=== PATIENT | male | born 1965 | race Caucasian/White ===

== ENCOUNTER 2024-08-15 13:55 | Outpatient (OUT) | payer BC, SELFPAY ==
--- NOTE | 2024-08-13 15:28 | VEINCLINIC_ITS ---
Vital Signs 08/15/24 14:12 Height 5 ft 10 in Weight 127.006 kg BMI 40.2 BP 170/78 H BP Location Left Brachial BP Position Sitting BP Cuff Size Adult BP Source Manual Cuff Respiration 20 Pulse 95 H Pulse Source Monitor Pulse Oximetry (%) 99 Oxygen Delivery Method Room Air Comment The patient's blood pressure is elevated. Varicose Veins Patient is a 59 year old male in this day referred by Dr. Spears secondary to slow healing wound to left lateral lower leg greater than 1 month along with cellulitis left leg. Patient also c/o bilateral leg edema and discoloration. Patient has worn bilateral leg knee high compression stockings for approximately 3 months with some notable decrease in edema. Patient has not ever been previosuly diagnosed with varicose vein disease nor has he had any vein procedures in the past. Patient does have significant family history of varicose vein disease in his sister and mother. Patient has no history of DVT of P.E. Rodri Huntley MD personally performed the services described in this documentation, as scribed by Guillermo Foster RN in my presence and it is both accurate and complete. IGuillermo RN, am scribing for, and in the presence of, Dr. Rodri Yadav and in the presence of the patient. . thigh: bilateral (symptoms bilaterally noted), knee: bilateral, calf: bilateral, ankle: bilateral and costello: bilateral aching, burning, cramping and tender 3 1 month Worsened in recent months: Yes standing and sitting analgesics, elevating extremities and compression stockings Reports muscle spasms of leg, heaviness, edema and leg edema History of lower extremity trauma: Yes Superficial thrombophlebitis: No Family history of varicose veins: yes Has patient had previous lower extremity venous surgery: No Patient has previously received the following treatment(s) for lower extremity varicose veins: Reports none Does patient have a history of : not applicable Has patient had lower extremity venous scan with relux testing: No Support hose used: Yes Problems walking or doing physical activity: Yes How does it affect you: intermitten pain affects walking/exercise Do you walk much: Yes Do you stand much: Yes Review of Systems ROS Narrative Rodri Huntley MD personally performed the services described in this documentation, as scribed by Guillermo Foster RN in my presence and it is both accurate and complete. Guillermo Huntley RN, am scribing for, and in the presence of, Dr. Rodri Yadav and in the presence of the patient. Status of ROS 10 or more systems reviewed and unremark able except as noted in history and below Cardiovascular Reports: edema Integumentary/Breast Reports: itching, redness, skin tenderness, skin swelling, non-healing lesion and changes in skin color Neurological Reports: weakness in extremities PFSH PFS Medical History (Updated 08/15/24 @ 14:57 by Guillermo Foster) Cellulitis ?L03.90 - Cellulitis, unspecified (ICD-10) Hypercholesteremia ?E78.00 - Pure hypercholesterolemia, unspecified (ICD-10) Afib ?I48.91 - Unspecified atrial fibrillation (ICD-10) Varicose veins of both lower extremities with complications ?I83.893 - Varicose veins of bilateral lower extremities with other complications (ICD-10) Hypertension ?I10 - Essential (primary) hypertension (ICD-10) Heart disease ?I51.9 - Heart disease, unspecified (ICD-10) Surgical History (Updated 08/15/24 @ 14:26 by Guillermo Foster) H/O heart artery stent ?Z95.5 - Presence of coronary angioplasty implant and graft (ICD-10) Family History (Updated 08/15/24 @ 14:27 by Guillermo Foster) Other Family history of hypertension Family history of myocardial infarction Family history of stroke Varicose veins of bilateral lower extremities with pain Social History (Updated 08/15/24 @ 14:28 by Guillermo Foster) Within the past year, how often did you have a drink containing alcohol: 4 or more times a week Smoking status: Never smoker Non-prescribed substance use: denies use Meds Home Medications and Allergies Home Medications ?Medication ?Instructions ?Recorded ?Confirmed ?Type atorvastatin 40 mg tablet 40 mg PO DAILY 08/15/24 08/15/24 History clopidogrel 75 mg tablet (Plavix) 75 mg PO DAILY 08/15/24 08/15/24 History losartan 100 mg tablet (Cozaar) 100 mg PO DAILY 08/15/24 08/15/24 History metoprolol succinate 50 mg 50 mg PO DAILY 08/15/24 08/15/24 History tablet,extended release 24 hr (Toprol XL) metoprolol tartrate 25 mg tablet 25 mg PO BID 08/15/24 08/15/24 History rivaroxaban 20 mg tablet (Xarelto) 20 mg PO DAILY 08/15/24 08/15/24 History Allergies Allergy/AdvReac Type Severity Reaction Status Date / Time No Known Drug Allergies Allergy Verified 08/15/24 14:28 Exam Narrative Exam Narrative: Left lateral lower leg wound 1pxl9an reddened and not well approximated. Rodri Huntley MD personally performed the services described in this documentation, as scribed by Guillermo Foster RN in my presence and it is both accurate and complete. Guillermo Huntley RN, am scribing for, and in the presence of, Dr. Rodri Yadav and in the presence of the patient. Constitutional Documenting provider has reviewed patient's vital signs: yes Common normals: oriented x3 Nutritional appearance: overweight Cardio Peripheral pulses: posterior tibial pulses present and dorsalis pedis pulses present Extremity Common normals: normal capillary refill General: calf tenderness and edema Right lower extremity: lower leg Right lower leg: inspection and palpation Left lower extremity: lower leg Left lower leg: inspection and palpation Neuro Common normals: oriented x3 Results Additional Findings Additional findings: Bilateral leg reflux u/s reveals severe bilateral leg great saphenous, small saphenous, right anterior accessory saphenous, and bilateral leg perforating vein venous insufficiency with associated dilation along with bilateral leg branch saphenous truncal tributary varicosities. Rodri Huntley MD personally performed the services described in this documentation, as scribed by Guillermo Foster RN in my presence and it is both accurate and complete. Guillermo Huntley RN, am scribing for, and in the presence of, Dr. Rodri Yadav and in the presence of the patient. Assessment and Plan Assessment and Plan (1) Varicose veins of both lower extremities with complications: Plan Patient to continue to use bilateral leg knee high compression stockings, rest and elevation of bilateral legs/feet. Patient to return for EVLT of left SSV followed by left GSV followed by EVLT of perforating veins to left lower leg near wound followed by EVLT of right GSV, right SSV, and right AASV. Once EVLT's complete, move forward with microfoam chemical ablation bilateral leg branch saphenous varicosities. Rodri Huntley MD personally performed the services described in this docume ntation, as scribed by Guillermo Foster RN in my presence and it is both accurate and complete. Guillermo Huntley RN, am scribing for, and in the presence of, Dr. Rodri Yadav and in the presence of the patient.
--- NOTE | 2024-08-13 15:29 | W.VEIN ---
Discharge Plan Discharge Disposition: Home, Self-Care Outpatient Diagnostics: VC Endovenous Ablation 1VeinLT (Routine) Timeframe: 2 Months Facility: [facility] - Location: Vein Center Ordered By: Rodri Yadav Plan of Treatment: EVLT of left SSV Patient Instructions: Endovenous Ablation (DC) Print Language: Swedish Discharge Date/Time: 08/15/24 15:59
--- NOTE | 2024-08-15 14:04 | VEIN_ITS ---
Patient Name: SAVANNAH HOBBS MR#: [id number] : 1965 Exam Date: 08/15/2024 Ordering Doctor: DR RODRI YADAV M.D. RADIOLOGY REPORT PROCEDURE: VC EXT VENOUS REFLUX NEGAR LMTD COMPARISON: None. INDICATIONS: I83.813 Bilateral painful varicose veins TECHNIQUE: Duplex imaging of the lower extremity to assess the deep and superficial venous system for the presence of deep or superficial venous incompetence and to document the location and severity of disease. The study includes evaluation of the great saphenous vein (GSV), anterior accessory saphenous vein (AASV) and small saphenous vein (SSV). Patient scanned in reverse Trendelenburg and standing. FINDINGS: RIGHT LOWER EXTREMITY: Saphenofemoral Junction Reflux: Yes 8.6mm 4.4 sec GSV: Diam (mm) Reflux/ Time (sec) Proximal Thigh 6.4 Yes 1.2 Mid Thigh 4.6 Yes 1.1 Distal Thigh 4.2 Yes 0.4 Prox Calf 3.3 Yes 1.8 Mid Calf 4.9 Yes 4.3 Saphenopopliteal Junction Reflux: 4.4mm No SSV: Proximal Calf 2.9 Yes 0.3 Mid Calf 2.6 Yes 4.4 AASV: Proximal Thigh 5.6 Yes 0.5 Mid Thigh 3.6 Yes 1.5 Distal Thigh Thrombi: No acute or chronic thrombus. Compressibility: Normal. Flow: Severe deep venous reflux. Preforator: Mid medial lower leg 6.7 mm with 4.3s reflux. Proximal medial lower leg 5.0 mm with 2.9s reflux. Mid lateral lower leg 2.7 mm, 3.6s reflux. Tech Note: Incompetent varicose vein distal medial lower leg measures 4.0 mm with 1.0s reflux. Varicose vein mid medial/posterior calf measures 4.0 mm with 1.0s reflux. LEFT LOWER EXTREMITY: Saphenofemoral Junction Reflux: Yes 10.3 mm 2.6 sec GSV: Diam (mm) Reflux/Time (sec) Proximal Thigh 11.1 Yes 4.5 Mid Thigh 6.5 Yes 4.3 Distal Thigh 5.9 Yes 3.7 Prox Calf 5.9 Yes 3.1 Mid Calf 3.9 Yes 1.1 Saphenopopliteal Junction Relux: 6.0 mm Yes 0.6 SSV: Proximal Calf 6.4 Yes 4.1 Mid Calf 4.4 Yes 1.6 AASV: Not present Thrombi: No acute or chronic thrombus. Compressibility: Normal. Flow: Severe deep venous reflux. [employer]: Mid medial lower leg 5.8 mm, 4.7s reflux. Distal/lateral calf near wound 3.6 mm with 2.4s reflux. Prox/medial calf 4.3 mm with 3.4s reflux. Tech Note: Hypoechoic nodule noted proximal/medial/anterior lower leg measures 2.2 x 1.2 x 0.6 cm. Incompetent varicose vein distal medial/anterior lower leg measures 4.6mm with 1.5s reflux. Varicose vein prox medial lower leg measures 6.7 mm with 2.2s reflux. Varicose vein prox medial lower leg measures 5.1 mm with 2.2s reflux. CONCLUSION: 1. Severe bilateral great saphenous vein venous insufficiency with dilatation and saphenofemoral junction reflux 2. Severe left small saphenous vein venous insufficiency with dilatation saphenous popliteal junction reflux 3. Severe right small saphenous vein venous insufficiency without dilatation 4. Moderate right anterior accessory saphenous vein venous insufficiency with borderline dilatation 5. Bilateral incompetent perforating veins 6. Extensive bilateral incompetent varicose veins 7. Severe bilateral deep vein reflux Dictated by: Rodri Yadav MD on 08/15/2024 at 15:17 Approved by: Rodri Yadav MD on 08/15/2024 at 15:22
--- NOTE | 2024-08-15 14:04 | VEIN_ITS ---
Patient Name: SAVANNAH HOBBS MR#: [id number] : 1965 Exam Date: 08/15/2024 Ordering Doctor: DR RODRI YADAV M.D. RADIOLOGY REPORT PROCEDURE: [facility] [place] - OFFICE VISIT INITIAL COMPARISON: None. PROGRESS NOTES: 59-year-old male who is referred by Dr. Nichols from the wound center secondary to slow healing left lateral leg wound present for approximately 2 months. The patient complains of bilateral lower extremity pain swelling skin thickening and discoloration for many years. The patient has never been diagnosed or had any procedures. The patient's symptoms are exacerbated by prolonged sitting and standing and are partially relieved by rest, leg elevation and compression stockings. The patient denies any signs and symptoms to suggest arterial ischemia. The patient describes a family history of hypertension, myocardial infarction, stroke and lower extremity pain. The patient drinks alcohol 4 or more times per week and was counseled on alcohol use. The patient has never smoked. No substance course prescription views. Past medical history significant for hypercholesterolemia, persistent a fibrillation for which he is on Xarelto. Varicose veins, hypertension, heart disease and cardiac catheterization with stent placement. No history of deep venous thrombus or pulmonary embolus. See separate history and physical for medication list. No prior treatment for varicose or spider veins. Nursing notes were reviewed. After history and physical exam I discussed at length the pathophysiology of venous hypertension and possible treatments, therapies and strategies available. We discussed at length the importance of elevating the lower extremities above the level of the heart, increased physical activity and compression stocking use. Conservative treatment with compression stockings. Surgical interventions including ligation stripping and phlebectomy were discussed. Intravenous laser ablation, micro foam convolution and injection sclerotherapy were discussed. Risks benefits and alternatives were discussed with the patient's questions were answered. Ultrasound venous reflux study performed the same day was discussed at length with the patient. The report demonstrates severe bilateral great saphenous, severe left small saphenous, severe right small saphenous, moderate right anterior accessory saphenous vein venous insufficiency. Bilateral incompetent perforating veins. Extensive bilateral incompetent varicose veins. Severe bilateral deep vein reflux. The patient was counseled on deep vein reflux with the only treatment being long-term use of compression stockings. PHYSICAL EXAM: The right leg demonstrates extensive varicose reticular and spider veins. There is moderate to marked subcutaneous edema below the knee. Moderate hemosiderin staining. No active ulceration. The left leg demonstrates extensive varicose, reticular and spider veins. Moderate to marked subcutaneous edema below the knee. Moderate hemosiderin staining. Two focal ulcerations along the left lateral lower leg likely venous stasis ulcerations. Ultrasound demonstrated subjacent incompetent perforating veins. Both thighs, legs and feet were symmetrically warm to the touch. Good posterior tibial and dorsalis pedis pulses were present bilaterally. VEIN/VC Facility NEW Comprehensive IMPRESSION: 1. Severe bilateral great saphenous, small saphenous and moderate right anterior accessory saphenous vein venous insufficiency with varying degrees of dilatation and reflux. Bilateral incompetent perforating veins with associated left leg venous stasis ulcerations 2. Extensive bilateral incompetent lower extremity varicose veins 3. Moderate to severe bilateral lower extremity subcutaneous edema 4. No definite flow significant arterial disease 5. CEAP: C6, Ep, Asp, Pr PLAN: 1. Endovenous laser ablation, left small saphenous vein followed by right great saphenous vein followed by left perforating veins followed by left great saphenous vein 2. Micro foam chemical ablation bilateral incompetent varicose veins 3. Injection sclerotherapy of reticular and spider veins 4. Long-term use of 20-30 mm knee or thigh high compression stockings for severe bilateral deep vein reflux 5. Weight loss, leg elevation and increased physical activity for symptomatic relief Nurse notes, history and physical were reviewed and confirmed, see attached forms. The nurse was present throughout the physical exam and consultation Dictated by: Rodri Yadav MD on 08/16/2024 at 07:59 Approved by: Rodri Yadav MD on 08/16/2024 at 08:06
[2024-08-15 14:12] VITALS: BP 170/78; PULSE 95; O2SAT 99; BMI 40.2
== END 2024-08-15 15:59 | disposition home or self-care (01) ==
PROVIDERS: PCP Podiatrist Foot & Ankle Surgery; Visit Provider Radiology Diagnostic Radiology
DX: I83.813 Varicose veins of bilateral lower extremities with pain (principal)
CPT/HCPCS: 93970; G0463

== ENCOUNTER 2024-09-11 08:52 | Outpatient (OUT) | payer BC, SELFPAY ==
--- NOTE | 2024-09-11 07:20 | V.VEINS.HP ---
Vital Signs 09/11/24 09:01 BP 156/76 H BP Location Left Brachial BP Position Sitting BP Cuff Size Large Adult BP Source Automatic Cuff Respiration 18 Pulse 74 Pulse Source Monitor Pulse Oximetry (%) 96 Oxygen Delivery Method Room Air Comment The patient's blood pressure is elevated. Varicose Veins Patient in this day for EVLT of left SSV Rodri Huntley MD personally performed the services described in this documentation, as scribed by Guillermo Foster RN in my presence and it is both accurate and complete. IGuillermo RN, am scribing for, and in the presence of, Dr. Rodri Yadav and in the presence of the patient. . thigh: bilateral (symptoms bilaterally noted), knee: bilateral, calf: bilateral, ankle: bilateral and costello: bilateral aching, burning, cramping and tender 3 1 month Worsened in recent months: Yes standing and sitting analgesics, elevating extremities and compression stockings Reports muscle spasms of leg, heaviness, edema and leg edema History of lower extremity trauma: Yes Superficial thrombophlebitis: No Family history of varicose veins: yes Has patient had previous lower extremity venous surgery: No Patient has previously received the following treatment(s) for lower extremity varicose veins: Reports none Does patient have a history of : not applicable Has patient had lower extremity venous scan with relux testing: No Support hose used: Yes Problems walking or doing physical activity: Yes How does it affect you: intermitten pain affects walking/exercise Do you walk much: Yes Do you stand much: Yes Review of Systems ROS Narrative Rodri Huntley MD personally performed the services described in this documentation, as scribed by Guillermo Foster RN in my presence and it is both accurate and complete. Guillermo Huntley RN, am scribing for, and in the presence of, Dr. Rodri Yadav and in the presence of the patient. Status of ROS 10 or more systems reviewed and unremarkable except as noted in history and below Cardiovascular Reports: edema Integumentary/Breast Reports: itching, redness, skin tenderness, skin swelling, non-healing lesion and changes in skin color Neurological Reports: weakness in extremities [facility] Medical History (Updated 09/11/24 @ 09:13 by Guillermo Foster) Superficial thrombophlebitis of left leg ?I80.02 - Phlebitis and thrombophlebitis of superficial vessels of left lower extremity (ICD-10) Cellulitis ?L03.90 - Cellulitis, unspecified (ICD-10) Hypercholesteremia ?E78.00 - Pure hypercholesterolemia, unspecified (ICD-10) Afib ?I48.91 - Unspecified atrial fibrillation (ICD-10) Varicose veins of both lower extremities with complications ?I83.893 - Varicose veins of bilateral lower extremities with other complications (ICD-10) Hypertension ?I10 - Essential (primary) hypertension (ICD-10) Heart disease ?I51.9 - Heart disease, unspecified (ICD-10) Surgical History (Updated 09/11/24 @ 09:10 by Guillermo Foster) Status post laser ablation of incompetent vein ?Z98.890 - Other specified postprocedural states (ICD-10) H/O heart artery stent ?Z95.5 - Presence of coronary angioplasty implant and graft (ICD-10) Family History (Updated 08/15/24 @ 14:27 by Guillermo Foster) Other Family history of hypertension Family history of myocardial infarction Family history of stroke Varicose veins of bilateral lower extremities with pain Social History (Updated 08/15/24 @ 14:28 by Guillermo Foster) Within the past year, how often did you have a drink containing alcohol: 4 or more times a week Smoking status: Never smoker Non-prescribed substance use: denies use Meds Home Medications and Allergies Home Medications ?Medication ?Instructions ?Recorded ?Confirmed ?Type atorvastatin 40 mg tablet 40 mg PO DAILY 08/15/24 08/15/24 History clopidogrel 75 mg tablet (Plavix) 75 mg PO DAILY 08/15/24 08/15/24 History losartan 100 mg tablet (Cozaar) 100 mg PO DAILY 08/15/24 08/15/24 History metoprolol succinate 50 mg 50 mg PO DAILY 08/15/24 08/15/24 History tablet,extended release 24 hr (Toprol XL) metoprolol tartrate 25 mg tablet 25 mg PO BID 08/15/24 08/15/24 History rivaroxaban 20 mg tablet (Xarelto) 20 mg PO DAILY 08/15/24 08/15/24 History Allergies Allergy/AdvReac Type Severity Reaction Status Date / Time No Known Drug Allergies Allergy Verified 08/15/24 14:28 Exam Narrative Exam Narrative: Left lateral lower leg wound [id number] reddened and not well approximated. Rodri Huntley MD personally performed the services described in this documentation, as scribed by Guillermo Foster RN in my presence and it is both accurate and complete. IGuillermo RN, am scribing for, and in the presence of, Dr. Rodri Yadav and in the presence of the patient. Constitutional Documenting provider has reviewed patient's vital signs: yes Common normals: oriented x3 Nutritional appearance: overweight Cardio Peripheral pulses: posterior tibial pulses present and dorsalis pedis pulses present Extremity Common normals: normal capillary refill General: calf tenderness and edema Right lower extremity: lower leg Right lower leg: inspection and palpation Left lower extremity: lower leg Left lower leg: inspection and palpation Neuro Common normals: oriented x3 Assessment and Plan Assessment and Plan (1) Varicose veins of both lower extremities with complications: Plan f/u evaluation with physician along with left leg limited u/s Rodri Huntley MD personally performed the services described in this documentation, as scribed by Guillermo Foster RN in my presence and it is both accurate and complete. I, Guillermo Foster RN, am scribing for, and in the presence of, Dr. Rodri Yadav and in the presence of the patient. Procedures Procedure Instructions Procedures Plan of care: Risks and benefits of the procedure were discussed at length and informed written consent was obtained.? Time-out completed for verification of correct patient, procedure and site.? Staff present during time-out: Guillermo Foster RN,? Rodri Yadav MD, [facility],T. Time Out Time___932____ Patient prepped and procedure performed in usual sterile fashion. Risk of injury related to use of Diode laser and/or laser devices__CR___ ? Serial number of laser used :? [id number] Control panel self test performed, electrical cords in good condition, floor is dry, basin of water available, fire extinguisher in close proximity_CR__ Polycarbonate goggles available and Laser warning signs outside of doors___CR__ Eye protection provided to patient and staff in room_CR___ Use of laser retardant drapes and dull blackened instruments as directed__CR___ Use of nonflammable prep solutions and use of saline soaked sponges to protect tissues as indicated _CR___ Length ___14 cm Laser operated by _Dr. Yadav Physician verbal confirmation laser locked in place__CR__ Laser start time (date and time) _09/11/2024@_0942 Laser stop time(date and time) _09/11/2024@__0944 Meyer _8.0___ Average laser use ___1205____Joules Average laser use___151 seconds Pulse continuous ___CR_? Pulse intermittent ___ Amount of Tumescent used __75cc____ Evaluated patient for signs and symptoms of electrical injury __CR___ ? Skin clear at insertion site __CR___ Patient tolerated procedure well.? Left leg Coban dressing applied to access site.? Applied Left thigh high leg compression stocking. Will return on 09/17/2024 for Left leg limited venous ultrasound and exam. IRodri MD personally performed the services described in this documentation, as scribed by Guillermo Foster RN in my presence and it is both accurate and complete. I, Guillermo Foster RN, am scribing for, and in the presence of, Dr. Rodri Yadav and in the presence of the patient.
--- NOTE | 2024-09-11 07:22 | W.VEIN ---
Discharge Plan Discharge Disposition: Home, Self-Care Outpatient Diagnostics: VC Facility EST LMTD (Routine) Timeframe: 2 Weeks Facility: [facility] - Location: Vein Center Ordered By: Rodri Yadav VC EXT Venous LT Limited (Routine) Timeframe: 2 Weeks Facility: [facility] - Location: Vein Center Ordered By: Rodri Yadav Follow Up Appointments: 09/18/2024 Plan of Treatment: f/u evaluation with physician along with left leg limited u/s Patient Instructions: Endovenous Ablation (DC) Print Language: Hebrew Discharge Date/Time: 09/11/24 09:14
[2024-09-11] MEDS: LIDOCAINE HCL 1% 100 MG/10 ML MDV INJ (08:53)
[2024-09-11] MEDS: 0.9 % SODIUM CHLORIDE 500 ML, LIDOCAINE HCL 20 ML, SODIUM BICARBONATE 10 MEQ INJ (08:54)
--- NOTE | 2024-09-11 08:54 | VEIN_ITS ---
[address] [address] Patient Name: SAVANNAH HOBBS MRN: [id number] date: 1965 Sex: M Assigned Patient Location: Current Patient Location: Accession/Order Number: [id number] Exam Date: 09/11/2024 08:58 Report Date: 09/11/2024 10:07 At the request of: JANNETH CRUMP Procedure: VC Endovenous Ablation 1VeinLT EXAMINATION: VC Endovenous Ablation 1VeinLT HISTORY: I83.893 - Varicose veins of bilateral lower extremities w... COMPARISON: No relevant comparison available. TECHNIQUE: The risks and benefits of the procedure had been previously discussed, and were rediscussed at length. Informed written consent was obtained. Svetlana Baxter and Guillermo Foster assisted. Time out procedure was performed. The left lower extremity was prepared and draped in the usual sterile fashion to allow knee flexion in the sterile field. Duplex ultrasound probe was draped in a sterile cover, sterile transmission gel was used. Venous mapping was performed with the areas of dilation and large tributaries marked. The total length was 14 cm from the entry mid calf to 3 cm from the saphenopopliteal junction. The diameter of the wall saphenous vein ranged from 4-6.4 mm. A 30 gauge needle and 1% buffered lidocaine was used to anesthetize the entry site. A 4 mm incision was made with a scalpel and the saphenous vein was entered percutaneously under direct ultrasound guidance with a micropuncture set, a single stick was successful in gaining access. A micro-guide wire was inserted and the needle removed. A micro-set including a dilator was inserted over the microwire and the needle and dilator were removed. A 0.018 guide wire was inserted through the micro-set and threaded through the saphenous vein to the saphenofemoral junction. The dilator was removed and an introducer sheath was inserted over the wire until the end of the sheath entered the saphenofemoral junction. The dilator and wire were removed and the 600 micron fiber was introduced and placed and positioned so that it extended beyond the sheath and was 3 cm peripheral to the saphenofemoral femoral junction. Final position of the fiber was determined by ultrasound guidance and duplex imaging. Tumescent anesthetic was delivered by ultrasound guidance. 75 cc of fluid was delivered along the entire course of the saphenous vein. The solution consisted of 1000 cc of normal saline with 40 mL of 1% lidocaine and 20 mL of sodium bicarbonate. A final positioning check was made. The energy source was turned on by means of the foot pedal and the fiber and sheath were withdrawn. The total number of Joules delivered was 1205. The laser was active for 151seconds under continuous pulse, average laser use of 8 J. Laser start time 942 AM . Laser stop time 944AM . A duplex ultrasound revealed compressibility and flow at the saphenofemoral junction immediately after the procedure. Hemostasis at the access site was achieved. The skin incision of the saphenous vein was closed with a 4 x 4. A compression stocking was applied. Postop instructions were given. A follow up appointment was recommended and scheduled. The patient tolerated the procedure well and was discharged in good condition . VEIN/VC Endovenous Ablation 1VeinLT IMPRESSION: Technically successful endovenous laser ablation of the left small saphenous vein Electronically authenticated by: JANNETH CRUMP Date: 09/11/2024 10:07
[2024-09-11 09:01] VITALS: BP 156/76; PULSE 74; O2SAT 96
--- OUTSIDE RECORDS SUMMARY | 2024-09-11 09:03 | XMS_ITS | CCD ---
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 10:34:18 08/29/2024 11:06:23 08/29/2024 11:14:26 Meds Admin Complete 08/29/2024 10:34:18 08/29/2024 10:38:24 Workers Comp Request 08/29/2024 10:35:22 Dr Exam Complete 08/29/2024 10:36:20 08/29/2024 10:36:20 08/29/2024 10:36:20 Trauma III Request 08/29/2024 10:45:42 Reg Complete Request 08/29/2024 11:00:30 Reg Bed Request Complete 08/29/2024 11:00:31 08/29/2024 11:00:31 08/29/2024 11:00:31 Meds Admin Cancel 08/29/2024 11:34:32 08/29/2024 12:13:48 Discharge Complete 08/29/2024 11:34:53 08/29/2024 12:21:53 08/29/2024 12:21:53 Meds Admin Complete 08/29/2024 12:13:48 08/29/2024 12:15:39 Transfer Complete 08/29/2024 12:21:53 08/29/2024 12:21:53 08/29/2024 12:21:53 ADDRESS: [address] [place] [address] [phone] PHYS DOC NOTES: MEDICAL INFORMATION: Prescriptions Given: Medications to Continue with No Changes Other Medications aspirin (aspirin 81 mg Oral EC Tab) 1 Tablets By Mouth every day. Refills: 4. atorvastatin (atorvastatin 40 mg Tab) 1 Tablets By Mouth every day. Refills: 3. losartan (losartan 50 mg Tab) 1 Tablets By Mouth every day. Refills: 5. metoprolol (metoprolol succinate 50 mg ER Tab) 1 Tablets By Mouth 2 times a day. Refills: 5. multivitamin with minerals (Centrum Silver oral tablet) 1 Tablets By Mouth every day. predniSONE (predniSONE 10 mg Tab) 1 Dose Separtor By Mouth As Directed. Take 3 tabs by mouth daily x5 days, then 2 tabs daily x5 days, then 1 tab daily x5 days.. Refills: 0. rivaroxaban (Xarelto 20 mg oral tablet) 90 EA, 0 Refill(s), TAKE 1 TABLET BY MOUTH EVERY DAY IN THE MORNING ..DO NOT STOP UNLESS CLEARED BY SLAB TRIPPER. rivaroxaban (Xarelto 20 mg oral tablet) 1 Tablets By Mouth once a day (in the evening). 90 EA, 0 Refill(s), TAKE 1 TABLET BY MOUTH EVERY DAY IN THE MORNING ..DO NOT STOP UNLESS CLEARED BY SLAB TRIPPER. Refills: 1. PATIENT EDUCATION INFORMATION: Instructions: Sutures, Brandon, or Adhesive Wound Closure; Laceration Care, Adult Follow up: With: Address: When: Occupational Health: [facility] [phone] In 3 days 09/01/2024 Comments: Call Dr for diagnosis based follow up With: Address: When: Blaise HARDIN [address] [place] [address], [place] [address] [facility] () In 3 days 09/01/2024 Comments: Brandon to removed in 10 days. You may shower with this. Do not submerge your head underwater. DIAGNOSIS: Closed head injury without loss of consciousness; Scalp laceration Normal [facility] ED Note-Physicianon 08-29-20 ED Note-Physician ED Note-Physician Basic Information Time Seen: Hanesl MELVIN, Anders Ohara 08/29/2024 10:29 Chief Complaint pt presents after a work related injury of a flat hammer attempting to drive pole into ground and struck patient in head. bleeding noted and pt on xaretto History of Present Illness 59-year-old male reports emergency department with complaints of a scalp injury. Reports that he was trying to use a flat hammer and trying to drive a pole into the ground, when the pole struck his head. He states that he is on Xarelto. He reports no loss of consciousness. Reports no nausea or vomiting. Really not much pain. He states that he is up-to-date on his tetanus vaccine. Denies any allergies to any medications. Review of Systems No other aggravating or relieving factors no other associated symptoms no other prior treatments or complaints. Family: Reviewed and noncontributory Social: lives at home Review of systems negative unless otherwise specified in the HPI. Physical Exam Vitals & Measurements T: 36.4 ???C(Oral) HR: 87(Monitored) RR: 18 BP: 192/141 SpO2: 95% HT: 178 cm WT: 130 kg BMI: 41.03 General: The patient appears well and in no apparent distress. Patient is resting comfortably on bed. Afebrile Skin: Warm, dry, no pallor noted. There is an approximately 7 cm abrasion located in the midline scalp. Mild bleeding noted. No arterial bleed. Head: Normocephalic, atraumatic Neck: No JVD Eye: PERRLA, EOMI ENT: Moist mucus membranes Cardiovascular: Regular rate. normal peripheral perfusion Respiratory: No respiratory distress. no accessory muscle use. no obvious audible wheezing Chest Wall: no deformity Musculoskeletal: normal ROM, no deformity, no swelling GI: No obvious distention Neurological: A&Ox4. moves all extremities equal strength and symmetry Psychiatric: Cooperative and appropriate Procedure Date/Time: 08/29/24 Correct patient: Confirmed Correct procedure: Confirmed Correct side: Confirmed Correct site: Confirmed Consent by: Patient Consent type: Emergent Pre-op diagnosis: Scalp abrasion Post-op diagnosis: Scalp laceration Description (rpt) Length: 7 cm Location: Scalp Shape: linear Depth: superficial Details: clean NV/tendon exam: intact Anesthesia: 5 ml 1% lido with epi Preparation: sterile field Irrigation: copious Debridement: none FB removal: complete Skin closure: Nylon sutures, # 1 sutures, #5 neli Hemostasis: intact Complexity: single layer Post procedure exam: Circulation, motor, and sensory intact Patient tolerated: well Complications: None Performed by (rpt): Self Total time: 30 min Notes: Sutures to be removed in 10 days. Keep the area dry for 2 days, then may use soap and water to clean around the area. Discussed signs of infection, and when to report to the emergency department. Medical Decision Making MEDICAL DECISION MAKING Number and Complexity of Problems Differential Diagnosis: [] [facility] Data External documents reviewed: [] My EKG interpretation: [] My CT interpretation: reviewed My X-ray interpretation: [] My Ultrasound interpretation: [] Decision rules/scores evaluated: [] Discussed with: [] Treatment and Disposition ED Course: 59-year-old male reports to the emergency department with complaint of a scalp injury. Reports he had a piece of a post Back, abdomen and head. Denies any loss consciousness. He reports that it was more of a blunt object that hit him, but no loss conscious. Reports he is on blood thinners. Due to concerns, we did do a head CT. He had no focal neurological deficits. Head CT was negative. He is up-to-date on tetanus vaccine. I did perform a stable repair on the patient's head, initially did 4 neli. Bleeding was well-controlled. The patient was discharged, but then did have to come back because of bleeding through the wound. We did apply a pressure dressing over this area. But the patient once again did have to come back, where I finally was able to place another stitch, as well as a suture into the suspected area that was actively bleeding. Patient tolerated well. Discussed return precautions. Discussed follow-up with occupational health. Follow-up with your primary care provider in 3 to 5 days. If symptoms worsen, do not improve, or new symptoms arise please report back to emergency department for further evaluation. The patient was understanding and agreeable to plan moving forward. Shared decision making: [] Code status: [] Assessment/Plan Closed head injury without loss of consciousness (S09.90XA: Unspecified injury of head, initial encounter) Scalp laceration (S01.01XA: Laceration without foreign body of scalp, initial encounter) Orders: acetaminophen, 325 mg = 1 tab(s), Tab, Oral, Once, Stop date 08/29/24 12:13:00 EST, STAT, Start date 08/29/24 12:13:00 EST, 08/29/24 12:13:00 EST acetaminophen-oxycodone, 1 tab(s), Tab, Oral, Once, Stop date 08/29/24 10:34:00 EST (more content not included)... Normal [facility] Comment on above: Result Comment: Elec tronically Signed By: Anders Hamm PA-C\.br\Date and Time Signed: 08/29/24 19:11 EST\.br\Electronically Co-Signed By: Carol Love M.D.\.br\Date and Time Co-Signed: 08/29/24 19:45 EST ED Patient Summaryon 024 ED Patient Summary ED Patient Summary [address] [address] Patient Discharge Instructions Person Information Name: SAVANNAH HOBBS Age: 59 Years Arrival Date: 08/29/2024 10:21:33 Discharge Diagnosis: Closed head injury without loss of consciousness; Scalp laceration Primary Care Physician: Blaise HARDIN DO, FAAFP Provider Information Primary Provider: Carol Love M.D. Advanced Clothing Pattern Preparer:None The exam and treatment you received in the Emergency Department were for an urgent problem and are not intended as complete care. It is important that you follow up with a doctor, nurse practitioner, or physician???s gallery assistant for ongoing care. If your symptoms become worse or you do not improve as expected and you are unable to reach your usual health care provider, you should return to the Emergency Department. We are available 24 hours a day. SAVANNAH HOBBS has been given the following list of patient education materials, prescriptions and follow-up instructions: Follow-up Instructions: With: Address: When: Occupational Health: [facility] [phone] In 3 days 09/01/2024 Comments: Call Dr for diagnosis based follow up With: Address: When: Blaise HARDIN [address] [place], [place] [id number] Business (1) In 3 days 09/01/2024 Comments: Neli to removed in 10 days. You may shower with this. Do not submerge your head underwater. In the event that this physician does not participate in your insurance network, please consult with your insurance company to find a nearby participating provider. Patient Education Materials: Sutures, Brandon, or Adhesive Wound Closure; Laceration Care, Adult A MESSAGE TO ALL PATIENTS REGARDING OPIOIDS PRESCRIPTION OPIOIDS: WHAT YOU NEED TO KNOW Prescription opioids can be used to help relieve [id number]-mv-[id number] pain and are often prescribed following a surgery or injury, or for certain health conditions. These medications can be an important part of the treatment but also come with serious risks. It is important to work with your healthcare provider to make sure you are getting the safest, most effective care. WHAT ARE THE RISKS AND SIDE EFFECTS OF OPIOID USE? Prescription opioids carry serious risks of addiction and overdose, especially with prolonged use. An opioid overdose, often marked by slowed breathing, can cause sudden . The use of prescription opioids can have a number of side effects as well, even when taken as directed: ??? Tolerance???meaning you might need to take more of the medication for the same pain relief ??? Physical dependence???meaning you have symptoms of withdrawal when a medication is stopped ??? Increased sensitivity to pain ??? Constipation ??? Nausea, vomiting, and dry mouth ??? Sleepiness and dizziness ??? Confusion ??? Depression ??? Low levels of testosterone that can result in lower sex drive, energy, and strength ??? Itching and sweating RISKS ARE GREATER WITH: ??? History of drug misuse, substance use disorder, or overdose ??? Mental health conditions (such as depression or anxiety) ??? Sleep apnea ??? Older age (65 years and older) ??? Avoid alcohol while taking prescription opioids. Also, unless specifically advised by your health care provider, medications to avoid include: ??? Benzodiazepines (such as Xanax or Valium) ??? Muscle relaxants (such as Soma or Flexeril) ??? Hypnotics (such as Ambien or Lunesta) ??? Other prescription opioids KNOW YOUR OPTIONS Talk to your health care provider about ways to manage your pain that don???t involve prescription opioids. Some of these options may actually work better and have fewer risks and side effects. Options may include: ??? Pain relievers such as acetaminophen, ibuprofen, and naproxen ??? Some medication that are also used for depression or seizures ??? Physical therapy and exercise ??? Cognitive behavioral therapy, a psychological, goal-directed approach, in which patients learn how to modify physical, behavioral, and emotional triggers of pain and stress. IF YOU ARE PRESCRIBED OPIOIDS FOR PAIN: ??? Never take opioids in greater amounts or more often than prescribed. ??? Follow up with your primary health care provider. o Work together to create a plan on how to manage your pain. o Talk about ways to help manage your pain that don???t involve prescription opioids. o Talk about any and all concerns and side effects. ??? Help prevent misuse and abuse o Never sell or share prescription opioids. o Never use another person???s prescription opioids. ??? Store prescription opioids in a secure place and out of reach of others (this may include visitors, children, friends, and family). ??? Safely dispose of unused prescription opioids: Find your community drug take-back program or your pharmacy (more content not included)... Normal [facility] Ambulatory Visit Summaryon 1 10-21-2023 Ambulatory Visit Summary Ambulatory Visit Summary SAVANNAH HOBBS :1965 Visit Date:08/20/2024 Ambulatory Visit Instructions Your Diagnosis Anticoagulated Frequent epistaxis Wrist pain Hx of gout Hypertension Your Care Team Attending Physician - Katalina Fournier Primary Care Physician - Blaise HARDIN DO, FAAFP This Is Your Medications List aspirin (aspirin 81 mg Oral EC Tab) atorvastatin (atorvastatin 40 mg Tab) losartan (losartan 50 mg Tab) metoprolol (metoprolol succinate 50 mg ER Tab) multivitamin with minerals (Centrum Silver oral tablet) predniSONE (predniSONE 10 mg Tab) rivaroxaban (Xarelto 20 mg oral tablet) rivaroxaban (Xarelto 20 mg oral tablet) Procedures Performed PCI - Percutaneous coronary intervention (02/22/2022). Discharge Vitals Temperature (Oral) 36.3 ???C Heart Rate (Peripheral) 73 Blood Pressure 134/86 Height 178 cm Height 70 in Weight 130 kg Weight 286.601 lb BMI 41.03 What to do next Scheduled Follow-Up Appointments 2024 2:30 PM EST With: Farhat MELVIN, Derrick Smart Where: [facility] Medications What How Much When Why Instructions New predniSONE (predniSONE 10 mg Tab) 1 Dose Separtor By Mouth As Directed Wrist pain Hx of gout Take 3 tabs by mouth daily x5 days, then 2 tabs daily x5 days, then 1 tab daily x5 days. Pickup at [facility]/pharmacy #[id number] Unchanged aspirin (aspirin 81 mg Oral EC Tab) 1 Tablets By Mouth Every day Unchanged atorvastatin (atorvastatin 40 mg Tab) 1 Tablets By Mouth Every day Unchanged losartan (losartan 50 mg Tab) 1 Tablets By Mouth Every day Unchanged metoprolol (metoprolol succinate 50 mg ER Tab) 1 Tablets By Mouth 2 times a day Unchanged multivitamin with minerals (Centrum Silver oral tablet) 1 Tablets By Mouth Every day Unchanged rivaroxaban (Xarelto 20 mg oral tablet) 90 EA, 0 Refill(s), TAKE 1 TABLET BY MOUTH EVERY DAY IN THE MORNING ..DO NOT STOP UNLESS CLEARED BY SLAB TRIPPER Unchanged rivaroxaban (Xarelto 20 mg oral tablet) 1 Tablets By Mouth Once a day (in the evening) Atrial fibrillation 90 EA, 0 Refill(s), TAKE 1 TABLET BY MOUTH EVERY DAY IN THE MORNING ..DO NOT STOP UNLESS CLEARED BY SLAB TRIPPER Pharmacy Information [facility]/pharmacy #[id number]: [address] [place], [place] [id number] [phone] Allergies No Known Medication Allergies Problems Ongoing - Any problem that you are currently receiving treatment for. Anticoagulated CAD in pala artery Familial hypercholesterolemia Frequent epistaxis H/O heart artery stent History of obstructive sleep apnea Hx of gout Hypertension Other obesity due to excess calories PAF (paroxysmal atrial fibrillation) Screening PSA (prostate specific antigen) Umbilical hernia Uncontrolled atrial fibrillation Wrist pain Historical - Any problem that you are no longer receiving treatment for. AF (atrial fibrillation) Apnea, sleep BMI 30.0-30.9,adult BMI 32.0-32.9,adult BMI 38.0-38.9,adult BPH with elevated PSA Bursitis of right elbow Edema of both legs Fasting hyperglycemia Morbid obesity New onset type 2 diabetes mellitus Obesity BG (obstructive sleep apnea) Patellar bursitis PSA elevation Right knee pain Type 2 diabetes mellitus with hyperglycemia Venous insufficiency of leg Venous insufficiency, peripheral Venous stasis ulcer of left lower leg with edema of left lower leg Venous ulcer-leg syndrome, left Patient Survey You may receive a survey via text or e-mail asking about your office visit. Please share your experience with us by completing your survey. We appreciate your feedback and thank you for choosing us for your care. Alexandra Miller [facility] Family Medicine Office/Clini c Noteon 08-20-2024 Family Medicine Office/Clinic Note Family Medicine Office/Clinic Note Chief Complaint nose bleeds HPI Staff 59 year old male presents with nose bleeds had one , Tuesday, the most recent one was this morning in the last 2 weeks have had 5-6 has been using a humidifier the past 2 days that has helped a little Tuesday when pt woke up with right wrist pain- pt describes this as gout pain- pain has now traveled into elbow History of Present Illness -I have reviewed and discussed the HPI (staff) with the patient today. -Information was verified and is correct. -Additional information provided if needed. Epistaxis- Blood pressure is well-controlled today 134/86 Patient on 81 mg of aspirin every day, and Xarelto 20 mg daily -losartan 50 and metoprolol 50 - just recently plugged humidifier in a few days ago. patient will stick a cotton ball in for a while and then it stops on its own. no headaches no sinus pressure Wrist pain, history of gout- Tuesday - could not do anything with the right wrist / hand he wrapped it up started in wrist , now moving to the elbow. no injury, no fever no chills, no redness or warmth Review of Systems PHQ Score Initial Depression Screen Score: 0 SCORE Physical Exam Vitals & Measurements T: 36.3 ???C(Oral) HR: 73(Peripheral) BP: 134/86 SpO2: 98% HT: 70 in HT: 178 cm WT: 130 kg WT: 286.601 lb BMI: 41.03 General: alert, no acute distress, well appearing, _pleasant Skin: warm, dry, intact Head: no trauma, normocephalic Neck: Trachea midline, no adenopathy, no tenderness Eye: normal conjunctiva, sclera clear, _PERRLA ENMT: oral mucosa moist, no pharyngeal erythema or exudate, normal dentition. left nare with scabbing and erythema, no active bleeding. no blood vessle identified Cardiovascular: regular rate and rhythm, normal peripheral perfusion, no edema Respiratory: Lungs CTA, respirations non labored Chest wall: no deformity, non tender Extremities: no deformity, no trauma, normal range of motion, no tenderness to palpation, no erythema, no palpable she was right wrist primary no olecranon bursitis present at this time Neurological: oriented x 4, LOC appropriate for age, CN II-XII intact, motor strength equal & normal bilaterally, sensation equal & normal bilaterally, speech normal Psychiatric: cooperative? , affect appropriate for age? , normal? judgement, normal? psychiatric thoughts. Assessment/Plan 1. 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 Patient denies any black or bloody stools Patient with epistaxis that is recurrent but very easily controlled 2. Frequent epistaxis (R04.0: Epistaxis) Deferred use of silver nitrate today Encouraged patient to use Vaseline or Neosporin to the nose for the next 2 weeks twice a day. Encouraged hydration and humidification of the air in his home Identified triggers such as picking and blowing encouraged patient to follow-up with us or ENT if needed. Patient also encouraged to monitor blood pressure closely as this can lead to epistaxis as well 3. Wrist pain (M25.539: Pain in unspecified wrist) Will treat with prednisone today likely exacerbation of arthritis. No recent labs to indicate gout flare Immobilization and splinting techniques discussed with patient. Encouraged follow-up with PCP, no indication for x-ray at this time Ordered: predniSONE, = 1 -, Oral, As Directed, Take 3 tabs by mouth daily x5 days, then 2 tabs daily x5 days, then 1 tab daily x5 days., # 30 tab(s), Refills(s) 0, Pharmacy: [facility]/pharmacy #[id number], 178, cm, 08/20/24 10:23:00 EST, Height/Length Dosing, 130, kg, 08/20/24 10:23:... 4. Hx of gout (Z87.39: Personal history of other diseases of the musculoskeletal system and connective tissue) Detailed above Ordered: predniSONE, = 1 -, Oral, As Directed, Take 3 tabs by mouth daily x5 days, then 2 tabs daily x5 days, then 1 tab daily x5 days., # 30 tab(s), Refills(s) 0, Pharmacy: [facility]/pharmacy #[id number], 178, cm, 08/20/24 10:23:00 EST, Height/Length Dosing, 130, kg, 08/20/24 10:23:... 5. Hypertension (I10: Essential (primary) hypertension) Chronic and stable Well-controlled follow-up with PCP continue home medication regimen of losartan and metoprolol Total time spent preparing the chart, conducting of the encounter with the patient and family and time spent documenting, reviewing, and ordering tests was 20 minutes. Portions of this record may have been created with voice recognition artificial intelligence software, specifically [employer], [employer] and or [employer]. Substitutions may have occurred due to the inherent limitations of voice recognition and artificial intelligence software. Follow-up With When Contact Information DIANE LAWS FAAFP, Blaise Smart, FAM, PED [address] [facility], [facility] [place] [address]- Additional Instructions: Hortencia (more content not included)... Normal [facility] Comment on above: Result Comment: Elec tronically Signed By: Johny CHOW, Katalina Back\.br\Date and Time Signed: 08/20/24 11:31 EST [facility] C WOUNDon 07-02-2024 [facility] WOUND CULTURE Microbiology PROCEDURE: Wound Culture [R1] SOURCE: Cellulitis BODY SITE: Leg COLLECTED DATE/TIME: 06/29/2024 14:30 EDT RECEIVED DATE/TIME: 06/29/2024 16:50 EDT START DATE/TIME: 06/29/2024 16:50 EDT FREE TEXT SOURCE: left lower leg Dolsarah DPM, Chantal R Tory DPM, Chantal R FINAL REPORTS Final Report [] Verified Date/Time: 07/02/2024 12:28 EDT 2+ Enterococcus faecalis isolated. 2+ Staphylococcus species coagulase negative isolated. 1+ Yeast isolated. Contact Microbiology within one week at Ext. [phone] for additional testing if necessary. STAINS Gram Stain Report [] Verified Date/Time: 06/30/2024 12:57 EDT 1+ White Blood Cells 1+ epithelial cells 2+ Gram Positive Cocci SUSCEPTIBILITY RESULTS __ LEGEND: S=Susceptible, N/R=Not Reported, Blank=Data not available, or drug not advisable or tested, I=Intermediate, ESBL=Extended spectrum beta-lactamase, R=Resistant, TFG=Thymidine-dependent strain, KENDY=Beta-lactamase positive, JESSICA=mcg/m;(mg/L), S*=Predicted susceptible interp, R*=Predicted resistant interp Entfaeca Antibiotic JESSICA Dilutn JESSICA Interp Ampicillin <=2 S Daptomycin <=1 S Erythromycin 1 I Linezolid <=2 S Penicillin 2 S Rifampin <=1 S Vancomycin 2 S Performing Locations R1: This test was performed at: [facility], [address] [place] [address], [id number] , , [facility] Original [facility]ing Provider: [facility] FT[facility]23 Patient Letter [facility] Patient Letter [facility] May 29, 2024 SAVANNAH [address]BS [address] [place] [address] : 1965 Dear Savannah, We saw that you were seen by our [facility] and would like to offer you a follow up. Please give us a call at the number below. Thank you, [address], [place] [address] [facility] Patient Letter [facility] Patient Letter [facility] May 29, 2024 SAVANNAH [place] [address] [place] [address] : 1965 Dear Savannah, We saw that ypu were seen by our [facility] and would like to offer you a follow up. Please give us a call at the number below. Thank you, [facility] [address], [place] [address] [facility] Ambulatory Visit Summaryon 0 05-26-2024 Ambulatory Visit Summary Ambulatory Visit Summary SAVANNAH HOBBS :1965 Visit Date:05/26/2024 Ambulatory Visit Instructions Your Diagnosis BMI 40.0-44.9, adult Venous stasis ulcers Cellulitis, leg Encounter for immunization Your Care Team Attending Physician - Nick CHWO, Angela Primary Care Physician - Blaise HARDIN DO, FAAFP This Is Your Medications List aspirin (aspirin 81 mg Oral EC Tab) atorvastatin (atorvastatin 40 mg Tab) cephalexin (cephalexin 500 mg Cap) losartan (losartan 50 mg Tab) metoprolol (metoprolol succinate 50 mg ER Tab) multivitamin with minerals (Centrum Silver oral tablet) rivaroxaban (Xarelto 20 mg oral tablet) rivaroxaban (Xarelto 20 mg oral tablet) Procedures Performed PCI - Percutaneous coronary intervention (02/22/2022). Discharge Vitals Temperature (Tympanic) 37 ?C Heart Rate (Peripheral) 88 Blood Pressure 130/88 Height 178 cm Height 70 in Weight 127 kg Weight 279.4 lb BMI 40.08 What to do next Scheduled Follow-Up Appointments 2024 2:30 PM EST With: Derrick Dougherty PA-C Where: [facility] You Need to Complete the Following Wound Culture, Abscess, Leg L, Routine collect, 05/26/24, Order for future visit, Nurse collect, Cellulitis, leg, Print Label By Order Location Medications What How Much When Why Instructions New cephalexin (cephalexin 500 mg Cap) 1 Capsules By Mouth 4 times a day Cellulitis, leg Duration: 7 Days Pickup at [facility]/pharmacy #[id number] Unchanged aspirin (aspirin 81 mg Oral EC Tab) 1 Tablets By Mouth Every day Unchanged atorvastatin (atorvastatin 40 mg Tab) 1 Tablets By Mouth Every day Unchanged losartan (losartan 50 mg Tab) 1 Tablets By Mouth Every day Unchanged metoprolol (metoprolol succinate 50 mg ER Tab) 1 Tablets By Mouth 2 times a day Unchanged multivitamin with minerals (Centrum Silver oral tablet) 1 Tablets By Mouth Every day Unchanged rivaroxaban (Xarelto 20 mg oral tablet) 90 EA, 0 Refill(s), TAKE 1 TABLET BY MOUTH EVERY DAY IN THE MORNING ..DO NOT STOP UNLESS CLEARED BY SLAB TRIPPER Unchanged rivaroxaban (Xarelto 20 mg oral tablet) 1 Tablets By Mouth Once a day (in the evening) Atrial fibrillation 90 EA, 0 Refill(s), TAKE 1 TABLET BY MOUTH EVERY DAY IN THE MORNING ..DO NOT STOP UNLESS CLEARED BY SLAB TRIPPER Pharmacy Information [facility]/pharmacy #[id number]: [address], [place] [phone] Allergies No Known Medication Allergies Problems Ongoing - Any problem that you are currently receiving treatment for. Anticoagulated CAD in pala artery Familial hypercholesterolemia H/O heart artery stent History of obstructive sleep apnea Hypertension Other obesity due to excess calories PAF (paroxysmal atrial fibrillation) Screening PSA (prostate specific antigen) Umbilical hernia Uncontrolled atrial fibrillation Historical - Any problem that you are no longer receiving treatment for. AF (atrial fibrillation) Apnea, sleep BMI 30.0-30.9,adult BMI 32.0-32.9,adult BMI 38.0-38.9,adult BPH with elevated PSA Bursitis of right elbow Edema of both legs Fasting hyperglycemia Morbid obesity New onset type 2 diabetes mellitus Obesity BG (obstructive sleep apnea) Patellar bursitis PSA elevation Right knee pain Type 2 diabetes mellitus with hyperglycemia Venous insufficiency of leg Venous insufficiency, peripheral Venous stasis ulcer of left lower leg with edema of left lower leg Venous ulcer-leg syndrome, left Patient Survey You may receive a survey via text or e-mail asking about your office visit. Please share your experience with us by completing your survey. We appreciate your feedback and thank you for choosing us for your care. Education Materials Cellulitis, Adult Cellulitis is a skin infection. The infected area is often warm, red, swollen, and sore. It occurs most often on the legs, feet, and toes, but can happen on any part of the body. This condition can be life-threatening without treatment. It is very important to get treated right away. What are the causes? This condition is caused by bacteria. The bacteria enter through a break in the skin, such as: ? A cut. ? A burn. ? A bug bite. ? An animal bite. ? An open sore. ? A crack. What increases the risk? ? Having a weak body's defense system (immune system). ? Being older than 60 years old. ? Having a blood sugar problem (diabetes). ? Having a long-term liver disease (cirrhosis) or kidney disease. ? Being very overweight (obese). ? Having a skin problem, such as: ? An itchy rash. ? A rash caused by a fungus. ? A rash with blisters. ? Slow movement of blood in the veins (venous stasis). ? Fluid buildup below the skin (edema). This condition is more likely to occur in people who: ? Have open cuts, benito, bites, or scrapes on the skin. ? Have been treated with high (more content not included)... Normal [facility] Family Medicine Office/Clini c Noteon 05-26-2024 Family Medicine Office/Clinic Note Family Medicine Office/Clinic Note Chief Complaint sore on leg HPI Staff 59 year old male presents with unhealing wound on lt lower leg/ankle after being hit with a stick shot out of a lawnmower 2-3 weeks ago neosporin History of Present Illness I have reviewed and verified the staff HPI to be accurate for this encounter. Portions of this record have been created with voice recognition software. Occasional wrong-word or ?[id number]-n-[id number]? substitutions may have occurred due to the inherent limitations of voice recognition software. 59-year-old obese male with history of coronary artery disease with prior PCI, HLD, BG, hypertension and A-fib presents with complaint of left leg infection. He states he was mowing wearing shorts and he thinks a twig kicked out and scratched his left costello area. He has noticed some drainage mainly clear yellow that has been draining down his leg. He has been putting bandages over it but was concerned it was infected so he came in today. He denies any fever or chills. He has noticed the leg being red and's slightly swollen and warm to touch. Review of Systems PHQ Score Initial Depression Screen Score: 0 SCORE ROS negative unless otherwise stated in HPI. Physical Exam Vitals & Measurements T: 37 ?C(Tympanic) HR: 88(Peripheral) BP: 130/88 SpO2: 99% HT: 70 in HT: 178 cm WT: 127 kg WT: 279.4 lb BMI: 40.08 General: Well developed, well nourished, in no acute distress Eyes: not assessed Ears: not assessed Nose: not addressed Mouth: not assessed Neck: not assessed Lungs: clear to auscultation throughout, no wheezing, no rales. No respiratory distress Cardio: regular rate and rhythm, no murmur Abdomen: not assessed Musculoskeletal: not assessed Extremity: No clubbing cyanosis edema or deformity noted with upper extremities bilaterally however bilateral lower extremities do appear to have some mild pitting edema bilaterally. There is a lesion on the left lower extremity. He has the appearance of venous stasis bilaterally with a dried scabbed area on his right costello. Open area on left costello. Neurologic: Grossly normal Skin: Ulcerations to bilateral lower extremities right leg appears dried left is open and weeping what appears to be venous stasis ulcers Mental Status: Alert and oriented x3. Normal mood and affect Assessment/Plan Based on presentation and review of his history I feel he likely has developed a cellulitis of his left lower extremity complicated by what appears to be venous stasis. States he was doing outdoor work and may also have scratched his leg on a twig. Therefore we will treat him with Keflex 500 mg 4 times a day for a week. I did attempt to obtain a culture of the drainage however it just appears to be weeping a serous fluid at this time. We will call him when those culture results are available. Provider encouraged him to follow-up with his primary care provider if his symptoms do not improve. Patient verbalized understanding and agreement with this plan 1. Cellulitis, leg (L03.119: Cellulitis of unspecified part of limb) Flex 500 mg 4 times a day for 7 days. Ordered: cephalexin, 500 mg = 1 cap(s), Oral, QID, X 7 day(s), # 28 cap(s), Refills(s) 0, Pharmacy: [facility]/pharmacy #[id number], 178, cm, 05/26/24 11:10:00 EDT, Height/Length Dosing, 127, kg, 05/26/24 11:10:00 EDT, Weight Dosing Wound Culture 2. Venous stasis ulcers (I83.009: Varicose veins of unspecified lower extremity with ulcer of unspecified site) Provider did review some of the risk factors for developing venous stasis including being overweight and having poor circulation. Encouraged him to elevate his legs and consider wearing compression stockings to decrease any edema. 3. BMI 40.0-44.9, adult (Z68.41: Body mass index [BMI] 40.0-44.9, adult) The standard range for ages 18 and older is >=18.5 and < 25 kg/m2. Your BMI today was above this range, this falls in the overweight to obese category and there are medical benefits to weight loss. We can offer counselling, referral, and/or medical support in addressing this problem. Your BMI and weight management will be followed at subsequent visits. 4. Encounter for immunization (Z23: Encounter for immunization) Immunization boosted for tetanus and diphtheria with Td. Handout provided for this vaccine. Ordered: tetanus-diphtheria toxoids (Td), 0.5 mL, IntraMuscular, Once, Stop date 05/26/24 12:00:00 EDT, Routine, Start date 05/26/24 12:00:00 EDT FIRST VACCINE Order Planner Admin Charge [id number] 5. Morbid obesity (E66.01: Morbid (severe) obesity due to excess calories) Encouraged healthy diet and exercise. Follow-up With When Contact Information DIANE LAWS FAAFP, Blaise Smart, MYA, PED [address], [place] [address]- Additional Instructions: Patient Education Obesity, Adult, Wbqj-ci-[id number] BMI for Adults Cellulitis, Adult, [id number] Venous Ulcer, Vkxj-li-Epyb Stasis Dermatitis Problem List/Past Medical History Ongoing Ant (more content not included)... Normal [facility] Comment on above: Result Comment: Elec tronically Signed By: Angela Viera\.br\Date and Time Signed: 05/26/24 16:02 EDT Heart and Vascular Office/Cl inic Noteon 03-19-2024 Heart and Vascular Office/Clinic Note Heart and Vascular Office/Clinic Note Chief Complaint here for 3 month f/u History of Present Illness Patient is a 58-year-old male with past medical history of CAD with prior PCI, HLD, BG, hypertension, paroxysmal A-fib. Patient comes in for 3-month follow-up today. At last visit, Dr. López changed some of patient's medications. He increased metoprolol ER from 25 mg to 50 mg twice daily. He stopped patient's Plavix and started patient on baby aspirin instead. And suggested that patient start monitoring his heart rate at home as well. Pt reports that he has been compliant with med changes from last visit and has been feeling better - not as tired and getting less SOB. Patient reports that he is always in A-fib but his heart rate has been better controlled since last visit. His heart rate is 94 in the office today. Patient is also compliant with Xarelto 20 mg daily for anticoagulation Patient blood pressure is slightly elevated in the office today. He states that he is occasionally checking at home and is usually a little bit lower than it is today. He is currently taking losartan 50 mg daily and metoprolol 50 mg ER twice daily. Patient denies chest pain, heart palpitations, dizziness/lightheadedness , and swelling in lower legs. Review of Systems ROS - Provider Constitutional: no fever, no chills, no sweats, no weakness Respiratory: no shortness of breath, no cough Cardiovascular: no chest pain Neuro: no dizziness. no loss of consciousness Physical Exam Vitals & Measurements HR: 94(Peripheral) RR: 16 BP: 142/88 SpO2: 95% HT: 70 in HT: 178 cm WT: 126.8 kg WT: 278.96 lb BMI: 40.02 General: alert, no acute distress Cardiovascular: regular rate and rhythm, no murmur normal peripheral perfusion Respiratory: Lungs CTAB, respirations non labored Extremities: no edema left lower extremity. no edema right lower extremity. Patient does have stasis dermatitis to both distal lower extremities Neurological: oriented x 4, LOC appropriate for age, speech normal Skin: Warm, dry, intact- no rash or concerning lesions Cardiac Diagnostics (01/18/2022 12:08 EDT NM Myocardial Spect Rest/Stress 1 Day) FINDINGS: Uptake of the tracer was dishomogeneous. Although entirely patchy, there was an area of diminished uptake in particular at the apex which was mostly reversible. This was approximately 10-15% of the myocardium. The TID ratio was 1.12. Ejection fraction was 46% and end-diastolic volume 172 mL which is abnormal. CONCLUSIONS: Intermediate risk stress test for ischemia at the apex as well as wall motion abnormality and diminished ejection fraction at 46%. Also chamber size is borderline elevated. Clinical correlation is suggested. The findings will be conveyed to treatment team. [1] (01/18/2022 08:59 EDT Echo Transthoracic Complete) SUMMARY/CONCLUSION: 1. 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 2. 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 3. Biatrial enlargement. 4. Atrial fibrillation, cannot assess diastology. 5. Mild elevation in pulmonary artery pressure. [2] Assessment/Plan 1. Atrial fibrillation (I48.91: Unspecified atrial fibrillation) Patient has persistent A-fib at this point. Currently taking metoprolol 50 ER mg twice daily and is compliant with Xarelto 20 mg daily. Heart rate is controlled in the office today at 94. Will have him continue with current medications 2. CAD in pala artery (I25.10: Atherosclerotic heart disease of pala coronary artery without angina pectoris) CAD with prior PCI. Patient is compliant with aspirin, beta-deidra, statin. Doing well at this time. Continue current medications 3. Hypertension (I10: Essential (primary) hypertension) Blood pressure just slightly elevated in the office today. Continue with current medications of metoprolol 50 mg ER daily and losartan 50 mg daily. Orders: atorvastatin, 40 mg = 1 tab(s), Oral, Daily, # 90 tab(s), Refills(s) 3, Pharmacy: [facility]/pharmacy #[id number], 178, cm, 03/19/24 15:36:00 EDT, Height/Length Dosing, 126.8, kg, 03/19/24 15:36:00 EDT, Weight Dosing Follow-up in 6 months with me Portions of this record may have been created with voice recognition artificial intelligence software, specifically [employer], [employer] and or [employer]. Substitutions may have occurred due to the inherent limitations of voice recognition and artificial intelligence software. Follow-up No qualifying data available Problem List/Past Medical History Ongoing Anticoagulated CAD in pala artery Familial hypercholesterolemia H/O heart artery stent History of obstructive sleep apnea Hypertension Other obesity due to excess calories PAF (paroxysmal atrial fibrillation) Screening PSA (prostate specific antigen) Umbilical hernia Uncontrolled atrial fibrillation Historical AF (atrial fibrillation) Apnea, sleep BMI 30.0-30.9,adult BMI 32.0-32.9,adult BMI 38.0-38.9,adult BPH with elev (more content not included)... Normal [facility] Comment on above: Result Comment: Elec tronically Signed By: Derrick Dougherty PA-C\.br\Date and Time Signed: 03/19/24 16:34 EDT Heart and Vascular Office/Cl inic Noteon 01-15-2024 Heart and Vascular Office/Clinic Note Chief Complaint Palpatations History of Present Illness The patient is a male who presents for evaluation of atrial fibrillation. He is accompanied by an adult female. The patient denies any chest pain or dyspnea, but the adult female thinks he has dyspnea. He has not noticed his elevated heart rate and has not checked it in a while. The adult female informed that his heart rate does elevate. His last stress test was 03/2020. Review of Systems PHQ Score Initial Depression Screen Score: 0 SCORE Constitutional: no fever, no sweats, no weakness Skin: no rash, no lesions, no bruising/petechiae ENMT: no sore throat, no congestion, no hoarseness Respiratory: no shortness of breath, no cough, no orthopnea, no wheezing Cardiovascular: no chest pain, no palpitations, no edema Gastrointestinal: no nausea, no vomiting, no diarrhea, no GI bleeding Genitourinary: no anuria/oliguria no hematuria Musculoskeletal: no back pain, no trauma Neurologic: no headache, no dizziness, no numbness, no weakness Psychiatric: no sleeping problems, no irritability, no anxiety/depression. Heme/Lymph: no bleeding tendency, no bruising tendency Allergy/Immunologic: no recurrent infections, no impaired immunity Additional ROS info: Except as noted in the above Review of Systems and in the History of Present Illness all other systems have been reviewed and are negative or noncontributory Physical Exam Vitals & Measurements HR: 128(Peripheral) BP: 134/86 SpO2: 93% HT: 70 in HT: 178 cm WT: 132.6 kg WT: 291.72 lb BMI: 41.85 General: alert, no acute distress Skin: warm, dry intact Head: atraumatic, normocephalic Neck: trachea midline, no JVD, no bruit Eye: normal conjunctiva, sclera clear ENMT: oral mucosa moist Cardiovascular: regular rate and rhythm, no murmur, normal peripheral perfusion Respiratory: lungs CTA, respirations non labored Chest wall: no deformity. Gastrointestinal: soft, non-distended, no tenderness, no guarding. Back: no tenderness, normal ROM, normal alignment. Extremities: no edema, no deformity, no trauma Neurological: oriented x 4, LOC appropriate for age, sensation equal & normal bilaterally, speech normal Psychiatric: cooperative, affect appropriate for age, normal judgement, normal psychiatric thoughts. Assessment/Plan Atrial fibrillation (I48.91: Unspecified atrial fibrillation) Previously, his heart rate was well controlled. Trying to go back into rhythm is not likely to work, so I will increase his Lopressor from 25 mg to 50 mg twice a day. He can discontinue clopidogrel and take baby aspirin 75 mg instead. He will start checking his pulse rate on his machine. I will increase the dosage of his medication if his pulse rate is routinely over 100 bpm or even over 90 bpm. I informed the patient that I do not routinely check stents but after 2 years, I can order him a stress test if he requests to have one. Follow-up The patient will follow up in 3 months. Portions of this record may have been created with voice recognition artificial intelligence software, specifically [employer], [employer] and or [employer]. Substitutions may have occurred due to the inherent limitations of voice recognition and artificial intelligence software. ATTESTATION: Documentation services were performed after patient or guardian consented to allow [employer] to record this visit. SHAUN forestry biology specialist and provider reviewed before signing. SHAUN: Phoebe Micki Oseo. Follow-up No qualifying data available Problem List/Past Medical History Ongoing Anticoagulated CAD in pala artery Familial hypercholesterolemia H/O heart artery stent History of obstructive sleep apnea Hypertension Other obesity due to excess calories PAF (paroxysmal atrial fibrillation) Screening PSA (prostate specific antigen) Umbilical hernia Uncontrolled atrial fibrillation Historical AF (atrial fibrillation) Apnea, sleep BMI 30.0-30.9,adult BMI 32.0-32.9,adult BMI 38.0-38.9,adult BPH with elevated PSA Bursitis of right elbow Edema of both legs Fasting hyperglycemia Morbid obesity New onset type 2 diabetes mellitus Obesity BG (obstructive sleep apnea) Patellar bursitis PSA elevation Right knee pain Type 2 diabetes mellitus with hyperglycemia Venous insufficiency of leg Venous insufficiency, peripheral Venous stasis ulcer of left lower leg with edema of left lower leg Venous ulcer-leg syndrome, left Procedure/Surgical History PCI - Percutaneous coronary intervention (02/22/2022). Medications atorvastatin 40 mg Tab, 40 mg= 1 tab(s), Oral, Daily, 11 refills Centrum Silver oral tablet, 1 tab(s), Oral, Daily Lopressor 25 mg oral tablet, 25 mg= 1 tab(s), Oral, BID, 3 refills losartan 100 mg Tab, 50 mg= 0.5 tab(s), Oral, Daily, 3 refills Xarelto 20 mg oral tablet, 20 mg= 1 tab(s), Oral, qAM, 3 refills Allergies No Known Medication Allergies Social Histo (more content not included)... [facility] Comment on above: Result Comment: Elec tronically Signed By: Rene MASON, Nacho Ba\.br\Date and Time Signed: 01/15/24 19:38 EDT\.br\Electronically Co-Signed By: Lani Benavides\.br\Date and Time Co-Signed: 11/17/23 09:28 EST Consent for Treatmenton Consent for Treatment [id number] [facility] Physician Orderon 11-17-2023 Physician Order [id number] [facility] Consultation Noteon 11-13-19 Consultation Note [id number] [facility] Ambulatory Visit Summaryon 0 11-03-2023 Ambulatory Visit Summary SAVANNAH HOBBS :1965 Visit Date:11/03/2023 Ambulatory Visit Instructions Your Diagnosis Right wrist pain Your Care Team Attending Physician - Maury Salazar Primary Care Physician - Blaise HARDIN DO, FAAFP This Is Your Medications List atorvastatin (atorvastatin 40 mg Tab) clopidogrel (clopidogrel 75 mg Tab) losartan (losartan 100 mg Tab) metoprolol (Lopressor 25 mg oral tablet) multivitamin with minerals (Centrum Silver oral tablet) predniSONE (predniSONE 20 mg Tab) rivaroxaban (Xarelto 20 mg oral tablet) Procedures Performed PCI - Percutaneous coronary intervention (02/22/2022). Discharge Vitals Temperature (Oral) 36.7 ?C Heart Rate (Peripheral) 108 Blood Pressure 138/88 Height 178 cm Height 70 in Weight 134 kg Weight 294.8 lb BMI 42.29 What to do next Scheduled Follow-Up Appointments 2023 8:15 AM EST With: Rene MASON, Nacho Ba Where: [facility] Medications What How Much When Why Instructions New predniSONE (predniSONE 20 mg Tab) 2 Tablets By Mouth 2 times a day Right wrist pain Duration: 5 Days Pickup at [facility]/pharmacy #[id number] Unchanged atorvastatin (atorvastatin 40 mg Tab) 1 Tablets By Mouth Every day Unchanged clopidogrel (clopidogrel 75 mg Tab) 1 Tablets By Mouth Every day Duration: 30 Days DO NOT STOP UNLESS CLEARED PER CARDIOLOGY Unchanged losartan (losartan 100 mg Tab) 0.5 Tablets By Mouth Every day Duration: 90 Days 50 mg Unchanged metoprolol (Lopressor 25 mg oral tablet) 1 Tablets By Mouth 2 times a day Duration: 90 Days Unchanged multivitamin with minerals (Centrum Silver oral tablet) 1 Tablets By Mouth Every day Unchanged rivaroxaban (Xarelto 20 mg oral tablet) 1 Tablets By Mouth Once a day (in the morning) Duration: 90 Days DO NOT STOP UNLESS CLEARED BY SLAB TRIPPER Pharmacy Information [facility]/pharmacy #[id number]: [address] [place], [place] [phone] Allergies No Known Medication Allergies Problems Ongoing - Any problem that you are currently receiving treatment for. Anticoagulated CAD in pala artery Familial hypercholesterolemia H/O heart artery stent History of obstructive sleep apnea Hypertension Other obesity due to excess calories PAF (paroxysmal atrial fibrillation) Screening PSA (prostate specific antigen) Umbilical hernia Uncontrolled atrial fibrillation Historical - Any problem that you are no longer receiving treatment for. AF (atrial fibrillation) Apnea, sleep BMI 30.0-30.9,adult BMI 32.0-32.9,adult BMI 38.0-38.9,adult BPH with elevated PSA Bursitis of right elbow Edema of both legs Fasting hyperglycemia Morbid obesity New onset type 2 diabetes mellitus Obesity BG (obstructive sleep apnea) Patellar bursitis PSA elevation Right knee pain Type 2 diabetes mellitus with hyperglycemia Venous insufficiency of leg Venous insufficiency, peripheral Venous stasis ulcer of left lower leg with edema of left lower leg Venous ulcer-leg syndrome, left Patient Survey You may receive a survey via text or e-mail asking about your office visit. Please share your experience with us by completing your survey. We appreciate your feedback and thank you for choosing us for your care. Normal [facility] Medicine Office/Clini c Noteon 11-03-2023 Family Medicine Office/Clinic Note Chief Complaint right wrist pain HPI Staff 58 yr old male here for right wrist pain for 2 days. Denies injury. History of Present Illness Reviewed and agree with above documented HPI by biomedical engineering internship. Nickie is a 58-year-old male who presents to [facility] with complaint of right wrist pain x 2 days. He denies any known injury. He does state that he has been dog sitting and has been throwing a Frisbee for the dogs as well as swinging a tennis racquet about 10 times every day. He has been taking Tylenol for the pain. He did use an at home wrist splint which she says gave him some comfort although it was difficult and painful to get on. Patient has no known allergies Review of Systems PHQ Score Initial Depression Screen Score: 0 SCORE Physical Exam Vitals & Measurements T: 36.7 ?C(Oral) HR: 108(Peripheral) BP: 138/88 SpO2: 96% HT: 70 in HT: 178 cm WT: 134 kg WT: 294.8 lb BMI: 42.29 General: Well developed, well nourished, in no acute distress, does not appear ill or septic Lungs: Normal respiratory effort and clear to auscultation Cardio: regular rate and rhythm, no murmur Musculoskeletal: no deformity or scoliosis noted. Range of motion is slightly limited. Joint appears normal. No erythema, edema, effusion, or ecchymosis. Extremity: No clubbing, cyanosis, edema, or deformity, with normal ROM in both upper and lower bilateral extremities Neurologic: Grossly normal no numbness or tingling to hand. Normal capillary refill. Skin: No rashes, ulcerations, or suspicious lesions Mental Status: Alert and oriented x3. Normal speech and thought content, normal mood and affect Assessment/Plan 1. Right wrist pain (M25.531: Pain in right wrist) Exam and findings were discussed with patient. Findings consistent with repetitive use tendinitis. Advised to use wrist gently but not to baby rest. May use at home wrist splint to provide comfort. If wrist becomes increasingly swollen, tingling, numbness, should report to ER. Advised to follow-up with PCP if significantly worse or not resolved within 5 days. Patient understands and is agreeable with treatment plan. Ordered: predniSONE, 40 mg = 2 tab(s), Oral, BID, X 5 day(s), # 20 tab(s), Refills(s) 0, Pharmacy: [facility]/pharmacy #[id number], 178, cm, 11/03/23 10:28:00 EST, Height/Length Dosing, 134, kg, 11/03/23 10:28:00 EST, Weight Dosing Portions of this record may have been created with voice recognition artificial intelligence software, specifically [employer], [employer] and or [employer]. Occasional wrong-word or `hpfvn-b-funm? substitutions may have occurred due to the inherent limitations of voice recognition and artificial intelligence software. 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 Familial hypercholesterolemia H/O heart artery stent History of obstructive sleep apnea Hypertension Other obesity due to excess calories PAF (paroxysmal atrial fibrillation) Screening PSA (prostate specific antigen) Umbilical hernia Uncontrolled atrial fibrillation Historical AF (atrial fibrillation) Apnea, sleep BMI 30.0-30.9,adult BMI 32.0-32.9,adult BMI 38.0-38.9,adult BPH with elevated PSA Bursitis of right elbow Edema of both legs Fasting hyperglycemia Morbid obesity New onset type 2 diabetes mellitus Obesity BG (obstructive sleep apnea) Patellar bursitis PSA elevation Right knee pain Type 2 diabetes mellitus with hyperglycemia Venous insufficiency of leg Venous insufficiency, peripheral Venous stasis ulcer of left lower leg with edema of left lower leg Venous ulcer-leg syndrome, left Procedure/Surgical History PCI - Percutaneous coronary intervention (02/22/2022). Medications atorvastatin 40 mg Tab, 40 mg= 1 tab(s), Oral, Daily, 11 refills Centrum Silver oral tablet, 1 tab(s), Oral, Daily clopidogrel 75 mg Tab, 75 mg= 1 tab(s), Oral, Daily, 11 refills Lopressor 25 mg oral tablet, 25 mg= 1 tab(s), Oral, BID, 3 refills losartan 100 mg Tab, 50 mg= 0.5 tab(s), Oral, Daily, 3 refills predniSONE 20 mg Tab, 40 mg= 2 tab(s), Oral, BID Xarelto 20 mg oral tablet, 20 mg= 1 tab(s), Oral, qAM, 3 refills Allergies No Known Medication Allergies Social History Alcohol - High Risk, 09/26/2013 Current, Beer, 1-2 times per week, Previous treatment: None. Alcohol use interferes with work or home: No., 03/28/2020 Substance Abuse - Denies Substance Abuse, 09/26/2013 Tobacco - Low Risk, 09/26/2013 Former smoker, quit more than 30 days ago Tobacco Use:. Never Smokeless Tobacco Use:. Cigars, 11/03/2023 Family History Acute myocardial infarction: Mother. Atrial fibrillation: Father. Hypertension: Mother and Father. Prostate cancer: Father. Stroke: Mother. Immunizations Vaccine Date Status Comments influenza virus vaccine, inactivated 08/24/2023 Recorded influenza virus vaccine, inactivat (more content not included)... Normal [facility] Comment on above: Result Comment: Elec tronically Signed By: Radha HERNANDEZ, Maury Gibson\.br\Date and Time Signed: 11/03/23 12:33 EST Patient Educationon 11-03-19 24 Patient Education Orthopedics Wrist Pain, Adult There are many things that can cause wrist pain. Some common causes include: ? An injury to the wrist area, such as a sprain, strain, or fracture. ? Overuse of the joint. ? A condition that causes increased pressure on a nerve in the wrist (carpal tunnel syndrome). ? Wear and tear of the joints that occurs with aging (osteoarthritis). ? Other types of joint inflammation and stiffness (arthritis). Sometimes, the cause of wrist pain is not known. Often, the pain goes away when you follow instructions from your health care provider for relieving pain at home, such as resting the wrist, icing the wrist, or using a splint or an elastic wrap for a short time. If your wrist pain continues, it is important to tell your health care provider. Follow these instructions at home: If you have a splint or elastic wrap: ? Wear the splint or wrap as told by your health care provider. Remove it only as told by your health care provider. Ask your health care provider if you may remove it for bathing. ? Loosen the splint or wrap if your fingers tingle, become numb, or turn cold and blue. ? Check the skin around the splint or wrap every day. Tell your health care provider about any concerns. ? Keep the splint or wrap clean. ? If the splint or wrap is not waterproof: ? Do not let it get wet. ? Cover it with a watertight covering when you take a bath or shower. Managing pain, stiffness, and swelling ? If directed, put ice on the painful area. To do this: ? If you have a removable splint or wrap, remove it as told by your health care provider. ? Put ice in a plastic bag. ? Place a towel between your skin and the bag or between your splint or wrap and the bag. ? Leave the ice on for 20 minutes, 2?3 times a day. ? Move your fingers often to reduce stiffness and swelling. ? Raise (elevate) the injured area above the level of your heart while you are sitting or lying down. Activity ? Rest your affected wrist as told by your health care provider. ? Return to your normal activities as told by your health care provider. Ask your health care provider what activities are safe for you. ? Ask your health care provider when it is safe to drive if you have a splint or wrap on your wrist. ? Do exercises as told by your health care provider. General instructions ? Pay attention to any changes in your symptoms. ? Take mvbo-kpe-szvuktl and prescription medicines only as told by your health care provider. ? Keep all follow-up visits as told by your health care provider. This is important. Contact a health care provider if: ? You have a sudden, sharp pain in the wrist, hand, or arm that is different or new. ? The swelling or bruising on your wrist or hand gets worse. ? Your skin becomes red, gets a rash, or has open sores. ? Your pain does not get better or it gets worse. ? You have a fever or chills. Get help right away if: ? You lose feeling in your fingers or hand. ? Your fingers turn white, very red, or cold and blue. ? You cannot move your fingers. Summary ? Wrist pain in an adult has many different causes. ? If your wrist pain continues, it is important to tell your health care provider. ? You may need to wear a splint or an elastic wrap for a short period of time. ? Return to your normal activities as told by your health care provider. Ask your health care provider what activities are safe for you. This information is not intended to replace advice given to you by your health care provider. Make sure you discuss any questions you have with your health care provider. Document Revised: 07/17/2020 Document Reviewed: 07/17/2020 [employer] Patient Education ? 2022 [employer] Normal [facility] ED Note-Physicianon 10-22-19 24 ED Note-Physician Basic Information Time Seen: Jia Gamez PA-C 10/21/2023 14:03 Stable Chief Complaint Pt reports he was at PCP for annual check-up, HR was in 150-160s, unsure if in afib or not but was sent over for eval. No EKG done. hx of Afib. Denies chest pain/palpations/SOB. +thinners. History of Present Illness This patient presents to the emergency department from his primary care office with a chief complaint of elevated heart rate. The patient states he was at a routine visit to his primary care today. They noticed that he had an elevated heart rate. They sent him in for further evaluation of suspected A-fib with RVR. The patient states he has no symptoms. He went to the doctor because of weight gain and shortness of breath. The patient does not smoke cigarettes. He does not use any street drugs. He does regularly drink beer several times a week. Patient is on both Xarelto and Plavix. He has 2 cardiac stents. He has not seen his lunchroom operator in over a year. The patient denies any chest pain. The patient does complain of shortness of breath and dyspnea on exertion. He denies any fevers chills or sweats. He denies any cough. He denies any sick contacts. Review of Systems Constitutional: Denies unintentional weight loss, fever, chills, sweats, malaise. + weight gain Eyes: Denies visual changes, eye pain, double vision, scotomas, floaters ENT: Denies runny nose, epistaxis, sinus pain, ear pain, ringing in ears, tooth ache, sore throat, pain with swallowing Cardiovascular: Denies chest pain, shortness of breath, orthopnea, edema, palpitations, loss of consciousness, claudication Respiratory: Denies cough, sputum production, wheezing, hemoptysis. +shortness of breath, dyspnea on exertion Gastrointestinal: Denies abdominal pain, unintentional weight loss, difficulty swallowing, indigestion, bloating, cramping, loss of appetite, nausea, vomiting, diarrhea, constipation, hematochezia, melena Genitourinary: Denies any incontinence of urine, dysuria, hematuria, nocturia, polyuria, hesitancy, frequency, urgency, burning Musculoskeletal: Denies joint pain, morning stiffness, joint swelling, decreased range of motion, crepitus Integumentary: Denies any pruritus, rashes, lesions, wounds, petechiae Neurologic: Denies any changes in sight, smell, hearing, taste, seizures, headache, paresthesia, numbness, weakness, balance disturbance Psychiatric denies any depression, change in sleep patterns, anxiety, difficulty concentrating, paranoia, anhedonia, lack of energy, ashlyn Hematologic/lymphatic: Denies any purpura, petechiae, excessive bleeding, bruising Physical Exam Vitals & Measurements T: 36.7 ?C(Oral) HR: 96(Monitored) RR: 20 BP: 105/78 SpO2: 96% HT: 178 cm WT: 131.2 kg BMI: 41.41 Vital signs and nursing notes reviewed. General: Awake, alert, NAD. HEENT: Head is normocephalic, atraumatic. PERRL. EOMI. Sclerae are anicteric. External ears are normal. TMs are intact bilaterally. Canals are clear bilaterally. Nares are patent bilaterally. Oral mucosa is pink and moist. No lesions noted. Tongue protrudes in midline. Uvula rises with phonation. Neck is supple, no no palpable adenopathy. No JVD. Trachea is midline. Thorax: Symmetrical rise and fall Lungs: Clear to auscultation throughout all nevarez, no wheezes, no crackles Heart: Irregularly irregular. Rate 111. no murmur, gallop, or rub Abdomen: Obese. No tenderness on palpation. Bowel sounds are present active and normal. No organomegaly. No palpable masses. No CVA tenderness. Extremities: Motor sensory pulses intact x4 extremities. Trace lower extremity edema bilaterally. Patient has chronic venous stasis changes to the lower extremities bilaterally. Skin: No lesions, rashes, ulcerations. No bruising or petechiae. Color appropriate, warm and dry Neuro: No oriented x3, no focal neuro deficits Psych: Mood and affect are normal Medical Decision Making MEDICAL DECISION MAKING Number and Complexity of Problems Differential Diagnosis: Pulmonary embolism, A-fib with RVR, ACS, dehydration, electrolyte imbalance, pneumonia MDM Data External documents reviewed: Not applicable My EKG interpretation: Noted in chart if applicable My CT interpretation: Noted in chart if applicable My X-ray interpretation: Noted in chart if applicable My Ultrasound interpretation: Not applicable Decision rules/scores evaluated: Noted in chart if applicable Discussed with: Dr. López, cardiology Treatment and Disposition ED Course: Patient was interviewed and examined. The appropriate ER workup was initiated. Patient was given IV fluid hydration. Patient does admit to drinking several beers last evening. White blood count 10.0, hemoglobin 14.2, hematocrit 42.0, platelet 259. PT 23.2, INR 2.0, PTT 40.5. EKG A-fib with RVR at a rate of 128. Sodium 137, potassium 4.6, chloride 97, CO2 30, BUN 24, creatinine 1.2, glucose 148, calcium 9.5. Magnesium 1.8. Troponin 13.40. BN pep 62. D dimer 215. Chest x-ray wa (more content not included)... Normal [facility] Comment on above: Result Comment: Elec tronically Signed By: Jia Gamez PA-C\.br\Date and Time Signed: 10/21/23 16:30 EST\.br\Electronically Co-Signed By: Diego Melendez DO\.ronnie\Date and Time Co-Signed: 10/22/23 07:12 EST Ambulatory Visit Summaryon 0 10-21-2023 Ambulatory Visit Summary SAVANNAH HOBBS :1965 Visit Date:10/21/2023 Ambulatory Visit Instructions Your Diagnosis PAF (paroxysmal atrial fibrillation) Adult BMI 40.0-44.9 kg/sq m, Body mass index [BMI] 40.0-44.9, adult Class 3 severe obesity due to excess calories with body mass index (BMI) of 40.0 to 44.9 in adult Hypertension CAD in pala artery H/O heart artery stent Your Care Team Attending Physician - Blaise HARDIN DO, FAAFP Primary Care Physician - Blaise HARDIN DO, FAAFP This Is Your Medications List Contact prescribing physician if questions or concerns atorvastatin (atorvastatin 40 mg Tab) clopidogrel (clopidogrel 75 mg Tab) losartan (losartan 100 mg Tab) metoprolol (Lopressor 25 mg oral tablet) multivitamin with minerals (Centrum Silver oral tablet) rivaroxaban (Xarelto 20 mg oral tablet) Procedures Performed PCI - Percutaneous coronary intervention (02/22/2022). Discharge Vitals Temperature (Oral) 36.8 ?C Heart Rate (Peripheral) 60 Blood Pressure 136/86 Height 178 cm Height 70 in Weight 132.2 kg Weight 290.84 lb BMI 41.72 Medications What How Much When Instructions Unchanged atorvastatin (atorvastatin 40 mg Tab) 1 Tablets By Mouth Every day Contact prescribing physician if questions or concerns Unchanged clopidogrel (clopidogrel 75 mg Tab) 1 Tablets By Mouth Every day Duration: 30 Days DO NOT STOP UNLESS CLEARED PER CARDIOLOGY Contact prescribing physician if questions or concerns Unchanged losartan (losartan 100 mg Tab) 0.5 Tablets By Mouth Every day Duration: 90 Days 50 mg Contact prescribing physician if questions or concerns Unchanged metoprolol (Lopressor 25 mg oral tablet) 1 Tablets By Mouth 2 times a day Duration: 90 Days Contact prescribing physician if questions or concerns Unchanged multivitamin with minerals (Centrum Silver oral tablet) 1 Tablets By Mouth Every day Contact prescribing physician if questions or concerns Unchanged rivaroxaban (Xarelto 20 mg oral tablet) 1 Tablets By Mouth Once a day (in the morning) Duration: 90 Days DO NOT STOP UNLESS CLEARED BY SLAB TRIPPER Contact prescribing physician if questions or concerns Allergies No Known Medication Allergies Problems Ongoing - Any problem that you are currently receiving treatment for. Anticoagulated CAD in pala artery Familial hypercholesterolemia H/O heart artery stent History of obstructive sleep apnea Hypertension Other obesity due to excess calories PAF (paroxysmal atrial fibrillation) Screening PSA (prostate specific antigen) Umbilical hernia Historical - Any problem that you are no longer receiving treatment for. AF (atrial fibrillation) Apnea, sleep BMI 30.0-30.9,adult BMI 32.0-32.9,adult BMI 38.0-38.9,adult BPH with elevated PSA Bursitis of right elbow Edema of both legs Fasting hyperglycemia Morbid obesity New onset type 2 diabetes mellitus Obesity BG (obstructive sleep apnea) Patellar bursitis PSA elevation Right knee pain Type 2 diabetes mellitus with hyperglycemia Venous insufficiency of leg Venous insufficiency, peripheral Venous stasis ulcer of left lower leg with edema of left lower leg Venous ulcer-leg syndrome, left Patient Survey You may receive a survey via text or e-mail asking about your office visit. Please share your experience with us by completing your survey. We appreciate your feedback and thank you for choosing us for your care. Normal [facility] BMPon 10-21-2023 Anion gap [Moles/Vol] 15 mmol/L Normal 6-16 [facility] Comment on above: Performed By: #### 2 159522, 9565207, 7639725, 52197471, 61246777, 12256120, 0551419, 4969826, 13950140 ####[facility] [address] [place] [address] BUN/Creat Ratio 20 No Units Normal 10-20 [facility] Comment on above: Performed By: #### 2 331662, 9619442, 6763254, 38966417, 00854418, 34396129, 8723224, 1059851, 57538181 ####[facility] [address] [place] [address] Calcium [Mass/Vol] 9.5 mg/dL Normal 8.9-11.1 [facility] Comment on above: Performed By: #### 2 976547, 4928103, 4747219, 12790755, 26386801, 82214422, 8877295, 0436720, 77377969 ####[facility] [address] [place] [address] Chloride [Moles/Vol] 97 mmol/L Low 101-111 [facility] Comment on above: Performed By: #### 2 044498, 6838174, 1096741, 71093055, 48168584, 33443403, 6920361, 1883015, 34823254 ####[facility] [address] [place] [address] CO2 [Moles/Vol] 30 mmol/L Normal 21-31 [facility] Comment on above: Performed By: #### 2 214227, 2832511, 8411859, 77487640, 56907002, 06731996, 5857544, 7545361, 81934304 ####[facility] [address] [place] [address] Creatinine [Mass/Vol] 1.2 mg/dL Normal 0.5-1.3 [facility] Comment on above: Performed By: #### 2 811799, 0655140, 1279285, 75014898, 50995490, 27214414, 7331050, 2810684, 31510363 ####[facility] [address] [place] [address] Glucose [Mass/Vol] 148 mg/dL Normal 55-199 [facility] Comment on above: Performed By: #### 2 445702, 4837009, 9125961, 94621686, 59114261, 68647883, 7505025, 3368941, 13991610 ####[address] [address] Potassium [Moles/Vol] 4.6 mmol/L Normal 3.5-5.3 [facility] Comment on above: Performed By: #### 2 809894, 3511906, 5305404, 34654656, 94514774, 37377982, 1052769, 4491925, 16833682 ####[facility] [address] [place] [address] Sodium [Moles/Vol] 137 mmol/L Normal 135-145 [facility] Comment on above: Performed By: #### 2 563270, 3328874, 8190463, 23006094, 84038439, 14182266, 6759941, 0433791, 03279639 ####[address] [place] [address] Urea nitrogen [Mass/Vol] 24 mg/dL High 5-21 [facility] Comment on above: Performed By: #### 2 457095, 0951702, 5688976, 42882302, 48954028, 79264590, 1488986, 0777189, 59998059 ####[facility] [address] [place] [address] BNPon 10-21-2023 Natriuretic peptide B (Bld) [Mass/Vol] 62 pg/mL Normal 5-80 [facility] Comment on above: Performed By: #### 2 255383, 7144111, 9002749, 87810796, 39714230, 35245309, 6701059, 6691465, 40103506 ####[facility] [address] [place] [address] CBC w/ Auto Diffon Basophil Absolute 0.1 E9/L Normal 0.0-0.2 [facility] Comment on above: Performed By: #### 2 459532, 3970542, 5582569, 63031839, 24580568, 92256302, 3387193, 8941936, 08684497 ####[address] [address] Basophils/100 WBC (Bld) 1.2 % Normal 0.0-2.0 [facility] Comment on above: Performed By: #### 2 260182, 6775995, 9240325, 31500499, 75954989, 02181295, 5557795, 3354213, 12834453 ####[address] [address] Eos Absolute 0.1 E9/L Normal 0.0-0.5 [facility] Comment on above: Performed By: #### 2 979315, 4974625, 4165237, 74290041, 02592650, 38184940, 0573470, 2580681, 96654260 ####[address] [place] [address] Eosinophils/100 WBC (Bld) 1.0 % Normal 0.0-8.0 [facility] Comment on above: Performed By: #### 2 179934, 6310025, 9834128, 02162751, 10426599, 50958101, 0494738, 7608280, 44630773 ####[address] [place] [address] Erythrocyte distribution width (RBC) [Ratio] 13.6 % Normal 10.9-14.2 [facility] Comment on above: Performed By: #### 2 789933, 3486401, 8172470, 61943335, 08539921, 61782134, 7068256, 1814653, 66170156 ####[address] [place] [address] Hematocrit (Bld) [Volume fraction] 42.0 % Normal 37.7-49.0 [facility] Comment on above: Performed By: #### 2 452972, 6909106, 2007255, 81667847, 59132460, 38228429, 7555766, 4080939, 10772416 ####[address] [address] Hemoglobin (Bld) [Mass/Vol] 14.2 g/dL Normal 13.5-17.5 [facility] Comment on above: Performed By: #### 2 050602, 0661998, 1986626, 43970455, 70811527, 49865098, 6692666, 0517795, 48234008 ####[address] [place] [address] Lymph Absolute 1.7 E9/L Normal 1.0-4.0 [facility] Comment on above: Performed By: #### 2 118682, 2340403, 1226843, 75760710, 08672297, 74120145, 2441965, 0271390, 69062594 ####[address] [place] [address] Lymphocytes/100 WBC (Bld) 16.6 % Normal 14.0-50.0 [facility] Comment on above: Performed By: #### 2 266722, 9091367, 5489303, 02294673, 41899787, 78964530, 4090827, 6962958, 64427153 ####[facility] [facility] [address] [place] [address] MCH (RBC) [Entitic mass] 29.2 pg Normal 27.0-34.0 [facility] Comment on above: Performed By: #### 2 114154, 8723682, 4896995, 44349808, 76712824, 72184345, 6258320, 0042030, 71663475 ####[facility] [address] [place] [address] MCHC (RBC) [Mass/Vol] 33.5 g/dL Normal 31.4-36.0 [facility] Comment on above: Performed By: #### 2 484671, 7210621, 6495608, 63069207, 06548125, 62624335, 9330977, 3688804, 79544004 ####[address] [place] [address] MCV (RBC) [Entitic vol] 87.2 fL Normal 80.0-100.0 [facility] Comment on above: Performed By: #### 2 123026, 2464090, 2385861, 73398109, 23769172, 47182587, 6311383, 9730764, 72651990 ####[facility] [address] [place] [address] Pacific Absolute 0.7 E9/L Normal 0.2-1.0 [facility] Comment on above: Performed By: #### 2 969149, 5235194, 1660083, 10418579, 93934318, 31401798, 1839180, 3441197, 95029850 ####[address] [place] [address] Monocytes/100 WBC (Bld) 7.1 % Normal 4.0-14.0 [facility] Comment on above: Performed By: #### 2 873219, 6544833, 3359246, 81884189, 95561288, 73082823, 3968894, 0105265, 86001693 ####[facility] [address] [place] [address] Neutro Absolute 7.4 E9/L Normal 2.0-7.5 [facility] Comment on above: Performed By: #### 2 838415, 0950216, 9111728, 96828633, 10956426, 74938148, 8427235, 8817741, 13677967 ####[address] [place] [address] Neutro Auto 74.1 % Normal 36.0-75.0 [facility] Comment on above: Performed By: #### 2 866769, 6542127, 7273623, 01787849, 21524286, 77742867, 5292524, 6861880, 50159385 ####[address] [address] Platelet 259.0 E9/L Normal 150.0-500.0 [facility] Comment on above: Performed By: #### 2 558689, 0337409, 7257547, 39177736, 29989504, 85577923, 4803360, 1487154, 06937202 ####[address] [address] Platelet mean volume (Bld) [Entitic vol] 7.7 fL Normal 6.4-10.8 [facility] Comment on above: Performed By: #### 2 712188, 4043055, 1112461, 39823586, 86614109, 04771671, 4919026, 4047159, 49046503 ####[address] [place] [address] RBC 4.9 E12/L Normal 4.3-5.9 [facility] Comment on above: Performed By: #### 2 315072, 1076494, 1372816, 15194655, 48555030, 48033028, 8566473, 3955269, 84235881 ####[address] [place] [address] WBC 10.0 E9/L Normal 4.0-11.0 [facility] Comment on above: Performed By: #### 2 334462, 6687461, 5759414, 94264669, 64136128, 73612624, 9322108, 9276685, 01667885 ####[facility] [address] [place] [address] CHEMISTRYOrdered By: SYSTEM SYSTEM on 10-21-2023 Albumin [Mass/Vol] 4.7 g/dL Normal 3.3 - 5.0 gm/dL Remisol Chem Albumin/Globulin [Mass ratio] 1.6 {ratio} Normal 1.1 - 2.2 Remisol Chem Alk Phos 63 [iU]/d Normal 21 - 98 Int._Unit/L Remisol Chem ALT 17 [iU]/d Normal 6 - 46 Int._Unit/L Remisol Chem Anion gap [Moles/Vol] 15 mmol/L Normal 6 - 16 mEq/L Remisol Chem AST 20 [iU]/d Normal 5 - 43 Int._Unit/L Remisol Chem Bili Direct 0.1 mg/dL Normal 0.0 - 0.4 mg/dL Remisol Chem Bili Indirect 0.7 mg/dL Normal 0.1 - 0.9 mg/dL Remisol Chem Bili Total 0.8 mg/dL Normal 0.0 - 1.1 mg/dL Remisol Chem Calcium [Mass/Vol] 9.5 mg/dL Normal 8.9 - 11. 1 mg/dL Remisol Chem Chloride [Moles/Vol] 97 mmol/L Low 101 - 1 11 mmol/L Remisol Chem CO2 [Moles/Vol] 30 mmol/L Normal 21 - 31 mmol/L Remisol Chem Creatinine [Mass/Vol] 1.2 mg/dL Normal 0.5 - 1.3 mg/dL Remisol Chem eGFR 69 mL/min/1.73 m2 Normal >=59mL/min / 1.73 m2 Remisol Chem Globulin (S) [Mass/Vol] 3.0 g/dL Normal 1.4 - 4.0 gm/dL Remisol Chem Glucose [Mass/Vol] 148 mg/dL Normal 55 - 199 mg/dL Remisol Chem Magnesium [Mass/Vol] 1.8 mg/dL Normal 1.3 - 2 .4 mg/dL Remisol Chem Potassium [Moles/Vol] 4.6 mmol/L Normal 3.5 - 5.3 mmol/L Remisol Chem Protein [Mass/Vol] 7.7 g/dL Normal 6.0 - 7.8 gm/dL Remisol Chem Sodium [Moles/Vol] 137 mmol/L Normal 135 - 145 mmol/L Remisol Chem Troponin 13.40 pg/mL Low 15.90 - 38.40 pg/mL Remisol Chem Comment on above: Interpretive Data: T he 95% CI (Confidence Interval) PPV (Positive Predictive Value) for myocardial infarction in females is 38 pg/mL, in males 51 pg/mL. The results should be used in conjunction with clinical conditions of myocardial infarction. (Access High Sensitivity Troponin I Instructions For Use, [employer], April 2018) Urea nitrogen [Mass/Vol] 24 mg/dL High 5 - 21 mg/dL Remisol Chem Urea nitrogen/Creatinine [Mass ratio] 20 mg/mg Normal 10 - 20 Remisol Chem CHEMISTRYOrdered By: Jose Chan on 10-21-2023 Natriuretic peptide B (Bld) [Mass/Vol] 62 pg/mL Normal 5 - 80 pg/mL Critical [facility] hospital COAGULATIONOrdered By: Krissy Ayala on 10-21-2023 aPTT Coag (PPP) [Time] 40.5 s High 25.1 - 36.5 second(s) [facility] Auto Coag Comment on above: Interpretive Data: Raf edwards 15 days - 4 weeks 1 - 5 months 6 - 11 months 1 - 5 years 6 - 10 years 11 - 17 years PTT Mean: 35.4 (27.6-45.6) Mean: 33.5 (24.8-40.7) Mean: 32.4 (25.1-40.7) Mean: 31.6 (24.0-39.2) Mean: 31.6 (26.9-38.7) Mean: 31.0 (24.6-38.4) Pediatric Reference ranges were obtained from a study by Jalil Kirkpatrick et al. prepared from 1437 samples obtained at 7 different centers using the same coagulation reagent and instrumentation as [facility]. Currently there are no coagulation studies available worldwide for children to 14 days, and no normal ranges. Heparin therapeutic range (represented by Anti-Factor Xa activity of 0.2 - 0.4 U/mL) corresponds to PTT of 56.6 - 109.0 sec. Fibrin D-dimer FEU (PPP) [Mass/Vol] ng/mL FEU Low 215 - 500 ng/mL FEU [facility] Comment on above: Interpretive Data: T his assay is intended for use as an aid in the diagnosis of DVT or PE. These conditions cannot be excluded with certainty solely on the basis of a D-dimer concentration being within the reference range This D-Dimer assay may be used in conjunction with a non-high clinical pretest probability assessment to exclude deep-vein thrombosis(DVT). For exclusion of venous thrombosis or pulmonary embolism the analyte D-Dimer should not be used as an aid in patients with: Therapeutic dose anticoagulant therapy for >24 hours Fibrinolytic therapy within previous 7 days Trauma or surgery within previous 4 weeks Disseminated malignacies Aortic aneurysm Sepsis, severe infections, pneumonia, severe skin infections Liver cirrhosis INR Coag (PPP) [Relative time] 2.0 {INR} Invalid Interpretation Code [facility] Auto [facility] Comment on above: Interpretive Data: I NR results are specifically intended to assess patients stabilized on long-term Anticoagulation therapy suggested INR s Less Intensive Anticoagulation 2.0 3.0 Conventional Range 3.0 4.5 PT Coag (PPP) [Time] 23.2 s High 9.4 - 1 2.5 second(s) [facility] Auto [facility] Comment on above: Interpretive Data: 1 5 days - 4 weeks 1 - 5 months 6 -11 months 1 5 years 6 10 years 11 -17 years Mean: 11.2 (9.5 12.6) Mean: 11.0 (9.7 12.8) Mean: 11.0 (9.8 13.0) Mean: 11.3 (9.9 13.4) Mean: 11.7 (10.0 14.6) Mean: 11.8 (10.0 - 14.1) Pediatric Reference ranges were obtained from a study by Jalil Kirkpatrick et al. prepared from 1437 samples obtained at 7 different centers using the same coagulation reagent and instrumentation as [facility]. Currently there are no coagulation studies available worldwide for children to 14 days, and no normal ranges. Consent for Treatmenton Consent for Treatment [id number] Normal [facility] D-Dimeron 10-21-2023 Fibrin D-dimer FEU (PPP) [Mass/Vol] <215 Low 215-500 [facility] Comment on above: Result Comment: This assay is intended for use as an aid in the diagnosis of DVT or PE. These conditions cannot be excluded with certainty solely on the basis of a D-dimer concentration being within the reference range This D-Dimer assay may be used in conjunction with a non-high clinical pretest probability assessment to exclude deep-vein thrombosis(DVT). For exclusion of venous thrombosis or pulmonary embolism the analyte D-Dimer should not be used as an aid in patients with: Therapeutic dose anticoagulant therapy for >24 hours Fibrinolytic therapy within previous 7 days Trauma or surgery within previous 4 weeks Disseminated malignacies Aortic aneurysm Sepsis, severe infections, pneumonia, severe skin infections Liver cirrhosis Performed By: #### 2 859367, 1988010, 6016153, 62270091, 17485970, 12613696, 4392816, 0292611, 97325774 ####[facility] [address] [place] [address] Discharge Instructionson Discharge Instructions [id number] Normal [facility] ED Clinical Summaryon 2023 ED Clinical Summary (Inserted Image. Micki ble to display) [place] [id number] ED Clinical Summary Person Information Name: SAVANNAH HOBBS Sandi/[facility] Age: 58 Years : 1965 Sex: Male Language: Stateless PCP: Blaise HARDIN DO, FAAFP Marital Status: Phone: [phone] Visit Id: Visit Reason: Tachycardia; SENT FROM DR DIANE CRUZ AFIB Speciality: Acuity: 2 Enc Type: Emergency Med Service: Emergency Arrival: 10/21/2023 13:54:22 Discharge: 10/21/2023 16:38:45 LOS: 000 02:44 Checkin: 10/21/2023 13:54:22 Checkout: 10/21/2023 16:38:45 Dispo Type: Home (Routine DC) EVENTS: Event Name Event Status Request Date/Time Start Date/Time Complete Date/Time Arrive Complete 10/21/2023 13:54:22 10/21/2023 13:54:22 10/21/2023 13:54:22 Document Home Meds Request 10/21/2023 13:54:22 Triage Complete 10/21/2023 13:54:22 10/21/2023 14:04:24 10/21/2023 14:04:24 Registration Complete 10/21/2023 13:57:07 10/21/2023 13:57:07 10/21/2023 13:57:07 Reg Complete Request 10/21/2023 13:57:07 Reg Bed Request Complete 10/21/2023 13:57:07 10/21/2023 13:57:07 10/21/2023 13:57:07 Bed Assign Complete 10/21/2023 13:58:34 10/21/2023 13:58:34 10/21/2023 13:58:34 Dr Exam Complete 10/21/2023 13:58:34 10/21/2023 14:03:08 10/21/2023 14:03:08 RN Exam Complete 10/21/2023 13:58:34 10/21/2023 14:23:04 10/21/2023 14:23:04 Registration Request 10/21/2023 14:03:08 EKG Complete 10/21/2023 14:03:10 10/21/2023 14:18:51 Dr Exam Complete 10/21/2023 14:04:24 10/21/2023 14:04:24 10/21/2023 14:04:24 Meds Admin Complete 10/21/2023 14:07:57 10/21/2023 14:19:50 Pending Labs Request 10/21/2023 14:07:57 Lab Request 10/21/2023 14:07:57 Urine Collect Request 10/21/2023 14:07:57 X-Ray Complete 10/21/2023 14:07:57 10/21/2023 14:28:09 10/21/2023 14:48:51 Patient Care Complete 10/21/2023 14:07:57 10/21/2023 14:21:26 Pending Labs Complete 10/21/2023 14:24:02 10/21/2023 14:24:02 10/21/2023 14:53:17 Lab Complete 10/21/2023 14:24:02 10/21/2023 14:24:02 10/21/2023 14:53:17 Pending Labs Complete 10/21/2023 14:25:52 10/21/2023 14:25:52 10/21/2023 14:25:53 Wet Read Complete 10/21/2023 14:48:51 10/21/2023 14:52:01 10/21/2023 14:52:01 Pending Labs Cancel 10/21/2023 15:19:59 10/21/2023 15:43:36 Lab Cancel 10/21/2023 15:19:59 10/21/2023 15:43:36 Pending Labs Complete 10/21/2023 15:44:03 10/21/2023 15:44:03 10/21/2023 15:54:57 Lab Complete 10/21/2023 15:44:03 10/21/2023 15:44:03 10/21/2023 15:54:57 Discharge Complete 10/21/2023 16:25:56 10/21/2023 16:38:50 10/21/2023 16:38:50 Transfer Complete 10/21/2023 16:38:50 10/21/2023 16:38:50 10/21/2023 16:38:50 ADDRESS: [address] [facility] [id number] PHYS DOC NOTES: MEDICAL INFORMATION: Prescriptions Given: Medications to Continue with No Changes Other Medications atorvastatin (atorvastatin 40 mg Tab) 1 Tablets By Mouth every day. Refills: 11. clopidogrel (clopidogrel 75 mg Tab) 1 Tablets By Mouth every day for 30 Days. DO NOT STOP UNLESS CLEARED PER CARDIOLOGY. Refills: 11. losartan (losartan 100 mg Tab) 0.5 Tablets By Mouth every day for 90 Days. 50 mg. Refills: 3. metoprolol (Lopressor 25 mg oral tablet) 1 Tablets By Mouth 2 times a day for 90 Days. Refills: 3. multivitamin with minerals (Centrum Silver oral tablet) 1 Tablets By Mouth every day. rivaroxaban (Xarelto 20 mg oral tablet) 1 Tablets By Mouth once a day (in the morning) for 90 Days. DO NOT STOP UNLESS CLEARED BY SLAB TRIPPER. Refills: 3. PATIENT EDUCATION INFORMATION: Instructions: Atrial Fibrillation, Mzwk-[id number] Follow up: With: Address: When: Nacho López In 3 days 10/24/2023 With: Address: When: Blaise HARDIN [address] [place], [facility] [address] [place] [id number] [place] (1) In 3 days DIAGNOSIS: 1:Atrial fibrillation with RVR; 2:PAF (paroxysmal atrial fibrillation) Normal [facility] ED Patient Education Noteon 10-21-2023 ED Patient Education Note Cardiovascular Atrial Fibrillation Atrial fibrillation is a type of heartbeat that is irregular or fast. If you have this condition, your heart beats without any order. This makes it hard for your heart to pump blood in a normal way. Atrial fibrillation may come and go, or it may become a long-lasting problem. If this condition is not treated, it can put you at higher risk for stroke, heart failure, and other heart problems. What are the causes? This condition may be caused by diseases that damage the heart. They include: ? High blood pressure. ? Heart failure. ? Heart valve disease. ? Heart surgery. Other causes include: ? Diabetes. ? Thyroid disease. ? Being overweight. ? Kidney disease. Sometimes the cause is not known. What increases the risk? You are more likely to develop this condition if: ? You are older. ? You smoke. ? You exercise often and very hard. ? You have a family history of this condition. ? You are a man. ? You use drugs. ? You drink a lot of alcohol. ? You have lung conditions, such as emphysema, pneumonia, or COPD. ? You have sleep apnea. What are the signs or symptoms? Common symptoms of this condition include: ? A feeling that your heart is beating very fast. ? Chest pain or discomfort. ? Feeling short of breath. ? Suddenly feeling light-headed or weak. ? Getting tired easily during activity. ? Fainting. ? Sweating. In some cases, there are no symptoms. How is this treated? Treatment for this condition depends on underlying conditions and how you feel when you have atrial fibrillation. They include: ? Medicines to: ? Prevent blood clots. ? Treat heart rate or heart rhythm problems. ? Using devices, such as a pacemaker, to correct heart rhythm problems. ? Doing surgery to remove the part of the heart that sends bad signals. ? Closing an area where clots can form in the heart (left atrial appendage). In some cases, your doctor will treat other underlying conditions. Follow these instructions at home: Medicines ? Take ymqu-guo-grgctri and prescription medicines only as told by your doctor. ? Do not take any new medicines without first talking to your doctor. ? If you are taking blood thinners: ? Talk with your doctor before you take any medicines that have aspirin or NSAIDs, such as ibuprofen, in them. ? Take your medicine exactly as told by your doctor. Take it at the same time each day. ? Avoid activities that could hurt or bruise you. Follow instructions about how to prevent falls. ? Wear a bracelet that says you are taking blood thinners. Or, carry a card that lists what medicines you take. Lifestyle ? Do not use any products that have nicotine or tobacco in them. These include cigarettes, e-cigarettes, and chewing tobacco. If you need help quitting, ask your doctor. ? Eat heart-healthy foods. Talk with your doctor about the right eating plan for you. ? Exercise regularly as told by your doctor. ? Do not drink alcohol. ? Lose weight if you are overweight. ? Do not use drugs, including cannabis. General instructions ? If you have a condition that causes breathing to stop for a short period of time (apnea), treat it as told by your doctor. ? Keep a healthy weight. Do not use diet pills unless your doctor says they are safe for you. Diet pills may make heart problems worse. ? Keep all follow-up visits as told by your doctor. This is important. Contact a doctor if: ? You notice a change in the speed, rhythm, or strength of your heartbeat. ? You are taking a blood-thinning medicine and you get more bruising. ? You get tired more easily when you move or exercise. ? You have a sudden change in weight. Get help right away if: ? You have pain in your chest or your belly (abdomen). ? You have trouble breathing. ? You have side effects of blood thinners, such as blood in your vomit, poop (stool), or pee (urine), or bleeding that cannot stop. ? You have any signs of a stroke. BE FAST is an easy way to remember the main warning signs: ? B - Balance. Signs are dizziness, sudden trouble walking, or loss of balance. ? E - Eyes. Signs are trouble seeing or a change in how you see. ? F - Face. Signs are sudden weakness or loss of feeling in the face, or the face or eyelid drooping on one side. ? A - Arms. Signs are weakness or loss of feeling in an arm. This happens suddenly and usually on one side of the body. ? S - Speech. Signs are sudden trouble speaking, slurred speech, or trouble understanding what people say. ? T - Time. Time to call emergency services. Write down what time symptoms started. ? You have other signs of a stroke, such as: ? A sudden, very bad headache with no known cause. ? Feeling like you may vomit (nausea). ? Vomiting. ? A seizure. These symptoms may be an (more content not included)... Normal [facility] ED Patient Summaryon 024 ED Patient Summary (Inserted Image. Micki ble to display) [place] [id number] Patient Discharge Instructions Person Information Name: SAVANNAH HOBBS Age: 58 Years Arrival Date: 10/21/2023 13:54:22 Discharge Diagnosis: 1:Atrial fibrillation with RVR; 2:PAF (paroxysmal atrial fibrillation) Primary Care Physician: Blaise HARDIN DO, FAAFP Provider Information Primary Provider: Diego Melendez DO Advanced Clothing Pattern Preparer:None The exam and treatment you received in the Emergency Department were for an urgent problem and are not intended as complete care. It is important that you follow up with a doctor, nurse practitioner, or physician?s gallery assistant for ongoing care. If your symptoms become worse or you do not improve as expected and you are unable to reach your usual health care provider, you should return to the Emergency Department. We are available 24 hours a day. SAVANNAH HOBBS has been given the following list of patient education materials, prescriptions and follow-up instructions: Follow-up Instructions: With: Address: When: Nacho López In 3 days 10/24/2023 With: Address: When: Blaise HARDIN [address] [place] [address] [facility] (1) In 3 days In the event that this physician does not participate in your insurance network, please consult with your insurance company to find a nearby participating provider. Patient Education Materials: Atrial Fibrillation, Txyz-tb-Scpx A MESSAGE TO ALL PATIENTS REGARDING OPIOIDS PRESCRIPTION OPIOIDS: WHAT YOU NEED TO KNOW Prescription opioids can be used to help relieve kvcsmkyr-yj-cetovj pain and are often prescribed following a surgery or injury, or for certain health conditions. These medications can be an important part of the treatment but also come with serious risks. It is important to work with your healthcare provider to make sure you are getting the safest, most effective care. WHAT ARE THE RISKS AND SIDE EFFECTS OF OPIOID USE? Prescription opioids carry serious risks of addiction and overdose, especially with prolonged use. An opioid overdose, often marked by slowed breathing, can cause sudden . The use of prescription opioids can have a number of side effects as well, even when taken as directed: ? Tolerance?meaning you might need to take more of the medication for the same pain relief ? Physical dependence?meaning you have symptoms of withdrawal when a medication is stopped ? Increased sensitivity to pain ? Constipation ? Nausea, vomiting, and dry mouth ? Sleepiness and dizziness ? Confusion ? Depression ? Low levels of testosterone that can result in lower sex drive, energy, and strength ? Itching and sweating RISKS ARE GREATER WITH: ? History of drug misuse, substance use disorder, or overdose ? Mental health conditions (such as depression or anxiety) ? Sleep apnea ? Older age (65 years and older) ? Avoid alcohol while taking prescription opioids. Also, unless specifically advised by your health care provider, medications to avoid include: ? Benzodiazepines (such as Xanax or Valium) ? Muscle relaxants (such as Soma or Flexeril) ? Hypnotics (such as Ambien or Lunesta) ? Other prescription opioids KNOW YOUR OPTIONS Talk to your health care provider about ways to manage your pain that don?t involve prescription opioids. Some of these options may actually work better and have fewer risks and side effects. Options may include: ? Pain relievers such as acetaminophen, ibuprofen, and naproxen ? Some medication that are also used for depression or seizures ? Physical therapy and exercise ? Cognitive behavioral therapy, a psychological, goal-directed approach, in which patients learn how to modify physical, behavioral, and emotional triggers of pain and stress. IF YOU ARE PRESCRIBED OPIOIDS FOR PAIN: ? Never take opioids in greater amounts or more often than prescribed. ? Follow up with your primary health care provider. o Work together to create a plan on how to manage your pain. o Talk about ways to help manage your pain that don?t involve prescription opioids. o Talk about any and all concerns and side effects. ? Help prevent misuse and abuse o Never sell or share prescription opioids. o Never use another person?s prescription opioids. ? Store prescription opioids in a secure place and out of reach of others (this may include visitors, children, friends, and family). ? Safely dispose of unused prescription opioids: Find your community drug take-back program or your pharmacy mail-back program, or flush them down the toilet, following guidance from the Food and Drug Administration (www.fda.gov/Drugs/Resour cesForYou). ? Visit www.cdc.gov/drugoverdose to learn about the risks of opioids abuse and overdose. ? If you believe you may be struggling with addiction, tell your health care prof (more content not included)... Normal [facility] Family Medicine Office/Clini c Noteon 10-21-2023 Family Medicine Office/Clinic Note Chief Complaint C/o problems with weight & lack of energy. Also bottom of feet hurt. History of Present Illness Max wt 300lb. BG not wear CPAP Drop weight is all I want, Adipex worked well even with the A.fib. Not seen cardilogy in over a year or two. STEPHENS noticable last ffew months, walked 3 miles this am and KAT Mars believes much more SOB w exertion Review of Systems PHQ Score Initial Depression Screen Score: 0 SCORE ROS - Provider Constitutional: no fever, no chills, no sweats, no weakness. Skin: no Jaundice, no rash, no lesions, no petechiae. ENMT: no ear pain, no sore throat, no congestion, no hoarseness. Respiratory: no shortness of breath, no cough, no orthopnea, no wheezing. Cardiovascular: no chest pain, no palpitations, no edema. Gastrointestinal: no nausea, no vomiting, no diarrhea, no GI bleeding.no constipationnoheartburn Genitourinary: no dysuria, no hematuria, no discharge, no pain.nofreq/urgency Musculoskeletal: no back pain, no trauma.nojoint pain Neurologic: no headache, no dizziness, no numbness, no weakness. Psychiatric: no sleeping problems, no irritability, no mood swings/depression. Heme/Lymph: no bleeding tendency, no bruising tendency, no petechiae, no swollen lymph nodes no Allergy/Imunology no seasonal allergies, no food allergies, no recurrent infections, no impaired immunity. Additional ROS info: Except as noted in the above Review of Systems and in the History of Present Illness all other systems have been reviewed and are negative or noncontributory. Physical Exam Vitals & Measurements T: 36.8 ?C(Oral) HR: 60(Peripheral) BP: 136/86 SpO2: 97% HT: 70 in HT: 178 cm WT: 132.2 kg WT: 290.84 lb BMI: 41.72 General: Well developed, well nourished, in no acute distress Mouth: Mucous membranes moist. Normal oropharynx, and posterior pharynx without lesions or exudates. Tongue normal Neck: Neck supple. No masses or palpable cervical nodes. Trachea midline. Thyroid without nodules, masses, tenderness, or enlargement Lungs: Normal respiratory effort and clear to auscultation Cardio: Irregularly irregular rhythm with rate of 120 to 150 bpm Abdomen: Soft, non-distended, non-tender. no G/R/S/Masses Musculoskeletal: No deformity or scoliosis noted. Normal range of motion. Joints normal. No erythema, edema, effusion, or ecchymosis Extremity: No clubbing, cyanosis, edema, or deformity, with normal ROM in both upper and lower bilateral extremities Neurologic: Grossly normal Skin: No rashes, ulcerations, or suspicious lesions Mental Status: Alert and oriented x3. Normal mood and affect Assessment/Plan 1. Uncontrolled atrial fibrillation (I48.91: Unspecified atrial fibrillation) Precordial heart rate 120 to 150 bpm irregularly irregular and he has some dyspnea at the end of his sentences. Case discussed with admitting at [facility] and with ER staff and they are expecting the patient. Ramirez blood work in the ED 2. PAF (paroxysmal atrial fibrillation) (I48.0: Paroxysmal atrial fibrillation) Currently uncontrolled with increased dyspnea, Xarelto 20 mg p.o. daily, Lopressor 25 mg p.o. twice daily, losartan 100 mg p.o. daily 3. Adult BMI 40.0-44.9 kg/sq m (Z68.41: Body mass index [BMI] 40.0-44.9, adult) The standard range for ages 18 and older is >=18.5 and < 25 kg/m2. Your BMI today was above this range, this falls in the overweight to obese category and there are medical benefits to weight loss. We can offer counselling, referral, and/or medical support in addressing this problem. Your BMI and weight management will be followed at subsequent visits. 4. Hypertension (I10: Essential (primary) hypertension) Losartan 100 mg p.o. daily, Lopressor 25 mg p.o. twice daily 5. CAD in pala artery (I25.10: Atherosclerotic heart disease of pala coronary artery without angina pectoris) Plavix 75 mg p.o. daily with atorvastatin 40 mg p.o. daily, has been lost to follow-up with cardiology: Please see #1 6. H/O heart artery stent (Z95.5: Presence of coronary angioplasty implant and graft) Please see #5 7. Familial hypercholesterolemia (E78.01: Familial hypercholesterolemia) Please see #5 Total time spent preparing the chart, conducting of the encounter with the patient and family and time spent documenting, reviewing, and ordering tests was 25 minutes. 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 Normal [facility] Comment on above: Result Comment: Elec tronically Signed By: Blaise HARDIN DO, FAAFP\.br\Date and Time Signed: 10/21/23 13:57 EST HEMATOLOGYOrdered By: SYSTEM SYSTEM on 10-21-2023 Basophil Absolute 0.1 E9/L Normal 0.0 - 0.2 E9/L Remisol Heme Basophils/100 WBC (Bld) 1.2 % Normal 0.0 - 2.0 % Remisol Heme Eos Absolute 0.1 E9/L Normal 0.0 - 0.5 E9/L Remisol Heme Eosinophils/100 WBC (Bld) 1.0 % Normal 0.0 - 8.0 % Remisol Heme Erythrocyte distribution width (RBC) [Ratio] 13.6 % Normal 10.9 - 14.2 % Remisol Heme Hematocrit (Bld) [Volume fraction] 42.0 % Normal 37.7 - 49.0 % Remisol Heme Hemoglobin (Bld) [Mass/Vol] 14.2 g/dL Normal 13.5 - 17.5 gm/dL Remisol Heme Lymph Absolute 1.7 E9/L Normal 1.0 - 4.0 E9/L Remisol Heme Lymphocytes/100 WBC (Bld) 16.6 % Normal 14.0 - 50.0 % Remisol Heme MCH (RBC) [Entitic mass] 29.2 pg Normal 27.0 - 34.0 pg Remisol Heme MCHC (RBC) [Mass/Vol] 33.5 g/dL Normal 31.4 - 36.0 gm/dL Remisol Heme MCV (RBC) [Entitic vol] 87.2 fL Normal 80.0 - 100.0 fL Remisol Heme Pacific Absolute 0.7 E9/L Normal 0.2 - 1.0 E9/L Remisol Heme Monocytes/100 WBC (Bld) 7.1 % Normal 4.0 - 14.0 % Remisol Heme Neutro Absolute 7.4 E9/L Normal 2.0 - 7.5 E9/L Remisol Heme Neutro Auto 74.1 % Normal 36.0 - 75.0 % Remisol Heme Platelet 259.0 E9/L Normal 150.0 - 500.0 E9/L Remisol Heme Platelet mean volume (Bld) [Entitic vol] 7.7 fL Normal 6.4 - 10.8 fL Remisol Heme RBC 4.9 E12/L Normal 4.3 - 5.9 E12/L Remisol Heme WBC 10.0 E9/L Normal 4.0 - 11.0 E9/L Remisol Heme Hep Func Panelon 10-21-2023 Albumin [Mass/Vol] 4.7 g/dL Normal 3.3-5.0 [facility] Comment on above: Performed By: #### 2 327580, 3869189, 0992580, 19474315, 69166991, 09366340, 2678851, 9200413, 64569839 ####[facility] [address] [place] [address] Albumin/Globulin [Mass ratio] 1.6 {ratio} Normal 1.1-2.2 [facility] Comment on above: Performed By: #### 2 329407, 5577832, 7372413, 43041669, 68225720, 70812917, 2105186, 3863918, 28910220 ####[facility] [address] [place] [address] Alk Phos 63 Int._Unit/L Normal 21-98 [facility] Comment on above: Performed By: #### 2 876677, 8431223, 4172049, 16371549, 17036298, 36930959, 5109254, 5591467, 62290837 ####[facility] [address] [place] [address] ALT 17 Int._Unit/L Normal 6-46 [facility] Comment on above: Performed By: #### 2 378162, 3561896, 7517773, 17727475, 86210318, 71266252, 9109610, 6245876, 81493893 ####[facility] [address] [place] [address] AST 20 Int._Unit/L Normal 5-43 [facility] Comment on above: Performed By: #### 2 280110, 4839381, 1701596, 70298392, 39986831, 83788547, 4093304, 7037461, 33746294 ####[facility] [address] [place] [address] Bili Direct 0.1 mg/dL Normal 0.0-0.4 [facility] Comment on above: Performed By: #### 2 417407, 3859256, 4827057, 97276811, 99184363, 56973803, 3768836, 5499351, 12422538 ####[facility] [address] [place] [address] Bili Indirect 0.7 mg/dL Normal 0.1-0.9 [facility] Comment on above: Performed By: #### 2 151233, 7572711, 2785115, 98203316, 98581817, 08924564, 0278394, 5663750, 61616207 ####[address] [address] Bili Total 0.8 mg/dL Normal 0.0-1.1 [facility] Comment on above: Performed By: #### 2 863520, 8245678, 8006339, 17224027, 34074111, 69581620, 3053029, 7875424, 81411170 ####[address] [address] Globulin (S) [Mass/Vol] 3.0 g/dL Normal 1.4-4.0 [facility] Comment on above: Performed By: #### 2 389541, 1671672, 3405895, 93490737, 69413446, 62509296, 3817307, 2535442, 16041447 ####[facility] [address] [place] [address] Protein [Mass/Vol] 7.7 g/dL Normal 6.0-7.8 [facility] Comment on above: Performed By: #### 2 564566, 8807241, 3695665, 23185159, 97222952, 73670466, 0878712, 4606870, 40076795 ####[address] [address] Magnesiumon 10-21-2023 Magnesium [Mass/Vol] 1.8 mg/dL Normal 1.3-2.4 [facility] Comment on above: Performed By: #### 2 514035, 9900298, 5482135, 10996360, 13486451, 24045429, 7937748, 2632396, 21019113 ####[facility] [address] [place] [address] Monitor Recordon 10-21-2023 Monitor Record [id number]#1.00TIFF Normal [facility] Monitor Record [id number]#1.00TIFF Normal [facility] PT & PTTon 10-21-2023 aPTT Coag (PPP) [Time] 40.5 second(s) High 25.1-36.5 [facility] Comment on above: Result Comment: Para meter 15 days - 4 weeks 1 - 5 months 6 - 11 months 1 - 5 years 6 - 10 years 11 - 17 years PTT Mean: 35.4 (27.6-45.6) Mean: 33.5 (24.8-40.7) Mean: 32.4 (25.1-40.7) Mean: 31.6 (24.0-39.2) Mean: 31.6 (26.9-38.7) Mean: 31.0 (24.6-38.4) Pediatric Reference ranges were obtained from a study by Jalil Kirkpatrick et al. prepared from 1437 samples obtained at 7 different centers using the same coagulation reagent and instrumentation as [facility]. Currently there are no coagulation studies available worldwide for children to 14 days, and no normal ranges. Heparin therapeutic range (represented by Anti-Factor Xa activity of 0.2 - 0.4 U/mL) corresponds to PTT of 56.6 - 109.0 sec. Performed By: #### 2 544064, 7563724, 4829747, 44869319, 11783821, 79357741, 1444971, 2542333, 07494636 ####[facility] [address] [place] [address] INR Coag (PPP) [Relative time] 2.0 {INR} Invalid Interpretation Code [facility] Comment on above: Result Comment: INR results are specifically intended to assess patients stabilized on long-term Anticoagulation therapy suggested INR?s ?Less Intensive Anticoagulation? 2.0 ? 3.0 Conventional Range 3.0 ? 4.5 Performed By: #### 2 512096, 5205269, 5225809, 32253009, 65462408, 84224977, 4146027, 1970923, 30954180 ####[facility] [address] [place] [address] PT Coag (PPP) [Time] 23.2 second(s) High 9.4-12.5 [facility] Comment on above: Result Comment: 15 d ays - 4 weeks 1 - 5 months 6 -11 months 1 ? 5 years 6 ? 10 years 11 -17 years Mean: 11.2 (9.5 ? 12.6) Mean: 11.0 (9.7 ? 12.8) Mean: 11.0 (9.8 ? 13.0) Mean: 11.3 (9.9 ? 13.4) Mean: 11.7 (10.0 ? 14.6) Mean: 11.8 (10.0 - 14.1) Pediatric Reference ranges were obtained from a study by Jalil Kirkpatrick et al. prepared from 1437 samples obtained at 7 different centers using the same coagulation reagent and instrumentation as [facility]. Currently there are no coagulation studies available worldwide for children to 14 days, and no normal ranges. Performed By: #### 2 303511, 2064953, 9133811, 02496093, 92566429, 54390470, 3509811, 8384753, 95462320 ####[facility] [address] [place] [address] Patient Educationon 10-21-19 Patient Education Cardiovascular Atrial Fibrillation Atrial fibrillation is a type of heartbeat that is irregular or fast. If you have this condition, your heart beats without any order. This makes it hard for your heart to pump blood in a normal way. Atrial fibrillation may come and go, or it may become a long-lasting problem. If this condition is not treated, it can put you at higher risk for stroke, heart failure, and other heart problems. What are the causes? This condition may be caused by diseases that damage the heart. They include: ? High blood pressure. ? Heart failure. ? Heart valve disease. ? Heart surgery. Other causes include: ? Diabetes. ? Thyroid disease. ? Being overweight. ? Kidney disease. Sometimes the cause is not known. What increases the risk? You are more likely to develop this condition if: ? You are older. ? You smoke. ? You exercise often and very hard. ? You have a family history of this condition. ? You are a man. ? You use drugs. ? You drink a lot of alcohol. ? You have lung conditions, such as emphysema, pneumonia, or COPD. ? You have sleep apnea. What are the signs or symptoms? Common symptoms of this condition include: ? A feeling that your heart is beating very fast. ? Chest pain or discomfort. ? Feeling short of breath. ? Suddenly feeling light-headed or weak. ? Getting tired easily during activity. ? Fainting. ? Sweating. In some cases, there are no symptoms. How is this treated? Treatment for this condition depends on underlying conditions and how you feel when you have atrial fibrillation. They include: ? Medicines to: ? Prevent blood clots. ? Treat heart rate or heart rhythm problems. ? Using devices, such as a pacemaker, to correct heart rhythm problems. ? Doing surgery to remove the part of the heart that sends bad signals. ? Closing an area where clots can form in the heart (left atrial appendage). In some cases, your doctor will treat other underlying conditions. Follow these instructions at home: Medicines ? Take pwjn-agw-pnpuego and prescription medicines only as told by your doctor. ? Do not take any new medicines without first talking to your doctor. ? If you are taking blood thinners: ? Talk with your doctor before you take any medicines that have aspirin or NSAIDs, such as ibuprofen, in them. ? Take your medicine exactly as told by your doctor. Take it at the same time each day. ? Avoid activities that could hurt or bruise you. Follow instructions about how to prevent falls. ? Wear a bracelet that says you are taking blood thinners. Or, carry a card that lists what medicines you take. Lifestyle ? Do not use any products that have nicotine or tobacco in them. These include cigarettes, e-cigarettes, and chewing tobacco. If you need help quitting, ask your doctor. ? Eat heart-healthy foods. Talk with your doctor about the right eating plan for you. ? Exercise regularly as told by your doctor. ? Do not drink alcohol. ? Lose weight if you are overweight. ? Do not use drugs, including cannabis. General instructions ? If you have a condition that causes breathing to stop for a short period of time (apnea), treat it as told by your doctor. ? Keep a healthy weight. Do not use diet pills unless your doctor says they are safe for you. Diet pills may make heart problems worse. ? Keep all follow-up visits as told by your doctor. This is important. Contact a doctor if: ? You notice a change in the speed, rhythm, or strength of your heartbeat. ? You are taking a blood-thinning medicine and you get more bruising. ? You get tired more easily when you move or exercise. ? You have a sudden change in weight. Get help right away if: ? You have pain in your chest or your belly (abdomen). ? You have trouble breathing. ? You have side effects of blood thinners, such as blood in your vomit, poop (stool), or pee (urine), or bleeding that cannot stop. ? You have any signs of a stroke. BE FAST is an easy way to remember the main warning signs: ? B - Balance. Signs are dizziness, sudden trouble walking, or loss of balance. ? E - Eyes. Signs are trouble seeing or a change in how you see. ? F - Face. Signs are sudden weakness or loss of feeling in the face, or the face or eyelid drooping on one side. ? A - Arms. Signs are weakness or loss of feeling in an arm. This happens suddenly and usually on one side of the body. ? S - Speech. Signs are sudden trouble speaking, slurred speech, or trouble understanding what people say. ? T - Time. Time to call emergency services. Write down what time symptoms started. ? You have other signs of a stroke, such as: ? A sudden, very bad headache with no known cause. ? Feeling like you may vomit (nausea). ? Vomiting. ? A seizure. These symptoms may be an (more content not included)... Normal [facility] Troponin 0 Hr.on 10-21-2023 Troponin 13.40 pg/mL Low 15.90-38.40 [facility] Comment on above: Result Comment: The 95% CI (Confidence Interval) PPV (Positive Predictive Value) for myocardial infarction in females is 38 pg/mL, in males 51 pg/mL. The results should be used in conjunction with clinical conditions of myocardial infarction. (Access High Sensitivity Troponin I Instructions For Use, Osmany Dennis, April 2018) Performed By: #### 2 768924, 7965756, 7306339, 58426312, 22697461, 22226966, 6920485, 5602039, 15820083 ####[facility] [address] [place] [address] XR Chest Single Viewon 10-21 XR Chest Single View Exam Date/Time: 10/21/2023 14:48 EST Reason for Exam: Cardiac disease Report IMPRESSION: NO ACUTE CARDIOPULMONARY DISEASE CLINICAL HISTORY: Cardiac disease COMPARISON: NONE. FINDINGS: Osseous structures intact. Cardiopericardial silhouette normal. Pulmonary vasculature normal. Lungs clear. Ordering Provider: Jia Gamez FINAL REPORT Dictated: 10/21/2023 3:28 pm Angelito Anderson MD Signed (Electronic Signature): 10/21/2023 3:28 pm Signed by: Angelito Anderson MD Transcribed by: DP Technologist: DPR Technical Comments Radiation Dose: Ka,r in mGy = na DAP = na Normal [facility] eGFRon 10-21-2023 eGFR 69 mL/min/1.73 m2 Normal >=59 [facility] Comment on above: Order Comment: Order added by Discern Expert. Performed By: #### 2 266116, 1620479, 7298943, 41242851, 67429357, 78014238, 0661881, 7738923, 82808636 ####[facility] [address] [place] [address] Lab Reportson 10-19-2023 Lab Reports [id number]#1.00TIFF Normal [facility] Formson 09-26-2023 Forms [id number]#1.00TIFF Normal [facility] Forms [id number]#1.00TIFF Normal [facility] Immunization Recordson 08-26 Immunization Records [id number]#1.00TIFF Normal [facility] ACT-LOW RANGEon 03-22-2022 ACT-LOW RANGE 256 SECONDS High 89 - 169 [facility] Comment on above: Result Comment: Note new reference range as of 12/15/2018. Target ACT range will vary based on the patient population, clinical status, and surgical intervention occurring. Performed By: #### A CTLR #### [address] [id number] BASIC METABOLIC PANELon 03-12 Anion gap [Moles/Vol] 12 mmol/L Normal 10 - 20 [facility] Comment on above: Performed By: #### B MP #### [address] [id number] Calcium [Mass/Vol] 9.3 mg/dL Normal 8.6 - 10.3 [facility] Comment on above: Performed By: #### B MP #### [address] [id number] Chloride [Moles/Vol] 102 mmol/L Normal 98 - 107 [facility] Comment on above: Performed By: #### B MP #### [address] [id number] Creatinine [Mass/Vol] 1.15 mg/dL Normal 0.50 - 1.30 [facility] Comment on above: Performed By: #### B MP #### [address] [id number] GFR/1.73 sq M.predicted among non-blacks MDRD (S/P/Bld) [Vol rate/Area] 73 mL/min/{1.73_m2} Normal >90 [facility] Comment on above: Result Comment: CALC ULATIONS OF ESTIMATED GFR ARE PERFORMED USING THE 2020 CKD-EPI STUDY REFIT EQUATION WITHOUT THE RACE VARIABLE FOR THE IDMS-TRACEABLE CREATININE METHODS. https://jasn.asnjournals.org/content//ASN.044939 6227 Performed By: #### B MP #### [address] [id number] Glucose [Mass/Vol] 109 mg/dL High 74 - 99 [facility] Comment on above: Performed By: #### B MP #### [address] [id number] HCO3 (Bld) [Moles/Vol] 28 mmol/L Normal 21 - 32 [facility] Comment on above: Performed By: #### B MP #### [address] [id number] Potassium [Moles/Vol] 4.3 mmol/L Normal 3.5 - 5.3 [facility] Comment on above: Performed By: #### B MP #### [address] [id number] Sodium [Moles/Vol] 138 mmol/L Normal 136 - 145 [facility] Comment on above: Performed By: #### B MP #### [address] [id number] Urea nitrogen [Mass/Vol] 22 mg/dL Normal 6 - 23 [facility] Comment on above: Performed By: #### B MP #### [address] [id number] CBCon 03-22-2022 Erythrocyte distribution width (RBC) [Ratio] 12.7 % Normal 11.5 - 14.5 [facility] Comment on above: Performed By: #### C BC #### [address] [id number] Hematocrit (Bld) [Volume fraction] 40.2 % Low 41.0 - 52.0 [facility] Comment on above: Performed By: #### C BC #### [address] [id number] Hemoglobin (Bld) [Mass/Vol] 13.5 g/dL Normal 13.5 - 17.5 [facility] Comment on above: Performed By: #### C BC #### [address] [id number] MCHC (RBC) [Mass/Vol] 33.6 g/dL Normal 32.0 - 36.0 [facility] Comment on above: Performed By: #### C BC #### [address] [id number] MCV (RBC) [Entitic vol] 89 fL Normal 80 - 100 [facility] Comment on above: Performed By: #### C BC #### [address] [id number] Platelets (Bld) [#/Vol] 227 10*3/uL Normal 150 - 450 [facility] Comment on above: Performed By: #### C BC #### [address] [id number] RBC 4.52 x10E12/L Normal 4.50 - 5.90 [facility] Comment on above: Performed By: #### C BC #### [address] [id number] WBC (Bld) [#/Vol] 8.0 10*3/uL Normal 4.4 - 11.3 [facility] Comment on above: Performed By: #### C BC #### [address] [id number] COAGULATION SCREENon 022 aPTT Coag (Bld) [Time] 29 s Normal 26 - 39 [facility] Comment on above: Result Comment: THE APTT IS NO LONGER USED FOR MONITORING UNFRACTIONATED HEPARIN THERAPY. FOR MONITORING HEPARIN THERAPY, USE THE HEPARIN ASSAY. Performed By: #### C OAGS #### [facility] [address] [place], [place] [id number] PT Coag (PPP) [Time] 11.5 s Normal 9.8 - 13.4 [facility] Comment on above: Performed By: #### C OAGS #### [facility] [address] [place], [place] [id number] PT, INR 1.0 Normal 0.9 - 1.1 [facility] Comment on above: Performed By: #### C OAGS #### [facility] [address] [place], [place] [id number] Electrocardiogram 12 Leadon 03-22-2022 Electrocardiogram 12 Lead Ventricular Rate 77 Atrial Rate 153 QRS Duration 94 Q-T Interval 392 QTC Calculation(Bazett) 443 R Isaban 62 T Isaban 25 QRS Count 12 Q Onset 220 T Offset 416 QTC Fredericia 425 Diagnosis Class Abnormal Diagnosis Atrial fibrillation with a competing junctional pacemaker Abnormal ECG When compared with ECG of 22-MAR-2022 08:27, No significant change was found Confirmed by Heri Dee ([id number]) on 03/25/2022 8:13:26 PM Normal [facility] Electrocardiogram 12 Lead Ventricular Rate 69 Atrial Rate 98 QRS Duration 92 Q-T Interval 378 QTC Calculation(Bazett) 405 R Isaban 50 T Isaban 48 QRS Count 12 Q Onset 221 T Offset 410 QTC Fredericia 396 Diagnosis Class Abnormal Diagnosis Atrial fibrillation Abnormal ECG No previous ECGs available Confirmed by Heri Dee ([id number]) on 03/28/2022 10:46:39 AM Normal [facility] Order Reconciliationon 03-22 Order Reconciliation Page 1 Discharge Reconciliation Document Reconciliation Type: Discharge requested on behalf of Nacho López (Physician) done by Nacho López) Discharge - Reconciliation: 22-Mar-2022 13:03 by: Nacho López) Home Medications EnteredHOME MEDICATIONS AT DISCHARGE DateReconciliation Comment/ Additional Information aspirin 81 mg oral tablet orally once a day 19-Mar-2022 14:11 aspirin 81 mg oral tablet orally once a day 19-Mar-2022 14:11 aspirin 81 mg oral tablet is continued as aspirin 81 mg oral tablet atorvastatin 40 mg oral tablet 1 tab(s) orally once a day 19-Mar-2022 14:11 atorvastatin 40 mg oral tablet 1 tab(s) orally once a day 19-Mar-2022 14:11 atorvastatin 40 mg oral tablet is continued as atorvastatin 40 mg oral tablet clopidogrel 75 mg oral tablet 1 tab(s) orally once a day 19-Mar-2022 14:11 clopidogrel 75 mg oral tablet 1 tab(s) orally once a day 19-Mar-2022 14:11 clopidogrel 75 mg oral tablet is continued as clopidogrel 75 mg oral tablet losartan 100 mg oral tablet 0.5 tab(s) orally once a day 22-Mar-2022 08:16 losartan 100 mg oral tablet 0.5 tab(s) orally once a day 22-Mar-2022 08:16 losartan 100 mg oral tablet is continued as losartan 100 mg oral tablet Metoprolol Tartrate 25 mg oral tablet 1 tab(s) orally 2 times a day 19-Mar-2022 14:10 Metoprolol Tartrate 25 mg oral tablet 1 tab(s) orally 2 times a day 19-Mar-2022 14:10 Metoprolol Tartrate 25 mg oral tablet is continued as Metoprolol Tartrate 25 mg oral tablet multi vitamin with minerals 1 tab(s) orally once a day 19-Mar-2022 14:14 multi vitamin with minerals 1 tab(s) orally once a day 19-Mar-2022 14:14 multi vitamin with minerals is continued as multi vitamin with minerals tamsulosin 0.4 mg oral capsule 1 cap(s) orally once a day 19-Mar-2022 14:12 tamsulosin 0.4 mg oral capsule 1 cap(s) orally once a day 19-Mar-2022 14:12 tamsulosin 0.4 mg oral capsule is continued as tamsulosin 0.4 mg oral capsule Xarelto 20 mg oral tablet 1 tab(s) orally once a day (in the evening) 19-Mar-2022 14:12 Xarelto 20 mg oral tablet 1 tab(s) orally once a day (in the evening) 19-Mar-2022 14:12 Xarelto 20 mg oral tablet is continued as Xarelto 20 mg oral tablet Current OrdersDateHOME MEDICATIONS AT DISCHARGE DateReconciliation Comment/ Additional Information Aspirin TabletDOSE = 325 mg Oral Daily 22-Mar-2022 10:45 Aspirin is not required Atorvastatin Tablet (LIPITOR)DOSE = 40 mg Oral Daily 22-Mar-2022 10:45 Atorvastatin is not required Clopidogrel Tablet (PLAVIX)DOSE = 75 mg Oral Daily 22-Mar-2022 10:45 Clopidogrel is not required Losartan Tablet (COZAAR)DOSE = 50 mg Oral Daily 22-Mar-2022 10:45 Losartan is not required Metoprolol Tartrate Tablet (LOPRESSOR)DOSE = 25 mg Oral 2 Times a Day 22-Mar-2022 10:45 Metoprolol Tartrate is not required Sodium Chloride 0.9% Infusion IV Bag Volume = 1,000 mL Run at: 100 mL/hr IntraVenous 19-Mar-2022 14:05 Sodium Chloride 0.9% Infusion is not required Tamsulosin Capsule (FLOMAX)DOSE = 0.4 mg Oral Daily 22-Mar-2022 10:45 Tamsulosin is not required Home Medications Added During Discharge Reconciliation Discharge Discharge Diagnosis< I25.10 CAD (coronary artery disease) Discharge Provider, Francisco López Instructions for Staff Only: call for followup Discharge Disposition : .Home Condition at Discharge: Satisfactory Discharge Communication Instructions for Nursing Only: Remove IV prior to discharge from hospital. Do not remove any midline, if present, without an order from the provider. Discharge Instructions - PHR After your discharge from the hospital, two Summary of Care Documents will be available online in your Personal Health Record (PHR). 1.Consolidated-Clinical Document Architecture (C-CDA) Patient Discharge Summary This document is a summary of your hospital stay to be kept for your reference.2.C-CDA Visit Summary This document is a summary of your hospital stay to be shared with your follow-up providers (doctor, candy puller, physical therapist, etc.). Guidelines for a Healthy Lifestyle All Active Home Medications at time of Discharge Reconciliation: 22-Mar-2022 13:03 aspirin 81 mg oral tablet orally once a day atorvastatin 40 mg oral tablet 1 tab(s) orally once a day clopidogrel 75 mg oral tablet 1 tab(s) orally once a day Discharge Discharge Diagnosis< I25.10 CAD (coronary artery disease) Discharge Provider, Francisco López Instructions for Staff Only: call for followup Discharge Disposition : .Home Condition at Discharge: Satisfactory Discharge Communication Instructions for Nursing Only: Remove IV prior to discharge from hospital. Do not remove any midline, if present, without an order from the provider. Discharge Instructions - PHR After your discharge from the hospital, two Summary of Care Documents will be available online in your Personal Health Record (PHR). 1.Consolidated-Clin (more content not included)... Normal [facility] Order Reconciliation Page 1 Admission Reconciliation Document Reconciliation Type: Admission requested on behalf of Nacho López (Physician) done by Nacho López) Admission - Reconciliation: 22-Mar-2022 10:45 by: Nacho López) Home MedicationsEnteredLast Dose TakenReconciled with current Order Reconciliation Comment/ Additional Information aspirin 81 mg oral tablet orally once a [id number] 7:00 AM Aspirin TabletDOSE = 325 mg Oral Dailyaspirin 81 mg oral tablet continued as the inpatient order Aspirin atorvastatin 40 mg oral tablet 1 tab(s) orally once a [id number]-Mar-2022 7:00 AM Atorvastatin Tablet (LIPITOR)DOSE = 40 mg Oral Daily atorvastatin 40 mg oral tablet continued as the inpatient order Atorvastatin clopidogrel 75 mg oral tablet 1 tab(s) orally once a [id number]-Mar-2022 7:00 AM Clopidogrel Tablet (PLAVIX)DOSE = 75 mg Oral Daily clopidogrel 75 mg oral tablet continued as the inpatient order Clopidogrel losartan 100 mg oral tablet 0.5 tab(s) orally once a [id number]-Mar-2022 7:00 AM Losartan Tablet (COZAAR)DOSE = 50 mg Oral Dailylosartan 100 mg oral tablet continued as the inpatient order Losartan Metoprolol Tartrate 25 mg oral tablet 1 tab(s) orally 2 times a [id number]-Mar-2022 7:00 AM Metoprolol Tartrate Tablet (LOPRESSOR)DOSE = 25 mg Oral 2 Times a DayMetoprolol Tartrate 25 mg oral tablet continued as the inpatient order Metoprolol Tartrate multi vitamin with minerals 1 tab(s) orally once a [id number] 7:00 AM Reviewed and Held tamsulosin 0.4 mg oral capsule 1 cap(s) orally once a [id number]-Mar-2022-2022 7:00 AM Tamsulosin Capsule (FLOMAX)DOSE = 0.4 mg Oral Daily tamsulosin 0.4 mg oral capsule continued as the inpatient order Tamsulosin Xarelto 20 mg oral tablet 1 tab(s) orally once a day (in the evening) [id number] 7:00 AM Reviewed and Held Additional Current Orders Sodium Chloride 0.9% Infusion IV Bag Volume = 1,000 mL Run at: 100 mL/hr IntraVenous Normal [facility] Patient Profile - Preop v3on 03-22-2022 Patient Profile - Preop v3 Patient Profile - Preop: Initial Info: Patient DemographicsName: SAVANNAH HOBBS Date: 1965 Address: [address] [place] [address] Primary Phone [phone] How to be AddressedRick Spoken Language PreferredEnglish Source of Informationpatient Stated Reason for AdmissionI have a blockage that the doctor is going to try to open up. Primary Contact Name and NumberJulie Luz Maria [phone] Limitations on Visitors/Phone Callsnone Medications Brought to Hospitalno General Health: Weight in kg111.8 kilogram(s) Weight in lti565.4 pound(s) Weight Methodactual (measured) Scale Typestanding Height in feet5 feet Height in inches7.95 inch(es) Height in cm172.5 centimeter(s) Height Methodstated BMI (kg/m2)37.571 square meter Patient or Family Member Reaction to Anesthesiano previous reaction Blood Avoidance/Restrictionsnon e Previous Transfusion Reactionnot applicable Health Mgmt: Symptoms/Conditions Managed at Homecardiovascular; endocrine; respiratory Cardiovascular Symptoms/Conditionshypert ension; dysrhythmia Cardiovascular Management Strategiesmedication therapy; routine screening Endocrine Symptoms/Conditionsdiabet es Endocrine Management Strategiesdiet modification; routine screenings Respiratory Symptoms/Conditionssleep disordered breathing Respiratory Management Strategiesroutine screening Respiratory Symptoms/Conditions CommentSleep apnea diagnosis but patient does not use machine any longer. Barriers to Managing Healthnone Relationship/Environ: Lives Withspouse Living Arrangementshouse Resource/Environmental Concernsnone [facility] Anticipated at Transitionnone Tobacco Use: Tobacco Useno Pre-op Checklist: Arrival [id number] Arrival Time07:39 Procedure TypePCI NPOyes Last Food [id number] 20:00 Last Clear Fluid [id number] 20:00 ID Band On Patientpatient ID (name), falls risk Consent Signedpending H&P Completeyes Anesthesia Assessment Completedpending EKG Performedyes Chest X-Ray Performednot ordered Preop Antibioticsnot ordered Beta-deidra Last Dose Date/Exov03-[id number]-[id number] 07:00 Type and Screen Resultedn/a Chlorhexadine Bath Givennot applicable Nasal Antiseptic Appliednot applicable Soap and Water Bath the Night Before Surgerynot applicable Hair Washed with Shampoonot applicable Bowel Prepno Surgical Site Infection Preventionyes Pain Scales and Managementyes Additional Information: Information Review: Allergies, Home Meds and Significant Events have been Reviewed and Verified with Patient/Familyyes Allergy, Intolerance, Adverse Event: Allergies: No Known Allergies: Active Electronic Signatures: Esthela Zamora (SARAH) (Signed 22-Mar-2022 08:12) Authored: Initial Info, General Health, Health Mgmt, Relationship/Environ, Tobacco Use, Pre-op Checklist, Additional Information Last Updated: 22-Mar-2022 08:12 by Esthela Zamora (RN) Normal [facility] CHEMISTRYOrdered By: SYSTEM SYSTEM on 02-22-2022 Anion gap [Moles/Vol] 16 mmol/L Normal 6 - 16 mEq/L FT Remisol Calcium [Mass/Vol] 9.1 mg/dL Normal 8.9 - 11. 1 mg/dL FT Remisol Chloride [Moles/Vol] 104 mmol/L Normal 101 - 1 11 mmol/L FT Remisol CO2 [Moles/Vol] 22 mmol/L Normal 21 - 31 mmol/L FT Remisol Creatinine [Mass/Vol] 1.1 mg/dL Normal 0.5 - 1.3 mg/dL [facility] Remisol GFR/1.73 sq M.predicted among blacks MDRD (S/P/Bld) [Vol rate/Area] mL/min/1.73 m2 Normal >=59mL/min/ 1.73 m2 [facility] Chem S GFR/1.73 sq M.predicted among non-blacks MDRD (S/P/Bld) [Vol rate/Area] mL/min/1.73 m2 Normal >=59mL/min/ 1.73 m2 [facility] Chem S Glucose [Mass/Vol] 132 mg/dL Normal 55 - 199 mg/dL FT Remisol Potassium [Moles/Vol] 4.9 mmol/L Normal 3.5 - 5.3 mmol/L FT Remisol Sodium [Moles/Vol] 137 mmol/L Normal 135 - 145 mmol/L FT Remisol Urea nitrogen [Mass/Vol] 22 mg/dL High 5 - 21 mg/dL FT Remisol Urea nitrogen/Creatinine [Mass ratio] 20 mg/mg Normal 10 - 20 FT Remisol HEMATOLOGYOrdered By: Valeri Wells on 02-22-2022 Erythrocyte distribution width (RBC) [Ratio] 13.4 % Normal 10.9 - 14.2 % [facility] HemeAutoSS Hematocrit (Bld) [Volume fraction] 42.4 % Normal 37.7 - 49.0 % FT HemeAutoSS Hemoglobin (Bld) [Mass/Vol] 14.7 g/dL Normal 13.5 - 17.5 gm/dL [facility] HemeAutoSS MCH (RBC) [Entitic mass] 30.4 pg Normal 27.0 - 34.0 pg FT HemeAutoSS MCHC (RBC) [Mass/Vol] 34.7 g/dL Normal 31.4 - 36.0 gm/dL FT HemeAutoSS MCV (RBC) [Entitic vol] 87.7 fL Normal 80.0 - 100.0 fL FT HemeAutoSS Platelet mean volume (Bld) [Entitic vol] 7.5 fL Normal 6.4 - 10.8 fL FT HemeAutoSS Platelets (Bld) [#/Vol] 267.0 E9/L Normal 150.0 - 500.0 E9/L FT HemeAutoSS RBC (Bld) [#/Vol] 4.8 E12/L Normal 4.3 - 5.9 E12/L FT HemeAutoSS WBC corrected for nucl RBC Auto (Bld) [#/Vol] 7.4 E9/L Normal 4.0 - 11.0 E9/L FT HemeAutoSS CNOVon 05-09-2018 CNOV Office Visit (CARDFT) ARIANA HOBBS ([id number]) 1965 MDate Time Provider Department05/09/18 11:00 AM JAMARCUS VELÁZQUEZ During your visit today, we recorded the following information about you: Pulse Blood pressure Weight Height 92/minute 164/90 123.4 kg 1.778 Lorenzo Velázquez MD 05/09/2018 11:26 AM SignedOur [facility] Of Mercy Hospitalrt and Vascular InstituteRobert and [facility]select [facility] [place] Department of Cardiovascular MedicineOUTPATIENT VISIT DATE05/09/18OUTPATIENT VISIT TYPEESTABLISHEDPRIMARY CARE PHYSICIAN:Blaise Hardin, DO[address] [address]Ixzsz: [phone]: [phone] COMPLAINT:HypertensionHIS TORY OF PRESENT ILLNESS:Savannah Hobbs is a 53 year old male who presents today to follow up. Historyincludes hypertension, atrial fibrillation, obstructive sleep apnea, obesity.He remains active and plays golf. He walks nearly 4 miles yesterday forexercise. He does admit he has not been compliant with a lean diet but he iscompliant with his medications. Blood pressure is well-controlled at home Denies chest pain, shortness of breath, orthopnea, cough, edema, palpitations,PND, lightheadedness or syncope.PAST MEDICAL HISTORYDiagnosis Date- A-fib ([facility]) TERESA/Cardio 09/27/13- CHF (congestive heart failure) ([facility])- Hypertension- Sleep apnea with use of continuous positive airway pressure (CPAP)PAST SURGICAL HISTORYProcedure Laterality Date- CARDIOVERSION with TERESA 09/27/2013Social HistorySubstance Use Topics- Smoking status: Never Smoker- Smokeless tobacco: Not on file- Alcohol use 108.0 oz/week 72 Cans of Beer (12oz) per weekFAMILY HISTORYProblem Relation Age of Onset- Heart Mother- Heart FatherALLERGIES:ALLERGIES No Known AllergiesMEDICATIONS:aspi rin, enteric coated (ASPIRIN, ENTERIC COATED) 81 mg EC tablet Take bymouth once daily.rivaroxaban (XARELTO) 20 mg tablet Take 1 tablet by mouth once daily.losartan-hydrochlor othiazide (HYZAAR) 100-25 mg per tablet Take 1 tablet bymouth once daily.REVIEW OF SYSTEMS:GENERAL: Negative for: Fever., Fatigue.CARDIAC: See HPI above.HEENT: Negative for: Ringing in Ears, nosebleeds, bleeding gums. AdequatedentitionNECK: Negative for: Pain, stiffnessRESPIRATORY: Negative for: Blood in sputum, wheezing.GASTROINTESTINAL : Negative for: Trouble swallowing, blood in stoolMUSCULOSKELETAL: Negative for: Joint stiffness and painNEUROLOGIC: Negative for: Numbness, tremorsPSYCHIATRIC: Negative for: Anxiety, depressionSKIN: Negative for: Rashes, itchingHEMATOLOGICAL/LYMP HATIC: Negative for: Easy bruising, easy bleeding, painfullymph nodesI personally interviewed, confirmed and edited the above information ifobtained by others.PHYSICAL EXAMINATION:BP 164/90 (BP Site: Left Arm, BP Position: Sitting, BP Cuff Size: Large Adult) Pulse 92 Ht 177.8 cm (5' 10 ) Wt 123.4 kg (272 lb) SpO2 100% BMI39.03 kg/m?General: Well appearing, in no acute distress. ObeseNeuro: Oriented to person, place and time, alert, cooperative.Eyes: Extra ocular movements intact, pupils react to lightNeck: No jugular venous distention, no palpable thyromegaly.Heart:irregul ar rhythm, S1, S2 normal, no S3, no S4. No murmur.Lungs: Clear to auscultation bilaterally. Good respiratory effort.Abdomen: Soft, nontender, bowel sounds normal, no palpable hepatosplenomegalySkin: No clubbing, no cyanosis.Extremities: Trace edemaElectrocardiogram April 29, 2017 atrial fibrillation with ventricular rate 97bpmIMPRESSION/PLAN:London Hobbs is a 52 year old male with history of hypertension, atrialfibrillation, obesity, obstructive sleep apnea here for follow upHypertension: Controlled. Reinforced low sodium diet. Continue currentregimen.Atrial fibrillation: Asymptomatic. CHADS2-VASc score: 1. Intermediate riskfor thromboembolism. Reinforced low caffeine diet. Continue Xarelto(rivaroxaban) for thromboembolic risk reduction.Obesity: Body mass index is 39.03 kg/m?. I have extensively counseledregarding weight loss including low fat, low sodium diet, increasing omega 3rich fish intake with reduction in red meat intake with portion controlincluding multiple small meals over the course of the day instead of a fewheavy meals, less post dinner snacking, reduction in fried and fast food, andincrease in high fiber foods including fruit and vegetables.Disposition: Follow up in clinic in 12 months. Pending studies: NoneCONTACT INFORMATION:Thank you for allowing us to assist in the care your patient. As always pleasedo not hesitate to contact us with further questions or concerns.Jamarcus Velázquez M.D.[facility] Cardiovascular MedicineOur Lady Of Mercy Hospitalrt and Vascular InstituteMelanie Ville [id number] [place], [place] [address]Poxfez: [phone] Referring Provider: BLAISE HARDIN [[id number]]Allergies As of Date: 05/09/2018(No Known Allergies)Date Reviewed: 05/09/2018Reviewed by: Priti Treivño - Fully AssessedReason for Visit: Follow Up [171]Primary Visit Diagnosis:Paroxysmal atrial fibrillation (HCC) [I48.0] Other Visit Diagnosis:Obesity, Class II, BMI 35-39.9 [E66.9]Prescriptions as of 05/09/2018 Sig: ASPIRIN 81 MG TABLET,DELAYED * Take by mouth once daily. RIVAROXABAN 20 MG TABLET Take 1 tablet by mouth once d* LOSARTAN 100 MG-HYDROCHLOROTH* Take 1 tablet by mouth once d*Problem List As Of Date 05/09/2018 Noted Resolved Atrial fibrillation (HCC) [I48.91] INVALID FOR* Systolic dysfunction [I51.9] INVALID FOR* Obesity, Class III, BMI >= 40 (morbid obesity) *INVALID FOR* Obesity, Class II, BMI 35-39.9 [E66.9] INVALID FOR*Disposition: Return in about 1 year (around 05/09/2019).Follow-up and Disposition History RecordedEncounter Number: [id number] Status:Closed by JAMARCUS VELÁZQUEZ MD on 05/09/18 Normal [facility] PROGRESSon 05-09-2018 Protein mass conc HNO ID: [id number] thor: Jamarcus Munoz: (none)Author Type: PhysicianType: Progress NotesFiled: 05/09/2018 11:26 AMNote Text:Heart and Vascular InstituteRobholy cross hospital and [facility] Department of Cardiovascular MedicineOUTPATIENT VISIT DATE05/09/18OUTPATIENT VISIT TYPEESTABLISHEDPRIMARY CARE PHYSICIAN:Blaise Hardin, DO[address] [facility] [address]Dfcmj: [phone]: [phone] COMPLAINT:HypertensionHIS TORY OF PRESENT ILLNESS:Savannah Hobbs is a 53 year old male who presents today to follow up.History includes hypertension, atrial fibrillation, obstructive sleepapnea, obesity. He remains active and plays golf. He walks nearly 4miles yesterday for exercise. He does admit he has not been compliantwith a lean diet but he is compliant with his medications. Blood pressureis well-controlled at home Denies chest pain, shortness of breath, orthopnea, cough, edema,palpitations, PND, lightheadedness or syncope.PAST MEDICAL HISTORYDiagnosis Date- A-fib ([facility]) TERESA/Cardio 09/27/13- CHF (congestive heart failure) ([facility])- Hypertension- Sleep apnea with use of continuous positive airway pressure (CPAP)PAST SURGICAL HISTORYProcedure Laterality Date- CARDIOVERSION with TERESA 09/27/2013Social HistorySubstance Use Topics- Smoking status: Never Smoker- Smokeless tobacco: Not on file- Alcohol use 108.0 oz/week 72 Cans of Beer (12oz) per weekFAMILY HISTORYProblem Relation Age of Onset- Heart Mother- Heart FatherALLERGIES:ALLERGIES No Known AllergiesMEDICATIONS:aspi rin, enteric coated (ASPIRIN, ENTERIC COATED) 81 mg EC tablet Take byaluth once daily.rivaroxaban (XARELTO) 20 mg tablet Take 1 tablet by mouth once daily.losartan-hydrochlor othiazide (HYZAAR) 100-25 mg per tablet Take 1 tabletby mouth once daily.REVIEW OF SYSTEMS:GENERAL: Negative for: Fever., Fatigue.CARDIAC: See HPI above.HEENT: Negative for: Ringing in Ears, nosebleeds, bleeding gums. AdequatedentitionNECK: Negative for: Pain, stiffnessRESPIRATORY: Negative for: Blood in sputum, wheezing.GASTROINTESTINAL : Negative for: Trouble swallowing, blood in stoolMUSCULOSKELETAL: Negative for: Joint stiffness and painNEUROLOGIC: Negative for: Numbness, tremorsPSYCHIATRIC: Negative for: Anxiety, depressionSKIN: Negative for: Rashes, itchingHEMATOLOGICAL/LYMP HATIC: Negative for: Easy bruising, easy bleeding,painful lymph nodesI personally interviewed, confirmed and edited the above information ifobtained by others.PHYSICAL EXAMINATION:BP 164/90 (BP Site: Left Arm, BP Position: Sitting, BP Cuff Size: LargeAdult) Pulse 92 Ht 177.8 cm (5' 10 ) Wt 123.4 kg (272 lb) [id number]% BMI 39.03 kg/m?General: Well appearing, in no acute distress. ObeseNeuro: Oriented to person, place and time, alert, cooperative.Eyes: Extra ocular movements intact, pupils react to lightNeck: No jugular venous distention, no palpable thyromegaly.Heart:irregul ar rhythm, S1, S2 normal, no S3, no S4. No murmur.Lungs: Clear to auscultation bilaterally. Good respiratory effort.Abdomen: Soft, nontender, bowel sounds normal, no palpablehepatosplenomegal ySkin: No clubbing, no cyanosis.Extremities: Trace edemaElectrocardiogram April 29, 2017 atrial fibrillation with ventricularrate 97 bpmIMPRESSION/PLAN:Ariana Hobbs is a 52 year old male with history of hypertension, atrialfibrillation, obesity, obstructive sleep apnea here for follow upHypertension: Controlled. Reinforced low sodium diet. Continue currentregimen.Atrial fibrillation: Asymptomatic. CHADS2-VASc score: 1. Intermediaterisk for thromboembolism. Reinforced low caffeine diet. Continue Xarelto(rivaroxaban) for thromboembolic risk reduction.Obesity: Body mass index is 39.03 kg/m?. I have extensively counseledregarding weight loss including low fat, low sodium diet, increasing omega3 rich fish intake with reduction in red meat intake with portion controlincluding multiple small meals over the course of the day instead of a fewheavy meals, less post dinner snacking, reduction in fried and fast food,and increase in high fiber foods including fruit and vegetables.Disposition: Follow up in clinic in 12 months. Pending studies: NoneCONTACT INFORMATION:Thank you for allowing us to assist in the care your patient. As alwaysplease do not hesitate to contact us with further questions or concerns.Jamarcus Velázquez M.D.[facility] Cardiovascular MedicineOur Lady Of Mercy Hospitalrt and Vascular InstituteKettering Health Preble[address], [place] [address]Txqgwv: [phone] Normal [facility] Vital Signs Date Time Vital Sign Value Performing Clinician Faci lity 08-30-2024 14:56-0500 Body height 177.8 cm Chantal Dolce DPM FACFAS Work Phone: [facility] 08-30-2024 14:56-0500 Body mass index (BMI) [Ratio] 40.46 kg/m2 Chantal Dolce DPM FACFAS Work Phone: [facility] 08-30-2024 14:56-0500 Body weight 127.91 kg Chantal Dolce DPM FACFAS Work Phone: [facility] 08-30-2024 14:56-0500 Diastolic blood pressure 75 mm[Hg] Chantal Dolce DPM FACFAS Work Phone: [facility] 08-30-2024 14:56-0500 Heart rate 72 /min Chantal Dolce DPM FACFAS Work Phone: [facility] 08-30-2024 14:56-0500 Systolic blood pressure 129 mm[Hg] Chantal Dolce DPM FACFAS Work Phone: [facility] 08-29-2024 11:45-0500 Diastolic blood pressure 141 mm[Hg] [facility] 08-29-2024 11:45-0500 Heart rate 87 /min [facility] 08-29-2024 11:45-0500 Mean blood pressure 158 mm[Hg] [facility] 08-29-2024 11:45-0500 Respiratory rate 18 /min [facility] 08-29-2024 11:45-0500 SaO2% (BldA) [Mass fraction] 95 % [facility] 08-29-2024 11:45-0500 Systolic blood pressure 192 mm[Hg] [facility] 08-29-2024 11:30-0500 Diastolic blood pressure 136 mm[Hg] [facility] 08-29-2024 11:30-0500 Heart rate 79 /min [facility] 08-29-2024 11:30-0500 Mean blood pressure 156 mm[Hg] [facility] 08-29-2024 11:30-0500 Respiratory rate 18 /min [facility] 08-29-2024 11:30-0500 SaO2% (BldA) [Mass fraction] 95 % [facility] 08-29-2024 11:30-0500 Systolic blood pressure 197 mm[Hg] [facility] 08-29-2024 10:49-0500 Body temperature 97.52 [degF] [facility] 08-29-2024 10:49-0500 Diastolic blood pressure 116 mm[Hg] [facility] 08-29-2024 10:49-0500 Heart rate 90 /min [facility] 08-29-2024 10:49-0500 Respiratory rate 20 /min [facility] 08-29-2024 10:49-0500 SaO2% (BldA) [Mass fraction] 95 % [facility] 08-29-2024 10:49-0500 Systolic blood pressure 167 mm[Hg] [facility] 08-29-2024 10:26-0500 Body temperature 98.6 [degF] [facility] 08-29-2024 10:26-0500 Heart rate 104 /min Astrit Hajd[facility] 08-23-2024 15:55-0500 Body height 177.8 cm Chantal Dolce DPM FACFAS Work Phone: [facility] 08-23-2024 15:55-0500 Body mass index (BMI) [Ratio] 40.46 kg/m2 Chantal Dolce DPM FACFAS Work Phone: [facility] 08-23-2024 15:55-0500 Body weight 127.91 kg Chantal Dolce DPM FACFAS Work Phone: [facility] 08-23-2024 15:55-0500 Diastolic blood pressure 77 mm[Hg] Chantal Dolce DPM FACFAS Work Phone: [facility] 08-23-2024 15:55-0500 Heart rate 73 /min Chantal Dolce DPM FACFAS Work Phone: [facility] 08-23-2024 15:55-0500 Systolic blood pressure 129 mm[Hg] Chantal Dolce DPM FACFAS Work Phone: [facility] 08-20-2024 10:21-0500 Blood Pressure Location Katalina Mcclain [facility] 08-20-2024 10:21-0500 Body temperature 97.34 [degF] Katalina Mcclain [facility] 08-20-2024 10:21-0500 Diastolic blood pressure 86 mm[Hg] Katalina Mcclain [facility] 08-20-2024 10:21-0500 Heart rate 73 /min Katalina Mcclain [facility] 08-20-2024 10:21-0500 SaO2% (BldA) [Mass fraction] 98 % Katalina Mcclain [facility] 08-20-2024 10:21-0500 Systolic blood pressure 134 mm[Hg] Katalina Johny [facility] 08-16-2024 16:29-0500 Body height 177.8 cm Chantla Dolce DPM FACFAS Work Phone: [facility] 08-16-2024 16:29-0500 Body mass index (BMI) [Ratio] 40.46 kg/m2 Chantal Dolce DPM FACFAS Work Phone: [facility] 08-16-2024 16:29-0500 Body weight 127.91 kg Chantal Dolce DPM FACFAS Work Phone: [facility] 08-16-2024 16:29-0500 Diastolic blood pressure 79 mm[Hg] Chantal Dolce DPM FACFAS Work Phone: [facility] 08-16-2024 16:29-0500 Heart rate 70 /min Chantal Dolce DPM FACFAS Work Phone: [facility] 08-16-2024 16:29-0500 Systolic blood pressure 128 mm[Hg] Chantal Dolce DPM FACFAS Work Phone: [facility] 08-02-2024 16:16-0500 Body height 177.8 cm Chantal Dolce DPM FACFAS Work Phone: [facility] 08-02-2024 16:16-0500 Body mass index (BMI) [Ratio] 40.46 kg/m2 Chantal Dolce DPM FACFAS Work Phone: [facility] 08-02-2024 16:16-0500 Body weight 127.91 kg Chantal Dolce DPM FACFAS Work Phone: [facility] 08-02-2024 16:16-0500 Diastolic blood pressure 75 mm[Hg] Chantal Dolce DPM FACFAS Work Phone: [facility] 08-02-2024 16:16-0500 Heart rate 73 /min Chantal Dolce DPM FACFAS Work Phone: [place] [id number] 16:16-0500 Systolic blood pressure 129 mm[Hg] Chantal Dolce DPM FACFAS Work Phone: [facility] 07-26-2024 14:00-0500 Body height 177.8 cm Chantal Dolce DPM FACFAS Work Phone: [facility] 07-26-2024 14:00-0500 Body mass index (BMI) [Ratio] 40.46 kg/m2 Chantal Dolce DPM FACFAS Work Phone: [facility] 07-26-2024 14:00-0500 Body weight 127.91 kg Chantal Dolce DPM FACFAS Work Phone: [facility] 07-26-2024 14:00-0500 Diastolic blood pressure 77 mm[Hg] Chantal Dolce DPM FACFAS Work Phone: [facility] 07-26-2024 14:00-0500 Heart rate 70 /min Chantal Dolce DPM FACFAS Work Phone: [facility] 07-26-2024 14:00-0500 Systolic blood pressure 128 mm[Hg] Chantal Dolce DPM FACFAS Work Phone: [facility] 07-12-2024 14:51-0400 Body height 177.8 cm Chantal Dolce DPM FACFAS Work Phone: [facility] 07-12-2024 14:51-0400 Body mass index (BMI) [Ratio] 40.32 kg/m2 Chantal Dolce DPM FACFAS Work Phone: [facility] 07-12-2024 14:51-0400 Body weight 127.46 kg Chantal Dolce DPM FACFAS Work Phone: [facility] 07-12-2024 14:51-0400 Diastolic blood pressure 78 mm[Hg] Chantal Dolce DPM FACFAS Work Phone: [facility] 07-12-2024 14:51-0400 Heart rate 74 /min Chantal Dolce DPM FACFAS Work Phone: [facility] 07-12-2024 14:51-0400 Systolic blood pressure 131 mm[Hg] Chantal Dolce DPM FACFAS Work Phone: [facility] 07-05-2024 14:06-0400 Body height 177.8 cm Chantal Dolce DPM FACFAS Work Phone: [facility] 07-05-2024 14:06-0400 Body mass index (BMI) [Ratio] 40.18 kg/m2 Chantal Dolce DPM FACFAS Work Phone: [facility] 07-05-2024 14:06-0400 Body weight 127.01 kg Chantal Dolce DPM FACFAS Work Phone: [facility] 07-05-2024 14:06-0400 Diastolic blood pressure 75 mm[Hg] Chantal Dolce DPM FACFAS Work Phone: [facility] 07-05-2024 14:06-0400 Heart rate 74 /min Chantal Dolce DPM FACFAS Work Phone: [facility] 07-05-2024 14:06-0400 Systolic blood pressure 130 mm[Hg] Chantal Dolce DPM FACFAS Work Phone: [facility] 06-28-2024 14:17-0400 Body height 177.8 cm Chantal Dolce DPM FACFAS Work Phone: [facility] 06-28-2024 14:17-0400 Body mass index (BMI) [Ratio] 40.18 kg/m2 Chantal Dolce DPM FACFAS Work Phone: [facility] 06-28-2024 14:17-0400 Body weight 127.01 kg Chantal Dolce DPM FACFAS Work Phone: [facility] 06-28-2024 14:17-0400 Diastolic blood pressure 77 mm[Hg] Chantal Dolce DPM FACFAS Work Phone: [facility] 06-28-2024 14:17-0400 Heart rate 80 /min Chantal Dolce DPM FACFAS Work Phone: [facility] 06-28-2024 14:17-0400 Systolic blood pressure 132 mm[Hg] Chantal Dolce DPM FACFAS Work Phone: [facility] 06-12-2024 14:39-0400 Body height 177.8 cm Chantal Dolce DPM FACFAS Work Phone: [facility] 06-12-2024 14:39-0400 Body mass index (BMI) [Ratio] 40.18 kg/m2 Chantal Dolce DPM FACFAS Work Phone: [facility] 06-12-2024 14:39-0400 Body weight 127.01 kg Chantal Dolce DPM FACFAS Work Phone: [facility] 06-12-2024 14:39-0400 Diastolic blood pressure 78 mm[Hg] Chantal Dolce DPM FACFAS Work Phone: [facility] 06-12-2024 14:39-0400 Heart rate 86 /min Chantal Dolce DPM FACFAS Work Phone: [facility] 06-12-2024 14:39-0400 Systolic blood pressure 130 mm[Hg] Chantal Dolce DPM FACFAS Work Phone: [facility] 05-26-2024 11:08-0400 Blood Pressure Location Priti Jacksondner [facility] 05-26-2024 11:08-0400 Body temperature 98.6 [degF] Priti Bordner [facility] 05-26-2024 11:08-0400 Diastolic blood pressure 88 mm[Hg] Priti Bordner [facility] 05-26-2024 11:08-0400 Heart rate 88 /min Priti Bordner [facility] 05-26-2024 11:08-0400 SaO2% (BldA) [Mass fraction] 99 % Priti Romero [facility] 05-26-2024 11:08-0400 Systolic blood pressure 130 mm[Hg] Priti Romero [facility] 03-19-2024 15:26-0400 Diastolic blood pressure 88 mm[Hg] Derrick Dougherty [facility] 03-19-2024 15:26-0400 Heart rate 94 /min Derrick Dougherty [facility] 03-19-2024 15:26-0400 Respiratory rate 16 /min Derrick Dougherty [facility] 03-19-2024 15:26-0400 SaO2% (BldA) [Mass fraction] 95 % Derrick Dougherty [facility] 03-19-2024 15:26-0400 Systolic blood pressure 142 mm[Hg] Derrick Dougherty [facility] 11-17-2023 07:57-0500 Blood Pressure Location Nacho López [facility] 11-17-2023 07:57-0500 Diastolic blood pressure 86 mm[Hg] Nacho López [facility] 11-17-2023 07:57-0500 Heart rate 128 /min Nacho López [facility] 11-17-2023 07:57-0500 SaO2% (BldA) [Mass fraction] 93 % Nacho López [facility] 11-17-2023 07:57-0500 Systolic blood pressure 134 mm[Hg] Nacho López [facility] 02-22-2024 10:26-0500 Blood Pressure Location [facility] 11-03-2023 10:26-0500 Body temperature 98.06 [degF] [facility] 11-03-2023 10:26-0500 Diastolic blood pressure 88 mm[Hg] [facility] 11-03-2023 10:26-0500 Heart rate 108 /min [facility] 11-03-2023 10:26-0500 SaO2% (BldA) [Mass fraction] 96 % [facility] 11-03-2023 10:26-0500 Systolic blood pressure 138 mm[Hg] [facility] 10-21-2023 16:26-0500 Diastolic blood pressure 78 mm[Hg] Diego Pereze [facility] 10-21-2023 16:26-0500 Heart rate 96 /min Diego Pereze [facility] 10-21-2023 16:26-0500 Mean blood pressure 87 mm[Hg] Diego Nora [facility] 10-21-2023 16:26-0500 Respiratory rate 20 /min Diego Pereze [facility] 10-21-2023 16:26-0500 SaO2% (BldA) [Mass fraction] 96 % Diego Nora [facility] 10-21-2023 16:26-0500 Systolic blood pressure 105 mm[Hg] Diego Nora [facility] 10-21-2023 15:37-0500 Diastolic blood pressure 61 mm[Hg] Diego Nora [facility] 10-21-2023 15:37-0500 Heart rate 91 /min Diego Nora [facility] 10-21-2023 15:37-0500 Mean blood pressure 77 mm[Hg] Diego Pereze [facility] 10-21-2023 15:37-0500 Respiratory rate 20 /min Diego Pereze [facility] 10-21-2023 15:37-0500 SaO2% (BldA) [Mass fraction] 95 % Diego Pereze [facility] 10-21-2023 15:37-0500 Systolic blood pressure 109 mm[Hg] Diego Pereze [facility] 10-21-2023 14:47-0500 Diastolic blood pressure 100 mm[Hg] Diego Pereze [facility] 10-21-2023 14:47-0500 Heart rate 111 /min Diego Pereze [facility] 10-21-2023 14:47-0500 Mean blood pressure 116 mm[Hg] Diego Pereze [facility] 10-21-2023 14:47-0500 Respiratory rate 22 /min Diego Pereze [facility] 10-21-2023 14:47-0500 SaO2% (BldA) [Mass fraction] 95 % Diego Pereze [facility] 10-21-2023 14:47-0500 Systolic blood pressure 148 mm[Hg] Diego Pereze [facility] 10-21-2023 14:20-0500 Heart rate 120 /min Blaise NIEVESLE [facility] 10-21-2023 14:00-0500 Body temperature 98.06 [degF] Diego Pereze [facility] 10-21-2023 14:00-0500 Heart rate 137 /min Diego Pereze [facility] 10-21-2023 14:00-0500 Respiratory rate 18 /min Diego Melendez [facility] 10-21-2023 13:10-0500 Blood Pressure Location Blaise HARDIN [facility] 10-21-2023 13:10-0500 Body temperature 98.24 [degF] Blaise PICKETTLE [facility] 10-21-2023 13:10-0500 Diastolic blood pressure 86 mm[Hg] Blaise PICKETTLE [facility] 10-21-2023 13:10-0500 Heart rate 60 /min Blaise PICKETTLE [facility] 10-21-2023 13:10-0500 SaO2% (BldA) [Mass fraction] 97 % Blaise HARDIN [facility] 10-21-2023 13:10-0500 Systolic blood pressure 136 mm[Hg] Blaise HARDIN [facility] 06-29-2022 14:11-0400 Blood Pressure Location Nacho Rene [facility] 06-29-2022 14:11-0400 Diastolic blood pressure 80 mm[Hg] Nacho Tristanofferson [facility] 06-29-2022 14:11-0400 Heart rate 85 /min Nacho Christofferson [facility] 06-29-2022 14:11-0400 Respiratory rate 18 /min Nacho Christofferson [facility] 06-29-2022 14:11-0400 SaO2% (BldA) [Mass fraction] 100 % Nacho Christofferson [facility] 06-29-2022 14:11-0400 Systolic blood pressure 128 mm[Hg] Nacho Christofferson [facility] 03-29-2022 11:40-0400 Blood Pressure Location Nacho Christofferson [facility] 03-29-2022 11:40-0400 Diastolic blood pressure 81 mm[Hg] Nacho Christofferson [facility] 03-29-2022 11:40-0400 Heart rate 77 /min Nacho Christofferson [facility] 03-29-2022 11:40-0400 Respiratory rate 18 /min Nacho Christofferson [facility] 03-29-2022 11:40-0400 SaO2% (BldA) [Mass fraction] 100 % Nacho Christofferson [facility] 03-29-2022 11:40-0400 Systolic blood pressure 125 mm[Hg] Nacho Christofferson [facility] 02-22-2022 06:43-0400 Blood Pressure Location Nacho Christofferson [facility] 02-22-2022 06:43-0400 Body temperature 97.7 [degF] Nacho Christofferson [facility] 02-22-2022 06:43-0400 Diastolic blood pressure 90 mm[Hg] Nacho Christofferson [facility] 02-22-2022 06:43-0400 Heart rate 77 /min Nacho Christofferson [facility] 02-22-2022 06:43-0400 Respiratory rate 18 /min Nacho Christofferson [facility] 02-22-2022 06:43-0400 SaO2% (BldA) [Mass fraction] 98 % Nacho Christofferson [facility] 02-22-2022 06:43-0400 Systolic blood pressure 141 mm[Hg] Nacho Rene [facility] 01-11-2022 12:26-0400 Blood Pressure Location Blaise HARDIN [facility] 01-11-2022 12:26-0400 Body temperature 97.88 [degF] Blaise KAPLE [facility] 01-11-2022 12:26-0400 Diastolic blood pressure 72 mm[Hg] Blaise KAPLE [facility] 01-11-2022 12:26-0400 Heart rate 82 /min Blaise KAPLE [facility] 01-11-2022 12:26-0400 Respiratory rate 16 /min Blaise KAPLE [facility] 01-11-2022 12:26-0400 SaO2% (BldA) [Mass fraction] 98 % Blaise KAPLE [facility] 01-11-2022 12:26-0400 Systolic blood pressure 124 mm[Hg] Blaise KAPLE [facility] Encounters Encounter Date Encounter Type Care Provider Facility Start: 09-03-2024 ambulatory [facility] Facility:[facility] Start: 08-30-2024 End: 08-30-2024 ambulatory CHANTAL PEACOCK Not Available Start: 08-30-2024 End: 08-30-2024 Patient encounter procedure Chantal Peacock DPM FACFAS Work Phone: [facility] Comment on above: Tinea unguium (Prima ry Dx); Pain in left toe(s); Pain in right toe(s) Start: 08-30-2024 End: 08-30-2024 Bamboo flowsheet Chantal R Dolce DPM FACFAS Work Phone: [facility] Start: 08-30-2024 End: 08-30-2024 Bamboo flowsheet Chantal R Dolce DPM FACFAS Work Phone: [facility] Start: 08-29-2024 Emergency department patient visit [facility] Facility:[facility] Start: 08-29-2024 End: 08-29-2024 Emergency department patient visit [facility] Start: 08-23-2024 End: 08-23-2024 Office outpatient visit 15 minutes Chantal R Dolce DPM FACFAS Work Phone: [facility] Comment on above: Venous insufficiency (Primary Dx); 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 Start: 08-20-2024 End: 08-20-2024 ambulatory Katalina Mcclain Facility: [facility] Start: 08-20-2024 End: 08-20-2024 Patient encounter procedure Katalina Mcclain 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); Cellulitis of right leg Start: 08-16-2024 End: 08-16-2024 ambulatory CHANTAL R DOLCE Not Available Start: 08-16-2024 End: 08-16-2024 Bamboo flowsheet Chantal R Dolce DPM FACFAS Work Phone: [facility] Start: 08-16-2024 End: 08-16-2024 Bamboo flowsheet Chantal R Dolce DPM FACFAS Work Phone: [facility] Start: 08-02-2024 End: 08-02-2024 Office outpatient visit 15 minutes Chantal R Dolce DPM FACFAS Work Phone: [facility] Comment on above: Venous insufficiency (Primary Dx); 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); Cellulitis of right leg; Cellulitis of left lower leg Start: 08-02-2024 End: 08-02-2024 ambulatory CHANTAL R DOLCE Not Available Start: 08-02-2024 End: 08-02-2024 Bamboo flowsheet Chantal R Dolce DPM FACFAS Work Phone: [facility] Start: 08-02-2024 End: 08-02-2024 Bamboo flowsheet Chantal R Dolce DPM FACFAS Work Phone: [facility] Start: 07-26-2024 End: 07-26-2024 Bamboo flowsheet Chantal R Dolce DPM FACFAS Work Phone: [facility] Start: 07-26-2024 End: 07-26-2024 Bamboo flowsheet Chantal R Dolce DPM FACFAS Work Phone: [facility] Start: 07-26-2024 End: 07-26-2024 ambulatory CHANTAL R DOLCE Not Available Start: 07-26-2024 End: 07-26-2024 Office outpatient visit 15 minutes Chantal R Dolce DPM FACFAS Work Phone: [facility] Comment on above: Venous insufficiency (Primary Dx); Cellulitis of left lower leg; 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) Start: 07-12-2024 End: 07-12-2024 Office outpatient visit 15 minutes Chantal R Dolce DPM FACFAS Work Phone: [facility] Comment on above: Venous insufficiency (Primary Dx); 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) Start: 07-12-2024 End: 07-12-2024 ambulatory CHANTAL R DOLCE Not Available Start: 07-12-2024 End: 07-12-2024 Bamboo flowsheet Chantal R Dolce DPM FACFAS Work Phone: [facility] Start: 07-12-2024 End: 07-12-2024 Bamboo flowsheet Chantal R Dolce DPM FACFAS Work Phone: [facility] Start: 07-05-2024 End: 07-05-2024 Bamboo flowsheet Chantal R Dolce DPM FACFAS Work Phone: [facility] Start: 07-05-2024 End: 07-05-2024 Bamboo flowsheet Chantal R Dolce DPM FACFAS Work Phone: [facility] Start: 07-05-2024 End: 07-05-2024 Office outpatient visit 15 minutes Chantal R Dolce DPM FACFAS Work Phone: [facility] Comment on above: Cellulitis of right leg (Primary Dx); Venous insufficiency; 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) Start: 07-05-2024 End: 07-05-2024 ambulatory CHANTAL R DOLCE Not Available Start: 06-29-2024 End: 06-29-2024 ambulatory Chantal R Dolce Facility:[facility] Start: 06-29-2024 End: 06-29-2024 Lab Drop off Chantal R Dolce [facility] Start: 06-29-2024 End: 07-02-2024 Clinisync Result Encounter Chantal R Dolce DPM FACFAS Work Phone: [facility] Unsolicited Start: 06-29-2024 End: 07-02-2024 Clinisync Result Encounter Chantal R Dolce DPM FACFAS Work Phone: [facility] Unsolicited Start: 06-28-2024 End: 06-28-2024 Bamboo flowsheet Chantal R Dolce DPM FACFAS Work Phone: [facility] Start: 06-28-2024 End: 06-28-2024 Bamboo flowsheet Chantal R Dolce DPM FACFAS Work Phone: [facility] Start: 06-28-2024 End: 06-28-2024 Office outpatient visit 25 minutes Chantal R Dolce DPM FACFAS Work Phone: [facility] Comment on above: Venous insufficiency (Primary Dx); Cellulitis of left lower leg; 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); Non-pressure chronic ulcer of other part of right lower leg with fat layer exposed (CMS/HCC); Cellulitis of right leg Start: 06-28-2024 End: 06-28-2024 ambulatory CHANTAL R DOLCE Not Available Start: 06-12-2024 End: 06-12-2024 ambulatory CHANTAL R DOLCE Not Available Start: 06-12-2024 End: 06-12-2024 Patient encounter procedure Chantal R Dolce DPM FACFAS Work Phone: [facility] Comment on above: Tinea unguium (Prima ry Dx); Pain in right toe(s); Pain in left toe(s) Start: 06-12-2024 End: 06-12-2024 Bamboo flowsheet Chantal R Dolce DPM FACFAS Work Phone: [facility] Start: 06-12-2024 End: 06-12-2024 Bamboo flowsheet Chantal R Dolce DPM FACFAS Work Phone: [facility] Start: 05-26-2024 End: 05-26-2024 Lab Drop off Priti Romero [facility] Start: 05-26-2024 End: 05-26-2024 ambulatory Priti C Bener Facility:[facility] Start: 05-26-2024 End: 05-26-2024 Patient encounter procedure Priti Romero [facility] Start: 04-03-2024 End: 04-03-2024 ambulatory CHANTAL R DOLCE Not Available Start: 03-19-2024 End: 03-19-2024 ambulatory ASHLEIGH-Charli Dougherty Facility:[facility] Start: 03-19-2024 End: 03-19-2024 Patient encounter procedure Derrick Dougherty [facility] Start: 01-19-2024 End: 01-19-2024 ambulatory CHANTAL R DOLCE Not Available Start: 01-03-2024 End: 01-03-2024 ambulatory CHANTAL R DOLCE Not Available Start: 11-17-2023 End: 11-17-2023 ambulatory XXXX NONE Facility:[facility] Start: 11-17-2023 End: 11-17-2023 Patient encounter procedure Nacho López [facility] Start: 11-10-2023 End: 11-10-2023 ambulatory CHANTAL PEACOCK Not Available Start: 11-03-2023 End: 11-03-2023 ambulatory Maury Garcia Facility:[facility] Start: 11-03-2023 End: 11-03-2023 Patient encounter procedure Maury Garcia [facility] Start: 10-21-2023 End: 10-21-2023 Emergency department patient visit Diego Melendez [facility] Start: 10-21-2023 End: 10-21-2023 ambulatory Blaise HARDIN Facility:[facility] Start: 10-21-2023 End: 10-21-2023 Patient encounter procedure Blaise HARDIN [facility] Start: 06-29-2022 End: 06-29-2022 Patient encounter procedure Nacho López [facility] Start: 03-29-2022 End: 03-29-2022 Patient encounter procedure Nacho López [facility] Start: 02-22-2022 End: 02-22-2022 Patient encounter procedure Nacho López [facility] Start: 01-11-2022 End: 01-11-2022 Patient encounter procedure Blaise HARDIN [facility] Start: 05-09-2018 End: 05-25-2018 Patient [facility] Procedures Date Procedure Procedure Detail Performing Clinician Start: 06-29-2024 [facility] C JENNY Urenam R Jesika fontenot DPM FACFAS Work Phone: Start: 10-21-2023 History of percutane ous transluminal coronary angioplasty Blaise HARDIN Start: 03-29-2022 History of percutane ous transluminal coronary angioplasty Nacho López Start: 02-22-2022 Percutaneous coronar y intervention Nacho López Comment on above: LAD attempted and un able to cross RCA PCI History of placement of stent for coronary artery disease H/O heart artery stent Blaise HARDIN Plan of Treatment Date Care Activity Detail Author Start: 11-15-2024 End: 11-15-2024 Patient encounter procedure 11/15/2024 2:40 PM EST Procedure Visit [facility] [address] [place] [id number] Dolce, Chantal R, DPM [facility] [address] [place] [address] [facility] Start: 08-30-2024 End: 08-30-2024 Patient encounter procedure 08/30/2024 2:40 PM EST Procedure Visit [facility] [address] [place] [phone] Dolce, Chantal R, DPM FACFAS [address] [place] [address] [facility] Start: 08-28-2024 End: 08-28-2024 Patient encounter procedure 08/28/2024 2:20 PM EST Procedure Visit [facility] [address] [facility] [place] [id number] Dolce, Chantal R, DPM FACFAS [address] [place] [address] [facility] Start: 08-23-2024 End: 08-23-2024 Patient encounter procedure [facility] Comment on above: Arrived Start: 08-16-2024 End: 08-16-2024 Patient encounter procedure [facility] Comment on above: Arrived Start: 08-02-2024 End: 08-02-2024 Patient encounter procedure 08/02/2024 3:50 PM EST Office Visit [facility] [address] [place] [phone] DolAyanna smithm R, DPM [facility] [address] [place] [address] Arrived [facility] Comment on above: Arrived Start: 07-26-2024 End: 07-26-2024 Patient encounter procedure 07/26/2024 1:50 PM EST Office Visit [facility] [address] [place] [id number] Ayanna Peacockm R, DPM [facility] [address] [place] [id number] [facility] Start: 07-12-2024 End: 07-12-2024 Patient encounter procedure [facility] Comment on above: Arrived Start: 07-05-2024 End: 07-05-2024 Patient encounter procedure [facility] Comment on above: Arrived Start: 06-28-2024 End: 06-28-2024 Patient encounter procedure 06/28/2024 2:00 PM EDT Office Visit [facility] [address] [place] [id number] Justino Peacockeem R, DPM [facility] [address] [place] [address] Arrived [facility] Comment on above: Arrived Start: 05-13-2024 Influenza vaccination Influenza Vacc ine (#1) [facility] Start: 1965 Screening for malign ant neoplasm of colon [facility] Bacteria identified in Wound by Culture Wound culture Microbiology Routine Cellulitis of left lower leg 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 05-26-2024 tetanus and diphther ia toxoids, adsorbed, preservative free, for adult use (5 Lf of tetanus toxoid and 2 Lf of diphtheria toxoid); Translations: [Teniva (Td)] Priti Romero [facility] 08-24-2023 influenza virus vaccine, unspecified formulation Blaise DIANE [facility] 08-26-2022 influenza virus vaccine, unspecified formulation Blaise DIANE [facility] 08-15-2021 influenza virus vaccine, unspecified formulation Blaise HARDIN [facility] 08-15-2021 SARS-CoV-2 (COVID-19 ) mRNA-1273 vaccine Blaise HARDIN [facility] 12-26-2020 COVID-19, mRNA, LNP- S, PF, 30 mcg/0.3 mL dose; Translations: [Pfizer-BioNTech COVID-19 Vaccine] Blaise DIANE [facility] Comment on above: Reason for Medicatio n: Prophylaxis 12-05-2020 COVID-19, mRNA, LNP- S, PF, 30 mcg/0.3 mL dose; Translations: [Pfizer-BioNTech COVID-19 Vaccine] Blaise HARDIN [facility] Comment on above: Reason for Medicatio n: Prophylaxis 06-08-2020 influenza virus vaccine, unspecified formulation Blaise KAPLE [facility] 10-16-2019 influenza virus vaccine, unspecified formulation Blaise KAPLE [facility] 10-15-2019 influenza virus vaccine, live, attenuated, for intranasal use Blaise KAPLE [facility] 11-28-2017 hepatitis B vaccine, adult dosage Blaise KAPLE [facility] 06-29-2017 hepatitis B vaccine, adult dosage Blaise KAPLE [facility] 06-29-2017 influenza virus vaccine, unspecified formulation Blaise KAPLE [facility] 05-25-2017 hepatitis B vaccine, adult dosage Blaise KAPLE [facility] 09-28-2013 pneumococcal polysaccharide vaccine, 23 valent Blaise PICKETTLE [facility] 09-28-2013 influenza, seasonal, injectable Blaise PICKETTLE [facility] NEGATED: Highlighted row has not occurred!09-21-2019 influenza virus vaccine, live, attenuated, for intranasal use Blaise KAPLE [facility] Payers Date Payer Category Payer Worker's Compensation [id number] Blue Cross Blue Shield BCBS [id number] 2021 Unknown BCBS BCBS [id number] 2021-Present [phone] [id number] [place] [id number] 2021 Unknown [id number] 1965 Unknown [id number] 2.16.840.1.477486.3.579.2 .1965 Unknown [id number] 2.16.840.1.985166.3.579.2 .7 1965 Unknown [id number] 2.16.840.1.427755.3.579.2 .7 1965 Unknown [id number] 2.16.840.1.224273.3.579.2 .7 1965 Unknown [id number] 2.16.840.1.193705.3.579.2 .7 1965 Unknown [id number] 2.16.840.1.391498.3.579.2 .7 1965 Unknown [id number] 2.16.840.1.746945.3.579.2 .727 1965 Unknown [id number] 2.16.840.1.421054.3.579.2 .727 1965 Unknown [id number] 2.16.840.1.834962.3.579.2 .1258 1965 Unknown [id number] 2.16.840.1.604106.3.579.2 .1258 1965 Unknown [id number] 2.16.840.1.863407.3.579.2 .1258 1965 Unknown [id number] 2.16.840.1.183647.3.579.2 .1258 1965 Unknown [id number] 2.16.840.1.826532.3.579.2 .1258 1965 Unknown [id number] 2.16.840.1.458308.3.579.2 .1258 1963 Unknown [id number] 2.16.840.1.401166.3.579.2 .1258 1965 Unknown [id number] 2.16.840.1.314578.3.579.2 .1258 1965 Unknown [id number] 2.16.840.1.805273.3.579.2 .1258 1965 Unknown [id number] 2.16.840.1.519286.3.579.2 .1258 1963 Unknown [id number] 2.16.840.1.262344.3.579.2 .1258 1963 Unknown [id number] 2.16.840.1.450347.3.579.2 .1258 1965 Unknown [id number] 2.16.840.1.558892.3.579.2 .1258 1963 Unknown [id number] 2.16.840.1.351786.3.579.2 .1965 Unknown [id number] 2.16.840.1.418134.3.579.2 .7 1965 Unknown [id number] 2.16.840.1.808890.3.579.2 .727 1965 Unknown [id number] 2.16.840.1.048558.3.579.2 .727 1965 Unknown [id number] 2.16.840.1.770371.3.579.2 .727 Social History Date Type Detail Facility Start: 03-30-2021 End: 08-20-2024 Tobacco smoking status Ex-smoker (finding) [facility] Start: 04-03-2024 End: 08-23-2024 Sex Assigned At Male [facility] Tobacco smoking status Never [facility] Start: 11-10-2023 Tobacco smoking stat [facility] Never smoked tobacco [facility] Start: 11-10-2023 Tobacco use and exposure Smokeless tobacco non-user [facility] Start: 04-03-2024 End: 08-30-2024 Alcoholic beverage intake Current drinker of alcohol (finding) [facility] Start: 04-03-2024 End: 08-23-2024 History of Social function [facility] Start: 1965 Sex assigned at Not on file [facility] Medical Equipment Procedure Code Equipment Code Equipment Origin al Text Equipment Identifier Dates PCI of RCA Unkno wn 02/22/22 Non Biological Unknown FDA Start: 02-22-2022 Comment on above: Xience Renee 3.5x18 PCI of RCA Unkno wn 02/22/22 Non Biological Unknown FDA Start: 02-22-2022 Comment on above: Xience Renee 3.5x18 PCI of RCA Unkno wn 02/22/22 Non Biological Unknown FDA Start: 02-22-2022 Comment on above: Xience Renee 3.5x18 PCI of RCA Unkno wn 02/22/22 Non Biological Unknown FDA Start: 02-22-2022 Comment on above: Xience Renee 3.5x18 PCI of RCA Unkno wn 02/22/22 Non Biological Unknown FDA Start: 02-22-2022 Comment on above: Xience Renee 3.5x18 PCI of RCA Unkno wn 02/22/22 Non Biological Unknown FDA Start: 02-22-2022 Comment on above: Xience Renee 3.5x18 PCI of RCA Unkno wn 02/22/22 Non Biological Unknown FDA Start: 02-22-2022 Comment on above: Xience Renee 3.5x18 PCI of RCA Unkno wn 02/22/22 Non Biological Unknown FDA Start: 02-22-2022 Comment on above: Xience Renee 3.5x18 PCI of RCA Unkno wn 02/22/22 Non Biological Unknown FDA Start: 02-22-2022 Comment on above: Xience Renee 3.5x18 PCI of RCA Unkno wn 02/22/22 Non Biological Unknown FDA Start: 02-22-2022 Comment on above: Xience Renee 3.5x18 PCI of RCA Unkno wn 02/22/22 Non Biological Unknown FDA Start: 02-22-2022 Comment on above: Xience Renee 3.5x18 PCI of RCA Unkno wn 02/22/22 Non Biological Unknown FDA Start: 02-22-2022 Comment on above: Xience Renee 3.5x18 PCI of RCA Unkno wn 02/22/22 Non Biological Unknown FDA Start: 02-22-2022 Comment on above: Xience Renee 3.5x18 PCI of RCA Unkno wn 02/22/22 Non Biological Unknown FDA Start: 02-22-2022 Comment on above: Xience Renee 3.5x18 Functional Status Date Assessment Result Facility 08-29-2024 Functional Status N/A [facility] 08-20-2024 Functional Status N/A [facility] 05-26-2024 Functional Status N/A [facility] 03-19-2024 Functional Status N/A [facility] 11-17-2023 Functional Status No [facility] 11-03-2023 Functional Status N/A [facility] 10-21-2023 Functional Status N/A [facility] 06-29-2022 Functional Status N/A [facility] 03-29-2022 Functional Status N/A [facility] 02-22-2022 Functional Status No [facility] Clinical Notes 01-19-2020 to 08-30-2024 Chantal Peacock DPM [facility] - 08/30/2024 2:40 PM EST Note Date & Type Note Facility 08-30-2024 History of Present illness Narrative Images from the original note were not included. patient: Savannah Hobbs : 1965 PCP: Blaise Hardin MD SUBJECTIVE This is a 59 y.o. male that presents today with a chief complaint of painful elongated nails digits 1 through 10. They cause marked limitation in ambulation due to pain and pressure from shoe gear. Allergies: No Known Allergies Past Medical History: Past Medical History: Diagnosis Date Hypertension ([facility]) Medications: Current Outpatient Medications: atorvastatin (Lipitor) 40 MG tablet, Take 40 mg by mouth Daily, Disp: , Rfl: clopidogrel (Plavix) 75 MG tablet, TAKE ONE TABLET A DAY. DO NOT STOP UNLESS CLEARED OER CARDIOLOGY, Disp: , Rfl: losartan (Cozaar) 100 MG tablet, Take 50 mg by mouth Daily, Disp: , Rfl: metoprolol succinate XL (Toprol-XL) 50 MG 24 hr tablet, Take 50 mg by mouth in the morning and 50 mg before bedtime., Disp: , Rfl: metoprolol tartrate (Lopressor) 25 MG tablet, Take 25 mg by mouth in the morning and 25 mg before bedtime., Disp: , Rfl: Xarelto 20 MG tablet, TAKE 1 TABLET BY MOUTH EVERY DAY IN THE MORNING ..DO NOT STOP UNLESS CLEARED BY SLAB TRIPPER, Disp: , Rfl: Review of systems: Constitutional: Denies fever, chills, nausea, vomiting GI: Denies abdominal pain, cramping, loose stool, gastric ulcers Musculoskeletal: Denies low back pain, knee pain, systemic arthritis Neurologic: Denies burning, tingling, transient paralysis OBJECTIVE Physical Examination: DERM: Positive hair growth to b/l feet with good skin turgor noted. Negative openings in skin. No macerations noted interdigitally. Web spaces were clean and dry. No ulcerations were noted. Nails 1 through 10 were thickened elongated yellow and crumbly with subungual debris. They were painful to palpation [id number] on the right [id number] on the left. VASC: DP /PT were nonpalpable bilateral. Capillary refill time < 3 seconds Digits 1-5 bilateral NEURO: Dodge Matthew 5.07 monofilament was intact B/L. Vibratory sensation was intact B/L Musculoskeletal: Muscle strength was +5 over 5 all intrinsic and extrinsic muscles tested. Radiographs: AP/MO/LAT: Diagnostic ultrasound: ASSESSMENT 1. Tinea unguium 2. Pain in left toe(s) 3. Pain in right toe(s) PLAN The patient was educated on proper foot care as well as the etiology of onychomycosis. I educated the patient on proper shoe gear as well. Today the nails were debrided both in length and thickness 1 through 10. TANK Cuevas documented in this encounter [facility] 08-29-2024 Note ED Patient Education Note Dermatology Sutures, Brandon, or Adhesive Wound Closure Wound closure refers to holding skin and underlying tissue together while it heals, such as after surgery or after an injury. Health care providers use stitches (sutures), neli, skin glue (tissue adhesive), and adhesive strips to close wounds. Your health care provider will use a wound closure method that helps you heal quickly and reduces the chances of infection or scarring. The type of wound closure depends on the location, size, and depth of your wound. More than one type of wound closure may be used on the same wound. In most cases, wounds are closed as soon as possible (primary skin closure). Sometimes, closure is delayed so the wound can be cleaned and then can heal naturally over weeks or months (delayed wound closure). This reduces the chance of infection. What are the different types of wound closure? Skin glue To use skin glue, your health care provider will hold the edges of the wound together and will paint the glue on the surface of your skin. You may need more than one layer of glue. Once the glue is dry, the wound may be covered with a bandage (dressing). This type of skin closure may be used for small wounds that are not deep (superficial wounds). It is often used for children and on facial wounds. Skin glue is less painful than other methods of wound closure, and it does not require medicine to numb the area (local anesthetic). This method also leaves nothing to be removed. Skin glue cannot be used for wounds that are deep, uneven, or bleeding. It is not used inside of a wound. Adhesive strips These strips are made of paper that is sticky (adhesive) and has many small holes in it. The strips are applied across your wound edges like a regular bandage. Adhesive strips may be used to close very shallow wounds or surgical wounds. They may be used along with sutures to improve skin closure. Sutures Sutures come in many different materials, strengths, and sizes. They may break down as your wound heals (absorbable), or they may need to be removed (nonabsorbable). Your health care provider will sew your skin or the tissues under your skin together with sutures and a steel needle. Your skin edges may be closed in one long stitch or in separate stitches. Then the sutures will be tied and cut. Sutures can be used for all kinds of wounds. Absorbable sutures may be used to close tissues under the skin. Sutures can cause a skin reaction that can lead to infection. Neli To close a wound with neli, the edges of your skin on both sides of the wound will be brought close together. A staple will then be placed across the wound, and an instrument will secure the staple edges together. Brandon are often used to close surgical incisions. They are faster to use than sutures, and they cause less skin reaction. Brandon need to be removed using a tool that bends the neli away from your skin. Follow these instructions at home: Medicines ??? Take wmgy-mff-jttbyes and prescription medicines only as told by your health care provider. ??? If you were prescribed an antibiotic medicine, take it as told by your health care provider. Do not stop taking the antibiotic even if you start to feel better. Wound care ??? Follow instructions from your health care provider about how to take care of your wound and dressing. ??? Wash your hands with soap and water for at least 20 seconds before and after you change your dressing. If soap and water are not available, use hand sanforizing machine operator. ??? Do not try to remove your wound closures unless your health care provider tells you to do that. You may need a follow-up visit with your health care provider to remove your closures. ? Wound closures may stay in place for 2 weeks or longer. ? Absorbable sutures may dissolve after a few days or weeks. ? If adhesive strip edges start to loosen and curl up, you may trim the loose edges. ??? Do not pick at your wound. Picking can cause an infection or cause your wound to reopen. ??? Apply ointments or creams only as told by your health care provider. ??? Check your wound every day for signs of infection. Check for: ? Redness, swelling, or pain. ? Fluid or blood. ? New warmth, a rash, or hardness at the wound site. ? Pus or a bad smell. General instructions ??? Do not take baths, swim, or use a hot tub until your health care provider approves. Ask your health care provider if you may take showers. You may only be allowed to take sponge baths. ??? Do not soak your wound in water. ??? Eat a diet that includes protein, vitamin A, and vitamin C to help the wound heal. ??? Drink enough fluid to keep your urine pale yellow. ??? Keep all follow-up visits. This is important. Contact a health care provider if: ??? You have a fever or chills. ??? You have redness, swelling, or pain around your wound. ??? You have fluid or blood coming from y (more content not included)... [facility] 08-29-2024 Hospital Discharge instructions Patient Education 08/29/2024 12:21:53 Sutures, Brandon, or Adhesive Wound Closure Sutures, Neli, or Adhesive Wound Closure Wound closure refers to holding skin and underlying tissue together while it heals, such as after surgery or after an injury. Health care providers use stitches (sutures), neli, skin glue (tissue adhesive), and adhesive strips to close wounds. Your health care provider will use a wound closure method that helps you heal quickly and reduces the chances of infection or scarring. The type of wound closure depends on the location, size, and depth of your wound. More than one type of wound closure may be used on the same wound. In most cases, wounds are closed as soon as possible (primary skin closure). Sometimes, closure is delayed so the wound can be cleaned and then can heal naturally over weeks or months (delayed wound closure). This reduces the chance of infection. What are the different types of wound closure? Skin glue To use skin glue, your health care provider will hold the edges of the wound together and will paint the glue on the surface of your skin. You may need more than one layer of glue. Once the glue is dry, the wound may be covered with a bandage (dressing). This type of skin closure may be used for small wounds that are not deep (superficial wounds). It is often used for children and on facial wounds. Skin glue is less painful than other methods of wound closure, and it does not require medicine to numb the area (local anesthetic). This method also leaves nothing to be removed. Skin glue cannot be used for wounds that are deep, uneven, or bleeding. It is not used inside of a wound. Adhesive strips These strips are made of paper that is sticky (adhesive) and has many small holes in it. The strips are applied across your wound edges like a regular bandage. Adhesive strips may be used to close very shallow wounds or surgical wounds. They may be used along with sutures to improve skin closure. Sutures Sutures come in many different materials, strengths, and sizes. They may break down as your wound heals (absorbable), or they may need to be removed (nonabsorbable). Your health care provider will sew your skin or the tissues under your skin together with sutures and a steel needle. Your skin edges may be closed in one long stitch or in separate stitches. Then the sutures will be tied and cut. Sutures can be used for all kinds of wounds. Absorbable sutures may be used to close tissues under the skin. Sutures can cause a skin reaction that can lead to infection. Neli To close a wound with neli, the edges of your skin on both sides of the wound will be brought close together. A staple will then be placed across the wound, and an instrument will secure the staple edges together. Neli are often used to close surgical incisions. They are faster to use than sutures, and they cause less skin reaction. Brandon need to be removed using a tool that bends the neli away from your skin. Follow these instructions at home: Medicines Take sota-gxw-hcxzpoa and prescription medicines only as told by your health care provider. If you were prescribed an antibiotic medicine, take it as told by your health care provider. Do not stop taking the antibiotic even if you start to feel better. Wound care Follow instructions from your health care provider about how to take care of your wound and dressing. Wash your hands with soap and water for at least 20 seconds before and after you change your dressing. If soap and water are not available, use hand sanforizing machine operator. Do not try to remove your wound closures unless your health care provider tells you to do that. You may need a follow-up visit with your health care provider to remove your closures. ?Wound closures may stay in place for 2 weeks or longer. ?Absorbable sutures may dissolve after a few days or weeks. ?If adhesive strip edges start to loosen and curl up, you may trim the loose edges. Do not pick at your wound. Picking can cause an infection or cause your wound to reopen. Apply ointments or creams only as told by your health care provider. Check your wound every day for signs of infection. Check for: ?Redness, swelling, or pain. ?Fluid or blood. ?New warmth, a rash, or hardness at the wound site. ?Pus or a bad smell. General instructions Do not take baths, swim, or use a hot tub until your health care provider approves. Ask your health care provider if you may take showers. You may only be allowed to take sponge baths. Do not soak your wound in water. Eat a diet that includes protein, vitamin A, and vitamin C to help the wound heal. Drink enough fluid to keep your urine pale yellow. Keep all follow-up visits. This is important. Contact a health care provider if: You have a fever or chills. You have redness, swelling, or pain around your wound. You have fluid or blood coming from your wound. You have new warmth, a rash, or hardness around your wound. You notice that your wound becomes thick, raised, and darker in color after your sutures come out (scarring). Get help right away if: The edges of your wound start to separate, or the wound reopens. You notice pus or a bad smell coming from your wound. Summary The type of wound closure that your health care provider will use depends on the location, size, and depth of your wound. Options to close wounds include stitches (sutures), neli, skin glue (tissue adhesive), and adhesive strips. Your health care provider will use a wound closure method that helps you heal quickly and reduces the chances of infection or scarring. To help with healing, eat foods that are rich in protein, vitamin A, and vitamin C. Do not soak your wound in water. Do not take baths, shower, swim, or use a hot tub until your health care provider approves. This information is not intended to replace advice given to you by your health care provider. Make sure you discuss any questions you have with your health care provider. Document Revised: 01/04/2022 Document Reviewed: 01/04/2022 [employer] Patient Education 2023 [employer]. 08/29/2024 12:21:53 Laceration Care, Adult Laceration Care, Adult A laceration is a cut that may go through all layers of the skin and into the tissue that is right under the skin. Some lacerations heal on their own. Others need to be closed with stitches (sutures), neli, skin adhesive strips, or skin glue. Proper care of a laceration reduces the risk for infection, helps the laceration heal better, and may prevent scarring. General tips Keep the wound clean and dry. Do not scratch or pick at the wound. Wash your hands with soap and water for at least 20 seconds before and after touching your wound or changing your bandage (dressing). If soap and water are not available, use hand sanforizing machine operator. Do not usedisinfectants or antiseptics, such as rubbing alcohol, to clean your wound unless told by your health care provider. If you were given a dressing, you should change it at least once a day, or as told by your health care provider. You should also change it if it becomes wet or dirty. How to care for your laceration If sutures or neli were used: Keep the wound completely dry for the first 24 hours, or as told by your health care provider. After that time, you may shower or bathe. Do not soak your wound in water until after the sutures or neli have been removed. Clean the wound once each day, or as told by your health care provider. To do this: ?Wash the wound with soap and water. ?Rinse the wound with water to remove all soap. ?Pat the wound dry with a clean towel. Do not rub the wound. After cleaning the wound, apply a thin layer of antibiotic ointment, other topical ointments, or a non-adherent dressing as told by your health care provider. This will help prevent infection and keep the dressing from sticking to the wound. Have the sutures or neli removed as told by your health care provider. Do not remove sutures or neli yourself. If skin adhesive strips were used: Do not get the skin adhesive strips wet. You may shower or bathe, but keep the wound dry. If the wound gets wet, pat it dry with a clean towel. Do not rub the wound. Skin adhesive strips fall off on their own. If adhesive strip edges start to loosen and curl up, you may trim the loose edges. Do not remove adhesive strips completely unless your health care provider tells you to do that. If skin glue was used: You may shower or bathe, but try to keep the wound dry. Do not soak the wound in water. After showering or bathing, pat the wound dry with a clean towel. Do not rub the wound. Do not do any activities that will make you sweat a lot until the skin glue has fallen off. Do not apply liquid, cream, or ointment medicine to the wound while the skin glue is in place. Doing this may loosen the film before the wound has healed. If a dressing is placed over the wound, do not apply tape directly over the skin glue. Doing this may cause the glue to be pulled off before the wound has healed. Do not pick at the glue. Skin glue usually remains in place for 5 10 days and then falls off the skin. Follow these instructions at home: Medicines Take ejwa-yqm-plovndl and prescription medicines only as told by your health care provider. If you were prescribed an antibiotic medicine or ointment, take or apply it as told by your health care provider. Do not stop using it even if your condition improves. Managing pain and swelling If directed, put ice on the injured area. To do this: ?Put ice in a plastic bag. ?Place a towel between your skin and the bag. ?Leave the ice on for 20 minutes, 2 3 times a day. ?Remove the ice if your skin turns bright red. This is very important. If you cannot feel pain, heat, or cold, you have a greater risk of damage to the area. Raise (elevate) the injured area above the level of your heart while you are sitting or lying down for the first 24 48 hours after the laceration is repaired. General instructions Avoid any activity that could cause your wound to reopen. Check your wound every day for signs of infection. Watch for: ?More redness, swelling, or pain. ?Fluid or blood. ?Warmth. ?Pus or a bad smell. Keep all follow-up visits. This is important. Contact a health care provider if: You received a tetanus shot and you have swelling, severe pain, redness, or bleeding at the injection site. Your closed wound breaks open. You have any of these signs of infection: ?More redness, swelling, or pain around your wound. ?Fluid or blood coming from your wound. ?Warmth coming from your wound. ?Pus or a bad smell coming from your wound. ?A fever. You notice something coming out of the wound, such as wood or glass. Your pain is not controlled with medicine. You notice a change in the color of your skin near your wound. You need to change the dressing often. You develop a new rash. You have numbness around the wound. Get help right away if: You develop severe swelling around the wound. Your pain suddenly increases and is severe. You develop painful lumps near the wound or on skin anywhere else on your body. You have a red streak going away from your wound. The wound is on your hand or foot, and you cannot properly move a finger or toe. The wound is on your hand or foot, and you notice that your fingers or toes look pale or bluish. Summary A laceration is a cut that may go through all layers of the skin and into the tissue that is right under the skin. Some lacerations heal on their own. Others need to be closed with stitches (sutures), neli, skin adhesive strips, or skin glue. Proper care of a laceration reduces the risk of infection, helps the laceration heal better, and may prevent scarring. This information is not intended to replace advice given to you by your health care provider. Make sure you discuss any questions you have with your health care provider. Document Revised: 11/05/2021 Document Reviewed: 11/05/2021 [employer] Patient Education 2023 [employer]. Follow Up Care 08/29/2024 10:22:44 With:Occupational Health: [facility] [phone] Address:Unknown When:09/01/2024 11:33:45 Comments:Call Dr for diagnosis based follow up With:Blaise HARDIN Address: [address], [place] [address]- Business (1) When:09/01/2024 11:33:39 Comments:Brandon to removed in 10 days. You may shower with this. Do not submerge your head underwater. [facility] 08-29-2024 Evaluation + Plan note Extrac hector from: Title:ED Note Author:Anders Hamm PA-C te:08/29/24 Closed head injury without l oss of consciousness (S09.90XA: Unspecified injury of head, initial encounter) Scalp laceration (S01.01XA: Laceration without foreign body of scalp, initial encounter) Orders: acetaminophen, 325 mg = 1 tab(s), Tab, Oral, Once, Stop date 08/29/24 12:13:00 EST, STAT, Start date 08/29/24 12:13:00 EST, 08/29/24 12:13:00 EST acetaminophen-oxycodone, 1 tab(s), Tab, Oral, Once, Stop date 08/29/24 10:34:00 EST, STAT, Start date 08/29/24 10:34:00 EST epinephrine-lidocaine, 5 mL, Injection, IntraDermal, Once, Stop date 08/29/24 16:10:00 EST, Start date 08/29/24 16:10:00 EST tranexamic acid, 1,000 mg = 10 mL, Injection, Topical, Once, Stop date 08/29/24 16:16:00 EST, Start date 08/29/24 16:16:[address] Head or Brain w/o Contrast Future Appointments Appointment Date:09/20/2024 02:30:00 PM Scheduled Provider:Derrick Dougherty PA-C Location:[facility]Cardiology [facility] Appointment Type:Cardiology Follow Up ([facility]) [facility] [id number] History of Present illness Narrative* Chantal Peacock DPM FACFAS - 08/23/2024 3:40 PM EST Patient: Savannah Hobbs : 1965 PCP: Blaise Hardin MD SUBJECTIVE This is a 59 y.o. male that presents today with a new Unna boot for a wound on the lateral left leg. Allergies: No Known Allergies Past Medical History: Past Medical History: Diagnosis Date Hypertension (CMS/HCC) Medications: Current Outpatient Medications: atorvastatin (Lipitor) 40 MG tablet, Take 40 mg by mouth Daily, Disp: , Rfl: clopidogrel (Plavix) 75 MG tablet, TAKE ONE TABLET A DAY. DO NOT STOP UNLESS CLEARED OER CARDIOLOGY, Disp: , Rfl: losartan (Cozaar) 100 MG tablet, Take 50 mg by mouth Daily, Disp: , Rfl: metoprolol succinate XL (Toprol-XL) 50 MG 24 hr tablet, Take 50 mg by mouth in the morning and 50 mg before bedtime., Disp: , Rfl: metoprolol tartrate (Lopressor) 25 MG tablet, Take 25 mg by mouth in the morning and 25 mg before bedtime., Disp: , Rfl: Xarelto 20 MG tablet, TAKE 1 TABLET BY MOUTH EVERY DAY IN THE MORNING ..DO NOT STOP UNLESS CLEARED BY SLAB TRIPPER, Disp: , Rfl: ROS: General: denies fever, chills, fatigue, malaise Unremarkable OBJECTIVE LE EXAM: DERM: Positive hair growth to b/l feet with good skin turgor noted. Negative openings in skin; wound lateral leg is completely healed VASC: Palpable pedal pulsed b/l with warm to cool tibia to toes b/l NEURO: Gross sensation intact digits 1-10 and b/l feet ORTHO: +5/5 DF/PF/IN/EV right, +5/5 DF/PF/IN/EV left. 20 degrees inversion and 10 degrees eversion STJ b/l. Ankle ROM less than 10 degrees b/l. XRAY: US: ASSESSMENT 1. Venous insufficiency 2. 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) PLAN Patient has a continue with double Tubigrip daily used to elevate and rest daily. Chantal Peacock DPM FACFAS documented [id number] Discharge instructions Patient Education 08/20/2024 11:31:06 Hypertension, Adult Hypertension, Adult High blood pressure (hypertension) is when the force of blood pumping through the arteries is too strong. The arteries are the blood vessels that carry blood from the heart throughout the body. Hypertension forces the heart to work harder to pump blood and may cause arteries to become narrow or stiff. Untreated or uncontrolled hypertension can lead to a heart attack, heart failure, a stroke, kidney disease, and other problems. A blood pressure reading consists of a higher number over a lower number. Ideally, your blood pressure should be below 120/80. The first ( top ) number is called the systolic pressure. It is a measure of the pressure in your arteries as your heart beats. The second ( bottom ) number is called the diastolic pressure. It is a measure of the pressure in your arteries as the heart relaxes. What are the causes? The exact cause of this condition is not known. There are some conditions that result in high bloodpressure. What increases the risk? Certain factors may make you more likely to develop high blood pressure. Some of these risk factorsare under your control, including: Smoking. Not getting enough exercise or physical activity. Being overweight. Having too much fat, sugar, calories, or salt (sodium) in your diet. Drinking too much alcohol. Other risk factors include: Having a personal history of heart disease, diabetes, high cholesterol, or kidney disease. Stress. Having a family history of high blood pressure and high cholesterol. Having obstructive sleep apnea. Age. The risk increases with age. What are the signs or symptoms? High blood pressure may not cause symptoms. Very high blood pressure (hypertensive crisis) may cause: Headache. Fast or irregular heartbeats (palpitations). Shortness of breath. Nosebleed. Nausea and vomiting. Vision changes. Severe chest pain, dizziness, and seizures. How is this diagnosed? This condition is diagnosed by measuring your blood pressure while you are seated, with your arm resting on a flat surface, your legs uncrossed, and your feet flat on the floor. The cuff of the bloodpressure monitor will be placed directly against the skin of your upper arm at the level of your heart. Blood pressure should be measured at least twice using the same arm. Certain conditions can cause a difference in blood pressure between your right and left arms. If you have a high blood pressure reading during one visit or you have normal blood pressure with other risk factors, you may be asked to: Return on a different day to have your blood pressure checked again. Monitor your blood pressure at home for 1 week or longer. If you are diagnosed with hypertension, you may have other blood or imaging tests to help your health care provider understand your overall risk for other conditions. How is this treated? This condition is treated by making healthy lifestyle changes, such as eating healthy foods, exercising more, and reducing your alcohol intake. You may be referred for counseling on a healthy diet and physical activity. Your health care provider may prescribe medicine if lifestyle changes are not enough to get your blood pressure under control and if: Your systolic blood pressure is above 130. Your diastolic blood pressure is above 80. Your personal target blood pressure may vary depending on your medical conditions, your age, and other factors. Follow these instructions at home: Eating and drinking Eat a diet that is high in fiber and potassium, and low in sodium, added sugar, and fat. An exampleof this eating plan is called the DASH diet. DASH stands for Dietary Approaches to Stop Hypertension. To eat this way: ?Eat plenty of fresh fruits and vegetables. Try to fill one half of your plate at each meal with fruits and vegetables. ?Eat whole grains, such as whole-wheat pasta, brown rice, or whole-grain bread. Fill about one fourth of your plate with whole grains. ?Eat or drink low-fat dairy products, such as skim milk or low-fat yogurt. ?Avoid fatty cuts of meat, processed or cured meats, and poultry with skin. Fill about one fourth of your plate with lean proteins, such as fish, chicken without skin, beans, eggs, or tofu. ?Avoid pre-made and processed foods. These tend to be higher in sodium, added sugar, and fat. Reduce your daily sodium intake. Many people with hypertension should eat less than 1,500 mg of sodium a day. Do not drink alcohol if: ?Your health care provider tells you not to drink. ?You are , may be , or are planning to become . If you drink alcohol: ?Limit how much you have to: ?0 1 drink a day for women. ?0 2 drinks a day for men. ?Know how much alcohol is in your drink. In the [place] one drink equals one 12 oz bottle of beer (355 mL), one 5 oz glass of wine (148 mL), or one 1 oz glass of hard liquor (44 mL). Lifestyle Work with your health care provider to maintain a healthy body weight or to lose weight. Ask what an ideal weight is for you. Get at least 30 minutes of exercise that causes your heart to beat faster (aerobic exercise) most days of the week. Activities may include walking, swimming, or biking. Include exercise to strengthen your muscles (resistance exercise), such as Pilates or lifting weights, as part of your weekly exercise routine. Try to do these types of exercises for 30 minutes at least 3 days a week. Do not use any products that contain nicotine or tobacco. These products include cigarettes, chewing tobacco, and vaping devices, such as e-cigarettes. If you need help quitting, ask your health careprovider. Monitor your blood pressure at home as told by your health care provider. Keep all follow-up visits. This is important. Medicines Take slzh-hno-aradboy and prescription medicines only as told by your health care provider. Follow directions carefully. Blood pressure medicines must be taken as prescribed. Do not skip doses of blood pressure medicine. Doing this puts you at risk for problems and can makethe medicine less effective. Ask your health care provider about side effects or reactions to medicines that you should watch for. Contact a health care provider if you: Think you are having a reaction to a medicine you are taking. Have headaches that keep coming back (recurring). Feel dizzy. Have swelling in your ankles. Have trouble with your vision. Get help right away if you: Develop a severe headache or confusion. Have unusual weakness or numbness. Feel faint. Have severe pain in your chest or abdomen. Vomit repeatedly. Have trouble breathing. These symptoms may be an emergency. Get help right away. Call 911. Do not wait to see if the symptoms will go away. Do not drive yourself to the hospital. Summary Hypertension is when the force of blood pumping through your arteries is too strong. If this condition is not controlled, it may put you at risk for serious complications. Your personal target blood pressure may vary depending on your medical conditions, your age, and other factors. For most people, a normal blood pressure is less than 120/80. Hypertension is treated with lifestyle changes, medicines, or a combination of both. Lifestyle changes include losing weight, eating a healthy, low-sodium diet, exercising more, and limiting alcohol. This information is not intended to replace advice given to you by your health care provider. Make sure you discuss any questions you have with your health care provider. Document Revised: 07/06/2022 Document Reviewed: 07/06/2022 [employer] Patient Education 2023 [employer]. 08/20/2024 11:31:02 Joint Pain Joint Pain Joint pain may be caused by many things. Joint pain is likely to go away when you follow instructions from your health care provider for relieving pain at home. However, joint pain can also be causedby conditions that require more treatment. Common causes of joint pain include: Bruising in the area of the joint. Injury caused by repeating certain movements too many times. Age-related joint wear and tear. Buildup of uric acid crystals in the joint (gout). Inflammation of the joint. Other forms of arthritis. Infections of the joint or of the bone. Your health care provider may recommend that you take pain medicine or wear a supportive device like an elastic bandage, sling, or splint. If your joint pain continues, you may need lab or imaging tests to diagnose the cause of your joint pain. Follow these instructions at home: Managing pain, stiffness, and swelling If directed, put ice on the painful area. To do this: ?If you have a removable elastic bandage, sling, or splint, take it off as told by your doctor. ?Put ice in a plastic bag. ?Place a towel between your skin and the bag. ?Leave the ice on for 20 minutes, 2 3 times a day. ?Remove the ice if your skin turns bright red. This is very important. If you cannot feel pain, heat, or cold, you have a greater risk of damage to the area. Move your fingers and toes often to reduce stiffness and swelling. Raise the injured area above the level of your heart while you are sitting or lying down. If directed, apply heat to the painful area as often as told by your health care provider. Use the heat source that your health care provider recommends, such as a moist heat pack or a heating pad. Place a towel between your skin and the heat source. Leave the heat on for 20 30 minutes. Remove the heat if your skin turns bright red. This is especially important if you are unable to feel pain, heat, or cold. You have a greater risk of getting burned. Activity Rest as told by your health care provider. Do not do anything that causes or worsens pain. Begin exercising or stretching the affected area as told by your health care provider. Return to your normal activities as told by your health care provider. Ask your health care provider what activities are safe for you. If you have an elastic bandage, sling, or splint: Wear the bandage, sling, or splint as told by your health care provider. Remove it only as told by your health care provider. Loosen it if your fingers or toes below the joint tingle, become numb, or turn cold and blue. Keep it clean. Ask your health care provider if you should remove it before bathing. If the bandage, sling, or splint is not waterproof: ?Do not let it get wet. ?Cover it with a watertight covering when you take a bath or shower. General instructions Treatment may include medicines for pain and inflammation that are taken by mouth or applied to theskin. Take hmgs-qrd-dvjivjg and prescription medicines only as told by your health care provider. Do not use any products that contain nicotine or tobacco, such as cigarettes, e- cigarettes, and chewing tobacco. If you need help quitting, ask your health care provider. Keep all follow-up visits. This is important. Contact a health care provider if: You have pain that gets worse and does not get better with medicine. Your joint pain does not improve within 3 days. You have increased bruising or swelling. You have a fever. You lose 10 lb (4.5 kg) or more without trying. Get help right away if: You cannot move the joint. Your fingers or toes tingle, become numb, or turn cold and blue. You have a fever along with a joint that is red, warm, and swollen. Summary Joint pain may be caused by many things. Your health care provider may recommend that you take pain medicine or wear a supportive device such as an elastic bandage, sling, or splint. If your joint pain continues, you may need tests to diagnose the cause of your joint pain. Take hqdx-zuz-agivdap and prescription medicines only as told by your health care provider. This information is not intended to replace advice given to you by your health care provider. Make sure you discuss any questions you have with your health care provider. Document Revised: 12/09/2020 Document Reviewed: 12/10/2020 [employer] Patient Education 2023 [employer]. 08/20/2024 11:30:57 Nosebleed, Adult Nosebleed, Adult A nosebleed is when blood comes out of the nose. Nosebleeds are common. Usually, they are not a sign of a serious condition. Nosebleeds can happen if a blood vessel in your nose starts to bleed or if the lining of your nose (mucous membrane) cracks. They are commonly caused by: Allergies. Colds. Picking your nose. Blowing your nose too hard. An injury from sticking an object into your nose or getting hit in the nose. Dry or cold air. Less common causes of nosebleeds include: Toxic fumes. Something abnormal in the nose or in the air-filled spaces in the bones of the face (sinuses). Growths in the nose, such as polyps. Blood thinners or conditions that cause blood to clot slowly. Certain illnesses or procedures that irritate or dry out the nasal passages. Follow these instructions at home: When you have a nosebleed: Sit down and tilt your head slightly forward. Use a clean towel or tissue to pinch your nostrils under the bony part of your nose. After 5 minutes, let go of your nose and see if bleeding starts again. Do not release pressure before that time. If there is still bleeding, repeat the pinching and holding for 5 minutes or until the bleeding stops. Do not place tissues or gauze in the nose to stop the bleeding. Avoid lying down and avoid tilting your head backward. That may make blood collect in the throat and cause gagging or coughing. Use a nasal spray decongestant to help with a nosebleed as told by your health care provider. After a nosebleed: Avoid blowing your nose or sniffing for a number of hours. Avoid straining, lifting, or bending at the waist for several days. You may go back to other normalactivities as you are able. If you are taking aspirin or blood thinners and you have nosebleeds, talk to your health care provider. These medicines make bleeding more likely. ?Ask your health care provider if you should stop taking the medicines or if you should adjust the dose. ?Do not stop taking medicines that your health care provider has recommended unless he or she tellsyou to stop taking them. If your nosebleed was caused by dry mucous membranes, use tfsf-lxe-lqzoffm saline nasal spray or gel and a humidifier as told by your health care provider. This will keep the mucous membranes moist and allow them to heal. If you need to use one of these products: ?Choose one that is water-soluble. ?Use only as much as you need and use it only as often as needed. ?Do not lie down right after you use it. If you get nosebleeds often, talk with your health care provider about medical treatments. Options may include: ?Nasal cautery. This treatment stops and prevents nosebleeds by using a chemical swab or electricaldevice to lightly burn tiny blood vessels inside the nose. ?Nasal packing. A gauze or other material is placed in the nose to keep constant pressure on the bleeding area. Contact a health care provider if you: Have a fever. Get nosebleeds often or more often than usual. Bruise very easily. Have a nosebleed from having something stuck in your nose. Have bleeding in your mouth. Vomit or cough up brown material. Have a nosebleed after you start a new medicine. Get help right away if: You have a nosebleed after a fall or a head injury. Your nosebleed does not go away after 20 minutes. You feel dizzy or weak. You have unusual bleeding from other parts of your body. You have unusual bruising on other parts of your body. You become sweaty. You vomit blood. Summary A nosebleed is when blood comes out of the nose. Common causes include allergies, an injury to the nose, or cold or dry air. Initial treatment includes applying pressure for 5 minutes. Moisturizing the nose with saline nasal spray or gel after a nosebleed may help prevent future bleeding. Get help right away if your nosebleed does not go away after 20 minutes. This information is not intended to replace advice given to you by your health care provider. Make sure you discuss any questions you have with your health care provider. Document Revised: 06/26/2020 Document Reviewed: 06/26/2020 [employer] Patient Education 2021 [employer]. 08/20/2024 11:30:47 Bleeding Precautions When on Anticoagulant Therapy, Adult Bleeding Precautions When on Anticoagulant Therapy, Adult Anticoagulant therapy, also called blood thinner therapy, is medicine that helps to prevent and treat blood clots. The medicine works by stopping blood clots from forming or growing. Blood clots thatform in your blood vessels can be dangerous. They can break loose and travel to the heart, lungs, or brain. This increases the risk of a heart attack, stroke, or blocked lung artery (pulmonary embolism). Anticoagulants also increase the risk of bleeding. It is important to take anticoagulants exactly as told by your health care provider. Why do I need to be on anticoagulant therapy? You may need this medicine if you are at risk of developing a blood clot. Conditions that increase your risk of a blood clot include: Having an irregular heartbeat, such as atrial fibrillation (AF). Having had surgery, such as: ?A valve replacement. ?A hip or knee replacement. Having been born with a heart problem (congenital heart disease). Having certain types of cancer. Having certain diseases that can increase blood clotting. Having a high risk of stroke or heart attack. What are the common anticoagulant medicines? There are several types of anticoagulant medicines. They each work in different ways to prevent blood clots. The most common types are: Medicines that you take by mouth (oralmedicines), such as: ?Warfarin. ?Direct oral anticoagulants (DOACs), such as: ?Dabigatran. ?Apixaban, edoxaban, and rivaroxaban. Injections, such as: ?Heparin. ?Enoxaparin or fondaparinux. What do I need to remember while on anticoagulant therapy? Taking anticoagulants You may bleed more easily while taking anticoagulants. Be careful not to injure yourself. Take your medicine at the same time every day. If you forget to take your medicine, take it as soonas you remember. Do not double your dosage of medicine if you miss a whole day. If it is almost time for your next dose, take only that dose and call your health care provider. Do not stop taking your medicine unless your health care provider approves. Stopping the medicine can increase your risk of developing a blood clot. You may need to have regular blood tests while you are taking anticoagulants. ?If you are taking warfarin, you will need a blood test to measure the time that it takes your blood to clot (INR test), as told by your health care provider. Taking other medicines Take sikl-oil-fagfyrr and prescription medicines only as told by your health care provider. Talk with your health care provider before you take any medicines that contain aspirin or NSAIDs, such as ibuprofen. These medicines increase your risk for dangerous bleeding. Ask your health care provider before you start taking any new medicines, vitamins, herbs, or supplements because they could interfere with your therapy. General instructions If you are or trying to get , talk with a health care provider about anticoagulants. Some of these medicines are not safe to take during . Tell all health care providers, including your dentist, that you are on anticoagulant therapy. It is especially important to tell providers before you have any surgery, medical procedures, or dental work done. Keep all follow-up visits. This is important. This includes blood tests. What precautions should I take? Avoid situations that cause bleeding. Consider the following: ?Use a softer toothbrush. ?Floss with waxed, not unwaxed, dental floss. ?Shave with an electric razor, not a blade. ?Be careful when handling and using sharp objects. Wear gloves while you do yard work. ?Avoid activities such as contact sports that may put you at risk for injury. ?Always wear your seat belt. Prevent falls by: ?Removing loose rugs and extensions cords from areas where you walk. ?Using a cane or walker if you need it. ?Keeping a night-light on at night. Always wear shoes outdoors, and wear non-skid slippers indoors. Be careful when cutting your fingernails and toenails. Discuss ways to manage or avoid constipation with your health care provider. Place non-skid bath mats in the bathtub. If possible, install grab bars. What other precautions are important if on warfarin therapy? If you are taking a type of anticoagulant called warfarin, make sure you: Work with a dietitian to make an eating plan. Do not make any sudden changes to your diet without talking with your health care provider. Do not drink alcohol. It can interfere with your medicine and increase your risk of bleeding. Tell your health care provider if you stop smoking. Your warfarin dose may need to be decreased. Call your health care provider about any medicine changes, including if you start taking antibiotics for an infection, as this may affect your INR level. Get regular blood tests to check your INR level as told by your health care provider. What are some questions to ask my health care provider? What is the best anticoagulant therapy for my condition? How long will I need anticoagulant therapy? What are the side effects of anticoagulant therapy? When should I take my medicine? What should I do if I forget to take it? Will I need to have regular blood tests? Do I need to change my diet? Are there foods or drinks that I should avoid? What activities are safe for me? What should I do if I want to get ? What should I do if I have an illness that causes vomiting or diarrhea? What should I do if I am unable to eat for a few days? Contact a health care provider if: You miss a dose of medicine and are not sure what to do. You have minor bleeding, such as nosebleeds or bleeding gums. You have: ?Menstrual bleeding that is heavier than normal. ?Blood in your urine, or urine that is pink or brown. ?Easy bruising. ?Black and tarry stool (feces) or bright red stool. ?A rash or other skin reaction from the medicine. You become . Get help right away if: You have bleeding that will not stop after 20 minutes of holding pressure. You have a severe headache or stomachache. You have bloody vomit or you cough up blood, or your vomit looks like coffee grounds. You fall or hit your head. You have sudden numbness or weakness of the face, arm, or leg. You have trouble walking. You have confusion. These symptoms may represent a serious problem that is an emergency. Do not wait to see if the symptoms will go away. Get medical help right away. Call your local emergency services (911 in the [place] Do not drive yourself to the hospital. Summary Anticoagulant therapy, also called blood thinner therapy, is medicine that helps to prevent and treat blood clots. Anticoagulants can increase the risk of bleeding. It is important that you take anticoagulants exactly as told by your health care provider. Get help right away for bleeding that does not stop or if you fall and hit your head. Talk with your health care provider about any precautions that you should take while on anticoagulant therapy. Take [id number]-[id number] and prescription medicines only as told by your health care provider. This information is not intended to replace advice given to you by your health care provider. Make sure you discuss any questions you have with your health care provider. Document Revised: 10/26/2021 Document Reviewed: 10/26/2021 [employer] Patient Education 2023 [employer]. 08/20/2024 11:30:46 Atrial Fibrillation, Rsbi-vk-Tize Atrial Fibrillation Atrial fibrillation (AFib) is a type of heartbeat that is irregular or fast. If you have AFib, yourheart beats without any order. This makes it hard for your heart to pump blood in a normal way. AFib may come and go, or it may become a long-lasting problem. If AFib is not treated, it can put you at higher risk for stroke, heart failure, and other heart problems. What are the causes? AFib may be caused by diseases that damage the heart's electrical system. They include: High blood pressure. Heart failure. Heart valve diseases. Heart surgery. Diabetes. Thyroid disease. Kidney disease. Lung diseases, such as pneumonia or COPD. Sleep apnea. Sometimes the cause is not known. What increases the risk? You are more likely to develop AFib if: You are older. You exercise often and very hard. You have a family history of AFib. You are male. You are . You are overweight. You smoke. You drink a lot of alcohol. What are the signs or symptoms? Common symptoms of this condition include: A feeling that your heart is beating very fast. Chest pain or discomfort. Feeling short of breath. Suddenly feeling light-headed or weak. Getting tired easily during activity. Fainting. Sweating. In some cases, there are no symptoms. How is this treated? Medicines to: ?Prevent blood clots. ?Treat heart rate or heart rhythm problems. Using devices, such as a pacemaker, to correct heart rhythm problems. Doing surgery to remove the part of the heart that sends bad signals. Closing an area where clots can form in the heart (left atrial appendage). In some cases, your doctor will treat other underlying conditions. Follow these instructions at home: Medicines Take lyhu-tmv-pdhmodk and prescription medicines only as told by your doctor. Do not take any new medicines without first talking to your doctor. If you are taking blood thinners: ?Talk with your doctor before taking aspirin or NSAIDs, such as ibuprofen. ?Take your medicines as told. Take them at the same time each day. ?Do not do things that could hurt or bruise you. Be careful to avoid falls. ?Wear an alert bracelet or carry a card that says you take blood thinners. Lifestyle Do not smoke or use any products that contain nicotine or tobacco. If you need help quitting, ask your doctor. Eat heart-healthy foods. Talk with your doctor about the right eating plan for you. Exercise regularly as told by your doctor. Do not drink alcohol. Lose weight if you are overweight. General instructions If you have sleep apnea, treat it as told by your doctor. Do not use diet pills unless your doctor says they are safe for you. Diet pills may make heart problems worse. Keep all follow-up visits. Your doctor will check your heart rate and rhythm regularly. Contact a doctor if: You notice a change in the speed, rhythm, or strength of your heartbeat. You are taking a blood-thinning medicine and you get more bruising. You get tired more easily when you move or exercise. You have a sudden change in weight. Get help right away if: You have pain in your chest. You have trouble breathing. You have side effects of blood thinners, such as blood in your vomit, poop (stool), or pee (urine),or bleeding that cannot stop. You have any signs of a stroke. BE FAST is an easy way to remember the main warning signs: ?B - Balance. Dizziness, sudden trouble walking, or loss of balance. ?E - Eyes. Trouble seeing or a change in how you see. ?F - Face. Sudden weakness or loss of feeling in the face. The face or eyelid may droop on one side. ?A - Arms.Weakness or loss of feeling in an arm. This happens suddenly and usually on one side of the body. ?S - Speech. Sudden trouble speaking, slurred speech, or trouble understanding what people say. ?T - Time.Time to call emergency services. Write down what time symptoms started. You have other signs of a stroke, such as: ?A sudden, very bad headache with no known cause. ?Feeling like you may vomit (nausea). ?Vomiting. ?A seizure. These symptoms may be an emergency. Get help right away. Call 911. Do not wait to see if the symptoms will go away. Do not drive yourself to the hospital. This information is not intended to replace advice given to you by your health care provider. Make sure you discuss any questions you have with your health care provider. Document Revised: 05/18/2023 Document Reviewed: 05/18/2023 [employer] Patient Education 2023 [employer]. Follow Up Care 08/20/2024 09:19:27 With:DIANE LASW FAAFP, MYA Ruiz, PED Address: [place] [address]- When: Unknown [facility] 12-09-2024 NotePatient Education Cardiovascular Hypertension, Adult High blood pressure (hypertension) is when the force of blood pumping through the arteries is too strong. The arteries are the blood vessels that carry blood from the heart throughout the body. Hypertension forces the heart to work harder to pump blood and may cause arteries to become narrow or stiff. Untreated or uncontrolled hypertension can lead to a heart attack, heart failure, a stroke, kidney disease, and other problems. A blood pressure reading consists of a higher number over a lower number. Ideally, your blood pressure should be below 120/80. The first ( top ) number is called the systolic pressure. It is a measure of the pressure in your arteries as your heart beats. The second ( bottom ) number is called the diastolic pressure. It is a measure of the pressure in your arteries as the heart relaxes. What are the causes? The exact cause of this condition is not known. There are some conditions that result in high bloodpressure. What increases the risk? Certain factors may make you more likely to develop high blood pressure. Some of these risk factorsare under your control, including: ??? Smoking. ??? Not getting enough exercise or physical activity. ??? Being overweight. ??? Having too much fat, sugar, calories, or salt (sodium) in your diet. ??? Drinking too much alcohol. Other risk factors include: ??? Having a personal history of heart disease, diabetes, high cholesterol, or kidney disease. ??? Stress. ??? Having a family history of high blood pressure and high cholesterol. ??? Having obstructive sleep apnea. ??? Age. The risk increases with age. What are the signs or symptoms? High blood pressure may not cause symptoms. Very high blood pressure (hypertensive crisis) may cause: ??? Headache. ??? Fast or irregular heartbeats (palpitations). ??? Shortness of breath. ??? Nosebleed. ??? Nausea and vomiting. ??? Vision changes. ??? Severe chest pain, dizziness, and seizures. How is this diagnosed? This condition is diagnosed by measuring your blood pressure while you are seated, with your arm resting on a flat surface, your legs uncrossed, and your feet flat on the floor. The cuff of the bloodpressure monitor will be placed directly against the skin of your upper arm at the level of your heart. Blood pressure should be measured at least twice using the same arm. Certain conditions can cause a difference in blood pressure between your right and left arms. If you have a high blood pressure reading during one visit or you have normal blood pressure with other risk factors, you may be asked to: ??? Return on a different day to have your blood pressure checked again. ??? Monitor your blood pressure at home for 1 week or longer. If you are diagnosed with hypertension, you may have other blood or imaging tests to help your health care provider understand your overall risk for other conditions. How is this treated? This condition is treated by making healthy lifestyle changes, such as eating healthy foods, exercising more, and reducing your alcohol intake. You may be referred for counseling on a healthy diet and physical activity. Your health care provider may prescribe medicine if lifestyle changes are not enough to get your blood pressure under control and if: ??? Your systolic blood pressure is above 130. ??? Your diastolic blood pressure is above 80. Your personal target blood pressure may vary depending on your medical conditions, your age, and other factors. Follow these instructions at home: Eating and drinking ??? Eat a diet that is high in fiber and potassium, and low in sodium, added sugar, and fat. An example of this eating plan is called the DASH diet. DASH stands for Dietary Approaches to Stop Hypertension. To eat this way: ? Eat plenty of fresh fruits and vegetables. Try to fill one half of your plate at each meal with fruits and vegetables. ? Eat whole grains, such as whole-wheat pasta, brown rice, or whole-grain bread. Fill about one fourth of your plate with whole grains. ? Eat or drink low-fat dairy products, such as skim milk or low-fat yogurt. ? Avoid fatty cuts of meat, processed or cured meats, and poultry with skin. Fill about one fourth of your plate with lean proteins, such as fish, chicken without skin, beans, eggs, or tofu. ? Avoid pre-made and processed foods. These tend to be higher in sodium, added sugar, and fat. ??? Reduce your daily sodium intake. Many people with hypertension should eat less than 1,500 mg ofsodium a day. ??? Do not drink alcohol if: ? Your health care provider tells you not to drink. ? You are , may be , or are planning to become . ??? If you drink alcohol: ? Limit how much you have to: ? 0?1 drink a day for women. ? 0?2 drinks a day for men. ? Know how much alcohol is in your drink. In the [place] one drink equals one 12 oz bottle (more content not included)...[facility]12-05-2024 History of Present illness Narrative* Chantal Peacock DPM FACFAS - 08/16/2024 4:20 PM EST Patient: Savannah Hobbs : 1965 PCP: Blaise Hardin MD SUBJECTIVE This is a 59 y.o. male that presents today for follow up of wounds small cluster left lateral leg. He was healed about 4 weeks ago with Unna boots. He saw Dr Yadav for referral and he has significant venous disease. Allergies: No Known Allergies Past Medical History: Past Medical History: Diagnosis Date Hypertension ([facility]) Medications: Current Outpatient Medications: atorvastatin (Lipitor) 40 MG tablet, Take 40 mg by mouth Daily, Disp: , Rfl: clopidogrel (Plavix) 75 MG tablet, TAKE ONE TABLET A DAY. DO NOT STOP UNLESS CLEARED OER CARDIOLOGY, Disp: , Rfl: losartan (Cozaar) 100 MG tablet, Take 50 mg by mouth Daily, Disp: , Rfl: metoprolol succinate XL (Toprol-XL) 50 MG 24 hr tablet, Take 50 mg by mouth in the morning and 50 mg before bedtime., Disp: , Rfl: metoprolol tartrate (Lopressor) 25 MG tablet, Take 25 mg by mouth in the morning and 25 mg before bedtime., Disp: , Rfl: Xarelto 20 MG tablet, TAKE 1 TABLET BY MOUTH EVERY DAY IN THE MORNING ..DO NOT STOP UNLESS CLEARED BY SLAB TRIPPER, Disp: , Rfl: ROS: General: denies fever, chills, fatigue, malaise Unremarkable OBJECTIVE LE EXAM: DERM: Left leg ulceration much smaller 1.5 cm x 1.5 cmx0.2cm depth with cellulitis and erythema around the wound is down to the deep exposed fat layer does not probe or undermine it is 80 percent granular 20 percent fibrotic there is no malodor or purulence draining from the wound bed. Continue nonpitting edema of the left leg Positive hair growth to b/l feet with good skin turgor noted. Negativeopenings in skin VASC: Palpable pedal pulsed b/l with warm to cool tibia to toes b/l NEURO: Gross sensation intact digits 1-10 and b/l feet ORTHO: +5/5 DF/PF/IN/EV right, +5/5 DF/PF/IN/EV left. 20 degrees inversion and 10 degrees eversion STJ b/l. Ankle ROM less than 10 degrees b/l. ASSESSMENT 1. Venous insufficiency 2. 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) PLAN Discussed in great detail with the patient the more than likely has underlying venous disease and this will turn into a cyclic pattern and would like to refer him to a vein specialist. left leg debrided the ulceration with a scalpel down to the deep exposed fat layer applied Amanda to the wound bedafter cleaning with saline then applied Unna boot cast padding and Coban he will keep that dry clean intact for 1 week. Patient will also pick an oral antibiotic up. And take as directed TANK Cuevas documented in this encounterSal[facility] [id number] History of Present illness Narrative* TANK Cuevas - 08/02/2024 3:50 PM EST Patient: Savannah Hobbs : 1965 PCP: Blaise Hardin MD SUBJECTIVE This is a 59 y.o. male that presents today for follow up of wound Unna boot there is a small ulceration noted on the lateral leg in his barely open he is progressing well he has a couple more days ofthe oral antibiotic. Allergies: No Known Allergies Past Medical History: Past Medical History: Diagnosis Date Hypertension (CMS/HCC) Medications: Current Outpatient Medications: amoxicillin-clavulanate (Augmentin) 875-125 MG tablet, Take 1 tablet (875 mg) by mouth in the morning and 1 tablet (875 mg) in the evening. Take after meals. Do all this for 10 days. Take 1 pill p.o.b.I.d. for 10 days., Disp: 20 tablet, Rfl: 0 atorvastatin (Lipitor) 40 MG tablet, Take 40 mg by mouth Daily, Disp: , Rfl: clopidogrel (Plavix) 75 MG tablet, TAKE ONE TABLET A DAY. DO NOT STOP UNLESS CLEARED OER CARDIOLOGY, Disp: , Rfl: losartan (Cozaar) 100 MG tablet, Take 50 mg by mouth Daily, Disp: , Rfl: metoprolol succinate XL (Toprol-XL) 50 MG 24 hr tablet, Take 50 mg by mouth in the morning and 50 mg before bedtime., Disp: , Rfl: metoprolol tartrate (Lopressor) 25 MG tablet, Take 25 mg by mouth in the morning and 25 mg before bedtime., Disp: , Rfl: Xarelto 20 MG tablet, TAKE 1 TABLET BY MOUTH EVERY DAY IN THE MORNING ..DO NOT STOP UNLESS CLEARED BY SLAB TRIPPER, Disp: , Rfl: ROS: General: denies fever, chills, fatigue, malaise Unremarkable OBJECTIVE LE EXAM: DERM: Left leg ulceration much smaller 0.5 cm x 0.5 cmx0.2cm depth resolved cellulitis around the wound is down to the deep exposed fat layer does not probe or undermine it is 80 percent granular 20 percent fibrotic there is no malodor or purulence draining from the wound bed. Continue nonpitting edema of the left leg Positive hair growth to b/l feet with good skin turgor noted. Negative openingsin skin VASC: Palpable pedal pulsed b/l with warm to cool tibia to toes b/l NEURO: Gross sensation intact digits 1-10 and b/l feet ORTHO: +5/5 DF/PF/IN/EV right, +5/5 DF/PF/IN/EV left. 20 degrees inversion and 10 degrees eversion STJ b/l. Ankle ROM less than 10 degrees b/l. ASSESSMENT 1. Venous insufficiency 2. Non-pressure chronic ulcer of other part of left lower leg with fat layer exposed ([facility]) PLAN Pt has an appointment with Dr. Yadav in August. left leg debrided the ulceration with a scalpel down to the deep exposed fat layer applied Amanda to the wound bed after cleaning with saline then applied gauze paper tape and Tubigrip he will keep that dry clean intact for 2week. Patient will finishthe antibiotic and change the dressing every other day as instructed. Compression was utilized for hemostasis. Patient did not require anesthesia TANK Cuevas documented in this encounterSalem Memorial [facility] [id number] History of Present illness Narrative* TANK Cuevas - 07/26/2024 1:50 PM EST Patient: Savannah Hobbs : 1965 PCP: Blaise Hardin MD SUBJECTIVE This is a 59 y.o. male that presents today for follow up of wounds small cluster left lateral leg. He was healed about 3 weeks ago with Unna boots. He states he went outside he did use a protective over his legs but it rubbed caused a wound again he states it is very red painful and draining. Allergies: No Known Allergies Past Medical History: Past Medical History: Diagnosis Date Hypertension ([facility]) Medications: Current Outpatient Medications: atorvastatin (Lipitor) 40 MG tablet, Take 40 mg by mouth Daily, Disp: , Rfl: clopidogrel (Plavix) 75 MG tablet, TAKE ONE TABLET A DAY. DO NOT STOP UNLESS CLEARED OER CARDIOLOGY, Disp: , Rfl: losartan (Cozaar) 100 MG tablet, Take 50 mg by mouth Daily, Disp: , Rfl: metoprolol succinate XL (Toprol-XL) 50 MG 24 hr tablet, Take 50 mg by mouth in the morning and 50 mg before bedtime., Disp: , Rfl: metoprolol tartrate (Lopressor) 25 MG tablet, Take 25 mg by mouth in the morning and 25 mg before bedtime., Disp: , Rfl: Xarelto 20 MG tablet, TAKE 1 TABLET BY MOUTH EVERY DAY IN THE MORNING ..DO NOT STOP UNLESS CLEARED BY SLAB TRIPPER, Disp: , Rfl: ROS: General: denies fever, chills, fatigue, malaise Unremarkable OBJECTIVE LE EXAM: DERM: Left leg ulceration much smaller 1.5 cm x 1.5 cmx0.2cm depth with cellulitis and erythema around the wound is down to the deep exposed fat layer does not probe or undermine it is 80 percent granular 20 percent fibrotic there is no malodor or purulence draining from the wound bed. Continue nonpitting edema of the left leg Positive hair growth to b/l feet with good skin turgor noted. Negativeopenings in skin VASC: Palpable pedal pulsed b/l with warm to cool tibia to toes b/l NEURO: Gross sensation intact digits 1-10 and b/l feet ORTHO: +5/5 DF/PF/IN/EV right, +5/5 DF/PF/IN/EV left. 20 degrees inversion and 10 degrees eversion STJ b/l. Ankle ROM less than 10 degrees b/l. ASSESSMENT 1. Venous insufficiency 2. Cellulitis of left lower leg 3. 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) PLAN Discussed in great detail with the patient the more than likely has underlying venous disease and this will turn into a cyclic pattern and would like to refer him to a vein specialist. left leg debrided the ulceration with a scalpel down to the deep exposed fat layer applied Amanda to the wound bedafter cleaning with saline then applied Unna boot cast padding and Coban he will keep that dry clean intact for 1 week. Patient will also pick an oral antibiotic up. And take as directed TANK Cuevas documented in this encounterSalem Memorial District [id number] History of Present illness Narrative* TANK Cuevas - 07/12/2024 2:30 PM EDT Patient: Savannah Hobbs : 1965 PCP: Blaise Hardin MD SUBJECTIVE This is a 59 y.o. male that presents today for follow up ulceration left lateral leg and an Unna boot. Patient is progressing well he states he has been staying off of it and elevating. He denies Nausea vomiting fever chills. Allergies: No Known Allergies Past Medical History: Past Medical History: Diagnosis Date Hypertension (CMS/HCC) Medications: Current Outpatient Medications: atorvastatin (Lipitor) 40 MG tablet, Take 40 mg by mouth Daily, Disp: , Rfl: clopidogrel (Plavix) 75 MG tablet, TAKE ONE TABLET A DAY. DO NOT STOP UNLESS CLEARED OER CARDIOLOGY, Disp: , Rfl: linezolid (Zyvox) 600 MG tablet, Take 1 tablet (600 mg) by mouth in the morning and 1 tablet (600 mg) before bedtime. Do all this for 10 days., Disp: 20 tablet, Rfl: 0 losartan (Cozaar) 100 MG tablet, Take 50 mg by mouth Daily, Disp: , Rfl: metoprolol succinate XL (Toprol-XL) 50 MG 24 hr tablet, Take 50 mg by mouth in the morning and 50 mg before bedtime., Disp: , Rfl: metoprolol tartrate (Lopressor) 25 MG tablet, Take 25 mg by mouth in the morning and 25 mg before bedtime., Disp: , Rfl: Xarelto 20 MG tablet, TAKE 1 TABLET BY MOUTH EVERY DAY IN THE MORNING ..DO NOT STOP UNLESS CLEARED BY SLAB TRIPPER, Disp: , Rfl: ROS: General: denies fever, chills, fatigue, malaise Unremarkable OBJECTIVE LE EXAM: DERM: Positive hair growth to b/l feet with good skin turgor noted. Negative openings in skin. Ulceration small almost healed down to the deep exposed it is 0.2 cm x 0.2 cmx0.2cm left lateral leg is almost healed. Edema is well- controlled no proximal streaking VASC: Palpable pedal pulsed b/l with warm to cool tibia to toes b/l NEURO: Gross sensation intact digits 1-10 and b/l feet ORTHO: +5/5 DF/PF/IN/EV right, +5/5 DF/PF/IN/EV left. 20 degrees inversion and 10 degrees eversion STJ b/l. Ankle ROM less than 10 degrees b/l. XRAY: US: ASSESSMENT 1. Venous insufficiency 2. 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) PLAN Discussed in great detail with the ulceration is due to venous disease and discussed a referral to Dr. Yadav he would like to hold off at this time. Sharp debridement of the ulceration with a scalpel down to a nice bleeding base removing all nonviable tissue patient will continue with Amanda every other day and continue with double Tubigrip he is going to follow up in 2 weeks TANK Cuevas documented in this encounterSalem Memorial District [id number] History of Present illness Narrative* TANK Cuevas - 07/05/2024 1:50 PM EDT Patient: Savannah Hobbs : 1965 PCP: Blaise Hardin MD SUBJECTIVE This is a 59 y.o. male that presents today for follow up of wounds bilateral legs with Unna boots. 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 He denies nausea vomiting fever chills. He has been trying to elevate as much as possible but he continues to work. Allergies: No Known Allergies Past Medical History: Past Medical History: Diagnosis Date Hypertension ([facility]) Medications: Current Outpatient Medications: atorvastatin (Lipitor) 40 MG tablet, Take 40 mg by mouth Daily, Disp: , Rfl: clopidogrel (Plavix) 75 MG tablet, TAKE ONE TABLET A DAY. DO NOT STOP UNLESS CLEARED OER CARDIOLOGY, Disp: , Rfl: linezolid (Zyvox) 600 MG tablet, Take 1 tablet (600 mg) by mouth in the morning and 1 tablet (600 mg) before bedtime. Do all this for 10 days., Disp: 20 tablet, Rfl: 0 losartan (Cozaar) 100 MG tablet, Take 50 mg by mouth Daily, Disp: , Rfl: metoprolol succinate XL (Toprol-XL) 50 MG 24 hr tablet, Take 50 mg by mouth in the morning and 50 mg before bedtime., Disp: , Rfl: metoprolol tartrate (Lopressor) 25 MG tablet, Take 25 mg by mouth in the morning and 25 mg before bedtime., Disp: , Rfl: sulfamethoxazole-trimethoprim (Bactrim DS) 800-160 MG per tablet, Take 1 tablet by mouth in the morning and 1 tablet before bedtime. Do all this for 10 days. TAKE 1 PILL P.O. B.I.D. FOR 10 DAYS., Disp: 20 tablet, Rfl: 0 Xarelto 20 MG tablet, TAKE 1 TABLET BY MOUTH EVERY DAY IN THE MORNING ..DO NOT STOP UNLESS CLEARED BY SLAB TRIPPER, Disp: , Rfl: ROS: General: denies fever, chills, fatigue, malaise Unremarkable OBJECTIVE LE EXAM: DERM: Ulceration on the right leg are all healed from the Unna boot. Left leg ulceration much smaller 0.5 cm x 0.5 cmx0.2cm depth with no cellulitis or erythema around the wound is down to the deep exposed fat layer does not probe or undermine it is 80 percent granular 20 percent fibrotic there is no malodor or purulence draining from the wound bed. Continue nonpitting edema of the left leg Positive hair growth to b/l feet with good skin turgor noted. Negative openings in skin VASC: Palpable pedal pulsed b/l with warm to cool tibia to toes b/l NEURO: Gross sensation intact digits 1-10 and b/l feet ORTHO: +5/5 DF/PF/IN/EV right, +5/5 DF/PF/IN/EV left. 20 degrees inversion and 10 degrees eversion STJ b/l. Ankle ROM less than 10 degrees b/l. XRAY: US: ASSESSMENT 1. Venous insufficiency 2. 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) 3. Cellulitis of right leg PLAN Discussed in great detail with the patient that the ulceration is progressing well with resolved signs of cellulitis to left leg debrided the ulceration with a scalpel down to the deep exposed fat layer applied Amanda to the wound bed after cleaning with saline then applied Unna boot cast padding and Coban he will keep that dry clean intact for 1 week. Patient was also given double Tubigrip for the right foot and leg he is to rest elevate daily. TANK Cuevas documented in this encounterSalem Memorial District [id number] NoteMicrobiology PROCEDURE: Wound Culture [R1] SOURCE: Cellulitis BODY SITE: Leg COLLECTED DATE/TIME: 06/29/2024 14:30 EDT RECEIVED DATE/TIME: 06/29/2024 16:50 EDT START DATE/TIME: 06/29/2024 16:50 EDT FREE TEXT SOURCE: left lower leg Dolce DPM, Chantal R Dolce DPM, Chantal R FINAL REPORTS Final Report [] Verified Date/Time: 07/02/2024 12:28 EDT 2+ Enterococcus faecalis isolated. 2+ Staphylococcus species coagulase negative isolated. 1+ Yeast isolated. Contact Microbiology within one week at Ext. [phone] for additional testing if necessary. STAINS Gram Stain Report [] Verified Date/Time: 06/30/2024 12:57 EDT 1+ White Blood Cells 1+ epithelial cells 2+ Gram Positive Cocci SUSCEPTIBILITY RESULTS LEGEND: S=Susceptible, N/R=Not Reported, Blank=Data not available, or drug not advisable or tested, I=Intermediate, ESBL=Extended spectrum beta-lactamase, R=Resistant, TFG=Thymidine-dependent strain, KENDY=Beta-lactamase positive, JESSICA=mcg/m;(mg/L), S*=Predicted susceptible interp, R*=Predicted resistant interp Entfaeca Antibiotic JESSICA Dilutn JESSICA Interp Ampicillin <=2 S Daptomycin <=1 S Erythromycin 1 I Linezolid <=2 S Penicillin 2 S Rifampin <=1 S Vancomycin 2 S Performing Locations R1: This test was performed at: [facility], [address] [place] [address], [id number]- , [place], YrldjdSelect Medical Ohiohealth Rehabilitation Hospital - DublinComment on above:Performed By: #### [id number] #### [facility] [address] [place] [address] [id number] History of Present illness Narrative* Chantal Peacock DPM FACFAS - 06/28/2024 2:00 PM EDT Images from the original note were not included. Patient: Savannah Hobbs : 1965 PCP: Blaise Hardin MD SUBJECTIVE This is a 59 y.o. male that presents today for a chief complaint of a nonhealing ulceration to the with cellulitis left and right legs. Patient states that his original wound on his left was due to brush poking his leg and it has been draining ever since for the past 3 weeks denies nausea vomiting fever chills. Patient states ulcer has been present for the past 3 weeks They have attempted previous treatment which consisted of the following: A Band-Aid.. Patient is not a diabetic Allergies: No Known Allergies Past Medical History: Past Medical History: Diagnosis Date Hypertension ([facility]) Medications: Current Outpatient Medications: atorvastatin (Lipitor) 40 MG tablet, Take 40 mg by mouth Daily, Disp: , Rfl: clopidogrel (Plavix) 75 MG tablet, TAKE ONE TABLET A DAY. DO NOT STOP UNLESS CLEARED OER CARDIOLOGY, Disp: , Rfl: losartan (Cozaar) 100 MG tablet, Take 50 mg by mouth Daily, Disp: , Rfl: metoprolol succinate XL (Toprol-XL) 50 MG 24 hr tablet, Take 50 mg by mouth in the morning and 50 mg before bedtime., Disp: , Rfl: metoprolol tartrate (Lopressor) 25 MG tablet, Take 25 mg by mouth in the morning and 25 mg before bedtime., Disp: , Rfl: sulfamethoxazole-trimethoprim (Bactrim DS) 800-160 MG per tablet, Take 1 tablet by mouth in the morning and 1 tablet before bedtime. Do all this for 10 days. TAKE 1 PILL P.O. B.I.D. FOR 10 DAYS., Disp: 20 tablet, Rfl: 0 Xarelto 20 MG tablet, TAKE 1 TABLET BY MOUTH EVERY DAY IN THE MORNING ..DO NOT STOP UNLESS CLEARED BY SLAB TRIPPER, Disp: , Rfl: Social History: Social History Socioeconomic History Marital status: Spouse name: Not on file Number of children: Not on file Years of education: Not on file Highest education level: Not on file Occupational History Not on file Tobacco Use Smoking status: Never Smokeless tobacco: Never Vaping Use Vaping status: Never Used Substance and Sexual Activity Alcohol use: Yes Drug use: Defer Sexual activity: Defer Other Topics Concern Not on file Social History Narrative Not on file Social Drivers of Health Financial Resource Strain: Not on file Food Insecurity: Not on file Transportation Needs: Not on file Physical Activity: Not on file Stress: Not on file Social Connections: Not on file Intimate Partner Violence: Not on file Housing Stability: Not on file ROS: CONSTITUTIONAL: DENIES FEVER, CHILLS, NAUSEA, VOMITING GI: DENIES ABDOMINAL PAIN, CRAMPING, LOOSE STOOL, GASTRIC ULCERS MUSCULOSKELETAL: DENIES LOW BACK PAIN, KNEE PAIN, SYSTEMIC ARTHRITIS NEUROLOGIC: DENIES BURNING, TINGLING, TRANSIENT PARALYSIS OBJECTIVE PHYSICAL EXAM: DERM: ulceration present to the level of deep exposed fat layer bilateral legs. The ulcer measures 1.5 cm x 1.5 cm x 0.2cm left leg and right leg 0.5cmx0.5cmx0.2cm The ulceration is 50 percent fibrotic, 50 percent granular, 0 percent necrotic There is Localized cellulitis left leg There is no ascending cellulitis . no lymphadenopathy noted. Wound depth of the wound to the level of deep exposed fat layer Tunneling/undermining not noted Vascular: Dorsalis pedis posterior tibial pulses are palpable Lower extremity/pedal edema/ venous insufficiency noted nonpitting edema b/l legs Neuro: Dodge-Matthew 5.07 monofilament intact Vibratory sensation intact Musculoskeletal: Muscle strength +5/5 all intrinsic and extrinsic muscles tested Radiographs/ Diagnostic imaging findings: ASSESSMENT 1. 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) 2. Venous insufficiency 3. Cellulitis of left lower leg 4. Non-pressure chronic ulcer of other part of right lower leg with fat layer exposed (CMS/HCC) PLAN Patient was seen today and evaluated. Educated the patient the etiology of the ulceration. The wound was mechanically debrided to the level of deep exposed fat layer b/l leg wounds via sharp debridement. Compression was utilized for hemostasis. Anesthetic was not necessary secondary to peripheral neuropathy. Patient will start oral antibiotics Bactrim DS. Cultured the wound and if needed will change. Applied Unna boot cast padding and Coban bilateral he will keep that dry clean and intact and will follow up in 1 week TANK Cuevas documented in this encounterSalem Memorial District [id number] History of Present illness Narrative* TANK Cuevas - 06/12/2024 2:20 PM EDT Images from the original note were not included. patient: Savannah Hobbs : 1965 PCP: Blaise Hardin MD SUBJECTIVE This is a 59 y.o. male that presents today with a chief complaint of painful elongated nails digits1 through 10. They cause marked limitation in ambulation due to pain and pressure from shoe gear. Allergies: No Known Allergies Past Medical History: Past Medical History: Diagnosis Date Hypertension ([facility]) Medications: Current Outpatient Medications: atorvastatin (Lipitor) 40 MG tablet, Take 40 mg by mouth Daily, Disp: , Rfl: clopidogrel (Plavix) 75 MG tablet, TAKE ONE TABLET A DAY. DO NOT STOP UNLESS CLEARED OER CARDIOLOGY, Disp: , Rfl: losartan (Cozaar) 100 MG tablet, Take 50 mg by mouth Daily, Disp: , Rfl: metoprolol succinate XL (Toprol-XL) 50 MG 24 hr tablet, Take 50 mg by mouth in the morning and 50 mg before bedtime., Disp: , Rfl: metoprolol tartrate (Lopressor) 25 MG tablet, Take 25 mg by mouth in the morning and 25 mg before bedtime., Disp: , Rfl: Xarelto 20 MG tablet, TAKE 1 TABLET BY MOUTH EVERY DAY IN THE MORNING ..DO NOT STOP UNLESS CLEARED BY SLAB TRIPPER, Disp: , Rfl: Review of systems: Constitutional: Denies fever, chills, nausea, vomiting GI: Denies abdominal pain, cramping, loose stool, gastric ulcers Musculoskeletal: Denies low back pain, knee pain, systemic arthritis Neurologic: Denies burning, tingling, transient paralysis OBJECTIVE Physical Examination: DERM: Positive hair growth to b/l feet with good skin turgor noted. Negative openings in skin. No macerations noted interdigitally. Web spaces were clean and dry. No ulcerations were noted. Nails 1 through 10 were thickened elongated yellow and crumbly with subungual debris. They were painful to palpation [id number] on the right [id number] on the left. VASC: DP /PT were nonpalpable bilateral. Capillary refill time < 3 seconds Digits 1-5 bilateral NEURO: Dodge Matthew 5.07 monofilament was intact B/L. Vibratory sensation was intact B/L Musculoskeletal: Muscle strength was +5 over 5 all intrinsic and extrinsic muscles tested. Radiographs: AP/MO/LAT: Diagnostic ultrasound: ASSESSMENT 1. Tinea unguium 2. Pain in right toe(s) 3. Pain in left toe(s) PLAN The patient was educated on proper foot care as well as the etiology of onychomycosis. I educated the patient on proper shoe gear as well. Today the nails were debrided both in length and thickness 1through 10. TANK Cuevas documented in this encounterSalem Memorial District [id number] NoteMicrobiology PROCEDURE: Wound Culture [R1] SOURCE: Abscess BODY SITE: Leg L COLLECTED DATE/TIME: 05/26/2024 11:40 EDT RECEIVED DATE/TIME: 05/28/2024 11:58 EDT START DATE/TIME: 05/28/2024 11:58 EDT FREE TEXT SOURCE: Angela Viera Patty FINAL REPORTS Final Report [] Verified Date/Time: 06/01/2024 10:28 EDT 3+ Staphylococcus aureus 2+ Acinetobacter lwoffii group STAINS Gram Stain Report [] Verified Date/Time: 05/29/2024 11:39 EDT Occasional White Blood Cells 3+ Gram Positive Cocci SUSCEPTIBILITY RESULTS LEGEND: S=Susceptible, N/R=Not Reported, Blank=Data not available, or drug not advisable or tested, I=Intermediate, ESBL=Extended spectrum beta-lactamase, R=Resistant, TFG=Thymidine-dependent strain, KENDY=Beta-lactamase positive, JESSICA=mcg/m;(mg/L), S*=Predicted susceptible interp, R*=Predicted resistant interp SA Acilwog Antibiotic JESSICA Dilutn JESSICA Interp JESSICA Dilutn JESSICA Interp Amoxicillin/ <=4/2 S Clavulanate Ampicillin/ <=8/4 S <=8/4 S Sulbactam Azithromycin >4 R Cefazolin <=8 S Cefepime 8 S Ceftaroline <=0.5 S Ceftazidime 4 S Ceftriaxone <=1 S Ciprofloxacin >2 R Clindamycin >2 R Daptomycin <=1 S Erythromycin >4 R Gentamicin <=4 S <=2 S Levofloxacin >4 R Linezolid <=2 S Meropenem <=1 S Oxacillin <=0.25 S Penicillin <=0.03 S Rifampin <=1 S Tetracycline <=4 S Tobramycin <=2 S Trimethoprim/ <=0.5/9.5 S <=2/38 S Sulfa Vancomycin 1 S Performing Locations R1: This test was performed at: [facility], [address] [place] [address], [id number]- , , VkzutySelect Medical Ohiohealth Rehabilitation Hospital - DublinComment on above:Performed By: #### [id number] #### [facility] [address] [place] [id number] NoteMicrobiology PROCEDURE: Wound Culture [R1] SOURCE: Abscess BODY SITE: Leg L COLLECTED DATE/TIME: 05/26/2024 11:40 EDT RECEIVED DATE/TIME: 05/28/2024 11:58 EDT START DATE/TIME: 05/28/2024 11:58 EDT FREE TEXT SOURCE: Nick MASCORRO-Charli, Angela MASCORRO-C, Angela FINAL REPORTS Final Report [] Verified Date/Time: 06/01/2024 10:28 EDT 3+ Staphylococcus aureus 2+ Acinetobacter lwoffii group STAINS Gram Stain Report [] Verified Date/Time: 05/29/2024 11:39 EDT Occasional White Blood Cells 3+ Gram Positive Cocci SUSCEPTIBILITY RESULTS LEGEND: S=Susceptible, N/R=Not Reported, Blank=Data not available, or drug not advisable or tested, I=Intermediate, ESBL=Extended spectrum beta-lactamase, R=Resistant, TFG=Thymidine-dependent strain, KENDY=Beta-lactamase positive, JESSICA=mcg/m;(mg/L), S*=Predicted susceptible interp, R*=Predicted resistant interp SA Acilwog Antibiotic JESSICA Dilutn JESSICA Interp JESSICA Dilutn JESSICA Interp Amoxicillin/ <=4/2 S Clavulanate Ampicillin/ <=8/4 S <=8/4 S Sulbactam Azithromycin >4 R Cefazolin <=8 S Cefepime 8 S Ceftaroline <=0.5 S Ceftazidime 4 S Ceftriaxone <=1 S Ciprofloxacin >2 R Clindamycin >2 R Daptomycin <=1 S Erythromycin >4 R Gentamicin <=4 S <=2 S Levofloxacin >4 R Linezolid <=2 S Meropenem <=1 S Oxacillin <=0.25 S Penicillin <=0.03 S Rifampin <=1 S Tetracycline <=4 S Tobramycin <=2 S Trimethoprim/ <=0.5/9.5 S <=2/38 S Sulfa Vancomycin 1 S Performing Locations R1: This test was performed at: [facility], [address] [place] [address], [id number] [place], JrpmylSelect Medical [facility]health Rehabilitation Hospital - DublinComment on above:Performed By: #### [id number] #### [facility] [address] [place] [address] [id number] Hospital Discharge instructions Patient Education 05/26/2024 15:57:14 Obesity, Adult, Rizu-wo-Ibfy Obesity, Adult Obesity is having too much body fat. Being obese means that your weight is more than what is healthy for you. BMI (body mass index) is a number that explains how much body fat you have. If you have a BMI of 30or more, you are obese. Obesity can cause serious health problems, such as: Stroke. Coronary artery disease (CAD). Type 2 diabetes. Some types of cancer. High blood pressure (hypertension). High cholesterol. Gallbladder stones. Obesity can also contribute to: Osteoarthritis. Sleep apnea. Infertility problems. What are the causes? Eating meals each day that are high in calories, sugar, and fat. Drinking a lot of drinks that have sugar in them. Being born with genes that may make you more likely to become obese. Having a medical condition that causes obesity. Taking certain medicines. Sitting a lot (having a sedentary lifestyle). Not getting enough sleep. What increases the risk? Having a family history of obesity. Living in an area with limited access to: ?[place], recreation centers, or sidewalks. ?Healthy food choices, such as grocery stores and [employer]. What are the signs or symptoms? The main sign is having too much body fat. How is this treated? Treatment for this condition often includes changing your lifestyle. Treatment may include: Changing your diet. This may include making a healthy meal plan. Exercise. This may include activity that causes your heart to beat faster (aerobic exercise) and strength training. Work with your doctor to design a program that works for you. Medicine to help you lose weight. This may be used if you are not able to lose one pound a week after 6 weeks of healthy eating and more exercise. Treating conditions that cause the obesity. Surgery. Options may include gastric banding and gastric bypass. This may be done if: ?Other treatments have not helped to improve your condition. ?You have a BMI of 40 or higher. ?You have life-threatening health problems related to obesity. Follow these instructions at home: Eating and drinking Follow advice from your doctor about what to eat and drink. Your doctor may tell you to: ?Limit fast food, sweets, and processed snack foods. ?Choose low-fat options. For example, choose low-fat milk instead of whole milk. ?Eat five or more servings of fruits or vegetables each day. ?Eat at home more often. This gives you more control over what you eat. ?Choose healthy foods when you eat out. ?Learn to read food labels. This will help you learn how much food is in one serving. ?Keep low-fat snacks available. ?Avoid drinks that have a lot of sugar in them. These include soda, fruit juice, iced tea with sugar, and flavored milk. Drink enough water to keep your pee (urine) pale yellow. Do not go on fad diets. Physical activity Exercise often, as told by your doctor. Most adults should get up to 150 minutes of moderate-intensity exercise every week.Ask your doctor: ?What types of exercise are safe for you. ?How often you should exercise. Warm up and stretch before being active. Do slow stretching after being active (cool down). Rest between times of being active. Lifestyle Work with your doctor and a food expert (dietitian) to set a weight-loss goal that is best for you. Limit your screen time. Find ways to reward yourself that do not involve food. Do not drink alcohol if: ?Your doctor tells you not to drink. ?You are , may be , or are planning to become . If you drink alcohol: ?Limit how much you have to: ?0 1 drink a day for women. ?0 2 drinks a day for men. ?Know how much alcohol is in your drink. In the [place] one drink equals one 12 oz bottle of beer (355 mL), one 5 oz glass of wine (148 mL), or one 1 oz glass of hard liquor (44 mL). General instructions Keep a weight-loss journal. This can help you keep track of: ?The food that you eat. ?How much exercise you get. Take uvua-jiw-htdmbcy and prescription medicines only as told by your doctor. Take vitamins and supplements only as told by your doctor. Think about joining a support group. Pay attention to your mental health as obesity can lead to depression or self esteem issues. Keep all follow-up visits. Contact a doctor if: You cannot meet your weight-loss goal after you have changed your diet and lifestyle for 6 weeks. You are having trouble breathing. Summary Obesity is having too much body fat. Being obese means that your weight is more than what is healthy for you. Work with your doctor to set a weight-loss goal. Get regular exercise as told by your doctor. This information is not intended to replace advice given to you by your health care provider. Make sure you discuss any questions you have with your health care provider. Document Revised: 04/06/2022 Document Reviewed: 04/06/2022 [employer] Patient Education 2023 [employer]. 05/26/2024 15:57:11 BMI for Adults BMI for Adults Body mass index (BMI) is a number found using a person's weight and height. BMI can help tell how much of a person's weight is made up of fat. BMI does not measure body fat directly. It is used instead of tests that directly measure body fat, which can be difficult and expensive. What are BMI measurements used for? BMI is useful to: Find out if your weight puts you at higher risk for medical problems. Help recommend changes, such as in diet and exercise. This can help you reach a healthy weight. BMIscreening can be done again to see if these changes are working. How is BMI calculated? Your height and weight are measured. The BMI is found from those numbers. This can be done with [place] or metric measurements. Note that charts and online BMI calculators are available to help you findyour BMI quickly and easily without doing these calculations. To calculate your BMI in [place] measurements: 1.Measure your weight in pounds (lb). 2.Multiply the number of pounds by 703. So, for an adult who weighs 150 lb, multiply that number by 703: 150 x 703, which equals 105,450. 3.Measure your height in inches. Then multiply that number by itself to get a measurement called inches squared. So, for an adult who is 70 inches tall, the inches squared measurement is 70 inches x 70 inches, which equals 4,900 inches squared. 4.Divide the total from step 2 (number of lb x 703) by the total from step 3 (inches squared): 105,450 4,900 = 21.5. This is your BMI. To calculate your BMI in metric measurements: 1.Measure your weight in kilograms (kg). For this example, the weight is 70 kg. 2.Measure your height in meters (m). Then multiply that number by itself to get a measurement called meters squared. So, for an adult who is 1.75 m tall, the meters squared measurement is 1.75 m x 1.75 m, which equals 3.1 meters squared. 3.Divide the number of kilograms (your weight) by the meters squared number. In this example: 70 3.1 = 22.6. This is your BMI. What do the results mean? BMI charts are used to see if you are underweight, normal weight, overweight, or obese. The following guidelines will be used: Underweight: BMI less than 18.5. Normal weight: BMI between 18.5 and 24.9. Overweight: BMI between 25 and 29.9. Obese: BMI of 30 or above. BMI is a tool and cannot diagnose a condition. Talk with your health care provider about what your BMI means for you. Keep these notes in mind: Weight includes fat and muscle. Someone with a muscular build, such as an athlete, may have a BMI that is higher than 24.9. In cases like these, BMI is not a correct measure of body fat. If you have a BMI of 25 or higher, your provider may need to do more testing to find out if excess body fat is the cause. BMI is measured the same way for males and females. Females usually have more body fat than males of the same height and weight. Where to find more information For more information about BMI, including tools to quickly find your BMI, go to: Centers for Disease Control and Prevention: cdc.gov [place] [employer]: heart.org National Heart, Lung, and Blood [place]: nhlbi.nih.gov This information is not intended to replace advice given to you by your health care provider. Make sure you discuss any questions you have with your health care provider. Document Revised: 05/19/2023 Document Reviewed: 05/12/2023 [employer] Patient Education 2023 [employer]. 05/26/2024 11:24:05 Cellulitis, Adult, Ykbb-[id number] Cellulitis, Adult Cellulitis is a skin infection. The infected area is often warm, red, swollen, and sore. It occurs most often on the legs, feet, and toes, but can happen on any part of the body. This condition can be life-threatening without treatment. It is very important to get treated rightaway. What are the causes? This condition is caused by bacteria. The bacteria enter through a break in the skin, such as: A cut. A burn. A bug bite. An animal bite. An open sore. A crack. What increases the risk? Having a weak body's defense system (immune system). Being older than 60 years old. Having a blood sugar problem (diabetes). Having a long-term liver disease (cirrhosis) or kidney disease. Being very overweight (obese). Having a skin problem, such as: ?An itchy rash. ?A rash caused by a fungus. ?A rash with blisters. ?Slow movement of blood in the veins (venous stasis). ?Fluid buildup below the skin (edema). This condition is more likely to occur in people who: Have open cuts, benito, bites, or scrapes on the skin. Have been treated with high-energy rays (radiation). Use IV drugs. What are the signs or symptoms? Skin that: ?Looks red or purple, or slightly darker than your usual skin color. ?Has streaks. ?Has spots. ?Is swollen. ?Is sore or painful when you touch it. ?Is warm. A fever. Chills. Blisters. Tiredness (fatigue). How is this treated? Medicines to treat infections or allergies. Rest. Placing cold or warm cloths on the skin. Staying in the hospital, if the condition is very bad. You may need medicines through an IV. Follow these instructions at home: Medicines Take cslh-ydh-zluhpmu and prescription medicines only as told by your doctor. If you were prescribed antibiotics, take them as told by your doctor. Do not stop using them even if you start to feel better. General instructions Drink enough fluid to keep your pee (urine) pale yellow. Do not touch or rub the infected area. Raise (elevate) the infected area above the level of your heart while you are sitting or lying down. Return to your normal activities when your doctor says that it is safe. Place cold or warm cloths on the area as told by your doctor. Keep all follow-up visits. Your doctor will need to make sure that a more serious infection is not developing. Contact a doctor if: You have a fever. You do not start to get better after 1 2 days of treatment. Your bone or joint under the infected area starts to hurt after the skin has healed. Your infection comes back in the same area or another area. Signs of this may include: ?You have a swollen bump in the area. ?Your red area gets larger, turns dark in color, or hurts more. ?You have more fluid coming from the wound. ?Pus or a bad smell develops in your infected area. ?You have more pain. You feel sick and have muscle aches and weakness. You develop vomiting or watery poop that will not go away. Get help right away if: You see red streaks coming from the area. You notice the skin turns purple or black and falls off. These symptoms may be an emergency. Get help right away. Call 911. Do not wait to see if the symptoms will go away. Do not drive yourself to the hospital. This information is not intended to replace advice given to you by your health care provider. Make sure you discuss any questions you have with your health care provider. Document Revised: 04/26/2023 Document Reviewed: 04/26/2023 [employer] Patient Education 2023 [employer]. 05/26/2024 11:23:45 Venous Ulcer, Wykn-[id number] Venous Ulcer A venous ulcer is a shallow sore on your lower leg. Venous ulcer is the most common type of lower leg ulcer. You may have venous ulcers on one leg or on both legs. This condition most often develops around your ankles. This type of ulcer may last for a long time (chronic ulcer) or it may return often (recurrent ulcer). What are the causes? This condition is caused by poor blood flow in your legs. The poor flow causes blood to pool in your legs. This can break the skin, causing an ulcer. What increases the risk? You are more likely to develop this condition if: You are female. You are 55 years of age or older. You have had a leg ulcer in the past. You have varicose veins. You have clots in your lower leg veins (deep vein thrombosis). You have irritation and swelling (inflammation) of your leg veins (phlebitis). You have recently been . You have a family history of chronic venous insufficiency. This is a condition where the leg veins do not pump enough blood from the legs to the heart. Your risk may be higher if: You are not active. You are overweight. You smoke. What are the signs or symptoms? The main symptom of this condition is an open sore near your ankle. Other symptoms may include: Swelling. Fluid coming from the ulcer. Bleeding. Itching. Pain and swelling. This gets worse when you stand up and feels better when you raise your leg. Changes in the skin, such as: ?Thick skin. ?Blotchy skin. ?Dark skin. How is this treated? Treatments include: Keeping your leg raised (elevated). Wearing a type of bandage or stocking to keep pressure (compression) on the veins of your leg. Taking medicines, including antibiotic medicines. Cleaning your ulcer and removing any tissue from the wound. Using bandages and wraps that have medicines in them to cover your ulcer. Closing the wound using a piece of skin taken from another area of your body (graft). Healing may take a long time. You may need to see a foot doctor or a vein specialist. Follow these instructions at home: Medicines Take or apply cbjq-pgp-gdhsyve and prescription medicines only as told by your doctor. If you were prescribed antibiotics, take them as told by your doctor. Do not stop taking them even if you start to feel better. Ask your doctor if you should take aspirin before long trips. Wound care Follow instructions from your doctor about how to take care of your wound. Make sure you: ?Wash your hands with soap and water for at least 20 seconds before and after you change your bandage. If you cannot use soap and water, use hand sanforizing machine operator. ?Change your bandage. ?Leave stitches or skin glue in place for at least 2 weeks. ?Leave tape strips alone unless you are told to take them off. You may trim the edges of the tape strips if they curl up. Ask when you should remove your bandage. If your bandage is dry and sticks to your leg when you tryto remove it, moisten or wet the bandage with saline solution or water alone to make it easier to remove. Check your wound every day for signs of infection. Have a caregiver do this for you if you are not able to do it yourself. Check for: ?More redness, swelling, or pain. ?More fluid or blood. ?Warmth. ?Pus or a bad smell. Activity Get up to take short walks every 1 to 2 hours. Ask for help if you feel weak or unsteady. Rest with your legs raised during the day. If you can, keep your legs above the level of your heartfor 30 minutes, 3 4 times a day, or as told by your doctor. Do not sit with your legs crossed. Return to your normal activities when your doctor says that it is safe. General instructions Wear elastic stockings, compression stockings, or support hose as told by your doctor. Raise the foot of your bed as told by your doctor. Do not smoke or use any products that contain nicotine or tobacco. If you need help quitting, ask your doctor. Try to eat a heart healthy and low salt diet. Keep a healthy body weight. Keep all follow-up visits. Your doctor will check if your ulcer is healing and change treatments ifneeded. Contact a doctor if: Your ulcer is getting larger or is not healing. Your pain gets worse. You have any signs of infection. You have a fever. This information is not intended to replace advice given to you by your health care provider. Make sure you discuss any questions you have with your health care provider. Document Revised: 04/18/2023 Document Reviewed: 04/18/2023 [employer] Patient Education 2023 [employer]. 05/26/2024 11:23:39 Stasis Dermatitis Stasis Dermatitis Stasis dermatitis is a long-term (chronic) skin condition that happens when you have poor circulation. This is when your veins can no longer pump blood back to the heart like they should. This condition causes a red or brown scaly rash or sores (ulcers). It often affects the lower legs.It may affect one leg or both legs. Without treatment, this condition can lead to other skin problems. What are the causes? This condition is caused by poor circulation. What increases the risk? You are more likely to get this condition if: You are not very active. You have to stand for long periods. You have varicose veins. These are veins that are enlarged and twisted. You have venous insufficiency. This is when your leg veins struggle to send blood back to your heart. You have been many times. You have had vein surgery or injuries to your legs in the past. You have heart or kidney failure. You have had a blood clot. You are 50 years of age or older and are overweight. What are the signs or symptoms? Common early symptoms of this condition include: Itching in one or both of your legs. Swelling in your ankle or leg. This may get better at night but be worse during the day. Skin that looks thin on your ankle and leg. Skin that is dry, cracked, or easily irritated. Red or brown olvera that form slowly. Red, swollen skin that benito or is sore. An achy or heavy feeling after you walk or stand for a long time. Pain. Later and more severe symptoms of this condition include: Skin that looks shiny. Ulcers. These are often red or purple and leak fluid. Skin that feels hard. Severe itching. A change in the shape or color of your lower legs. Severe pain. Trouble walking. How is this diagnosed? This condition may be diagnosed based on your symptoms, medical history, and a physical exam. You may also have tests. These may include: Blood tests. Doppler ultrasound. This can check blood flow. Allergy tests. You may need to see a health care provider who is an expert in skin diseases (suspender maker). How is this treated? This condition may be treated with: Compression stockings or an elastic wrap. Medicines, such as: ?Corticosteroid creams and ointments. ?Other medicines applied to the skin. ?Medicines to reduce swelling in the legs (diuretics). ?Antibiotics. ?Medicines to help with itching (antihistamines). A bandage (dressing). A wrap that has zinc and gelatin on it (Unna boot). Follow these instructions at home: Medicines Take or use hdqp-osn-bltkqca and prescription medicines only as told by your provider. If you were prescribed antibiotics, take or use them as told by your provider. Do not stop taking or using the antibiotic even if you start to feel better. Skin care Moisturize your skin as told by your provider. Do not use scented moisturizers, soaps, detergents, or perfumes. These can irritate your skin. Apply a cool, wet cloth (cool compress) to the affected areas. Do not scratch your skin. Do not rub your skin dry after a bath or shower. Gently pat your skin dry. Check the affected areas every day for signs of infection. Check for: ?More redness, swelling, or pain. ?More fluid or blood. ?Warmth. ?Pus or a bad smell. Activity Walk as told by your provider. Walking increases blood flow. Do calf and ankle exercises during the day as told by your provider. This will help increase blood flow. Raise (elevate) your legs above the level of your heart while you are sitting or lying down. Lifestyle Work with your provider to lose weight, if needed. Do not cross your legs when you sit. Do not stand or sit in one position for a long time. Wear comfortable, loose-fitting clothes. Circulation in your legs will be worse if you wear tight pants, belts, and waistbands. Do not use any products that contain nicotine or tobacco. These products include cigarettes, chewing tobacco, and vaping devices, such as e-cigarettes. If you need help quitting, ask your provider. General instructions Follow instructions from your provider on how to remove and change any dressings. Wear compression stockings as told by your provider. These stockings help to prevent blood clots and reduce swelling in your legs. If you were told to wear an Unna boot, do so as told by your provider. Keep all follow-up visits. Your provider will check your skin for any changes and adjust your treatment plan as needed. Contact a health care provider if: Your condition does not get better with treatment. Your condition gets worse. You have any signs of infection. You see red streaks coming from the affected area. The affected area turns darker. You have a fever. Get help right away if: Your bone or joint under the affected area becomes painful after the skin has healed. You feel a deep pain in your leg or groin. You are short of breath. These symptoms may be an emergency. Get help right away. Call 911. Do not wait to see if the symptoms will go away. Do not drive yourself to the hospital. This information is not intended to replace advice given to you by your health care provider. Make sure you discuss any questions you have with your health care provider. Document Revised: 09/13/2023 Document Reviewed: 09/13/2023 [employer] Patient Education 2023 [employer]. Follow Up Care 05/26/2024 09:37:36 With:DIANE LAWS FAAFP, MYA Ruiz, PED Address: [address] [place] [address] [place] [address] When: Unknown [facility] 09-14-2024 NotePatient Education Dermatology Venous Ulcer A venous ulcer is a shallow sore on your lower leg. Venous ulcer is the most common type of lower leg ulcer. You may have venous ulcers on one leg or on both legs. This condition most often develops around your ankles. This type of ulcer may last for a long time (chronic ulcer) or it may return often (recurrent ulcer). What are the causes? This condition is caused by poor blood flow in your legs. The poor flow causes blood to pool in your legs. This can break the skin, causing an ulcer. What increases the risk? You are more likely to develop this condition if: ? You are female. ? You are 55 years of age or older. ? You have had a leg ulcer in the past. ? You have varicose veins. ? You have clots in your lower leg veins (deep vein thrombosis). ? You have irritation and swelling (inflammation) of your leg veins (phlebitis). ? You have recently been . ? You have a family history of chronic venous insufficiency. This is a condition where the leg veins do not pump enough blood from the legs to the heart. Your risk may be higher if: ? You are not active. ? You are overweight. ? You smoke. What are the signs or symptoms? The main symptom of this condition is an open sore near your ankle. Other symptoms may include: ? Swelling. ? Fluid coming from the ulcer. ? Bleeding. ? Itching. ? Pain and swelling. This gets worse when you stand up and feels better when you raise your leg. ? Changes in the skin, such as: ? Thick skin. ? Blotchy skin. ? Dark skin. How is this treated? Treatments include: ? Keeping your leg raised (elevated). ? Wearing a type of bandage or stocking to keep pressure (compression) on the veins of your leg. ? Taking medicines, including antibiotic medicines. ? Cleaning your ulcer and removing any tissue from the wound. ? Using bandages and wraps that have medicines in them to cover your ulcer. ? Closing the wound using a piece of skin taken from another area of your body (graft). Healing may take a long time. You may need to see a foot doctor or a vein specialist. Follow these instructions at home: Medicines ? Take or apply jhdf-zkw-hlpwhoj and prescription medicines only as told by your doctor. ? If you were prescribed antibiotics, take them as told by your doctor. Do not stop taking them even if you start to feel better. ? Ask your doctor if you should take aspirin before long trips. Wound care ? Follow instructions from your doctor about how to take care of your wound. Make sure you: ? Wash your hands with soap and water for at least 20 seconds before and after you change your bandage. If you cannot use soap and water, use hand sanforizing machine operator. ? Change your bandage. ? Leave stitches or skin glue in place for at least 2 weeks. ? Leave tape strips alone unless you are told to take them off. You may trim the edges of the tape strips if they curl up. ? Ask when you should remove your bandage. If your bandage is dry and sticks to your leg when you try to remove it, moisten or wet the bandage with saline solution or water alone to make it easier toremove. ? Check your wound every day for signs of infection. Have a caregiver do this for you if you are not able to do it yourself. Check for: ? More redness, swelling, or pain. ? More fluid or blood. ? Warmth. ? Pus or a bad smell. Activity ? Get up to take short walks every 1 to 2 hours. Ask for help if you feel weak or unsteady. ? Rest with your legs raised during the day. If you can, keep your legs above the level of your heart for 30 minutes, 3?4 times a day, or as told by your doctor. ? Do not sit with your legs crossed. ? Return to your normal activities when your doctor says that it is safe. General instructions ? Wear elastic stockings, compression stockings, or support hose as told by your doctor. ? Raise the foot of your bed as told by your doctor. ? Do not smoke or use any products that contain nicotine or tobacco. If you need help quitting, askyour doctor. ? Try to eat a heart healthy and low salt diet. ? Keep a healthy body weight. ? Keep all follow-up visits. Your doctor will check if your ulcer is healing and change treatments if needed. Contact a doctor if: ? Your ulcer is getting larger or is not healing. ? Your pain gets worse. ? You have any signs of infection. ? You have a fever. This information is not intended to replace advice given to you by your health care provider. Make sure you discuss any questions you have with your health care provider. Document Revised: 04/18/2023 Document Reviewed: 04/18/2023 [employer] Patient Education ? 2023 [employer] Stasis Dermatitis Stasis dermatitis is a long-term (chronic) skin condition that happens when you have poor circulation. This is when your veins can no longer pump blood back to the heart like they should. This (more content not included)...[facility]02-22-2024 Hospital Discharge instructions Patient Education 11/03/2023 12:33:35 Wrist Pain, Adult Wrist Pain, Adult There are many things that can cause wrist pain. Some common causes include: An injury to the wrist area, such as a sprain, strain, or fracture. Overuse of the joint. A condition that causes increased pressure on a nerve in the wrist (carpal tunnel syndrome). Wear and tear of the joints that occurs with aging (osteoarthritis). Other types of joint inflammation and stiffness (arthritis). Sometimes, the cause of wrist pain is not known. Often, the pain goes away when you follow instructions from your health care provider for relieving pain at home, such as resting the wrist, icing thewrist, or using a splint or an elastic wrap for a short time. If your wrist pain continues, it is important to tell your health care provider. Follow these instructions at home: If you have a splint or elastic wrap: Wear the splint or wrap as told by your health care provider. Remove it only as told by your healthcare provider. Ask your health care provider if you may remove it for bathing. Loosen the splint or wrap if your fingers tingle, become numb, or turn cold and blue. Check the skin around the splint or wrap every day. Tell your health care provider about any concerns. Keep the splint or wrap clean. If the splint or wrap is not waterproof: ?Do not let it get wet. ?Cover it with a watertight covering when you take a bath or shower. Managing pain, stiffness, and swelling If directed, put ice on the painful area. To do this: ?If you have a removable splint or wrap, remove it as told by your health care provider. ?Put ice in a plastic bag. ?Place a towel between your skin and the bag or between your splint or wrap and the bag. ?Leave the ice on for 20 minutes, 2 3 times a day. Move your fingers often to reduce stiffness and swelling. Raise (elevate) the injured area above the level of your heart while you are sitting or lying down. Activity Rest your affected wrist as told by your health care provider. Return to your normal activities as told by your health care provider. Ask your health care provider what activities are safe for you. Ask your health care provider when it is safe to drive if you have a splint or wrap on your wrist. Do exercises as told by your health care provider. General instructions Pay attention to any changes in your symptoms. Take jwlt-lnb-kzddepn and prescription medicines only as told by your health care provider. Keep all follow-up visits as told by your health care provider. This is important. Contact a health care provider if: You have a sudden, sharp pain in the wrist, hand, or arm that is different or new. The swelling or bruising on your wrist or hand gets worse. Your skin becomes red, gets a rash, or has open sores. Your pain does not get better or it gets worse. You have a fever or chills. Get help right away if: You lose feeling in your fingers or hand. Your fingers turn white, very red, or cold and blue. You cannot move your fingers. Summary Wrist pain in an adult has many different causes. If your wrist pain continues, it is important to tell your health care provider. You may need to wear a splint or an elastic wrap for a short period of time. Return to your normal activities as told by your health care provider. Ask your health care provider what activities are safe for you. This information is not intended to replace advice given to you by your health care provider. Make sure you discuss any questions you have with your health care provider. Document Revised: 07/17/2020 Document Reviewed: 07/17/2020 [employer] Patient Education 2022 [employer]. [facility] 02-09-2024 Hospital Discharge instructions Patient Education 10/21/2023 16:38:50 Atrial Fibrillation, Gflq-xe-Gqjr Atrial Fibrillation Atrial fibrillation is a type of heartbeat that is irregular or fast. If you have this condition, your heart beats without any order. This makes it hard for your heart to pump blood in a normal way. Atrial fibrillation may come and go, or it may become a long-lasting problem. If this condition is not treated, it can put you at higher risk for stroke, heart failure, and other heart problems. What are the causes? This condition may be caused by diseases that damage the heart. They include: High blood pressure. Heart failure. Heart valve disease. Heart surgery. Other causes include: Diabetes. Thyroid disease. Being overweight. Kidney disease. Sometimes the cause is not known. What increases the risk? You are more likely to develop this condition if: You are older. You smoke. You exercise often and very hard. You have a family history of this condition. You are a man. You use drugs. You drink a lot of alcohol. You have lung conditions, such as emphysema, pneumonia, or COPD. You have sleep apnea. What are the signs or symptoms? Common symptoms of this condition include: A feeling that your heart is beating very fast. Chest pain or discomfort. Feeling short of breath. Suddenly feeling light-headed or weak. Getting tired easily during activity. Fainting. Sweating. In some cases, there are no symptoms. How is this treated? Treatment for this condition depends on underlying conditions and how you feel when you have atrialfibrillation. They include: Medicines to: ?Prevent blood clots. ?Treat heart rate or heart rhythm problems. Using devices, such as a pacemaker, to correct heart rhythm problems. Doing surgery to remove the part of the heart that sends bad signals. Closing an area where clots can form in the heart (left atrial appendage). In some cases, your doctor will treat other underlying conditions. Follow these instructions at home: Medicines Take wlej-rke-uiawnkg and prescription medicines only as told by your doctor. Do not take any new medicines without first talking to your doctor. If you are taking blood thinners: ?Talk with your doctor before you take any medicines that have aspirin or NSAIDs, such as ibuprofen, in them. ?Take your medicine exactly as told by your doctor. Take it at the same time each day. ?Avoid activities that could hurt or bruise you. Follow instructions about how to prevent falls. ?Wear a bracelet that says you are taking blood thinners. Or, carry a card that lists what medicines you take. Lifestyle Do not use any products that have nicotine or tobacco in them. These include cigarettes, e-cigarettes, and chewing tobacco. If you need help quitting, ask your doctor. Eat heart-healthy foods. Talk with your doctor about the right eating plan for you. Exercise regularly as told by your doctor. Do not drink alcohol. Lose weight if you are overweight. Do not use drugs, including cannabis. General instructions If you have a condition that causes breathing to stop for a short period of time (apnea), treat it as told by your doctor. Keep a healthy weight. Do not use diet pills unless your doctor says they are safe for you. Diet pills may make heart problems worse. Keep all follow-up visits as told by your doctor. This is important. Contact a doctor if: You notice a change in the speed, rhythm, or strength of your heartbeat. You are taking a blood-thinning medicine and you get more bruising. You get tired more easily when you move or exercise. You have a sudden change in weight. Get help right away if: You have pain in your chest or your belly (abdomen). You have trouble breathing. You have side effects of blood thinners, such as blood in your vomit, poop (stool), or pee (urine),or bleeding that cannot stop. You have any signs of a stroke. BE FAST is an easy way to remember the main warning signs: ?B - Balance. Signs are dizziness, sudden trouble walking, or loss of balance. ?E - Eyes. Signs are trouble seeing or a change in how you see. ?F - Face. Signs are sudden weakness or loss of feeling in the face, or the face or eyelid droopingon one side. ?A - Arms. Signs are weakness or loss of feeling in an arm. This happens suddenly and usually on one side of the body. ?S - Speech. Signs are sudden trouble speaking, slurred speech, or trouble understanding what people say. ?T - Time. Time to call emergency services. Write down what time symptoms started. You have other signs of a stroke, such as: ?A sudden, very bad headache with no known cause. ?Feeling like you may vomit (nausea). ?Vomiting. ?A seizure. These symptoms may be an emergency. Do not wait to see if the symptoms will go away. Get medical help right away. Call your local emergency services (911 in the [place] Do not drive yourself to the hospital. Summary Atrial fibrillation is a type of heartbeat that is irregular or fast. You are at higher risk of this condition if you smoke, are older, have diabetes, or are overweight. Follow your doctor's instructions about medicines, diet, exercise, and follow-up visits. Get help right away if you have signs or symptoms of a stroke. Get help right away if you cannot catch your breath, or you have chest pain or discomfort. This information is not intended to replace advice given to you by your health care provider. Make sure you discuss any questions you have with your health care provider. Document Revised: 02/20/2020 Document Reviewed: 02/20/2020 [employer] Patient Education 2022 [employer]. Follow Up Care 10/21/2023 13:55:22 With:Nacho López Address:Unknown When:10/24/2023 16:25:49 With:Blaise HARDIN Address: [address], [facility] [place] [id number]- Business (1) When:Within 3 Day(s) [facility]02-09-2024 Hospital Discharge instructions Patient Education 10/21/2023 13:56:15 Atrial Fibrillation, Hrfe-yx-Wiru Atrial Fibrillation Atrial fibrillation is a type of heartbeat that is irregular or fast. If you have this condition, your heart beats without any order. This makes it hard for your heart to pump blood in a normal way. Atrial fibrillation may come and go, or it may become a long-lasting problem. If this condition is not treated, it can put you at higher risk for stroke, heart failure, and other heart problems. What are the causes? This condition may be caused by diseases that damage the heart. They include: High blood pressure. Heart failure. Heart valve disease. Heart surgery. Other causes include: Diabetes. Thyroid disease. Being overweight. Kidney disease. Sometimes the cause is not known. What increases the risk? You are more likely to develop this condition if: You are older. You smoke. You exercise often and very hard. You have a family history of this condition. You are a man. You use drugs. You drink a lot of alcohol. You have lung conditions, such as emphysema, pneumonia, or COPD. You have sleep apnea. What are the signs or symptoms? Common symptoms of this condition include: A feeling that your heart is beating very fast. Chest pain or discomfort. Feeling short of breath. Suddenly feeling light-headed or weak. Getting tired easily during activity. Fainting. Sweating. In some cases, there are no symptoms. How is this treated? Treatment for this condition depends on underlying conditions and how you feel when you have atrialfibrillation. They include: Medicines to: ?Prevent blood clots. ?Treat heart rate or heart rhythm problems. Using devices, such as a pacemaker, to correct heart rhythm problems. Doing surgery to remove the part of the heart that sends bad signals. Closing an area where clots can form in the heart (left atrial appendage). In some cases, your doctor will treat other underlying conditions. Follow these instructions at home: Medicines Take yehh-tiz-gaqcirp and prescription medicines only as told by your doctor. Do not take any new medicines without first talking to your doctor. If you are taking blood thinners: ?Talk with your doctor before you take any medicines that have aspirin or NSAIDs, such as ibuprofen, in them. ?Take your medicine exactly as told by your doctor. Take it at the same time each day. ?Avoid activities that could hurt or bruise you. Follow instructions about how to prevent falls. ?Wear a bracelet that says you are taking blood thinners. Or, carry a card that lists what medicines you take. Lifestyle Do not use any products that have nicotine or tobacco in them. These include cigarettes, e-cigarettes, and chewing tobacco. If you need help quitting, ask your doctor. Eat heart-healthy foods. Talk with your doctor about the right eating plan for you. Exercise regularly as told by your doctor. Do not drink alcohol. Lose weight if you are overweight. Do not use drugs, including cannabis. General instructions If you have a condition that causes breathing to stop for a short period of time (apnea), treat it as told by your doctor. Keep a healthy weight. Do not use diet pills unless your doctor says they are safe for you. Diet pills may make heart problems worse. Keep all follow-up visits as told by your doctor. This is important. Contact a doctor if: You notice a change in the speed, rhythm, or strength of your heartbeat. You are taking a blood-thinning medicine and you get more bruising. You get tired more easily when you move or exercise. You have a sudden change in weight. Get help right away if: You have pain in your chest or your belly (abdomen). You have trouble breathing. You have side effects of blood thinners, such as blood in your vomit, poop (stool), or pee (urine),or bleeding that cannot stop. You have any signs of a stroke. BE FAST is an easy way to remember the main warning signs: ?B - Balance. Signs are dizziness, sudden trouble walking, or loss of balance. ?E - Eyes. Signs are trouble seeing or a change in how you see. ?F - Face. Signs are sudden weakness or loss of feeling in the face, or the face or eyelid droopingon one side. ?A - Arms. Signs are weakness or loss of feeling in an arm. This happens suddenly and usually on one side of the body. ?S - Speech. Signs are sudden trouble speaking, slurred speech, or trouble understanding what people say. ?T - Time. Time to call emergency services. Write down what time symptoms started. You have other signs of a stroke, such as: ?A sudden, very bad headache with no known cause. ?Feeling like you may vomit (nausea). ?Vomiting. ?A seizure. These symptoms may be an emergency. Do not wait to see if the symptoms will go away. Get medical help right away. Call your local emergency services (911 in the [place] Do not drive yourself to the hospital. Summary Atrial fibrillation is a type of heartbeat that is irregular or fast. You are at higher risk of this condition if you smoke, are older, have diabetes, or are overweight. Follow your doctor's instructions about medicines, diet, exercise, and follow-up visits. Get help right away if you have signs or symptoms of a stroke. Get help right away if you cannot catch your breath, or you have chest pain or discomfort. This information is not intended to replace advice given to you by your health care provider. Make sure you discuss any questions you have with your health care provider. Document Revised: 02/20/2020 Document Reviewed: 02/20/2020 [employer] Patient Education 2022 [employer]. Follow Up Care 09/14/2023 11:40:39 With:DIANE LAWS FAAFP, MYA Ruiz, PED Address: [address] [facility] [place] [address]- When:Within 1 Week(s) Comments:Going to [facility] ED with Madisyn Delano[facility] 07-18-2022 Hospital Discharge instructions Patient Education 03/29/2022 11:56:57 Cardiac Rehabilitation Cardiac Rehabilitation What is cardiac rehabilitation? Cardiac rehabilitation is a treatment program that helps improve the health and well-being of people who have heart problems. Cardiac rehabilitation includes exercise training, education, and counseling to help you get stronger and return to an active lifestyle. This program can help you get betterfaster and reduce any future hospital stays. Why might I need cardiac rehabilitation? Cardiac rehabilitation programs can help when you have or have had: A heart attack. Heart failure. Peripheral artery disease. Coronary artery disease. Angina. Lung or breathing problems. Cardiac rehabilitation programs are also used when you have had: Coronary artery bypass graft surgery. Heart valve replacement. Heart stent placement. Heart transplant. Aneurysm repair. What are the benefits of cardiac rehabilitation? Cardiac rehabilitation can help you: Reduce problems like chest pain and trouble breathing. Change risk factors that contribute to heart disease, such as: ?Smoking. ?High blood pressure. ?High cholesterol. ?Diabetes. ?Being inactive. ?Weighing over 30% more than your ideal weight. ?Diet. Improve your emotional outlook so you feel: ?More hopeful. ?Better about yourself. ?More confident about taking care of yourself. Get support from health experts as well as other people with similar problems. Learn healthy ways to manage stress. Learn how to manage and understand your medicines. Teach your family about your condition and how to participate in your recovery. What happens in cardiac rehabilitation? You will be assessed by a cardiac rehabilitation team. They will check your health history and do aphysical exam. You may need blood tests, exercise stress tests, and other evaluations to make sure that you are ready to start cardiac rehabilitation. The cardiac rehabilitation team works with you to make a plan based on your health and goals. Your program will be tailored to fit you and your needs and may change as you progress. You may work witha health care team that includes: Doctors. Nurses. Dietitians. Psychologists. Exercise specialists. Physical and occupational therapists. What are the phases of cardiac rehabilitation? A cardiac rehabilitation program is often divided into phases. You advance from one phase to the next. Phase 1 This phase starts while you are still in the hospital. You may: Start by walking in your room and then in the santos. Do some simple exercises with a therapist. Phase 2 This phase begins when you go home or to another facility. You will travel to a cardiac rehabilitation center or another place where rehabilitation is offered. This phase may last 8 12 weeks. During this phase: You will slowly increase your activity level while being closely watched by a nurse or therapist. You will have medical tests and exams to monitor your progress. Your exercises may include strength or resistance training along with activities that cause your heart to beat faster (aerobic exercises), such as walking on a treadmill. Your condition will determine how often and how long these sessions last. You may learn how to: ?Cook heart-healthy meals. ?Control your blood sugar, if this applies. ?Stop smoking. ?Manage your medicines. You may need help with scheduling or planning how and when to take your medicines. If you have questions about your medicines, it is very important that you talk with your health care provider. Phase 3 This phase continues for the rest of your life. In this phase: There will be less supervision. You may continue to participate in cardiac rehabilitation activities or become part of a group in your community. You may benefit from talking about your experience with other people who are facing similar challenges. Follow these instructions at home: Take lice-ijp-ylbrlbf and prescription medicines only as told by your health care provider. Keep all follow-up visits as told by your health care provider. This is important. Get help right away if: You have severe chest discomfort, especially if the pain is crushing or pressure-like and spreads to your arms, back, neck, or jaw. Do not wait to see if the pain will go away. You have weakness or numbness in your face, arms, or legs, especially on one side of the body. Your speech is slurred. You are confused. You have a sudden, severe headache or loss of vision. You have shortness of breath. You are sweating and have nausea. You feel dizzy or faint. You are fatigued. These symptoms may represent a serious problem that is an emergency. Do not wait to see if the symptoms will go away. Get medical help right away. Call your local emergency services (911 in the [place] Do not drive yourself to the hospital. Summary Cardiac rehabilitation is a treatment program that helps improve the health and well-being of people who have heart problems. A cardiac rehabilitation program is often divided into phases. You advance from one phase to the next. The cardiac rehabilitation team works with you to make a plan based on your health and goals. Cardiac rehabilitation includes exercise training, education, and counseling to help you get stronger and return to an active lifestyle. This information is not intended to replace advice given to you by your health care provider. Make sure you discuss any questions you have with your health care provider. Document Released: 06/07/2009 Document Revised: 12/19/2019 Document Reviewed: 06/28/2019 [employer] Patient Education 2020 [employer] Follow Up Care 02/22/2022 09:32:22 With:Cardiac Rehab Address: When: Unknown Comments:Referral to [facility] Cardiac Rehab With:Rene MASON, Nacho Ba Address: [address] [place] [address] [place] [address]- When:3 months [facility]07-11-2022 NotePre-procedure Verification and Time Out: Pre-Procedure Verification and Time Out: Procedure Locationprocedure area HUDDLE - Pre-procedure Verificationcompleted TIME OUT - Final Verificationcompleted immediately prior to procedure start DEBRIEFcompleted General Information: Anesthesia Critical Care: Non-Anesthesia Date/Time of Procedure: 22-Mar-2022 12:52 Post-Procedure Diagnosis: CAD, PCI AUTOCAD OPERATOR LAD Procedure Name: PCI AUTOCAD OPERATOR LAD Findings: grossly normal anatomy Procedure performed by: me Cpo(s): none Estimated Blood Loss (mL): none Specimen: no Indication(s): CAD, abnormal stress test Informed Consent: written consent obtained Procedure Details: Procedure Details: R femoral 6F heparin XB3.5 Successful PCI mid LAD 100% AUTOCAD OPERATOR reduced to 0% residual with two ROCKY. No complications. DAPT, statin, xarelto Tolerance: good Complications: none Electronic Signatures: Nacho López) (Signed 22-Mar-2022 12:55) Authored: Pre-procedure Verification and Time Out, General Information, Procedure Details, Note Completion Last Updated: 22-Mar-2022 12:55 by Nacho López)[facility]07-11-2022 NoteHistory of Present Illness: HPI: SAVANNAH HOBBS is a 56 year old Male with CAD and recent PCI at [facility]. Here for attempted PCI of LAD AUTOCAD OPERATOR for level 3 hospital. High risk stress test. Comorbidities: Comorbidites: Comorbid Conditionshypertension Family History: Family History: reviewed and not pertinent to presenting problem Social History: Social History: Smoking Statusformer smoker Alcohol Usedenies Drug Usedenies Drug 2 Usedenies Allergies: No Known Allergies: Medications Prior to Admission: Metoprolol Tartrate 25 mg oral tablet: 1 tab(s) orally 2 times a day aspirin 81 mg oral tablet: orally once a day atorvastatin 40 mg oral tablet: 1 tab(s) orally once a day clopidogrel 75 mg oral tablet: 1 tab(s) orally once a day Xarelto 20 mg oral tablet: 1 tab(s) orally once a day (in the evening) tamsulosin 0.4 mg oral capsule: 1 cap(s) orally once a day multi vitamin with minerals: 1 tab(s) orally once a day losartan 100 mg oral tablet: 0.5 tab(s) orally once a day. Review of Systems: Constitutional: NEGATIVE: Fever, Chills, Anorexia, Weight Loss, Malaise Eyes: NEGATIVE: Blurry Vision, Drainage, Diploplia, Redness, Vision Loss/ Change ENMT: NEGATIVE: Nasal Discharge, Nasal Congestion, Ear Pain, Mouth Pain, Throat Pain Respiratory: NEGATIVE: Dry Cough, Productive Cough, Hemoptysis, Wheezing, Shortness of Breath Cardiac: NEGATIVE: Chest Pain, Dyspnea on Exertion, Orthopnea, Palpitations, Syncope Gastrointestinal: NEGATIVE: Nausea, Vomiting, Diarrhea, Constipation, Abdominal Pain Genitourinary: NEGATIVE: Discharge, Dysuria, Flank Pain, Frequency, Hematuria Musculoskeletal: NEGATIVE: Decreased ROM, Pain, Swelling, Stiffness, Weakness Neurological: NEGATIVE: Dizziness, Confusion, Headache, Seizures, Syncope Psychiatric: NEGATIVE: Mood Changes, Anxiety, Hallucinations, Sleep Changes, Suicidal Ideas Skin: NEGATIVE: Mass, Pain, Pruritus, Rash, Ulcer Endocrine: NEGATIVE: Heat Intolerance, Cold Intolerance, Sweat, Polyuria, Thirst Hematologic/Lymph: NEGATIVE: Anemia, Bruising, Easy Bleeding, Night Sweats, Petechiae Allergic/Immunologic: NEGATIVE: Anaphylaxis, Itchy/ Teary Eyes, Itching, Sneezing, Swelling Objective: Physical Exam Narrative: Physical Exam: NAD RRR CTA B Soft No edema Nonfocal neuro Medications: Medications: I have reviewed active medication orders. Recent Lab Results: Results: CBC: 03/22/2022 09:00 \ Hgb / \ 13.5 / WBC Plt 8.0 227 / Hct \ / 40.2 L \ RBC: 4.52 MCV: 89 BMP: 03/22/2022 09:00 NA+ Cl- BUN / 138 102 22 / Glucose 109 H K+ HCO3- Creat \ 4.3 28 1.15 \ Calcium : 9.3 Anion Gap : 12 Coagulation: 03/22/2022 09:00 PT / 11.5 / -------< INR < 1.0 PTT\ 29 \ Assessment and Plan: Assessment: Attempt AUTOCAD OPERATOR LAD PCI high risk due to AUTOCAD OPERATOR, level 3 hospital Electronic Signatures: Nacho López) (Signed 22-Mar-2022 10:50) Authored: History of Present Illness, Comorbidities, Family History, Social History, Allergies, Medications Prior to Admission, Review of Systems, Objective, Assessment and Plan, Note Completion Last Updated: 22-Mar-2022 10:50 by Nacho López)[facility]06-13-2022 Evaluation + Plan noteExtracted from: Title:Procedure Note Heart & Vascular Author:Nacho Sterling MD Date:02/22/22 Ordered: Basic Metabolic Panel CBC w/ Indices eGFR Future Appointments Appointment Date:03/24/2022 01:45:00 PM Scheduled Provider:Nacho López MD Location:[facility] Appointment Type:Cardiology Follow Up ([facility]) Future Scheduled Tests Laboratory* HgbA1c 07/01/21 * HgbA1c 06/30/21 * HgbA1c 09/30/21 * HgbA1c 06/26/21 * Lipid Panel 07/06/21 [facility]06-13-2022 Hospital Discharge instructions Patient Education 02/22/2022 08:23:31 CV - Cardiovascular PCI Discharge Instructions (CUSTOM) [place], [place] Cardiovascular PCI DISCHARGE INSTRUCTIONS Diet: Resume pre-procedure diet. Increase water intake the next 2 days to flush dye out of the body. Activity: Limit your activity today. Do not operate a vehicle, machinery or power tools. NO LIFTING OVER 3 POUNDS for 3 days. Do not bend your wrist for 24 hours. May resume driving in 24 hours. Let pain/discomfort guide your activity. If you are having pain, stop. No sexual activity for 1 week. Return to the Emergency Room if you have trouble breathing, walking or nausea and vomiting. Medications: Resume pre-procedure medication, unless otherwise directed. Minimal pain, soreness and/or discomfort is expected. If you are prescribed an aspirin and/or antiplatelet (such as Plavix, Brilinta or Effient) do NOT stop taking these medications for any reason without talking to your lunchroom operator Site Care: Do not remove dressing for 24 hours unless it becomes saturated, then replace. Keep site clean and dry; inspect site daily. Do not use any lotions, powders, or ointments at the groin or wrist site for 1 week. May shower 24 hours after the procedure. Clean site with soap and water. Pat dry and apply band aid. No tub baths, swimming or hot tubs for 3 days. Post Procedure: Soreness and tenderness to the site can last up to one week. Bruising may occur to site. A responsible adult should be with you for the first 24 hours after you arrive home. Keep follow-up appointment. Carry your stent card with you at all times. This provides information about your heart disease forany doctor who cares for you. No smoking for 24 hours as it increases the risk of developing blood clots. If you are interested in smoking cessation, contact [facility] at [phone], ext. [phone]. In the event you are unable to reach your physician, please call Pradeep at [phone] and the chucking machine set up operator will assist you. Seek Medicare Care for: Bleeding: Apply continuous pressure to the site and Call 911. Should the arm or leg become cold, numb, blue or white call your physician immediately. Signs of infection are redness, warmth, swelling, getting more sore, colored drainage, fever or chills Chest pain Blood in your urine or stool Black tarry stools Follow Up Care 01/28/2022 13:57:14 With:Nacho López Address: [address] [place] [address] [place] [address] [facility] (1) When:03/24/2022 13:45:00 [facility]05-02-2022 Hospital Discharge instructions Patient Education 01/11/2022 13:09:26 Hypertension, Adult, Sgma-eu-Tdyf Hypertension, Adult Hypertension is another name for high blood pressure. High blood pressure forces your heart to workharder to pump blood. This can cause problems over time. There are two numbers in a blood pressure reading. There is a top number (systolic) over a bottom number (diastolic). It is best to have a blood pressure that is below 120/80. Healthy choices can help lower your blood pressure, or you may need medicine to help lower it. What are the causes? The cause of this condition is not known. Some conditions may be related to high blood pressure. What increases the risk? Smoking. Having type 2 diabetes mellitus, high cholesterol, or both. Not getting enough exercise or physical activity. Being overweight. Having too much fat, sugar, calories, or salt (sodium) in your diet. Drinking too much alcohol. Having long-term (chronic) kidney disease. Having a family history of high blood pressure. Age. Risk increases with age. Race. You may be at higher risk if you are . Gender. Men are at higher risk than women before age 45. After age 65, women are at higher risk than men. Having obstructive sleep apnea. Stress. What are the signs or symptoms? High blood pressure may not cause symptoms. Very high blood pressure (hypertensive crisis) may cause: ?Headache. ?Feelings of worry or nervousness (anxiety). ?Shortness of breath. ?Nosebleed. ?A feeling of being sick to your stomach (nausea). ?Throwing up (vomiting). ?Changes in how you see. ?Very bad chest pain. ?Seizures. How is this treated? This condition is treated by making healthy lifestyle changes, such as: ?Eating healthy foods. ?Exercising more. ?Drinking less alcohol. Your health care provider may prescribe medicine if lifestyle changes are not enough to get your blood pressure under control, and if: ?Your top number is above 130. ?Your bottom number is above 80. Your personal target blood pressure may vary. Follow these instructions at home: Eating and drinking If told, follow the DASH eating plan. To follow this plan: ?Fill one half of your plate at each meal with fruits and vegetables. ?Fill one fourth of your plate at each meal with whole grains. Whole grains include whole-wheat pasta, brown rice, and whole-grain bread. ?Eat or drink low-fat dairy products, such as skim milk or low-fat yogurt. ?Fill one fourth of your plate at each meal with low-fat (lean) proteins. Low- fat proteins include fish, chicken without skin, eggs, beans, and tofu. ?Avoid fatty meat, cured and processed meat, or chicken with skin. ?Avoid pre-made or processed food. Eat less than 1,500 mg of salt each day. Do not drink alcohol if: ?Your doctor tells you not to drink. ?You are , may be , or are planning to become . If you drink alcohol: ?Limit how much you use to: ?0 1 drink a day for women. ?0 2 drinks a day for men. ?Be aware of how much alcohol is in your drink. In the [place] one drink equals one 12 oz bottle of beer (355 mL), one 5 oz glass of wine (148 mL), or one 1 oz glass of hard liquor (44 mL). Lifestyle Work with your doctor to stay at a healthy weight or to lose weight. Ask your doctor what the best weight is for you. Get at least 30 minutes of exercise most days of the week. This may include walking, swimming, or biking. Get at least 30 minutes of exercise that strengthens your muscles (resistance exercise) at least 3 days a week. This may include lifting weights or doing Pilates. Do not use any products that contain nicotine or tobacco, such as cigarettes, e- cigarettes, and chewing tobacco. If you need help quitting, ask your doctor. Check your blood pressure at home as told by your doctor. Keep all follow-up visits as told by your doctor. This is important. Medicines Take ckoo-nwg-scgikwh and prescription medicines only as told by your doctor. Follow directions carefully. Do not skip doses of blood pressure medicine. The medicine does not work as well if you skip doses.Skipping doses also puts you at risk for problems. Ask your doctor about side effects or reactions to medicines that you should watch for. Contact a doctor if you: Think you are having a reaction to the medicine you are taking. Have headaches that keep coming back (recurring). Feel dizzy. Have swelling in your ankles. Have trouble with your vision. Get help right away if you: Get a very bad headache. Start to feel mixed up (confused). Feel weak or numb. Feel faint. Have very bad pain in your: ?Chest. ?Belly (abdomen). Throw up more than once. Have trouble breathing. Summary Hypertension is another name for high blood pressure. High blood pressure forces your heart to work harder to pump blood. For most people, a normal blood pressure is less than 120/80. Making healthy choices can help lower blood pressure. If your blood pressure does not get lower with healthy choices, you may need to take medicine. This information is not intended to replace advice given to you by your health care provider. Make sure you discuss any questions you have with your health care provider. Document Released: 02/14/2009 Document Revised: 05/09/2019 Document Reviewed: 05/09/2019 [employer] Patient Education 2020 Eat Local Follow Up Care 07/06/2021 08:42:21 With:DIANE LAWS FAAFP, Blaise Smart, MYA, PED Address: Konstantin Spencer, [facility] [place] [address]- When:Within 6 Month(s) [facility] 10-20-2021 Evaluation + Plan note Future Scheduled Tests Laboratory* HgbA1c 07/01/21 * HgbA1c 06/30/21 * HgbA1c 09/30/21 * HgbA1c 06/26/21 * Lipid Panel 07/06/21 [facility]05-09-2020 Evaluation + Plan note Future Appointments Appointment Date:01/18/2022 08:00:00 AM Scheduled Provider: [facility] Appointment Type:CV Echo (FT) Appointment Date:01/18/2022 09:00:00 AM Scheduled Provider: [facility] Appointment Type:NM Myocard Spect Multi Rest/Stress-Res Appointment Date:01/18/2022 10:00:00 AM Scheduled Provider: [facility] App[facility] Type:NM Myocard Spect Multi Rest/Stress - R Appointment Date:01/18/2022 10:30:00 AM Scheduled Provider: [facility] Appointment Type:NM Myocard Spect Multi Rest/Stress-Str Appointment Date:01/18/2022 11:30:00 AM Scheduled Provider: [facility] Appointment Type:NM Myocar Spect Multi Rest/Stress - St Appointment Date:01/25/2022 11:00:00 AM Scheduled Provider:Nacho López MD Location:[facility] Appointment Type:Cardiology Follow Up (FT) Future Scheduled Tests Laboratory* HgbA1c 07/01/21 * HgbA1c 06/30/21 * HgbA1c 09/30/21 * HgbA1c 06/26/21 * Lipid Panel 07/06/21 Radiology* NM Myocardial Spect Rest/Stress 1 Day 01/18/22 * Echo Transthoracic Complete 01/18/22 [facility] Evaluation + Plan note Future Appointments Appointment Date:06/29/2022 02:15:00 PM Scheduled Provider:Nacho López MD Location:[facility] Appointment Type:Cardiology Follow Up (FT) Future Scheduled Tests Laboratory* HgbA1c 07/01/21 * HgbA1c 06/30/21 * HgbA1c 09/30/21 * HgbA1c 06/26/21 * Lipid [facility] Appointment Date:11/17/2023 08:15:00 AM Scheduled Provider:Nacho López MD Location:[facility] Appointment Type:Cardiology Follow Up (FT) [facility] Evaluation + Plan note Future Appointments Appointment Date:09/20/2024 02:30:00 PM Scheduled Provider:Derrick Dougherty PA-C Location:[facility] Appointment Type:Cardiology Follow Up ([facility]) [facility]ments Appointment Date:09/20/2024 02:30:00 PM Scheduled Provider:Derrick Dougherty PA-C Location:[facility] Appointment Type:Cardiology Follow Up (FT) Diagnostic Tests Pending * Wound Culture 06/29/24 [facility] Evaluation + Plan note Future Appointments Appointment Date:09/20/2024 02:30:00 PM Scheduled Provider:Derrick Dougherty PA-C Location:[facility] Appointment Type:Cardiology Follow Up (FT) Diagnostic Tests Pending * Wound Culture 05/26/24 [facility] evaluation note* Diagnosis Tinea unguium- Primary Dermatophytosis of nail Pain in right toe(s) Pain in left toe(s) documented [facility] Diagnosis Venous insufficiency- Primary Unspecified venous (peripheral) insufficiency Cellulitis of left lower leg 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) Non-pressure chronic ulcer of other part of right lower leg with fat layer exposed (CMS/HCC) Cellulitis of right leg documented in this encounter [facility]* Diagnosis Cellulitis of right leg- Primary Venous insufficiency Unspecified venous (peripheral) insufficiency 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) documented in this encounter [facility]* Diagnosis Venous insufficiency- Primary Unspecified venous (peripheral) insufficiency 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) [facility]* Diagnosis Venous insufficiency- Primary Unspecified venous (peripheral) insufficiency 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) Cellulitis of right leg Cellulitis of left lower leg documented in this encounter [facility]* Diagnosis Venous insufficiency- Primary Unspecified venous (peripheral) insufficiency Cellulitis of left lower leg 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) documented in this encounter [facility]* Diagnosis Venous insufficiency- Primary Unspecified venous (peripheral) insufficiency 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) Cellulitis of right leg documented in this encounter [facility]* Diagnosis Venous insufficiency- Primary Unspecified venous (peripheral) insufficiency 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 Hospital Discharge instructions No data available for this section [facility] No data available for this section [facility] Summary Purpose Family History No Family History Records FoundNo Family History Records FoundNo Family History Records Found No data available for this section No data available for this section No data available for this section No data available for this section No data available for this section No Family History Records FoundNo Family History Records Found No data available for this section No Family History Records Found No data available for this section No data available for this section No data available for this section No data available for this section No data available for this section No Family History Records FoundNo Family History Records Found Advance Directives No Advanced Directives Records FoundNo Advanced Directives Records FoundNo Advanced Directives Records FoundNo Advanced Directives Records FoundNo Advanced Directives Records FoundNo Advanced Directives Records FoundNo Advanced Directives Records FoundNo Advanced Directives Records Found Additional Source Comments (unrecognized sect ion and content) No Status Records FoundNo Status Records FoundNo Status Records FoundNo Status Records FoundNo Status Records FoundNo Status Records FoundNo Status Records FoundNo Status Records Found INFORMATION SOURCE (unrecogn ized section and content) DATE CREATED AUTHOR 06/20/2018 [facility] DATE CREATED AUTHOR AUTHOR'S ORGANIZ ATION [facility]20[facility] DATE CREATED AUTHOR AUTHOR'S ORGANIZ ATION 05/08/2022 [facility] ical Center DATE CREATED AUTHOR AUTHOR'S ORGANIZ ATION 05/30/2024 [facility] ical Center DATE CREATED AUTHOR AUTHOR'S ORGANIZ ATION 06/04/2024 [facility] ical Center DATE CREATED AUTHOR AUTHOR'S ORGANIZ ATION 07/02/2024 [facility] ical Center DATE CREATED AUTHOR AUTHOR'S ORGANIZ ATION 09/03/2024 [facility] DATE CREATED AUTHOR AUTHOR'S ORGANIZ ATION 09/04/2024 [facility] ical Center Care Team (unrecognized sect ion and content) 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 Start Date End Date Blaise Hardin MD [address] [place] [address] PCP - General Family Medicine 11/10/23 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 Start Date End Date Blaise Hardin MD [address] [place] [address] PCP - General Family Medicine 11/10/23 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 Start Date End Date Blaise Hardin MD [address] [place] [address] PCP - General Family Medicine 11/10/23 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 Start Date End Date Blaise Hardin MD [address] [place] [address] PCP - General Family Medicine 11/10/23 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 Start Date End Date Blaise Hardin MD [address] [place] [address] PCP - General Family Medicine 11/10/23 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 Start Date End Date Blaise Hardin MD [address] [place] [address] PCP - General Family Medicine 11/10/23 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 Start Date End Date Blaise Hardin MD [address] [place] [address] PCP - General Family Medicine 11/10/23 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 Start Date End Date Blaise Hardin MD [address] [place] [address] PCP - General Family Medicine 11/10/23 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 Start Date End Date Blaise Hardin MD [address] [place] [address] PCP - General Family Medicine 11/10/23 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 Start Date End Date Blaise Hardin MD [address] [place] [address] PCP - General Family Medicine 11/10/23 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 Start Date End Date Blaise Hardin MD [address] [place] [address] PCP - General Family Medicine 11/10/23 Reason for Visit (unrecogniz ed section and content) Reason Comments Toenail Care Non dm nail care Reason Comments Cellulitis B/L lower leg cellul itis with clear drainage Reason Comments Follow-up F/U B/L lower leg ce llulitis Reason Comments Foot Wound Check F/U RT lower leg wou nd Reason Comments Foot Wound Check F/U LT lower leg wou nd Reason Comments Foot Wound Check LT lower leg wound w ith drainage Reason Comments Cellulitis F/U LT lower leg elmer lulitis Reason Comments Foot Wound Check F/U LT lower leg elmer lulitis Reason Comments Toenail Care Non DM nail care FOR RECORDS PERTAINING TO PATIENTS WHO ARE OR HAVE BEEN ENROLLED IN A CHEMICAL DEPENDENCY/SUBSTANCEABUSE PROGRAM, SOME INFORMATION MAY BE OMITTED. This clinical summary was aggregated from multiple sources. Caution should be exercised in using it in the provision of clinical care. This summary normalizes information from multiple sources, and as a consequence, information in this document may materially change the coding, format and clinical context of patient data. In addition, data may be omitted in some cases. CLINICAL DECISIONS SHOULD BE BASED ON THE PRIMARY CLINICAL RECORDS. [employer] [facility]. provides no warranty or guarantee of the accuracy or completeness of information in this document.
== END 2024-09-11 09:14 | disposition home or self-care (01) ==
LOC: VC 08:52
PROVIDERS: PCP Podiatrist Foot & Ankle Surgery; Visit Provider Radiology Diagnostic Radiology
DX: I83.813 Varicose veins of bilateral lower extremities with pain (principal)
CPT/HCPCS: 36478

== ENCOUNTER 2024-09-18 08:52 | Outpatient (OUT) | payer BC, SELFPAY ==
--- NOTE | 2024-09-18 08:45 | V.VEINS.HP ---
Varicose Veins Patient in this day for follow up ultrasound post EVLT of left SSV David Huntley MD personally performed the services described in this documentation, as scribed by Priscilla Leroy RVT, RDMS in my presence and it is both accurate and complete. Priscilla Huntley RVT, RDMS, am scribing for, and in the presence of, Dr. David Pereyra and in the presence of the patient. . thigh: bilateral (symptoms bilaterally noted), knee: bilateral, calf: bilateral, ankle: bilateral and costello: bilateral aching, burning, cramping and tender 3 1 month Worsened in recent months: Yes standing and sitting analgesics, elevating extremities and compression stockings Reports muscle spasms of leg, heaviness, edema and leg edema History of lower extremity trauma: Yes Superficial thrombophlebitis: No Family history of varicose veins: yes Has patient had previous lower extremity venous surgery: No Patient has previously received the following treatment(s) for lower extremity varicose veins: Reports none Does patient have a history of : not applicable Has patient had lower extremity venous scan with relux testing: No Support hose used: Yes Problems walking or doing physical activity: Yes How does it affect you: intermitten pain affects walking/exercise Do you walk much: Yes Do you stand much: Yes Review of Systems ROS Narrative David Huntley MD personally performed the services described in this documentation, as scribed by Priscilla Leroy RVT, RDMS in my presence and it is both accurate and complete. Priscilla Huntley RVT, RDMS, am scribing for, and in the presence of, Dr. David Pereyra and in the presence of the patient. Status of ROS 10 or more systems reviewed and unremarkable except as noted in history and below Cardiovascular Reports: edema Integumentary/Breast Reports: itching, redness, skin tenderness, skin swelling, non-healing lesion and changes in skin color Neurological Reports: weakness in extremities [facility] Medical History (Updated 09/11/24 @ 09:13 by Guillermo Foster) Superficial thrombophlebitis of left leg ?I80.02 - Phlebitis and thrombophlebitis of superficial vessels of left lower extremity (ICD-10) Cellulitis ?L03.90 - Cellulitis, unspecified (ICD-10) Hypercholesteremia ?E78.00 - Pure hypercholesterolemia, unspecified (ICD-10) Afib ?I48.91 - Unspecified atrial fibrillation (ICD-10) Varicose veins of both lower extremities with complications ?I83.893 - Varicose veins of bilateral lower extremities with other complications (ICD-10) Hypertension ?I10 - Essential (primary) hypertension (ICD-10) Heart disease ?I51.9 - Heart disease, unspecified (ICD-10) Surgical History (Updated 09/11/24 @ 09:10 by Guillermo Foster) Status post laser ablation of incompetent vein ?Z98.890 - Other specified postprocedural states (ICD-10) H/O heart artery stent ?Z95.5 - Presence of coronary angioplasty implant and graft (ICD-10) Family History (Updated 08/15/24 @ 14:27 by Guillermo Foster) Other Family history of hypertension Family history of myocardial infarction Family history of stroke Varicose veins of bilateral lower extremities with pain Social History (Updated 08/15/24 @ 14:28 by Guillermo Foster) Within the past year, how often did you have a drink containing alcohol: 4 or more times a week Smoking status: Never smoker Non-prescribed substance use: denies use Meds Home Medications and Allergies Home Medications ?Medication ?Instructions ?Recorded ?Confirmed ?Type atorvastatin 40 mg tablet 40 mg PO DAILY 08/15/24 08/15/24 History clopidogrel 75 mg tablet (Plavix) 75 mg PO DAILY 08/15/24 08/15/24 History losartan 100 mg tablet (Cozaar) 100 mg PO DAILY 08/15/24 08/15/24 History metoprolol succinate 50 mg 50 mg PO DAILY 08/15/24 08/15/24 History tablet,extended release 24 hr (Toprol XL) metoprolol tartrate 25 mg tablet 25 mg PO BID 08/15/24 08/15/24 History rivaroxaban 20 mg tablet (Xarelto) 20 mg PO DAILY 08/15/24 08/15/24 History Allergies Allergy/AdvReac Type Severity Reaction Status Date / Time No Known Drug Allergies Allergy Verified 08/15/24 14:28 Exam Narrative Exam Narrative: I, David Pereyra MD personally performed the services described in this documentation, as scribed by Priscilla Leroy RVT, RDMS in my presence and it is both accurate and complete. I, Priscilla Leroy RVT, RDMS, am scribing for, and in the presence of, Dr. David Pereyra and in the presence of the patient. Constitutional Documenting provider has reviewed patient's vital signs: yes Common normals: oriented x3 Nutritional appearance: overweight Cardio Peripheral pulses: posterior tibial pulses present and dorsalis pedis pulses present Extremity Common normals: normal capillary refill General: calf tenderness and edema Right lower extremity: lower leg Right lower leg: inspection and palpation Left lower extremity: lower leg Left lower leg: inspection and palpation Neuro Common normals: oriented x3 Results Imaging Venous US: Radiologist's impression: The ultrasound demonstrates Heat induced thrombus visualized 1.9cm from the SPJ. The heat induced thrombus extends from SPJ to mid calf. Assessment and Plan Assessment and Plan (1) Superficial thrombophlebitis of left leg: Plan Patient in today for follow up ultrasound of lower extremity following treatment of EVLT of left leg SSV completed on 09/11/24. IDavid MD personally performed the services described in this documentation, as scribed by Priscilla Leroy RVT, RDMS in my presence and it is both accurate and complete. I, Priscilla Leroy RVT, RDMS, am scribing for, and in the presence of, Dr. David Pereyra and in the presence of the patient.
--- NOTE | 2024-09-18 08:47 | W.VEIN ---
Discharge Plan Discharge Disposition: Home, Self-Care Outpatient Diagnostics: VC Endovenous Ablation 1VeinRT (Routine) Timeframe: 2 Weeks Facility: [facility] - Location: [facility] Ordered By: David Pereyra Follow Up Appointments: 09/25/24. Plan of Treatment: EVLT of right leg GSV Print Language: Greenlandic Discharge Date/Time: 09/18/24 09:16
--- NOTE | 2024-09-18 08:54 | VEIN_ITS ---
Patient Name: SAVANNAH HOBBS MR#: [id number] : 1965 Exam Date: 09/18/2024 Ordering Doctor: DR JANNETH CRUMP M.D. RADIOLOGY REPORT PROCEDURE: FACILITY EST LMTD [facility]IN C[facility] - OFFICE VISIT FOLLOW UP COMPARISON: None. PROGRESS NOTES: The patient reports improvement in leg symptoms. There has been interval reduction in varicosities. The patient has followed our recommendations to walk 20-30 minutes once or twice per day since the procedure. Physical exam demonstrates decrease in varicosities of the leg. Persistent varicosities are identified along the legs bilaterally. Review of the ultrasound performed the same day demonstrates occlusive thrombus extending throughout the treated vein(s), see separate report, consistent with a successful ablation. No thrombus extending into or beyond the saphenofemoral junction. The patient expressed a desire to proceed with treatment of remaining incompetent varicosities. The patient was informed that treatment was a process and would require several procedures/sessions. VEIN/ Facility EST LMTD IMPRESSION: 1. Successful ablation of the left small saphenous vein(s). 2. Persistent varicose veins and lower extremity symptoms. PLAN: 1. Endovenous laser ablation of right great saphenous vein. Nurse notes, history and physical were reviewed and confirmed, see attached forms. The nurse was present throughout the physical exam and consultation Dictated by: David Pereyra M.D. on 09/18/2024 at 09:48 Approved by: David Pereyra M.D. on 09/18/2024 at 09:49
--- NOTE | 2024-09-18 08:54 | VEIN_ITS ---
Patient Name: SAVANNAH HOBBS MR#: [id number] : 1965 Exam Date: 09/18/2024 Ordering Doctor: DR AJNNETH CRUMP M.D. RADIOLOGY REPORT PROCEDURE: VC EXT VENOUS LT LIMITED COMPARISON: None. INDICATIONS: I80.02 - Phlebitis and thrombophlebitis of superficial ve... TECHNIQUE: Lower extremity mills scale and Duplex Doppler evaluation of the deep venous system from the inguinal ligament through the calf veins. FINDINGS: REGION: Left lower extremity. THROMBI: Negative for DVT. Heat induced thrombus visualized 1.9cm from the SPJ. The heat induced thrombus extends from SPJ to mid calf. COMPRESSIBILITY: Non-compressible segments corresponding to thrombus FLOW: Areas of no flow corresponding to thrombus OTHER: CONCLUSION: 1. Successful post ablation occlusion of left small saphenous vein. Dictated by: David Pereyra M.D. on 09/18/2024 at 09:47 Approved by: David Pereyra M.D. on 09/18/2024 at 09:48
== END 2024-09-18 09:16 | disposition home or self-care (01) ==
LOC: VC 08:53
PROVIDERS: PCP Radiology Diagnostic Radiology; Visit Provider Radiology Diagnostic Radiology
DX: I80.02 Phlebitis and thrombophlebitis of superficial vessels of left lower extremity (principal)
CPT/HCPCS: 93971; G0463

== ENCOUNTER 2024-09-25 08:41 | Outpatient (OUT) | payer BC, SELFPAY ==
--- NOTE | 2024-09-24 13:32 | VEINCLINIC_ITS ---
Vital Signs 09/25/24 09:06 BP 160/74 H BP Location Left Brachial BP Position Sitting BP Cuff Size Large Adult BP Source Automatic Cuff Respiration 20 Pulse 80 Pulse Source Monitor Pulse Oximetry (%) 96 Oxygen Delivery Method Room Air Comment The patient's blood pressure is elevated. Varicose Veins Patient in this day for EVLT of right GSV Dvaid Huntley MD personally performed the services described in this documentation, as scribed by Guillermo Foster RN in my presence and it is both accurate and complete. Guillermo Huntley RN, am scribing for, and in the presence of, Dr. David Pereyra and in the presence of the patient. thigh: bilateral (symptoms bilaterally noted), knee: bilateral, calf: bilateral, ankle: bilateral and costello: bilateral aching, burning, cramping and tender 3 1 month Worsened in recent months: Yes standing and sitting analgesics, elevating extremities and compression stockings Reports muscle spasms of leg, heaviness, edema and leg edema History of lower extremity trauma: Yes Superficial thrombophlebitis: No Family history of varicose veins: yes Has patient had previous lower extremity venous surgery: No Patient has previously received the following treatment(s) for lower extremity varicose veins: Reports none Does patient have a history of : not applicable Has patient had lower extremity venous scan with relux testing: No Support hose used: Yes Problems walking or doing physical activity: Yes How does it affect you: intermitten pain affects walking/exercise Do you walk much: Yes Do you stand much: Yes Review of Systems ROS Narrative David Huntley MD personally performed the services described in this documentation, as scribed by Guillermo Foster RN in my presence and it is both accurate and complete. Guillermo Huntley RN, am scribing for, and in the presence of, Dr. David Pereyra and in the presence of the patient. Status of ROS 10 or more systems reviewed and unremark able except as noted in history and below Cardiovascular Reports: edema Integumentary/Breast Reports: itching, redness, skin tenderness, skin swelling, non-healing lesion and changes in skin color Neurological Reports: weakness in extremities [facility] Medical History (Updated 09/24/24 @ 13:42 by Guillermo Foster) Superficial phlebitis of right leg ?I80.01 - Phlebitis and thrombophlebitis of superficial vessels of right lower extremity (ICD-10) Superficial thrombophlebitis of left leg ?I80.02 - Phlebitis and thrombophlebitis of superficial vessels of left lower extremity (ICD-10) Cellulitis ?L03.90 - Cellulitis, unspecified (ICD-10) Hypercholesteremia ?E78.00 - Pure hypercholesterolemia, unspecified (ICD-10) Afib ?I48.91 - Unspecified atrial fibrillation (ICD-10) Varicose veins of both lower extremities with complications ?I83.893 - Varicose veins of bilateral lower extremities with other complications (ICD-10) Hypertension ?I10 - Essential (primary) hypertension (ICD-10) Heart disease ?I51.9 - Heart disease, unspecified (ICD-10) Surgical History (Updated 09/25/24 @ 09:15 by Guillermo Foster) Status post laser ablation of incompetent vein ?Z98.890 - Other specified postprocedural states (ICD-10) Status post laser ablation of incompetent vein ?Z98.890 - Other specified postprocedural states (ICD-10) H/O heart artery stent ?Z95.5 - Presence of coronary angioplasty implant and graft (ICD-10) Family History (Updated 08/15/24 @ 14:27 by Guillermo Foster) Other Family history of hypertension Family history of myocardial infarction Family history of stroke Varicose veins of bilateral lower extremities with pain Social History (Updated 08/15/24 @ 14:28 by Guillermo Foster) Within the past year, how often did you have a drink containing alcohol: 4 or more times a week Smoking status: Never smoker Non-prescribed substance use: denies use Meds Home Medications and Allergies Home Medications ?Medication ?Instructions ?Recorded ?Confirmed ?Type atorvastatin 40 mg tablet 40 mg PO DAILY 08/15/24 08/15/24 History clopidogrel 75 mg tablet (Plavix) 75 mg PO DAILY 08/15/24 08/15/24 History losartan 100 mg tablet (Cozaar) 100 mg PO DAILY 08/15/24 08/15/24 History metoprolol succinate 50 mg 50 mg PO DAILY 08/15/24 08/15/24 History tablet,extended release 24 hr (Toprol XL) metoprolol tartrate 25 mg tablet 25 mg PO BID 12/04/24 12/04/24 History rivaroxaban 20 mg tablet (Xarelto) 20 mg PO DAILY 08/15/24 08/15/24 History Allergies Allergy/AdvReac Type Severity Reaction Status Date / Time No Known Drug Allergies Allergy Verified 08/15/24 14:28 Exam Narrative Exam Narrative: David Huntley MD personally performed the services described in this documentation, as scribed by Guillermo Foster RN in my presence and it is both accurate and complete. IGuillermo RN, am scribing for, and in the presence of, Dr. David Pereyra and in the presence of the patient. Constitutional Documenting provider has reviewed patient's vital signs: yes Common normals: oriented x3 Nutritional appearance: overweight Cardio Peripheral pulses: posterior tibial pulses present and dorsalis pedis pulses present Extremity Common normals: normal capillary refill General: calf tenderness and edema Right lower extremity: lower leg Right lower leg: inspection and palpation Left lower extremity: lower leg Left lower leg: inspection and palpation Neuro Common normals: oriented x3 Assessment and Plan Assessment and Plan (1) Varicose veins of both lower extremities with complications: Plan f/u examination with physician along with right leg limtied u/s Rodri Huntley MD personally performed the services described in this documentation, as scribed by Guillermo Foster RN in my presence and it is both accurate and complete. Guillermo Huntley RN, am scribing for, and in the presence of, Dr. Rodri Yadav and in the presence of the patient. Procedures Procedure Instructions Procedures Plan of care: Risks and benefits of the procedure were discussed at length and informed written consent was obtained.? Time-out completed for verification of correct patient, procedure and site.? Staff present during time-out: Guillermo Foster RN,? David Pereyra MD, [facility]. Time Out Time__922 Patient prepped and procedure performed in usual sterile fashion. Risk of injury related to use of Diode laser and/or laser devices__CR___ ? Serial number of laser used :? [id number] Control panel self test performed, electrical cords in good condition, floor is dry, basin of water available, fire extinguisher in close proximity_CR__ Polycarbonate goggles available and Laser warning signs outside of doors___CR__ Eye protection provided to patient and staff in room_CR___ Use of laser retardant drapes and dull blackened instruments as directed__CR___ Use of nonflammable prep solutions and use of saline soaked sponges to protect tissues as indicated _CR___ Length __58 cm Laser operated by _Dr. Pereyra Physician verbal confirmation laser locked in place__CR__ Laser start time (date and time) _09/25/2024@__0939 Laser stop time(date and time) _09/25/2024@__0948 Meyer _8.0___ Average laser use _3104 Joules Average laser use___388 seconds Pulse continuous ___CR_? Pulse intermittent ___ Amount of Tumescent used _225cc Evaluated patient for signs and symptoms of electrical injury __CR___ ? Skin clear at insertion site __CR___ Patient tolerated procedure well.? Right leg Coban dressing applied to access site.? Applied right thigh high leg compression stocking. Will return on 10/02/2024. for right leg limited venous ultrasound and exam. IDavid MD personally performed the services described in this documentation, as scribed by Guillermo Foster RN in my presence and it is both accurate and complete. I, Guillermo Foster RN, am scribing for, and in the presence of, Dr. David Pereyra and in the presence of the patient.
--- NOTE | 2024-09-24 13:36 | W.VEIN ---
Discharge Plan Discharge Disposition: Home, Self-Care Outpatient Diagnostics: VC Facility EST LMTD (Routine) Timeframe: 2 Weeks Facility: [facility] - Location: Vein Center Ordered By: Rodri Yadav VC EXT Venous RT LMTD (Routine) Timeframe: 2 Weeks Facility: [facility] - Location: Vein Center Ordered By: Rodri Yadav Follow Up Appointments: 10/02/2024 Plan of Treatment: f/u evaluation with physician along with right leg limited u/s Patient Instructions: Endovenous Ablation (DC) Print Language: Kiswahili Discharge Date/Time: 09/25/24 09:20
--- NOTE | 2024-09-25 08:44 | VEIN_ITS ---
[address] [address] Patient Name: SAVANNAH HOBBS MRN: [id number] date: 1965 Sex: M Assigned Patient Location: Current Patient Location: Accession/Order Number: [id number] Exam Date: 09/25/2024 09:00 Report Date: 09/25/2024 10:34 At the request of: SIDNEY GRAY Procedure: VC Endovenous Ablation 1VeinRT EXAMINATION: VC Endovenous Ablation 1VeinRT HISTORY: I83.893 - Varicose veins of bilateral lower extremities w... The risks and benefits of the procedure had been previously discussed, and were rediscussed at length. Informed written consent was obtained. Guillermo Foster RN and Priscilla Leroy RDMS, RVT assisted. Time out procedure was performed. The right lower extremity was prepared and draped in the usual sterile fashion to allow knee flexion in the sterile field. Duplex ultrasound probe was draped in a sterile cover, sterile transmission gel was used. Venous mapping was performed with the areas of dilation and large tributaries marked. The total length was 58 cm from the entry lower calf to 3 cm below the Saphenofemoral junction. The diameter of the right great saphenous vein ranged from 6.4 mm. A 30 gauge needle and 1% buffered lidocaine was used to anesthetize the entry site. A 4 mm incision was made with a scalpel and the saphenous vein was entered percutaneously under direct ultrasound guidance with a micropuncture set, a single stick was successful in gaining access. A micro-guide wire was inserted and the needle removed. A micro-set including a dilator was inserted over the microwire and the needle and dilator were removed. A guide wire was inserted through the micro-set and guided through the saphenous vein to the saphenofemoral junction. The dilator was removed and an introducer sheath was inserted over the wire until the end of the sheath entered the saphenofemoral junction. The dilator and wire were removed and the 600 micron fiber was introduced and placed and positioned so that it extended beyond the sheath and was 3 cm distal to the saphenofemoral or saphenopopliteal junction. Final position of the fiber was determined by ultrasound guidance and duplex imaging. Tumescent anesthetic was delivered by ultrasound guidance. 225 cc of fluid was delivered along the entire course of the saphenous vein. The solution consisted of 1000 cc of normal saline with 40 mL of 1% lidocaine and 20 mL of sodium bicarbonate. A final positioning check was made. The energy source was turned on by means of the foot pedal and the fiber and sheath were withdrawn. The total number of Joules delivered was 3104. The laser was active for 388 seconds under continuous pulse, average laser use of 8 J. Laser start time: 9:39 AM Laser stop time: 9:48 AM Date: 09/25/2024. A duplex ultrasound revealed compressibility and flow at the saphenofemoral junction immediately after the procedure. Hemostasis at the access site was achieved. The skin incision of the saphenous vein was closed with a 4 x 4. A compression stocking was applied. Postop instructions were given. A follow up appointment was recommended and scheduled. The patient tolerated the procedure well. Electronically authenticated by: SIDNEY GRAY Date: 09/25/2024 10:34
--- OUTSIDE RECORDS SUMMARY | 2024-09-25 08:59 | XMS_ITS | CCD ---
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 No qualifying data available Problem List/Past Medical History Ongoing Anticoagulated CAD in [place] artery Familial hypercholesterolemia H/O heart artery stent History of obstructive sleep apnea Hypertension Other obesity due to excess calories PAF (paroxysmal atrial fibrillation) Screening PSA (prostate specific antigen) Umbilical hernia Uncontrolled atrial fibrillation Historical AF (atrial fibrillation) Apnea, sleep BMI 30.0-30.9,adult BMI 32.0-32.9,adult BMI 38.0-38.9,adult BPH with elev (more content not included)... Normal [facility] Comment on above: Result Comment: Elec tronically Signed By: Farhat MELVIN, Derrick Smart\.br\Date and Time Signed: 03/19/24 16:34 EDT Heart [...] with voice recognition artificial intelligence software, specifically [employer], [employer] and or [employer]. Substitutions may have occurred due to the inherent limitations of voice recognition and artificial intelligence software. ATTESTATION: Documentation services were performed after patient or guardian consented to allow [employer] to record this visit. SHAUN portfolio specialist and provider reviewed before signing. SHAUN: Phoebe Micki Oseo. Follow-up No qualifying data available Problem List/Past Medical History Ongoing Anticoagulated CAD in [place] artery Familial hypercholesterolemia H/O heart artery stent [...] Allergies Social Histo (more content not included)... [place] Comment on above: Result Comment: Elec tronically Signed By: Rene MASON, Nacho Ba\.br\Date and Time Signed: 01/15/24 19:38 EDT\.br\Electronically Co-Signed By: Lani Benavides\.br\Date and Time Co-Signed: 11/17/23 09:28 EST Consent for Treatmenton Consent for Treatment [id number]#1.00TIFF [place] Physician Orderon 11-17-2023 Physician Order [id number]#1.00TIFF [place] Consultation Noteon 11-13-19 Consultation Note [id number]#1.00TIFF [place] Ambulatory Visit Summaryon 0 11-03-2023 Ambulatory Visit Summary SAVANNAH HOBBS :1965 Visit Date:11/03/2023 Ambulatory Visit Instructions Your Diagnosis Right wrist pain Your Care Team Attending Physician - Radha MASCORRO-VIVI, Maury Gibson Primary Care Physician - Blaise HARDIN DO, [...] pain Duration: 5 Days Pickup at [facility]/pharmacy #[id number] Unchanged atorvastatin (atorvastatin 40 mg Tab) [...] Days DO NOT STOP UNLESS CLEARED BY TAB BUILDER Pharmacy Information [facility]/pharmacy #[id number]: [address] [place] [phone] Allergies No Known Medication Allergies Problems Ongoing - Any problem that you are currently receiving treatment for. Anticoagulated CAD in [place] artery Familial hypercholesterolemia H/O heart artery stent [...] for choosing us for your care. Alexandra [facility] Family Medicine Office/Clini c Noteon 11-03-2023 Family Medicine Office/Clinic Note Chief Complaint right wrist pain HPI Staff 58 yr old male here for right wrist pain for 2 days. Denies injury. History of Present Illness Reviewed and agree with above documented HPI by medical physiologist. Nickie is a 58-year-old male who presents to [facility] with complaint of right wrist pain [...] # 20 tab(s), Refills(s) 0, Pharmacy: [facility]/pharmacy #[id number], 178, cm, 11/03/23 10:28:00 EST, Height/Length Dosing, 134, kg, 11/03/23 10:28:00 EST, Weight Dosing Portions of this record may have been created with voice recognition artificial intelligence software, specifically [employer], [employer] and or [employer]. Occasional wrong-word or `mcmsg-r-kerk? substitutions may have occurred due to the inherent limitations of voice recognition and artificial intelligence software. Follow-up No qualifying data available Patient Education Wrist Pain, Adult Problem List/Past Medical History Ongoing Anticoagulated CAD in [place] artery Familial hypercholesterolemia H/O heart artery stent [...] vaccine, inactivat (more content not included)... Normal [facility] Comment on above: Result Comment: Elec tronically Signed By: Radha HERNANDEZ, Maury Matthew.ronnie\Date and Time Signed: 11/03/23 12:33 EST Patient [...] any changes in your symptoms. ? Take xtmp-mnn-dupltmc and prescription medicines only as told by [...] provider. Document Revised: 07/17/2020 Document Reviewed: 07/17/2020 [employer] Patient Education ? 2022 [employer]. Normal [facility] ED Note-Physicianon 10-22-19 24 ED Note-Physician Basic Information Time Seen: Jai Gamez PA-C 10/21/2023 14:03 Stable Chief Complaint [...] cardiac stents. He has not seen his cardiology tech in over a year. The patient denies [...] x-ray wa (more content not included)... Normal [facility] Comment on above: Result Comment: Elec tronically [...] to 44.9 in adult Hypertension CAD in [place] artery H/O heart artery stent Your Care [...] Days DO NOT STOP UNLESS CLEARED BY TAB BUILDER Contact prescribing physician if questions or concerns Allergies No Known Medication Allergies Problems Ongoing - Any problem that you are currently receiving treatment for. Anticoagulated CAD in [place] artery Familial hypercholesterolemia H/O heart artery stent [...] for choosing us for your care. Normal [facility] BMPon 10-21-2023 Anion gap [Moles/Vol] 15 mmol/L Normal 6-16 [facility] Comment on above: Performed By: #### 2 019647, 2632690, 6423026, 72411335, 47606654, 61405746, 0027736, 3502144, 41878961 ####[facility] [address] [place] [address] BUN/Creat Ratio 20 No Units Normal 10-20 [facility] Comment on above: Performed By: #### 2 949692, 6329508, 1049886, 45476687, 99169600, 21751839, 8670579, 2598293, 56685796 ####[facility] [address] [place] [address] Calcium [Mass/Vol] 9.5 mg/dL Normal 8.9-11.1 [facility] Comment on above: Performed By: #### 2 407847, 1177336, 8975313, 83765834, 86751791, 29127791, 1243519, 4444446, 09704223 ####[facility] [address] [place] [address] Chloride [Moles/Vol] 97 mmol/L Low 101-111 [facility] Comment on above: Performed By: #### 2 763247, 8930947, 1314061, 25804135, 35444129, 77898012, 7402730, 7333404, 92754269 ####[facility] [address] [place] [address] CO2 [Moles/Vol] 30 mmol/L Normal 21-31 [facility] Comment on above: Performed By: #### 2 307560, 2348996, 9851768, 64317147, 72541005, 01449671, 7310330, 9985949, 83081855 ####[facility] [address] [place] [address] Creatinine [Mass/Vol] 1.2 mg/dL Normal 0.5-1.3 [facility] Comment on above: Performed By: #### 2 771412, 1105898, 5534150, 72588064, 33138491, 86929349, 7883105, 4277869, 81648919 ####[facility] [address] [place] [address] Glucose [Mass/Vol] 148 mg/dL Normal 55-199 [facility] Comment on above: Performed By: #### 2 171043, 6051736, 2834039, 43600111, 47482568, 11772739, 4089800, 8508783, 60856720 ####[facility] [address] [place] [address] Potassium [Moles/Vol] 4.6 mmol/L Normal 3.5-5.3 [facility] Comment on above: Performed By: #### 2 442259, 5487134, 1652574, 81111400, 95160244, 14757472, 0162253, 7258413, 11410721 ####[facility] [address] [place] [address] Sodium [Moles/Vol] 137 mmol/L Normal 135-145 [facility] Comment on above: Performed By: #### 2 465487, 9344488, 9721753, 39154831, 64884802, 29564301, 8487661, 4718247, 49285721 ####[facility] [address] [place] [address] Urea nitrogen [Mass/Vol] 24 mg/dL High 5-21 [facility] Comment on above: Performed By: #### 2 147934, 1218066, 8353634, 82205327, 99726967, 62165900, 6119419, 8487019, 49934377 ####[facility] [address] [place] [address] BNPon 10-21-2023 Natriuretic peptide B (Bld) [Mass/Vol] 62 pg/mL Normal 5-80 [facility] Comment on above: Performed By: #### 2 859182, 8887003, 8340244, 19524677, 63456954, 38364615, 5860276, 2615599, 56817687 ####[address] [place] [address] CBC w/ Auto Diffon 4 Basophil Absolute 0.1 E9/L Normal 0.0-0.2 [facility] Comment on above: Performed By: #### 2 663030, 3245229, 5078045, 04176813, 47629721, 02700039, 1112406, 3752004, 09095343 ####[address] [place] [address] Basophils/100 WBC (Bld) 1.2 % Normal 0.0-2.0 [facility] Comment on above: Performed By: #### 2 574075, 5881717, 3527264, 47846039, 00130922, 91493749, 1871181, 0378683, 68499758 ####[facility] [address] [place] [address] Eos Absolute 0.1 E9/L Normal 0.0-0.5 [facility] Comment on above: Performed By: #### 2 840808, 4475893, 9224570, 31802108, 37974157, 57311210, 7002152, 5222828, 03107290 ####[address] [place] [address] Eosinophils/100 WBC (Bld) 1.0 % Normal 0.0-8.0 [facility] Comment on above: Performed By: #### 2 173319, 5431169, 0477626, 30817321, 96061742, 83378772, 3885678, 3687569, 51476559 ####[address] [address] Erythrocyte distribution width (RBC) [Ratio] 13.6 % Normal 10.9-14.2 [facility] Comment on above: Performed By: #### 2 974836, 7665937, 8324132, 18172938, 31302571, 52579704, 2246756, 5957674, 42920792 ####[address] [address] Hematocrit (Bld) [Volume fraction] 42.0 % Normal 37.7-49.0 [facility] Comment on above: Performed By: #### 2 939723, 9539707, 1972206, 88505650, 99130930, 81871337, 7979609, 6336110, 76198310 ####[address] [address] Hemoglobin (Bld) [Mass/Vol] 14.2 g/dL Normal 13.5-17.5 [facility] Comment on above: Performed By: #### 2 979021, 5530403, 1879593, 38988040, 95360318, 73047877, 7984757, 7855382, 36491823 ####[address] [address] Lymph Absolute 1.7 E9/L Normal 1.0-4.0 [facility] Comment on above: Performed By: #### 2 731640, 5368086, 7285004, 01499572, 93964576, 98121056, 9640691, 7239838, 36607421 ####[address] [place] [address] Lymphocytes/100 WBC (Bld) 16.6 % Normal 14.0-50.0 [facility] Comment on above: Performed By: #### 2 562492, 7159618, 1914227, 08327165, 56558055, 00127024, 7815161, 3788200, 78658794 ####[address] [address] MCH (RBC) [Entitic mass] 29.2 pg Normal 27.0-34.0 [facility] Comment on above: Performed By: #### 2 270104, 3958706, 0389345, 37313053, 91478467, 16234072, 8515643, 4916741, 54177752 ####[address] [address] MCHC (RBC) [Mass/Vol] 33.5 g/dL Normal 31.4-36.0 [facility] Comment on above: Performed By: #### 2 700308, 6912703, 1386481, 74622490, 93902856, 67091708, 3016130, 4159260, 10165998 ####[address] [address] MCV (RBC) [Entitic vol] 87.2 fL Normal 80.0-100.0 [facility] Comment on above: Performed By: #### 2 506034, 0173425, 7476614, 01969855, 63848986, 38563547, 8275347, 1388039, 75672133 ####[address] [place] [address] [place] Absolute 0.7 E9/L Normal 0.2-1.[address] [facility] Comment on above: Performed By: #### 2 632795, 7010748, 2615438, 60231058, 21945700, 77284897, 2353900, 5868844, 39149865 ####[address] [place] [address] Monocytes/100 WBC (Bld) 7.1 % Normal 4.0-14.0 [facility] Comment on above: Performed By: #### 2 188973, 6970156, 4533581, 57803834, 82618761, 66703723, 4486749, 5671459, 14418248 ####[facility] [address] [place] [address] Neutro Absolute 7.4 E9/L Normal 2.0-7.5 [facility] Comment on above: Performed By: #### 2 706211, 4836727, 7275798, 05327263, 34697247, 46817959, 6551859, 7997170, 55382895 ####[address] [address] Neutro Auto 74.1 % Normal 36.0-75.0 [facility] Comment on above: Performed By: #### 2 414374, 3601194, 3107480, 72514502, 65694484, 14857202, 6988565, 0692342, 98913061 ####[address] [place] [address] Platelet 259.0 E9/L Normal 150.0-500.0 [facility] Comment on above: Performed By: #### 2 983947, 4637253, 5092415, 01512153, 65273281, 51916536, 0427466, 4889740, 77021488 ####[address] [place] [address] Platelet mean volume (Bld) [Entitic vol] 7.7 fL Normal 6.4-10.8 [facility] Comment on above: Performed By: #### 2 563708, 2920749, 7324221, 70358294, 20065540, 11385295, 5264454, 1556665, 98411876 ####[facility] [address] [place] [address] RBC 4.9 E12/L Normal 4.3-5.9 [facility] Comment on above: Performed By: #### 2 506086, 3850959, 8341730, 12492195, 05427738, 83804860, 5514288, 0428095, 39448380 ####[facility] [address] [place] [address] WBC 10.0 E9/L Normal 4.0-11.0 [facility] Comment on above: Performed By: #### 2 270205, 5488039, 5303184, 73187898, 59352652, 70097484, 2264034, 7656786, 39270051 ####[facility] [address] [place] [address] CHEMISTRYOrdered By: SYSTEM SYSTEM on 10-21-2023 Albumin [...] High Sensitivity Troponin I Instructions For Use, Omsany Dennis, April 2018) Urea nitrogen [Mass/Vol] 24 mg/dL High 5 - 21 mg/dL Remisol Chem Urea nitrogen/Creatinine [Mass ratio] 20 mg/mg Normal 10 - 20 Remisol Chem CHEMISTRYOrdered By: Jose Chan on 10-21-2023 Natriuretic peptide B (Bld) [Mass/Vol] 62 pg/mL Normal 5 - 80 pg/mL [facility] HemeManSS COAGULATIONOrdered By: Krissy Ayala on 10-21-2023 aPTT Coag (PPP) [Time] 40.5 s High 25.1 - 36.5 second(s) [facility] Auto Coag Comment on above: Interpretive Data: [...] the same coagulation reagent and instrumentation as [facility]. Currently there are no coagulation studies available worldwide for children to 14 days, and no normal ranges. Heparin therapeutic range (represented by Anti-Factor Xa activity of 0.2 - 0.4 U/mL) corresponds to PTT of 56.6 - 109.0 sec. Fibrin D-dimer FEU (PPP) [Mass/Vol] ng/mL FEU Low 215 - 500 ng/mL FEU [facility] Auto Coag Comment on above: Interpretive Data: [...] [Relative time] 2.0 {INR} Invalid Interpretation Code [facility] Auto Coag Comment on above: Interpretive Data: I NR results are specifically intended to assess patients stabilized on long-term Anticoagulation therapy suggested INR s Less Intensive Anticoagulation 2.0 3.0 Conventional Range 3.0 4.5 PT Coag (PPP) [Time] 23.2 s High 9.4 - 1 2.5 second(s) [facility] Auto Coag Comment on above: Interpretive Data: [...] the same coagulation reagent and instrumentation as [facility]. Currently there are no coagulation studies available worldwide for children to 14 days, and no normal ranges. Consent for Treatmenton Consent for Treatment [id number]#1.00TIFF Normal [facility] D-Dimeron 10-21-2023 Fibrin D-dimer FEU (PPP) [Mass/Vol] <215 Low 215-500 [facility] Comment on above: Result Comment: This assay [...] infections Liver cirrhosis Performed By: #### 2 112479, 4220516, 0032250, 89818998, 70094059, 26578118, 6247812, 2130722, 63718844 ####[facility] [address] [place] [address] Discharge Instructionson Discharge Instructions [id number]#1.00TIFF Normal [facility] ED Clinical Summaryon 2023 ED Clinical Summary (Inserted Image. Micki ble to display) [address] [address] ED Clinical Summary Person Information Name: SAVANNAH HOBBS [place] Age: 58 Years : 1965 Sex: Male Language: Turkish PCP: Blaise HARDIN DO, FAAFP Marital Status: Phone: [phone] Visit Id: Visit Reason: Tachycardia; SENT FROM DR DIANE PAIGE Speciality: Acuity: 2 Enc Type: Emergency Med [...] 10/21/2023 16:38:50 10/21/2023 16:38:50 10/21/2023 16:38:50 ADDRESS: [address] [place] [phone] PHYS DOC NOTES: MEDICAL INFORMATION: Prescriptions Given: [...] Days. DO NOT STOP UNLESS CLEARED BY TAB BUILDER. Refills: 3. PATIENT EDUCATION INFORMATION: Instructions: Atrial Fibrillation, Fckf-at-Eyem Follow up: With: Address: When: Nacho López In 3 days 10/24/2023 With: Address: When: Blaise HARDIN [address] [place], [place] [address] [facility] () In 3 days DIAGNOSIS: 1:Atrial fibrillation with RVR; 2:PAF (paroxysmal atrial fibrillation) Normal [facility] ED Patient Education Noteon 10-21-2023 ED Patient [...] these instructions at home: Medicines ? Take qccw-mqs-mszqhku and prescription medicines only as told by [...] be an (more content not included)... Normal [facility] ED Patient Summaryon 024 ED Patient Summary (Inserted Image. Micki ble to display) [address] [address] Patient Discharge Instructions Person Information Name: SAVANNAH HOBBS Age: 58 Years Arrival Date: 10/21/2023 13:54:22 Discharge Diagnosis: 1:Atrial fibrillation with RVR; 2:PAF (paroxysmal atrial fibrillation) Primary Care Physician: DIANE HOYOSBlaise Provider Information Primary Provider: Diego Melendez DO Advanced Erecting Crane Operator:None The exam and treatment you received in the Emergency Department were for an urgent problem and are not intended as complete care. It is important that you follow up with a doctor, nurse practitioner, or physician?s diver assistant for ongoing care. If your symptoms [...] days 10/24/2023 With: Address: When: Blaise HARDIN [address] [place] [address] [place] [address] [facility] (1) In 3 days In the event that this physician does not participate in your insurance network, please consult with your insurance company to find a nearby participating provider. Patient Education Materials: Atrial Fibrillation, Hhvm-rg-Apre A MESSAGE TO ALL PATIENTS REGARDING OPIOIDS PRESCRIPTION OPIOIDS: WHAT YOU NEED TO KNOW Prescription opioids can be used to help relieve kxlxsgvk-ij-pctxoe pain and are often prescribed following a [...] care prof (more content not included)... Normal [facility] Family Medicine Office/Clini c Noteon 10-21-2023 Family [...] his sentences. Case discussed with admitting at [facility] and with ER staff and they are [...] mg p.o. twice daily 5. CAD in [place] artery (I25.10: Atherosclerotic heart disease of [place] coronary artery without angina pectoris) Plavix 75 [...] 25 minutes. Follow-up With When Contact Information DIANE LAWS FAAFP, Blaise Smart, MYA, PED In 1 week [address], [place] [address]- Additional Instructions: Going to [facility] ED with Madisyn Patient Education Atrial Fibrillation, Tcdh-hh-Ogdq Problem List/Past Medical History Ongoing Anticoagulated CAD in [place] artery Familial hypercholesterolemia H/O heart artery stent History of obstructive sleep apnea Hypertension Other obesity due to excess calories PAF (paroxysmal atrial fibrillation) Screening PSA (prostate specific antigen) Umbilical hernia Uncontrolled at (more content not included)... Normal [facility] Comment on above: Result Comment: Elec tronically Signed By: DIANE LAWS FAAFP, Blaise Kearney\Date and Time Signed: 10/21/23 13:57 EST HEMATOLOGYOrdered [...] Normal 80.0 - 100.0 fL Remisol Heme [place] Absolute 0.7 E9/L Normal 0.2 - 1.0 [...] 10-21-2023 Albumin [Mass/Vol] 4.7 g/dL Normal 3.3-5.0 [facility] Comment on above: Performed By: #### 2 140550, 9650059, 9758843, 24343960, 15996152, 64335389, 5186997, 9208054, 63900087 ####[facility] [address] [place] [address] Albumin/Globulin [Mass ratio] 1.6 {ratio} Normal 1.1-2.2 [facility] Comment on above: Performed By: #### 2 002577, 7483347, 5431674, 86902319, 94114669, 04096338, 5305155, 0070962, 21445983 ####[facility] [address] [place] [address] Alk Phos 63 Int._Unit/L Normal 21-98 [facility] Comment on above: Performed By: #### 2 477276, 1396784, 0839986, 99043807, 57596509, 13451860, 8966239, 6971111, 77209393 ####[facility] [address] [place] [address] ALT 17 Int._Unit/L Normal 6-46 [facility] Comment on above: Performed By: #### 2 496570, 0503469, 3605600, 04409616, 34390903, 60379509, 8982998, 1129566, 40224965 ####[facility] [address] [place] [address] AST 20 Int._Unit/L Normal 5-43 [facility] Comment on above: Performed By: #### 2 233525, 3433106, 1269142, 34809643, 08680163, 15175752, 9668449, 8127630, 52340515 ####[facility] [address] [place] [address] Bili Direct 0.1 mg/dL Normal 0.0-0.4 [facility] Comment on above: Performed By: #### 2 878839, 7761547, 2604479, 20195461, 69961177, 81995373, 7238576, 4644449, 88397227 ####[facility] [address] [place] [address] Bili Indirect 0.7 mg/dL Normal 0.1-0.[address] [facility] Comment on above: Performed By: #### 2 232800, 9666295, 5376336, 23341938, 40694974, 07342526, 7966661, 5903395, 33853874 ####[address] [place] [address] Bili Total 0.8 mg/dL Normal 0.0-1.1 [facility] Comment on above: Performed By: #### 2 893357, 8764276, 2642981, 13100463, 58922885, 44881173, 5620901, 6944818, 70691664 ####[facility] [address] [place] [address] Globulin (S) [Mass/Vol] 3.0 g/dL Normal 1.4-4.0 [facility] Comment on above: Performed By: #### 2 973450, 8179378, 1400564, 82307443, 07137270, 49155720, 0211221, 5972932, 98882596 ####[facility] [address] [place] [address] Protein [Mass/Vol] 7.7 g/dL Normal 6.0-7.8 [facility] Comment on above: Performed By: #### 2 389373, 5326047, 7953065, 49689710, 10577944, 64762856, 4437880, 2321638, 61137820 ####[facility] [address] [place] [address] Magnesiumon 10-21-2023 Magnesium [Mass/Vol] 1.8 mg/dL Normal 1.3-2.4 [facility] Comment on above: Performed By: #### 2 992711, 2280848, 9796007, 44076962, 94718864, 00745207, 6296526, 1037339, 55557107 ####[facility] [address] [place] [address] Monitor Recordon 10-21-2023 Monitor Record [id number]#1.00TIFF Normal [facility] Monitor Record [id number]#1.00TIFF Normal [facility] PT & PTTon 10-21-2023 aPTT Coag (PPP) [Time] 40.5 second(s) High 25.1-36.5 [facility] Comment on above: Result Comment: Para meter 15 days - 4 weeks 1 - 5 months 6 - 11 months 1 - 5 years 6 - 10 years 11 - 17 years PTT Mean: 35.4 (27.6-45.6) Mean: 33.5 (24.8-40.7) Mean: 32.4 (25.1-40.7) Mean: 31.6 (24.0-39.2) Mean: 31.6 (26.9-38.7) Mean: 31.0 (24.6-38.4) Pediatric Reference ranges were obtained from a study by qiana Morris al. prepared from 1437 samples obtained at 7 different centers using the same coagulation reagent and instrumentation as [facility]. Currently there are no coagulation studies available worldwide for children to 14 days, and no normal ranges. Heparin therapeutic range (represented by Anti-Factor Xa activity of 0.2 - 0.4 U/mL) corresponds to PTT of 56.6 - 109.0 sec. Performed By: #### 2 [id number], [id number], 8949863, [id number], 06691451, 85885489, 7210142, 9014665, [id number] ####[facility] [address] [place] [address] INR Coag (PPP) [Relative time] 2.0 {INR} Invalid Interpretation Code [facility] Comment on above: Result Comment: INR results are specifically intended to assess patients stabilized on long-term Anticoagulation therapy suggested INR?s ?Less Intensive Anticoagulation? 2.0 ? 3.0 Conventional Range 3.0 ? 4.5 Performed By: #### 2 360532, 7483419, 3332144, 56387452, 84641811, 51877428, 3596300, 3700753, 16318067 ####[facility] [address] [place] [address] PT Coag (PPP) [Time] 23.2 second(s) High 9.4-12.5 [facility] Comment on above: Result Comment: 15 d [...] the same coagulation reagent and instrumentation as [facility]. Currently there are no coagulation studies available worldwide for children to 14 days, and no normal ranges. Performed By: #### 2 669736, 8316596, 3352805, 62792172, 33640455, 89403124, 5425889, 5978342, 46778105 ####[facility] [address] [place] [address] Patient Educationon 10-21-19 Patient Education Cardiovascular Atrial [...] these instructions at home: Medicines ? Take psxs-hmv-fhblolt and prescription medicines only as told by [...] be an (more content not included)... Normal [facility] Troponin 0 Hr.on 10-21-2023 Troponin 13.40 pg/mL Low 15.90-38.40 [facility] Comment on above: Result Comment: The 95% CI (Confidence Interval) PPV (Positive Predictive Value) for myocardial infarction in females is 38 pg/mL, in males 51 pg/mL. The results should be used in conjunction with clinical conditions of myocardial infarction. (Access High Sensitivity Troponin I Instructions For Use, [employer]ilm Dennis, April 2018) Performed By: #### 2 350938, 1017400, 9439294, 86020685, 57164225, 36994467, 9767198, 7573340, 73383552 ####[facility] [address] [place] [address] XR Chest Single Viewon 10-21 XR Chest [...] (Electronic Signature): 10/21/2023 3:28 pm Signed by: Angleito Anderson MD Transcribed by: FERNY Technologist: SAVANNAH Technical Comments Radiation Dose: Ka,r in mGy = na DAP = na Normal [facility] eGFRon 10-21-2023 eGFR 69 mL/min/1.73 m2 Normal >=59 [facility] Comment on above: Order Comment: Order added by Discern Expert. Performed By: #### 2 351567, 6410190, 4277935, 55080649, 60743421, 12117320, 5291724, 2685717, 47292092 ####[facility] [address] [place] [address] Lab Reportson 10-19-2023 Lab Reports [id number]#1.00TIFF Normal [facility] Formson 09-26-2023 Forms [id number]#1.00TIFF Normal [facility] Forms [id number]#1.00TIFF Normal [facility] Immunization Recordson 08-26 Immunization Records [id number]#1.00TIFF Normal [facility] ACT-LOW RANGEon 03-22-2022 ACT-LOW RANGE 256 SECONDS High 89 - 169 [facility] Comment on above: Result Comment: Note new reference range as of 12/15/2018. Target ACT range will vary based on the patient population, clinical status, and surgical intervention occurring. Performed By: #### A CTLR #### [address] [id number] BASIC METABOLIC PANELon 03-12 Anion gap [Moles/Vol] 12 mmol/L Normal 10 - 20 [facility] Comment on above: Performed By: #### B MP #### [address] [id number] Calcium [Mass/Vol] 9.3 mg/dL Normal 8.6 - 10.3 [facility] Comment on above: Performed By: #### B MP #### [address] [id number] Chloride [Moles/Vol] 102 mmol/L Normal 98 - 107 [facility] Comment on above: Performed By: #### B MP #### [address] [id number] Creatinine [Mass/Vol] 1.15 mg/dL Normal 0.50 - 1.30 [facility] Comment on above: Performed By: #### B MP #### [address] [id number] GFR/1.73 sq M.predicted among non-blacks MDRD (S/P/Bld) [Vol rate/Area] 73 mL/min/{1.73_m2} Normal >90 [facility] Comment on above: Result Comment: CALC ULATIONS OF ESTIMATED GFR ARE PERFORMED USING THE 2020 CKD-EPI STUDY REFIT EQUATION WITHOUT THE RACE VARIABLE FOR THE IDMS-TRACEABLE CREATININE METHODS. https://jasn.asnjournals.org/content/early//ASN.250297 5366 Performed By: #### B MP #### [address] [id number] Glucose [Mass/Vol] 109 mg/dL High 74 - 99 [facility] Comment on above: Performed By: #### B MP #### [address] [id number] HCO3 (Bld) [Moles/Vol] 28 mmol/L Normal 21 - 32 [facility] Comment on above: Performed By: #### B MP #### [address] [id number] Potassium [Moles/Vol] 4.3 mmol/L Normal 3.5 - 5.3 [facility] Comment on above: Performed By: #### B MP #### [address] [id number] Sodium [Moles/Vol] 138 mmol/L Normal 136 - 145 [facility] Comment on above: Performed By: #### B MP #### [address] [id number] Urea nitrogen [Mass/Vol] 22 mg/dL Normal 6 - 23 [facility] Comment on above: Performed By: #### B MP #### [address] [id number] CBCon 03-22-2022 Erythrocyte distribution width (RBC) [Ratio] 12.7 % Normal 11.5 - 14.5 [facility] Comment on above: Performed By: #### C BC #### [address] [id number] Hematocrit (Bld) [Volume fraction] 40.2 % Low 41.0 - 52.0 [facility] Comment on above: Performed By: #### C BC #### [address] [id number] Hemoglobin (Bld) [Mass/Vol] 13.5 g/dL Normal 13.5 - 17.5 [facility] Comment on above: Performed By: #### C BC #### [address] [id number] MCHC (RBC) [Mass/Vol] 33.6 g/dL Normal 32.0 - 36.0 [facility] Comment on above: Performed By: #### C BC #### [address] [id number] MCV (RBC) [Entitic vol] 89 fL Normal 80 - 100 [facility] Comment on above: Performed By: #### C BC #### [address] [id number] Platelets (Bld) [#/Vol] 227 10*3/uL Normal 150 - 450 [facility] Comment on above: Performed By: #### C BC #### [address] [id number] RBC 4.52 x10E12/L Normal 4.50 - 5.90 [facility] Comment on above: Performed By: #### C BC #### [address] [id number] WBC (Bld) [#/Vol] 8.0 10*3/uL Normal 4.4 - 11.3 [facility] Comment on above: Performed By: #### C BC #### [address] [id number] COAGULATION SCREENon 022 aPTT Coag (Bld) [Time] 29 s Normal 26 - 39 [facility] Comment on above: Result Comment: THE APTT IS NO LONGER USED FOR MONITORING UNFRACTIONATED HEPARIN THERAPY. FOR MONITORING HEPARIN THERAPY, USE THE HEPARIN ASSAY. Performed By: #### C OAGS #### [address] [id number] PT Coag (PPP) [Time] 11.5 s Normal 9.8 - 13.4 [facility] Comment on above: Performed By: #### C OAGS #### [address] [id number] PT, INR 1.0 Normal 0.9 - 1.1 [facility] Comment on above: Performed By: #### C OAGS #### [address] [id number] Electrocardiogram 12 Leadon 03-22-2022 Electrocardiogram 12 Lead Ventricular Rate 77 Atrial Rate 153 QRS Duration 94 Q-T Interval 392 QTC Calculation(Bazett) 443 R [place] 62 T [place] 25 QRS Count 12 Q Onset 220 T Offset 416 QTC Fred[place]ia 425 Diagnosis Class Abnormal Diagnosis Atrial fibrillation with a competing junctional pacemaker Abnormal ECG When compared with ECG of 22-MAR-2022 08:27, No significant change was found Confirmed by Heri Dee ([id number]) on 03/25/2022 8:13:26 PM Normal [facility] Electrocardiogram 12 Lead Ventricular Rate 69 Atrial Rate 98 QRS Duration 92 Q-T Interval 378 QTC Calculation(Bazett) 405 R [place] 50 T [place] 48 QRS Count 12 Q Onset 221 T Offset 410 QTC Fredericia 396 Diagnosis Class Abnormal Diagnosis Atrial fibrillation Abnormal ECG No previous ECGs available Confirmed by Heri Dee ([id number]) on 03/28/2022 10:46:39 AM Normal [facility] Order Reconciliationon 03-22 Order Reconciliation Page 1 [...] be shared with your follow-up providers (doctor, civil engineering draftsperson, physical therapist, etc.). Guidelines for a Healthy [...] (PHR). 1.Consolidated-Clin (more content not included)... Normal [facility] Order Reconciliation Page 1 Admission Reconciliation Document Reconciliation Type: Admission requested on behalf of Nacho López (Physician) done by Nacho López) Admission - Reconciliation: 22-Mar-2022 10:45 by: Nacho López) Home MedicationsEnteredLast Dose TakenReconciled with current Order Reconciliation Comment/ Additional Information aspirin 81 mg oral tablet orally once a [id number]-1553 7:00 AM Aspirin TabletDOSE = 325 mg Oral Dailyaspirin 81 mg oral tablet continued as the inpatient order Aspirin atorvastatin 40 mg oral tablet 1 tab(s) orally once a jyp60-Xxg-024622-Mar-2022 7:00 AM Atorvastatin Tablet (LIPITOR)DOSE = 40 mg Oral Daily atorvastatin 40 mg oral tablet continued as the inpatient order Atorvastatin clopidogrel 75 mg oral tablet 1 tab(s) orally once a wab45-Ttk-[id number]-Mar-2022 7:00 AM Clopidogrel Tablet (PLAVIX)DOSE = 75 mg Oral Daily clopidogrel 75 mg oral tablet continued as the inpatient order Clopidogrel losartan 100 mg oral tablet 0.5 tab(s) orally once a sag45-Qfr-[id number]-Mar-2022 7:00 AM Losartan Tablet (COZAAR)DOSE = 50 mg Oral Dailylosartan 100 mg oral tablet continued as the inpatient order Losartan Metoprolol Tartrate 25 mg oral tablet 1 tab(s) orally 2 times a ldp76-Gee-721722-Mar-2022-2022 7:00 AM Metoprolol Tartrate Tablet (LOPRESSOR)DOSE = 25 mg Oral 2 Times a DayMetoprolol Tartrate 25 mg oral tablet continued as the inpatient order Metoprolol Tartrate multi vitamin with minerals 1 tab(s) orally once a qvj66-[id number]-Meo-5302 7:00 AM Reviewed and Held tamsulosin 0.4 mg oral capsule 1 cap(s) orally once a xec54-Dax-047122-Mar-2022 7:00 AM Tamsulosin Capsule (FLOMAX)DOSE = 0.4 mg Oral Daily tamsulosin 0.4 mg oral capsule continued as the inpatient order Tamsulosin Xarelto 20 mg oral tablet 1 tab(s) orally once a day (in the evening) 7:00 AM Reviewed and Held Additional Current Orders Sodium Chloride 0.9% Infusion IV Bag Volume = 1,000 mL Run at: 100 mL/hr IntraVenous Normal [facility] Patient Profile - Preop v3on 03-22-2022 Patient Profile - Preop v3 Patient Profile - Preop: Initial Info: Patient DemographicsName: SAVANNAH HOBBS Date: 1965 Address: [address] [place] [address] Primary Phone [phone] How to be AddressedRick Spoken Language PreferredEnglish Source of Informationpatient Stated Reason for AdmissionI have a blockage that the doctor is going to try to open up. Primary Contact Name and NumberJulie Luz Maria [phone] Limitations on Visitors/Phone Callsnone Medications Brought to Hospitalno General Health: Weight in kg111.8 kilogram(s) Weight in kws493.4 pound(s) Weight Methodactual (measured) Scale Typestanding Height [...] Withspouse Living Arrangementshouse Resource/Environmental Concernsnone Anticipated [facility] Anticipated at Transitionnone Tobacco Use: Tobacco Useno Pre-op Checklist: Arrival [id number] Arrival Time07:39 Procedure TypePCI NPOyes Last Food Dleqzq51-Phc-9019 20:00 Last Clear Fluid Xcklno44-Gfu-5775 20:00 ID Band On Patientpatient ID (name), falls risk Consent Signedpending H&P Completeyes Anesthesia Assessment Completedpending EKG Performedyes Chest X-Ray Performednot ordered Preop Antibioticsnot ordered Beta-deidra Last Dose Date/Lukc02-Sqv-4601 07:00 Type and Screen Resultedn/a Chlorhexadine Bath [...] Last Updated: 22-Mar-2022 08:12 by Esthela Zamora (SARAH) Normal [facility] CHEMISTRYOrdered By: SYSTEM SYSTEM on 02-22-2022 Anion gap [Moles/Vol] 16 mmol/L Normal 6 - 16 mEq/L [facility] Remisol Calcium [Mass/Vol] 9.1 mg/dL Normal 8.9 - 11. 1 mg/dL [facility] Remisol Chloride [Moles/Vol] 104 mmol/L Normal 101 - 1 11 mmol/L [facility] Rem[facility] CO2 [Moles/Vol] 22 mmol/L Normal 21 - 31 mmol/L [facility] Rem[facility] Creatinine [Mass/Vol] 1.1 mg/dL Normal 0.5 - 1.3 mg/dL [facility] Remisol GFR/1.73 sq M.predicted among blacks MDRD (S/P/Bld) [Vol rate/Area] mL/min/1.73 m2 Normal >=59mL/min/ 1.73 m2 [facility] Chem S GFR/1.73 sq M.predicted among non-blacks MDRD (S/P/Bld) [Vol rate/Area] mL/min/1.73 m2 Normal >=59mL/min/ 1.73 m2 [facility] Chem S Glucose [Mass/Vol] 132 mg/dL Normal 55 - 199 mg/dL [facility] Potassium [Moles/Vol] 4.9 mmol/L Normal 3.5 - 5.3 mmol/L [facility] Sodium [Moles/Vol] 137 mmol/L Normal 135 - 145 mmol/L [facility] Urea nitrogen [Mass/Vol] 22 mg/dL High 5 - 21 mg/dL [facility] Rem[facility] Urea nitrogen/Creatinine [Mass ratio] 20 mg/mg Normal 10 - 20 [facility] HEMATOLOGYOrdered By: Valeri Wells on 02-22-2022 Erythrocyte distribution width (RBC) [Ratio] 13.4 % Normal 10.9 - 14.2 % [facility] HemeAutoSS Hematocrit (Bld) [Volume fraction] 42.4 % Normal 37.7 - 49.0 % [facility] HemeAutoSS Hemoglobin (Bld) [Mass/Vol] 14.7 g/dL Normal 13.5 - 17.5 gm/dL [facility] HemeAutoSS MCH (RBC) [Entitic mass] 30.4 pg Normal 27.0 - 34.0 pg [facility] HemeAutoSS MCHC (RBC) [Mass/Vol] 34.7 g/dL Normal 31.4 - 36.0 gm/dL [facility] HemeAutoSS MCV (RBC) [Entitic vol] 87.7 fL Normal 80.0 - 100.0 fL [facility] HemeAutoSS Platelet mean volume (Bld) [Entitic vol] 7.5 fL Normal 6.4 - 10.8 fL [facility] HemeAutoSS Platelets (Bld) [#/Vol] 267.0 E9/L Normal 150.0 - 500.0 E9/L [facility] HemeAutoSS RBC (Bld) [#/Vol] 4.8 E12/L Normal 4.3 - 5.9 E12/L [facility] HemeAutoSS WBC corrected for nucl RBC Auto (Bld) [#/Vol] 7.4 E9/L Normal 4.0 - 11.0 E9/L [facility] HemeAutoSS CNOVon 05-09-2018 CNOV Office Visit (CARDFT) ARIANA HOBBS Jesika James ([id number]) 1965 MDate Time Provider Department05/09/18 11:00 AM JAMARCUS VELÁZQUEZ CARDJOEY During your visit today, we recorded the following information about you: Pulse Blood pressure Weight Height 92/minute 164/90 123.4 kg 1.778 Lorenzo Velázquez MD 05/09/2018 11:26 AM [facility] Department of Cardiovascular MedicineOUTPATIENT VISIT DATE05/09/18OUTPATIENT VISIT TYPEESTABLISHEDPRIMARY CARE PHYSICIAN:Blaise Hardin, DO[address] [facility] [address]Dgfda: [phone]: [phone] COMPLAINT:HypertensionHIS TORY OF PRESENT ILLNESS:Savannah Hobbs is [...] lightheadedness or syncope.PAST MEDICAL HISTORYDiagnosis Date- A-fib ([facility] TERESA/Cardio 09/27/13- CHF (congestive heart failure) ([facility]LY [facility])- Hypertension- Sleep apnea with use of continuous [...] or concerns.Jamarcus Velázquez M.D.[facility] Cardiovascular MedicineHolmes County Joel [facility] Hospitalrt and Vascular Institute[address].[place], [place] [address]Uszwhv: [phone] Referring Provider: BLAISE HARDIN [[id number]]Allergies As of Date: 05/09/2018(No Known Allergies)Date Reviewed: 05/09/2018Reviewed by: Priti Treviño - Fully AssessedReason for Visit: Follow Up [...] (around 05/09/2019).Follow-up and Disposition History RecordedEncounter Number: [id number] Status:Closed by JAMARCUS VELÁZQUEZ MD on 05/09/[address] [facility] PROGRESSon 05-09-2018 Protein mass conc HNO ID: [id number] thor: Jamarcus VelázquezSerjoye: (none)Author Type: PhysicianType: Progress NotesFiled: 05/09/2018 11:26 AMNote Text:[facility] and Vascular InstituteRobmimbres memorial hospital and [facility] Martinezalleghany health Department of Cardiovascular MedicineOUTPATIENT VISIT DATE05/09/18OUTPATIENT VISIT TYPEESTABLISHEDPRIMARY CARE PHYSICIAN:Blaise Hardin, DO280 [facility]ENTERNIKKIRI [facility]ICK[facility]AYL[facility] [address]Ufarl: [phone]: [phone] COMPLAINT:HypertensionHIS TORY OF PRESENT ILLNESS:Savannah Hobbs is [...] lightheadedness or syncope.PAST MEDICAL HISTORYDiagnosis Date- A-fib ([facility]) TERESA/Cardio 09/27/13- CHF (congestive heart failure) ([facility])- Hypertension- Sleep apnea with use of continuous [...] ENTERIC COATED) 81 mg EC tablet Take bycox south once daily.rivaroxaban (XARELTO) 20 mg tablet Take [...] 10 ) Wt 123.4 kg (272 lb) [id number]% BMI 39.03 kg/m?General: Well appearing, in no [...] with further questions or concerns.Jamarcus Velázquez M.D.[facility] of Cardiovascular MedicineHeart and Vascular InstituteSt. Anthony'S Hospital[address].[place], [place] [address]Jkdzcw: [phone] [facility] Vital Signs Date Time Vital Sign Value Performing Clinician Aubree suazo 09-20-2024 14:20-0500 Blood Pressure Location [facility] 09-20-2024 14:20-0500 Diastolic blood pressure 90 mm[Hg] [facility] 09-20-2024 14:20-0500 Heart rate 78 /min [facility] 09-20-2024 14:20-0500 Respiratory rate 18 /min [facility] 09-20-2024 14:20-0500 SaO2% (BldA) [Mass fraction] 96 % [facility] 09-20-2024 14:20-0500 Systolic blood pressure 138 mm[Hg] [facility] 08-30-2024 14:56-0500 Body height 177.8 cm Chantal Spears DPM FACFAS Work Phone: [facility] 08-30-2024 14:56-0500 Body mass index (BMI) [Ratio] 40.46 kg/m2 Chantal Dolce DPM FACFAS Work Phone: [facility] 08-30-2024 14:56-0500 Body weight 127.91 kg Chantal Dolce DPM FACFAS Work Phone: [facility] 08-30-2024 14:56-0500 Diastolic blood pressure 75 mm[Hg] Chantal Dolce DPM FACFAS Work Phone: [facility] 08-30-2024 14:56-0500 Heart rate 72 /min Chantal Dolce DPM FACFAS Work Phone: [facility] 08-30-2024 14:56-0500 Systolic blood pressure 129 mm[Hg] Chantal Dolce DPM FACFAS Work Phone: [facility] 08-29-2024 11:45-0500 Diastolic blood pressure 141 mm[Hg] [facility] 08-29-2024 11:45-0500 Heart rate 87 /min [facility] 08-29-2024 11:45-0500 Mean blood pressure 158 mm[Hg] [facility] 08-29-2024 11:45-0500 Respiratory rate 18 /min [facility] 08-29-2024 11:45-0500 SaO2% (BldA) [Mass fraction] 95 % [facility] 08-29-2024 11:45-0500 Systolic blood pressure 192 mm[Hg] [facility] 08-29-2024 11:30-0500 Diastolic blood pressure 136 mm[Hg] [facility] 08-29-2024 11:30-0500 Heart rate 79 /min [facility] 08-29-2024 11:30-0500 Mean blood pressure 156 mm[Hg] [facility] 08-29-2024 11:30-0500 Respiratory rate 18 /min [facility] 08-29-2024 11:30-0500 SaO2% (BldA) [Mass fraction] 95 % [facility] 08-29-2024 11:30-0500 Systolic blood pressure 197 mm[Hg] [facility] 08-29-2024 10:49-0500 Body temperature 97.52 [degF] [facility] 08-29-2024 10:49-0500 Diastolic blood pressure 116 mm[Hg] [facility] 08-29-2024 10:49-0500 Heart rate 90 /min [facility] 08-29-2024 10:49-0500 Respiratory rate 20 /min [facility] 08-29-2024 10:49-0500 SaO2% (BldA) [Mass fraction] 95 % [facility] 08-29-2024 10:49-0500 Systolic blood pressure 167 mm[Hg] [facility] 08-29-2024 10:26-0500 Body temperature 98.6 [degF] [facility] 08-29-2024 10:26-0500 Heart rate 104 /min [facility] 08-23-2024 15:55-0500 Body height 177.8 cm Chantal Dolce DPM FACFAS Work Phone: [facility] 08-23-2024 15:55-0500 Body mass index (BMI) [Ratio] 40.46 kg/m2 Chantal Dolce DPM FACFAS Work Phone: [facility] 08-23-2024 15:55-0500 Body weight 127.91 kg Chantal Dolce DPM FACFAS Work Phone: [facility] 08-23-2024 15:55-0500 Diastolic blood pressure 77 mm[Hg] Chantal Dolce DPM FACFAS Work Phone: [facility] 08-23-2024 15:55-0500 Heart rate 73 /min Chantal Dolce DPM FACFAS Work Phone: [facility] 08-23-2024 15:55-0500 Systolic blood pressure 129 mm[Hg] Chantal Dolce DPM FACFAS Work Phone: [facility] 08-20-2024 10:21-0500 Blood Pressure Location Katalina Mcclain [facility] 08-20-2024 10:21-0500 Body temperature 97.34 [degF] Katalina Mcclain [facility] 08-20-2024 10:21-0500 Diastolic blood pressure 86 mm[Hg] Katalina Mcclain [facility] 08-20-2024 10:21-0500 Heart rate 73 /min Katalina Mcclain [facility] 08-20-2024 10:21-0500 SaO2% (BldA) [Mass fraction] 98 % Katalina Mcclain [facility] 08-20-2024 10:21-0500 Systolic blood pressure 134 mm[Hg] Katalina Mcclain [facility] 08-16-2024 16:29-0500 Body height 177.8 cm Chantal Dolce DPM FACFAS Work Phone: [facility] 08-16-2024 16:29-0500 Body mass index (BMI) [Ratio] 40.46 kg/m2 Chantal Dolce DPM FACFAS Work Phone: [facility] 08-16-2024 16:29-0500 Body weight 127.91 kg Chantal Dolce DPM FACFAS Work Phone: [facility] 08-16-2024 16:29-0500 Diastolic blood pressure 79 mm[Hg] Chantal Dolce DPM FACFAS Work Phone: [facility] 08-16-2024 16:29-0500 Heart rate 70 /min Chantal Dolce DPM FACFAS Work Phone: [facility] 08-16-2024 16:29-0500 Systolic blood pressure 128 mm[Hg] Chantal Dolce DPM FACFAS Work Phone: [facility] 08-02-2024 16:16-0500 Body height 177.8 cm Chantal Dolce DPM FACFAS Work Phone: [facility] 08-02-2024 16:16-0500 Body mass index (BMI) [Ratio] 40.46 kg/m2 Chantal Dolce DPM FACFAS Work Phone: [facility] 08-02-2024 16:16-0500 Body weight 127.91 kg Chantal Dolce DPM FACFAS Work Phone: [facility] 08-02-2024 16:16-0500 Diastolic blood pressure 75 mm[Hg] Chantal Dolce DPM FACFAS Work Phone: [facility] 08-02-2024 16:16-0500 Heart rate 73 /min Chantal Dolce DPM FACFAS Work Phone: [facility] 08-02-2024 16:16-0500 Systolic blood pressure 129 mm[Hg] Chantal Dolce DPM FACFAS Work Phone: [facility] 07-26-2024 14:00-0500 Body height 177.8 cm Chantal Dolce DPM FACFAS Work Phone: [facility] 07-26-2024 14:00-0500 Body mass index (BMI) [Ratio] 40.46 kg/m2 Chantal Dolce DPM FACFAS Work Phone: [facility] 07-26-2024 14:00-0500 Body weight 127.91 kg Chantal Dolce DPM FACFAS Work Phone: [facility] 07-26-2024 14:00-0500 Diastolic blood pressure 77 mm[Hg] Chantal Dolce DPM FACFAS Work Phone: [facility] 07-26-2024 14:00-0500 Heart rate 70 /min Chantal Dolce DPM FACFAS Work Phone: [facility] 07-26-2024 14:00-0500 Systolic blood pressure 128 mm[Hg] Chantal Dolce DPM FACFAS Work Phone: [facility] 07-12-2024 14:51-0400 Body height 177.8 cm Chantal Dolce DPM FACFAS Work Phone: [facility] 07-12-2024 14:51-0400 Body mass index (BMI) [Ratio] 40.32 kg/m2 Chantal Dolce DPM FACFAS Work Phone: [facility] 07-12-2024 14:51-0400 Body weight 127.46 kg Chantal Dolce DPM FACFAS Work Phone: [facility] 07-12-2024 14:51-0400 Diastolic blood pressure 78 mm[Hg] Chantal Dolce DPM FACFAS Work Phone: [facility] 07-12-2024 14:51-0400 Heart rate 74 /min Chantal Dolce DPM FACFAS Work Phone: [facility] 07-12-2024 14:51-0400 Systolic blood pressure 131 mm[Hg] Chantal Dolce DPM FACFAS Work Phone: [facility] 07-05-2024 14:06-0400 Body height 177.8 cm Chantal Dolce DPM FACFAS Work Phone: [facility] 07-05-2024 14:06-0400 Body mass index (BMI) [Ratio] 40.18 kg/m2 Chantal Dolce DPM FACFAS Work Phone: [facility] 07-05-2024 14:06-0400 Body weight 127.01 kg Chantal Dolce DPM FACFAS Work Phone: [facility] 07-05-2024 14:06-0400 Diastolic blood pressure 75 mm[Hg] Chantal Dolce DPM FACFAS Work Phone: [facility] 07-05-2024 14:06-0400 Heart rate 74 /min Chantal Dolce DPM FACFAS Work Phone: [facility] 07-05-2024 14:06-0400 Systolic blood pressure 130 mm[Hg] Chantal Dolce DPM FACFAS Work Phone: [facility] 06-28-2024 14:17-0400 Body height 177.8 cm Chantal Dolce DPM FACFAS Work Phone: [facility] 06-28-2024 14:17-0400 Body mass index (BMI) [Ratio] 40.18 kg/m2 Chantal Dolce DPM FACFAS Work Phone: [facility] 06-28-2024 14:17-0400 Body weight 127.01 kg Chantal Dolce DPM FACFAS Work Phone: [facility] 06-28-2024 14:17-0400 Diastolic blood pressure 77 mm[Hg] Chantal Dolce DPM FACFAS Work Phone: [facility] 06-28-2024 14:17-0400 Heart rate 80 /min Chantal Dolce DPM FACFAS Work Phone: [facility] 06-28-2024 14:17-0400 Systolic blood pressure 132 mm[Hg] Chantal Dolce DPM FACFAS Work Phone: [facility] 06-12-2024 14:39-0400 Body height 177.8 cm Chantal Dolce DPM FACFAS Work Phone: [facility] 06-12-2024 14:39-0400 Body mass index (BMI) [Ratio] 40.18 kg/m2 Chantal Dolce DPM FACFAS Work Phone: [facility] 06-12-2024 14:39-0400 Body weight 127.01 kg Chantal Dolce DPM FACFAS Work Phone: [facility] 06-12-2024 14:39-0400 Diastolic blood pressure 78 mm[Hg] Chantal Dolce DPM FACFAS Work Phone: [facility] 06-12-2024 14:39-0400 Heart rate 86 /min Chantal Dolce DPM FACFAS Work Phone: [facility] 06-12-2024 14:39-0400 Systolic blood pressure 130 mm[Hg] Chantal Dolce DPM FACFAS Work Phone: [facility] 05-26-2024 11:08-0400 Blood Pressure Location Priti Bordner [facility] 05-26-2024 11:08-0400 Body temperature 98.6 [degF] Pirti Bener [facility] 05-26-2024 11:08-0400 Diastolic blood pressure 88 mm[Hg] Priti Jacksondner [facility] 05-26-2024 11:08-0400 Heart rate 88 /min Priti Jacksondner [facility] 05-26-2024 11:08-0400 SaO2% (BldA) [Mass fraction] 99 % Priti Jacksondner [facility] 05-26-2024 11:08-0400 Systolic blood pressure 130 mm[Hg] Priti Jacksondner [facility] 03-19-2024 15:26-0400 Diastolic blood pressure 88 mm[Hg] Derrick Dougherty [facility] 03-19-2024 15:26-0400 Heart rate 94 /min Derrick Dougherty [facility] 03-19-2024 15:26-0400 Respiratory rate 16 /min Derrick Dougherty [facility] 03-19-2024 15:26-0400 SaO2% (BldA) [Mass fraction] 95 % Derrick Dougherty [facility] 03-19-2024 15:26-0400 Systolic blood pressure 142 mm[Hg] Derrick Dougherty [facility] 11-17-2023 07:57-0500 Blood Pressure Location Nacho López [facility] 11-17-2023 07:57-0500 Diastolic blood pressure 86 mm[Hg] Nacho Rene [facility] 11-17-2023 07:57-0500 Heart rate 128 /min Nacho Tristanreyes [facility] 11-17-2023 07:57-0500 SaO2% (BldA) [Mass fraction] 93 % Nacho Rene [facility] 11-17-2023 07:57-0500 Systolic blood pressure 134 mm[Hg] Nacho López [facility] 11-03-2023 10:26-0500 Blood Pressure Location [facility] 11-03-2023 10:26-0500 Body temperature 98.06 [degF] [facility] 11-03-2023 10:26-0500 Diastolic blood pressure 88 mm[Hg] [facility] 11-03-2023 10:26-0500 Heart rate 108 /min [facility] 11-03-2023 10:26-0500 SaO2% (BldA) [Mass fraction] 96 % [facility] 11-03-2023 10:26-0500 Systolic blood pressure 138 mm[Hg] [facility] 10-21-2023 16:26-0500 Diastolic blood pressure 78 mm[Hg] Diego Pereze [facility] 10-21-2023 16:26-0500 Heart rate 96 /min Diego Nora [facility] 10-21-2023 16:26-0500 Mean blood pressure 87 mm[Hg] Diego Nora [facility] 10-21-2023 16:26-0500 Respiratory rate 20 /min Diego Nora [facility] 10-21-2023 16:26-0500 SaO2% (BldA) [Mass fraction] 96 % Diego Nora [facility] 10-21-2023 16:26-0500 Systolic blood pressure 105 mm[Hg] Diego Nora [facility] 10-21-2023 15:37-0500 Diastolic blood pressure 61 mm[Hg] Diego Noar [facility] 10-21-2023 15:37-0500 Heart rate 91 /min Diego Nora [facility] 10-21-2023 15:37-0500 Mean blood pressure 77 mm[Hg] Diego Nora [facility] 10-21-2023 15:37-0500 Respiratory rate 20 /min Diego Nora [facility] 10-21-2023 15:37-0500 SaO2% (BldA) [Mass fraction] 95 % Diego Nora [facility] 10-21-2023 15:37-0500 Systolic blood pressure 109 mm[Hg] Diego Nora [facility] 10-21-2023 14:47-0500 Diastolic blood pressure 100 mm[Hg] Diego Melendez [facility] 10-21-2023 14:47-0500 Heart rate 111 /min Diego Melendez [facility] 10-21-2023 14:47-0500 Mean blood pressure 116 mm[Hg] Diego Melendez [facility] 10-21-2023 14:47-0500 Respiratory rate 22 /min Diego Melendez [facility] 10-21-2023 14:47-0500 SaO2% (BldA) [Mass fraction] 95 % Diego Melendez [facility] 10-21-2023 14:47-0500 Systolic blood pressure 148 mm[Hg] Diego Melendez [facility] 10-21-2023 14:20-0500 Heart rate 120 /min Blaise HRADIN [facility] 10-21-2023 14:00-0500 Body temperature 98.06 [degF] Diego Melendez [facility] 10-21-2023 14:00-0500 Heart rate 137 /min Diego Melendez [facility] 10-21-2023 14:00-0500 Respiratory rate 18 /min Diego Melendez [facility] 10-21-2023 13:10-0500 Blood Pressure Location Blaise KAPLE [facility] 10-21-2023 13:10-0500 Body temperature 98.24 [degF] Blaise KAPLE [facility] 10-21-2023 13:10-0500 Diastolic blood pressure 86 mm[Hg] Blaise KAPLE [facility] 10-21-2023 13:10-0500 Heart rate 60 /min Blaise PICKETTLE [facility] 10-21-2023 13:10-0500 SaO2% (BldA) [Mass fraction] 97 % Blaise KAPLE [facility] 10-21-2023 13:10-0500 Systolic blood pressure 136 mm[Hg] Blaise KAPLE [facility] 06-29-2022 14:11-0400 Blood Pressure Location Nahco Christofferson [facility] 06-29-2022 14:11-0400 Diastolic blood pressure 80 mm[Hg] Nacho Christofferson [facility] 06-29-2022 14:11-0400 Heart rate 85 /min Nacho Christofferson [facility] 06-29-2022 14:11-0400 Respiratory rate 18 /min Nacho Christofferson [facility] 06-29-2022 14:11-0400 SaO2% (BldA) [Mass fraction] 100 % Nacho Christofferson [facility] 06-29-2022 14:11-0400 Systolic blood pressure 128 mm[Hg] Nacho Christofferson [facility] 03-29-2022 11:40-0400 Blood Pressure Location Nacho Christofferson [facility] 03-29-2022 11:40-0400 Diastolic blood pressure 81 mm[Hg] Nacho Christofferson [facility] 03-29-2022 11:40-0400 Heart rate 77 /min Nacho Christofferson [facility] 03-29-2022 11:40-0400 Respiratory rate 18 /min Nacho Christofferson [facility] 03-29-2022 11:40-0400 SaO2% (BldA) [Mass fraction] 100 % Nacho Christofferson [facility] 03-29-2022 11:40-0400 Systolic blood pressure 125 mm[Hg] Nacho Christofferson [facility] 02-22-2022 06:43-0400 Blood Pressure Location Nacho Christofferson [facility] 02-22-2022 06:43-0400 Body temperature 97.7 [degF] Nacho Christofferson [facility] 02-22-2022 06:43-0400 Diastolic blood pressure 90 mm[Hg] Nacho Christofferson [facility] 02-22-2022 06:43-0400 Heart rate 77 /min Nacho Christofferson [facility] 02-22-2022 06:43-0400 Respiratory rate 18 /min Nacho Christofferson [facility] 02-22-2022 06:43-0400 SaO2% (BldA) [Mass fraction] 98 % Nacho Christofferson [facility] 02-22-2022 06:43-0400 Systolic blood pressure 141 mm[Hg] Nacho Christofferson [facility] 01-11-2022 12:26-0400 Blood Pressure Location Blaise KAPLE [facility] 01-11-2022 12:26-0400 Body temperature 97.88 [degF] Blaise KAPLE [facility] 01-11-2022 12:26-0400 Diastolic blood pressure 72 mm[Hg] Blaise KAPLE [facility] 01-11-2022 12:26-0400 Heart rate 82 /min Blaise HARDIN [facility] 01-11-2022 12:26-0400 Respiratory rate 16 /min Blaise HARDIN [facility] 01-11-2022 12:26-0400 SaO2% (BldA) [Mass fraction] 98 % Blaise HARDIN [facility] 01-11-2022 12:26-0400 Systolic blood pressure 124 mm[Hg] Blaise HARDIN [facility] Encounters Encounter Date Encounter Type Care Provider Facility Start: 09-20-2024 End: 09-20-2024 Patient encounter procedure Derrick Dougherty [facility] Start: 09-03-2024 ambulatory [facility] Facility:[facility] Start: 08-30-2024 End: 08-30-2024 ambulatory CHANTAL R DOLCE Not Available Start: 08-30-2024 End: 08-30-2024 Patient encounter procedure Chantal R Dolce DPM [...] POD Start: 08-29-2024 Emergency department patient visit Carol Love Facility:[facility] Start: 08-29-2024 End: 08-29-2024 [facility] Start: 08-23-2024 End: 08-23-2024 Office outpatient visit 15 minutes Chantal R Dolce DPM FACFAS Work Phone: [facility] Comment on above: Venous insufficiency (Primary Dx); Non-pressure chronic ulcer of other part of left lower leg with fat layer exposed ([facility]/HCC) Start: 08-23-2024 End: 08-23-2024 ambulatory CHANTAL R DOLCE Not Available Start: 08-23-2024 End: 08-23-2024 Bamboo flowsheet Chantal R Dolce DPM FACFAS Work Phone: [facility] Start: 08-23-2024 End: 08-23-2024 Bamboo flowsheet Chantal R Dolce DPM FACFAS Work Phone: [facility] Start: 08-20-2024 End: 08-20-2024 ambulatory Yari Lala Facility:[facility] Start: 08-20-2024 End: 08-20-2024 Patient encounter procedure Yari Lala [facility] Start: 08-20-2024 End: 08-20-2024 ambulatory Katalina Mcclain Facility:[facility] Start: 08-20-2024 End: 08-20-2024 Patient encounter procedure Katalina Mcclain [facility] Start: 08-16-2024 End: 08-16-2024 Office outpatient visit 15 minutes Chantal R Dolce DPM FACFAS Work Phone: [facility] Comment on above: Venous insufficiency (Primary Dx); 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); Cellulitis of right leg Start: 08-16-2024 End: 08-16-2024 ambulatory HCANTAL R DOLCE Not Available Start: 08-16-2024 End: [...] 06-29-2024 End: 06-29-2024 ambulatory Chantal R Dolce Facility[facility] Start: 06-29-2024 End: 06-29-2024 Lab Drop off Chantal R Dolce [facility] Start: 06-29-2024 End: 07-02-2024 Clinisync Result [...] 05-26-2024 End: 05-26-2024 Lab Drop off Priti Augustin Benmelissa [facility] Start: 05-26-2024 End: 05-26-2024 ambulatory Priti Augustin Benmelissa Facility:[facility] Start: 05-26-2024 End: 05-26-2024 Patient encounter procedure Priti Augustin Nick [facility] Start: 04-03-2024 End: 04-03-2024 ambulatory CHANTAL R DOLCE Not Available Start: 03-19-2024 End: 03-19-2024 ambulatory NGOZI Dougherty Facility:[facility] Start: 03-19-2024 End: 03-19-2024 Patient encounter procedure Derrick Dougherty [facility] Start: 01-19-2024 End: 01-19-2024 ambulatory CHANTAL R DOLCE Not Available Start: 01-03-2024 End: 01-03-2024 ambulatory CHANTAL R DOLCE Not Available Start: 11-17-2023 End: 11-17-2023 ambulatory XXXX NONE Facility:[facility] Start: 11-17-2023 End: 11-17-2023 Patient encounter procedure Nacho López [facility] Start: 11-10-2023 End: 11-10-2023 ambulatory CHANTAL R DOLCE Not Available Start: 11-03-2023 End: 11-03-2023 ambulatory Maury Garcia Facility: [facility] Start: 11-03-2023 End: 11-03-2023 Patient encounter procedure Maury Garcia [facility] Start: 10-21-2023 End: 10-21-2023 Emergency department patient visit Diego Melendez [facility] Start: 10-21-2023 End: 10-21-2023 ambulatory Blaise HARDIN Facility:[facility] Start: 10-21-2023 End: 10-21-2023 Patient encounter procedure Blaise HARDIN [facility] Start: 06-29-2022 End: 06-29-2022 Patient encounter procedure Nacho López [facility] Start: 03-29-2022 End: 03-29-2022 Patient encounter procedure Nacho López [facility] Start: 02-22-2022 End: 02-22-2022 Patient encounter procedure Nacho López [facility] Start: 01-11-2022 End: 01-11-2022 Patient encounter procedure Blaise HARDIN [facility] Start: 05-09-2018 End: 05-25-2018 Patient encounter JAMARCUS VELÁZQUEZ [facility] Procedures Date Procedure Procedure Detail Performing Clinician Start: 06-29-2024 [facility] Chantal R D olsarah DPM FACFAS Work Phone: Start: 10-21-2023 History [...] EST Procedure Visit [facility] [address] [place] [address] Dolce, Chantal R, DPM FACFAS [address] [place] [address] [facility] Start: 08-30-2024 End: 08-30-2024 Patient encounter procedure 08/30/2024 2:40 PM EST Procedure Visit [facility] [address] [place] [phone] Dolce, Chantal R, DPM FACFAS [address] [place] [address] [facility] Start: 08-28-2024 End: 08-28-2024 Patient encounter procedure 08/28/2024 2:20 PM EST Procedure Visit [facility] [address] [place] [phone] Dolce, Chantal R, DPM FACFAS [address] [place] [address] [facility] Start: 08-23-2024 End: 08-23-2024 Patient encounter procedure [facility] Comment on above: Arrived Start: 08-16-2024 End: 08-16-2024 Patient encounter procedure [facility] Comment on above: Arrived Start: 08-02-2024 End: 08-02-2024 Patient encounter procedure 08/02/2024 3:50 PM EST Office Visit [facility] [address] [place] [phone] Dolce, Chantal R, DPM FACFAS [address] [place] [address] Arrived [facility] Comment on above: Arrived Start: 07-26-2024 End: 07-26-2024 Patient encounter procedure 07/26/2024 1:50 PM EST Office Visit [facility] [address] [place] [address] Chantal Spears, DPM FACFAS [address] [place] [address] [facility] Start: 07-12-2024 End: 07-12-2024 Patient encounter procedure [facility] Comment on above: Arrived Start: 07-05-2024 End: 07-05-2024 Patient encounter procedure [facility] Comment on above: Arrived Start: 06-28-2024 End: 06-28-2024 Patient encounter procedure 06/28/2024 2:00 PM EDT Office Visit [facility] [address] [place] [phone] Chantal Spears, DPM FACFAS [address] [place] [address] Arrived [facility] Comment on above: Arrived Start: 05-13-2024 Influenza vaccination Influenza Vacc ine (#1) [facility] Start: 1965 Screening for malign ant neoplasm of colon [facility] Bacteria identified in Wound by Culture Wound culture Microbiology Routine Cellulitis of left lower leg 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) Ordered: 06/28/2024 [facility] Work Phone: Comment on above: Ordered: 06/28/2024 Immunizations Immunization Date Immunization Notes Care Provider Fa cili 08-02-2024 influenza virus vaccine, unspecified formulation Chantal Spears DPM FACFAS Work Phone: [facility] 05-26-2024 tetanus and diphther ia toxoids, adsorbed, preservative free, for adult use (5 Lf of tetanus toxoid and 2 Lf of diphtheria toxoid); Translations: [Teniva (Td)] Priti Romero [facility] 08-24-2023 influenza virus vaccine, unspecified formulation Blaise HARDIN [facility] 08-26-2022 influenza virus vaccine, unspecified formulation Blaise HARDIN [facility] 08-15-2021 influenza virus vaccine, unspecified formulation Blaise HARDIN [facility] 08-15-2021 SARS-CoV-2 (COVID-19 ) mRNA-1273 vaccine Blaise HARDIN [facility] 12-26-2020 COVID-19, mRNA, LNP- S, PF, 30 mcg/0.3 mL dose; Translations: [Pfizer-BioNTech COVID-19 Vaccine] Blaise HARDIN [facility] Comment on above: Reason for Medicatio n: Prophylaxis 12-05-2020 COVID-19, mRNA, LNP- S, PF, 30 mcg/0.3 mL dose; Translations: [Pfizer-BioNTech COVID-19 Vaccine] Blaise HARDIN [facility] Comment on above: Reason for Medicatio n: Prophylaxis 06-08-2020 influenza virus vaccine, unspecified formulation Blaise HARDIN [facility] 10-16-2019 influenza virus vaccine, unspecified formulation Blaise HARDIN [facility] 10-15-2019 influenza virus vaccine, live, attenuated, for intranasal use Blaise HARDIN [facility] 11-28-2017 hepatitis B vaccine, adult dosage Blaise PICKETTLE [facility] 06-29-2017 hepatitis B vaccine, adult dosage Blaise PICKETTLE [facility] 06-29-2017 influenza virus vaccine, unspecified formulation Blaise PICKETTLE [facility] 05-25-2017 hepatitis B vaccine, adult dosage Blaise PICKETTLE [facility] 09-28-2013 pneumococcal polysaccharide vaccine, 23 valent Blaise HARDIN [facility] 09-28-2013 influenza, seasonal, injectable Blaise HARDIN [facility] NEGATED: Highlighted row has not occurred!09-21-2019 influenza virus vaccine, live, attenuated, for intranasal use Blaise HARDIN [facility] Payers Date Payer Category Payer Worker's Compensation [id number] Worker's Compensation [id number] [facility] er [id number] 2021 Unknown BCBS BCBS [id number] 2021-Present [phone] [address] [place] [address] [id number] 2021 Unknown [id number] 1965 Unknown [id number] 2.16.840.1.048905.3.579.2 .727 1963 Unknown [id number] 2.16.840.1.154912.3.579.2 .727 1963 Unknown [id number] 2.16.840.1.222212.3.579.2 .727 1963 Unknown [id number] 2.16.840.1.026205.3.579.2 .727 1963 Unknown [id number] 2.16.840.1.877112.3.579.2 .727 1963 Unknown [id number] 2.16.840.1.294469.3.579.2 .727 1963 Unknown [id number] 2.16.840.1.554908.3.579.2 .727 1963 Unknown [id number] 2.16.840.1.717083.3.579.2 .727 1963 Unknown [id number] 2.16.840.1.323132.3.579.2 .1259 1963 Unknown [id number] 2.16.840.1.011574.3.579.2 .1259 1963 Unknown [id number] 2.16.840.1.000058.3.579.2 .1259 1963 Unknown [id number] 2.16.840.1.788563.3.579.2 .1259 1963 Unknown [id number] 2.16.840.1.979382.3.579.2 .9 1963 Unknown [id number] 2.16.840.1.808441.3.579.2 .1259 1963 Unknown [id number] 2.16.840.1.664541.3.579.2 .1258 1963 Unknown [id number] 2.16.840.1.958905.3.579.2 .9 1963 Unknown [id number] 2.16.840.1.276468.3.579.2 .1258 1963 Unknown [id number] 2.16.840.1.574785.3.579.2 .9 1963 Unknown [id number] 2.16.840.1.045982.3.579.2 .1258 1963 Unknown [id number] 2.16.840.1.403898.3.579.2 .9 1963 Unknown [id number] 2.16.840.1.488578.3.579.2 .1258 1963 Unknown [id number] 2.16.840.1.501885.3.579.2 .727 1963 Unknown [id number] 2.16.840.1.167978.3.579.2 .727 1963 Unknown [id number] 2.16.840.1.525086.3.579.2 .727 1963 Unknown [id number] 2.16.840.1.607429.3.579.2 .727 1963 Unknown [id number] 2.16.840.1.449151.3.579.2 .727 Social History Date Type Detail Facility Start: 03-30-2021 End: 09-20-2024 Tobacco smoking status Ex-smoker (finding) Pradeep [facility] Start: 04-03-2024 End: 08-23-2024 Sex Assigned At Male Pradeep [facility] Start: 11-10-2023 Tobacco smoking stat us NHIS Never smoked tobacco [facility] Start: 11-10-2023 [...] 3.5x18 Functional Status Date Assessment Result Facility 09-20-2024 Functional Status N/A [facility] 08-29-2024 Functional Status N/A [facility] 08-20-2024 Functional Status N/A [facility] 05-26-2024 Functional Status N/A [facility] 03-19-2024 Functional Status N/A [facility] 11-17-2023 Functional Status No [facility] 11-03-2023 Functional Status N/A [facility] 10-21-2023 Functional Status N/A [facility] 06-29-2022 Functional Status N/A [facility] 03-29-2022 Functional Status N/A [facility] 02-22-2022 Functional Status No [facility] Clinical Notes 01-19-2020 to 08-30-2024 Chantal Spears DPM FACFAS - 08/30/2024 2:40 PM EST [...] History: Past Medical History: Diagnosis Date Hypertension ([facility]) Medications: Current Outpatient Medications: atorvastatin (Lipitor) 40 [...] MORNING ..DO NOT STOP UNLESS CLEARED BY TAB BUILDER, Disp: , Rfl: Review of systems: Constitutional: [...] subungual debris. They were painful to palpation [id number] on the right [id number] on the left. VASC: DP /PT were nonpalpable bilateral. Capillary refill time < 3 seconds Digits 1-5 bilateral NEURO: [place] Matthew 5.07 monofilament was intact B/L. Vibratory [...] 10. TANK Cuevas documented in this encounter [facility] 08-29-2024 Note ED Patient Education Note Dermatology Sutures, [place], or Adhesive Wound Closure Wound closure refers [...] skin reaction that can lead to infection. Marion To close a wound with neli, the edges of your skin on both sides of the wound will be brought close together. A staple will then be placed across the wound, and an instrument will secure the staple edges together. Neli are often used to close surgical incisions. They are faster to use than sutures, and they cause less skin reaction. Neli need to be removed using a tool that bends the neli away from your skin. Follow these instructions at home: Medicines ??? Take kmfj-wwv-askarim and prescription medicines only as told by [...] and water are not available, use hand bus analyst. ??? Do not try to remove your [...] coming from y (more content not included)... [facility] 08-29-2024 Hospital Discharge instructions Patient Education 08/29/2024 12:21:53 Sutures, Marion, or Adhesive Wound Closure Sutures, Marion, or Adhesive Wound Closure Wound closure refers [...] skin reaction that can lead to infection. Marion To close a wound with neli, the edges of your skin on both sides of the wound will be brought close together. A staple will then be placed across the wound, and an instrument will secure the staple edges together. Neli are often used to close surgical incisions. They are faster to use than sutures, and they cause less skin reaction. Neli need to be removed using a tool that bends the neli away from your skin. Follow these instructions at home: Medicines Take ccat-qha-vqwpffk and prescription medicines only as told by [...] and water are not available, use hand bus analyst. Do not try to remove your wound [...] provider. Document Revised: 01/04/2022 Document Reviewed: 01/04/2022 [employer]ely Patient Education 2023 [employer]. 08/29/2024 12:21:53 Laceration Care, Adult Laceration Care, [...] and water are not available, use hand bus analyst. Do not usedisinfectants or antiseptics, such as [...] Follow these instructions at home: Medicines Take ocoz-eof-pqlcjmk and prescription medicines only as told by [...] provider. Document Revised: 11/05/2021 Document Reviewed: 11/05/2021 Britely Patient Education 2023 [employer]. Follow Up Care 08/29/2024 10:22:44 With:Occupational Health: [facility] [phone] Address:Unknown When:09/01/2024 11:33:45 Comments:Call Dr for diagnosis based follow up With:Blaise HARDIN Address: [address], [place] [address] Business (1) When:09/01/2024 11:33:39 Comments:Marion to removed in 10 days. You may shower with this. Do not submerge your head underwater. [facility] 08-29-2024 Evaluation + Plan note Extrac [...] Location:FT.Cardiology Clinic Appointment Type:Cardiology Follow Up (FT) [facility] [id number] History of Present illness Narrative* Chantal Spears DPM FACFAS - 08/23/2024 3:40 PM EST [...] MORNING ..DO NOT STOP UNLESS CLEARED BY TAB BUILDER, Disp: , Rfl: ROS: General: denies fever, [...] daily used to elevate and rest daily. TANK Cuevas documented in this encounterWashington University Medical CenterSnvrfpiydf31-12-4612 Hospital Discharge instructions Patient Education 08/20/2024 11:31:06 [...] follow-up visits. This is important. Medicines Take zmwq-ucl-ehyztdk and prescription medicines only as told by [...] provider. Document Revised: 07/06/2022 Document Reviewed: 07/06/2022 [employer]ely Patient Education 2023 [employer]. 08/20/2024 11:31:02 Joint Pain Joint Pain Joint [...] by mouth or applied to theskin. Take rmwd-hjv-gnkzgnh and prescription medicines only as told by [...] the cause of your joint pain. Take vvis-bfe-jtqbvfg and prescription medicines only as told by your health care provider. This information is not intended to replace advice given to you by your health care provider. Make sure you discuss any questions you have with your health care provider. Document Revised: 12/09/2020 Document Reviewed: 12/10/2020 Britely Patient Education 2023 [employer]. 08/20/2024 11:30:57 Nosebleed, Adult Nosebleed, Adult A [...] was caused by dry mucous membranes, use lkyp-pjp-wsbrmgb saline nasal spray or gel and a [...] provider. Document Revised: 06/26/2020 Document Reviewed: 06/26/2020 Britely Patient Education 2021 [employer]. 08/20/2024 11:30:47 Bleeding Precautions When on Anticoagulant [...] health care provider. Taking other medicines Take cfhe-vdr-kofbvlu and prescription medicines only as told by [...] should take while on anticoagulant therapy. Take ldmp-qyo-xutygxq and prescription medicines only as told by your health care provider. This information is not intended to replace advice given to you by your health care provider. Make sure you discuss any questions you have with your health care provider. Document Revised: 10/26/2021 Document Reviewed: 10/26/2021 Britely Patient Education 2023 [employer]. 08/20/2024 11:30:46 Atrial Fibrillation, Ssnu-je-Imvj Atrial Fibrillation Atrial fibrillation (AFib) is a [...] Follow these instructions at home: Medicines Take onqq-wnd-cedtdhr and prescription medicines only as told by [...] provider. Document Revised: 05/18/2023 Document Reviewed: 05/18/2023 Britely Patient Education 2023 [employer]. Follow Up Care 08/20/2024 09:19:27 With:DIANE LAWS FAAFP, MYA Ruiz, PED Address: [address], [place] [address]- When: Unknown [facility] 12-09-2024 NotePatient Education Cardiovascular Hypertension, [...] one 12 oz bottle (more content not included)...[facility]12-05-2024 History of Present illness Narrative* Chantal Spears DPM FACFAS - 08/16/2024 4:20 PM EST [...] History: Past Medical History: Diagnosis Date Hypertension ([facility] Medications: Current Outpatient Medications: atorvastatin (Lipitor) 40 [...] MORNING ..DO NOT STOP UNLESS CLEARED BY TAB BUILDER, Disp: , Rfl: ROS: General: denies fever, [...] as directed TANK Cuevas documented in this encounterWashington University Medical CenterWgvxnyqwlv48-05-2951 History of Present illness Narrative* TANK Cuevas [...] MORNING ..DO NOT STOP UNLESS CLEARED BY TAB BUILDER, Disp: , Rfl: ROS: General: denies fever, [...] leg with fat layer exposed (CMS/HCC) PLAN Pt has an appointment with Dr. [...] require anesthesia TANK Cuevas documented in this encounterWashington University Medical CenterWyvsjflxbz01-82-7731 History of Present illness Narrative* TANK Cuevas [...] History: Past Medical History: Diagnosis Date Hypertension ([facility]) Medications: Current Outpatient Medications: atorvastatin (Lipitor) 40 [...] MORNING ..DO NOT STOP UNLESS CLEARED BY TAB BUILDER, Disp: , Rfl: ROS: General: denies fever, [...] as directed TANK Cuevas documented in this encounterWashington University Medical CenterYwztrouuqe55-19-0520 History of Present illness Narrative* TANK Cuevas [...] MORNING ..DO NOT STOP UNLESS CLEARED BY TAB BUILDER, Disp: , Rfl: ROS: General: denies fever, [...] 2 weeks TANK Cuevas documented in this encounterWashington University Medical CenterPpasyxnvye27-08-1697 History of Present illness Narrative* TANK Cuevas - 07/05/2024 1:50 PM EDT Patient: Savannah Hobbs : 1965 PCP: Blaise Hardin MD SUBJECTIVE This is a 59 y.o. male that presents today for follow up of wounds bilateral legs with Unna boots. 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 He denies nausea vomiting fever chills. He has been trying to elevate as much as possible but he continues to work. Allergies: No Known Allergies Past Medical History: Past Medical History: Diagnosis Date Hypertension ([facility]) Medications: Current Outpatient Medications: atorvastatin (Lipitor) 40 [...] MORNING ..DO NOT STOP UNLESS CLEARED BY TAB BUILDER, Disp: , Rfl: ROS: General: denies fever, [...] elevate daily. TANK Cuevas documented in this encounterWashington University Medical CenterUoumlodjdp27-48-9808 NoteMicrobiology PROCEDURE: Wound Culture [R1] SOURCE: Cellulitis BODY SITE: Leg COLLECTED DATE/TIME: 06/29/2024 14:30 EDT RECEIVED DATE/TIME: 06/29/2024 16:50 EDT START DATE/TIME: 06/29/2024 16:50 EDT FREE TEXT SOURCE: left lower leg Chantal Spears DPM Tory DPM, Chantal R FINAL REPORTS Final [...] Locations R1: This test was performed at: [facility], [address] [place] [address], [id number]- , , IprucgVan Wert County HospitalComment on above:Performed By: #### [id number] ####[facility] [address] [place], [place] [id number] History of Present illness Narrative* Chantal Spears DPM FACFAS - 06/28/2024 2:00 PM EDT [...] History: Past Medical History: Diagnosis Date Hypertension ([facility]) Medications: Current Outpatient Medications: atorvastatin (Lipitor) 40 [...] MORNING ..DO NOT STOP UNLESS CLEARED BY TAB BUILDER, Disp: , Rfl: Social History: Social History [...] insufficiency noted nonpitting edema b/l legs Neuro: [place]-Matthew 5.07 monofilament intact Vibratory sensation intact Musculoskeletal: [...] 1 week TANK Cuevas documented in this encounterWashington University Medical CenterBropyixide89-93-9674 History of Present illness Narrative* TANK Cuevas [...] History: Past Medical History: Diagnosis Date Hypertension ([facility]) Medications: Current Outpatient Medications: atorvastatin (Lipitor) 40 [...] MORNING ..DO NOT STOP UNLESS CLEARED BY TAB BUILDER, Disp: , Rfl: Review of systems: Constitutional: [...] subungual debris. They were painful to palpation [id number] on the right [id number] on the left. VASC: DP /PT were nonpalpable bilateral. Capillary refill time < 3 seconds Digits 1-5 bilateral NEURO: [place] Matthew 5.07 monofilament was intact B/L. Vibratory [...] 1through 10. TANK Cuevas documented in this [facility]09-20-2024 NoteMicrobiology PROCEDURE: Wound Culture [R1] SOURCE: Abscess [...] Locations R1: This test was performed at: [facility], [address] [place] [address], [id number]- , , OfpbyhVan Wert County HospitalComment on above:Performed By: #### [id number] #### [facility] [address] [place] [address] [id number] NoteMicrobiology PROCEDURE: Wound Culture [R1] SOURCE: Abscess BODY SITE: Leg L COLLECTED DATE/TIME: 05/26/2024 11:40 EDT RECEIVED DATE/TIME: 05/28/2024 11:58 EDT START DATE/TIME: 05/28/2024 11:58 EDT FREE TEXT SOURCE: Nick MASCORRO-Charli, Angela MASCORRO-Charli, Angela FINAL REPORTS Final Report [] Verified [...] Locations R1: This test was performed at: [facility], [address] [place] [address], [id number] , , YehvidVan Wert County HospitalComment on above:Performed By: #### [id number] #### [facility] [address] [place] [address] [id number] Hospital Discharge instructions Patient Education 05/26/2024 15:57:14 Obesity, Adult, Jzfy-iw-Eadc Obesity, Adult Obesity is having too much [...] food choices, such as grocery stores and [employer]. What are the signs or symptoms? The [...] eat. ?How much exercise you get. Take sjni-ikn-ftqlqmw and prescription medicines only as told by [...] provider. Document Revised: 04/06/2022 Document Reviewed: 04/06/2022 Britely Patient Education 2023 [employer]. 05/26/2024 15:57:11 BMI for Adults BMI for [...] Centers for Disease Control and Prevention: cdc.gov [place] Heart Association: heart.org National Heart, Lung, and Blood [place]: nhlbi.nih.gov This information is not intended to replace advice given to you by your health care provider. Make sure you discuss any questions you have with your health care provider. Document Revised: 05/19/2023 Document Reviewed: 05/12/2023 Britely Patient Education 2023 [employer] 05/26/2024 11:24:05 Cellulitis, Adult, Ivwb-zv-Qljy Cellulitis, Adult Cellulitis is a skin infection. [...] Follow these instructions at home: Medicines Take acrv-diu-cgkzuev and prescription medicines only as told by [...] provider. Document Revised: 04/26/2023 Document Reviewed: 04/26/2023 Britely Patient Education 2023 [employer]. 05/26/2024 11:23:45 Venous Ulcer, Dsuy-no-Pfbz Venous Ulcer A venous ulcer is a [...] instructions at home: Medicines Take or apply ylpb-xwb-lxrwmfe and prescription medicines only as told by [...] cannot use soap and water, use hand bus analyst. ?Change your bandage. ?Leave stitches or skin [...] provider. Document Revised: 04/18/2023 Document Reviewed: 04/18/2023 Britely Patient Education 2023 [employer]. 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 How is this treated? This condition may [...] instructions at home: Medicines Take or use zpzq-thh-zkrvppa and prescription medicines only as told by [...] provider. Document Revised: 09/13/2023 Document Reviewed: 09/13/2023 Britely Patient Education 2023 [employer]. Follow Up Care 05/26/2024 09:37:36 With:DIANE LAWS FAAFP, MYA Ruiz, PED Address: [address], [place] [address]- When: Unknown [facility] 09-14-2024 NotePatient Education Dermatology Venous [...] at home: Medicines ? Take or apply wrur-tes-uvoqxpt and prescription medicines only as told by [...] cannot use soap and water, use hand bus analyst. ? Change your bandage. ? Leave stitches [...] provider. Document Revised: 04/18/2023 Document Reviewed: 04/18/2023 Britely Patient Education ? 2023 [employer]. Stasis Dermatitis Stasis dermatitis is a long-term (chronic) skin condition that happens when you have poor circulation. This is when your veins can no longer pump blood back to the heart like they should. This (more content not included)...[facility]02-22-2024 Hospital Discharge instructions Patient Education 11/03/2023 12:33:35 [...] to any changes in your symptoms. Take kkpg-cmf-rwflbud and prescription medicines only as told by [...] provider. Document Revised: 07/17/2020 Document Reviewed: 07/17/2020 Britely Patient Education 2022 [employer]. [facility] 02-09-2024 Hospital Discharge instructions Patient Education 10/21/2023 16:38:50 Atrial Fibrillation, Qcbb-vz-Obkt Atrial Fibrillation Atrial fibrillation is a type [...] Follow these instructions at home: Medicines Take vtnd-udg-axpcnvk and prescription medicines only as told by [...] provider. Document Revised: 02/20/2020 Document Reviewed: 02/20/2020 Britely Patient Education 2022 [employer]. Follow Up Care 10/21/2023 13:55:22 With:Nacho López Address:Unknown When:10/24/2023 16:25:49 With:Blaise HARDIN Address: [address], [place] [address]- Business (1) When:Within 3 Day(s) [facility]02-09-2024 Hospital Discharge instructions Patient Education 10/21/2023 13:56:15 Atrial Fibrillation, Usqj-ku-Zvmi Atrial Fibrillation Atrial fibrillation is a type [...] Follow these instructions at home: Medicines Take eqyy-hfk-minmgmm and prescription medicines only as told by [...] provider. Document Revised: 02/20/2020 Document Reviewed: 02/20/2020 Britely Patient Education 2022 [employer]. Follow Up Care 09/14/2023 11:40:39 With:DIANE LAWS FAAFP, Blaise Smart, MYA, PED Address: [address], [place] [address]- When:Within 1 Week(s) Comments:Going to [facility] ED with Madisyn Sautee [place] 07-18-2022 Hospital Discharge instructions [...] challenges. Follow these instructions at home: Take ybrc-dod-jyeighs and prescription medicines only as told by [...] 06/07/2009 Document Revised: 12/19/2019 Document Reviewed: 06/28/2019 Elsevier Patient Education 2020 [employer] Inc. Follow Up Care 02/22/2022 09:32:22 With:Cardiac Rehab Address: When: Unknown Comments:Referral to [facility] Card[facility]hab With:Rene MASON, Nacho Ba Address: [place] [address]- When:3 months [facility]07-11-2022 NotePre-procedure Verification and Time Out: Pre-Procedure Verification and Time Out: Procedure Locationprocedure area HUDDLE - Pre-procedure Verificationcompleted TIME OUT - Final Verificationcompleted immediately prior to procedure start DEBRIEFcompleted General Information: Anesthesia Critical Care: Non-Anesthesia Date/Time of Procedure: 22-Mar-2022 12:52 Post-Procedure Diagnosis: CAD, PCI 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 No complications. DAPT, statin, xarelto Tolerance: good Complications: none Electronic Signatures: Nacho López) (Signed 22-Mar-2022 12:55) Authored: Pre-procedure Verification and Time Out, General Information, Procedure Details, Note Completion Last Updated: 22-Mar-2022 12:55 by Nacho López)[facility]07-11-2022 NoteHistory of Present Illness: HPI: SAVANNAH HOBBS is a 56 year old Male with CAD and recent PCI at [facility]. Here for attempted PCI of LAD BOOKKEEPING MACHINE MECHANIC for level 3 hospital. High risk stress [...] 29 \ Assessment and Plan: Assessment: Attempt BOOKKEEPING MACHINE MECHANIC LAD PCI high risk due to BOOKKEEPING MACHINE MECHANIC, level 3 hospital Electronic Signatures: Nacho López) (Signed 22-Mar-2022 10:50) Authored: History of Present Illness, Comorbidities, Family History, Social History, Allergies, Medications Prior to Admission, Review of Systems, Objective, Assessment and Plan, Note Completion Last Updated: 22-Mar-2022 10:50 by Nacho López)[facility]06-13-2022 Evaluation + Plan noteExtracted from: Title:Procedure Note Heart & Vascular Author:Nacho Sterling MD Date:02/22/22 Ordered: Basic Metabolic Panel CBC w/ Indices eGFR Future Appointments Appointment Date:03/24/2022 01:45:00 PM Scheduled Provider:Nacho López MD Location:FT.Cardiology Clinic Appointment Type:Cardiology Follow Up (FT) Future Scheduled Tests Laboratory* HgbA1c 07/01/21 * HgbA1c 06/30/21 * HgbA1c 09/30/21 * HgbA1c 06/26/21 * Lipid Panel 07/06/21 [facility]06-13-2022 Hospital Discharge instructions Patient Education 02/22/2022 08:23:31 CV - Cardiovascular PCI Discharge Instructions (CUSTOM) [place], [place] Cardiovascular PCI DISCHARGE INSTRUCTIONS Diet: Resume [...] for any reason without talking to your cardiology tech Site Care: Do not remove dressing for [...] you are interested in smoking cessation, contact [facility] at [phone], ext. [phone]. In the event you are unable to reach your physician, please call Pradeep at [phone] and the trouble operator will assist you. Seek Medicare Care [...] Up Care 01/28/2022 13:57:14 With:Nacho López Address: [address] [place], [place] [id number] [facility] (1) When:03/24/2022 13:45:00 [facility]05-02-2022 Hospital Discharge instructions Patient Education 01/11/2022 13:09:26 Hypertension, Adult, Rfoa-yh-Tekn Hypertension, Adult Hypertension is another name for [...] your doctor. This is important. Medicines Take oehg-vyw-fekyjqa and prescription medicines only as told by [...] 02/14/2009 Document Revised: 05/09/2019 Document Reviewed: 05/09/2019 Britely Patient Education 2020 [employer]. Follow Up Care 07/06/2021 08:42:21 With:DIANE LAWS FAAFP, MYA Ruiz, PED Address: [place] [address]- When:Within 6 Month(s) [facility] 10-20-2021 Evaluation + Plan note Future Scheduled Tests Laboratory* HgbA1c 07/01/21 * HgbA1c 06/30/21 * HgbA1c 09/30/21 * HgbA1c 06/26/21 * Lipid Panel 07/06/21 [facility]05-09-2020 Evaluation + Plan note Future Appointments Appointment Date:01/18/2022 08:00:00 AM Scheduled Provider: Location:.CARDIO Appointment Type:CV Echo (FT) Appointment Date:01/18/2022 09:00:00 AM Scheduled Provider: Location:.NUCLEAR MED Appointment Type:NM Myocard Spect Multi Rest/Stress-Res Appointment Date:01/18/2022 10:00:00 AM Scheduled Provider: Location:.NUCLEAR MED Appointment Type:NM Myocard Spect Multi Rest/Stress - R Appointment Date:01/18/2022 10:30:00 AM Scheduled Provider: Location:.NUCLEAR MED Appointment Type:NM Myocard Spect Multi Rest/Stress-Str Appointment Date:01/18/2022 11:30:00 AM Scheduled Provider: Location:.NUCLEAR MED Appointment Type:NM Myocar Spect Multi Rest/Stress - St Appointment Date:01/25/2022 11:00:00 AM Scheduled Provider:Nacho López MD Location:.Cardiology Clinic Appointment Type:Cardiology Follow Up (FT) Future Scheduled Tests Laboratory* HgbA1c 07/01/21 * HgbA1c 06/30/21 * HgbA1c 09/30/21 * HgbA1c 06/26/21 * Lipid Panel 07/06/21 Radiology* NM Myocardial Spect Rest/Stress 1 Day 01/18/22 * Echo Transthoracic Complete 01/18/22 [facility] Evaluation + Plan note Future Appointments Appointment Date:06/29/2022 02:15:00 PM Scheduled Provider:Nacho López MD Location:FT.Cardiology Clinic Appointment Type:Cardiology Follow Up (FT) Future Scheduled Tests Laboratory* HgbA1c 07/01/21 * HgbA1c 06/30/21 * HgbA1c 09/30/21 * HgbA1c 06/26/21 * Lipid [facility]ments Appointment Date:11/17/2023 08:15:00 AM Scheduled Provider:Nacho López MD Location:FT.Cardiology Clinic Appointment Type:Cardiology Follow Up (FT) [facility] Evaluation + Plan note Future Appointments Appointment Date:09/20/2024 02:30:00 PM Scheduled Provider:Derrick Dougherty PA-C Location:FT.Cardiology Clinic Appointment Type:Cardiology [facility] ([facility]) [facility] Future Appointments Appointment Date:09/20/2024 02:30:00 PM Scheduled Provider:Derrick Dougherty PA-C Location:FT.Cardiology Clinic Appointment Type:Cardiology Follow Up (FT) Diagnostic Tests Pending * Wound Culture 06/29/24 [facility] Evaluation + Plan note Future Appointments Appointment Date:09/20/2024 02:30:00 PM Scheduled Provider:Derrick Dougherty PA-C Location:FT.Cardiology Clinic Appointment Type:Cardiology Follow Up (FT) Diagnostic Tests Pending * Wound Culture 05/26/24 [facility] Evaluation + Plan note Future Appointments Appointment Date:03/21/2025 02:30:00 PM Scheduled Provider:Derrick Dougherty PA-C Location:FT.Cardiology Clinic Appointment Type:Cardiology Follow Up (FT) [facility] evaluation note* Diagnosis Tinea unguium- Primary [...] of right leg documented in this encounter [facility] HealthcareEvaluation note* Diagnosis Cellulitis of right leg- Primary Venous insufficiency Unspecified venous (peripheral) insufficiency 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) documented in this encounter [facility] HealthcareEvaluation note* Diagnosis Venous insufficiency- Primary [...] left lower leg documented in this encounter [facility] HealthcareEvaluation note* Diagnosis Venous insufficiency- Primary [...] of right leg documented in this encounter [facility] HealthcareEvaluation note* Diagnosis Venous insufficiency- Primary Unspecified venous (peripheral) insufficiency 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) documented in this encounter [facility] HealthcareEvaluation note* Diagnosis Tinea unguium- Primary Dermatophytosis of nail Pain in left toe(s) Pain in right toe(s) documented in this encounter [facility] HealthcareHospital course Narrative No data available for this section [facility] Discharge instructions No data available for this section [facility] data available for this section [facility] Summary Purpose Family History No Family [...] Found No data available for this section Advance Directives No Advanced Directives Records FoundNo [...] section and content) DATE CREATED AUTHOR 06/20/2018 [facility] DATE CREATED AUTHOR AUTHOR'S ORGANIZ ATION 03/22/2022 [facility] DATE CREATED AUTHOR AUTHOR'S ORGANIZ ATION 05/08/2022 [facility] DATE CREATED AUTHOR AUTHOR'S ORGANIZ ATION 05/30/2024 [facility] DATE CREATED AUTHOR AUTHOR'S ORGANIZ ATION 06/04/2024 [facility] DATE CREATED AUTHOR AUTHOR'S ORGANIZ ATION 07/02/2024 [facility] Center DATE CREATED AUTHOR AUTHOR'S ORGANIZ ATION 09/03/2024 [facility] DATE CREATED AUTHOR AUTHOR'S ORGANIZ ATION 09/14/2024 [facility] Care Team (unrecognized sect ion and content) Personnel Name: Blaise HARDIN DO, FAAFP Address: Address: [address] [place] [address] Sew On Operator Relationship Specialty Start Date End Date Blaise Hardin MD [address] [id number] PCP - General Family Medicine 11/10/23 Sew On Operator Relationship Specialty Start Date End Date Blaise Hardin MD [address] [place] [address] PCP - General Family Medicine 11/10/23 Sew On Operator Relationship Specialty Start Date End Date Blaise Hardin MD [address] [place] [address] PCP - General Family Medicine 11/10/23 Sew On Operator Relationship Specialty Start Date End Date Blaise Hardin MD [address] [place] [address] PCP - General Family Medicine 11/10/23 Sew On Operator Relationship Specialty Start Date End Date Blaise Hardin MD [address] [place] [address] PCP - General Family Medicine 11/10/23 Sew On Operator Relationship Specialty Start Date End Date Blaise Hardin MD [address] [place] [address] PCP - General Family Medicine 11/10/23 Sew On Operator Relationship Specialty Start Date End Date Blaise Hardin MD [address] [place] [address] PCP - General Family Medicine 11/10/23 Sew On Operator Relationship Specialty Start Date End Date Blaise Hardin MD [address] [place] [address] PCP - General Family Medicine 11/10/23 Sew On Operator Relationship Specialty Start Date End Date Blaise Hardin MD [address] [place] [address] PCP - General Family Medicine 11/10/23 Sew On Operator Relationship Specialty Start Date End Date Blaise Hardin MD [address] [place] [address] PCP - General Family Medicine 11/10/23 Sew On Operator Relationship Specialty Start Date End Date Blaise Hardin MD [address] [place] [address] PCP - General Family Medicine 11/10/23 Reason [...] BE BASED ON THE PRIMARY CLINICAL RECORDS. [employer] provides no warranty or guarantee of the accuracy or completeness of information in this document.
[2024-09-25] MEDS: 0.9 % SODIUM CHLORIDE 500 ML, LIDOCAINE HCL 20 ML, SODIUM BICARBONATE 10 MEQ INJ (09:03)
[2024-09-25] MEDS: LIDOCAINE HCL 1% 100 MG/10 ML MDV INJ (09:03)
[2024-09-25 09:06] VITALS: BP 160/74; PULSE 80; O2SAT 96
== END 2024-09-25 09:20 | disposition home or self-care (01) ==
LOC: VC 08:42
PROVIDERS: PCP Radiology Diagnostic Radiology; Visit Provider Radiology Diagnostic Radiology
DX: I83.813 Varicose veins of bilateral lower extremities with pain (principal)
CPT/HCPCS: 36478

== ENCOUNTER 2024-10-02 12:54 | Outpatient (OUT) | payer BC, SELFPAY ==
--- NOTE | 2024-10-02 12:55 | VEIN_ITS ---
Patient Name: SAVANNAH HOBBS MR#: [id number] : 1965 Exam Date: 10/02/2024 Ordering Doctor: DR JANNETH CRUMP M.D. RADIOLOGY REPORT PROCEDURE: VC EXT VENOUS RT LMTD COMPARISON: None. INDICATIONS: I80.01 - Phlebitis and thrombophlebitis of superficial ve... TECHNIQUE: Lower extremity mills scale and Duplex Doppler evaluation of the deep venous system from the inguinal ligament through the calf veins. FINDINGS: REGION: Right lower extremity. THROMBI: Negative for DVT. heat induced thrombus visualized 2.3cm from SFJ. The heat induced thrombus extends from groin to mid calf. COMPRESSIBILITY: Non-compressible segments corresponding to thrombus FLOW: Areas of no flow corresponding to thrombus OTHER: CONCLUSION: 1. Successful post ablation occlusion of right great saphenous vein. Dictated by: David Pereyra M.D. on 10/02/2024 at 14:10 Approved by: David Pereyra M.D. on 10/02/2024 at 14:13
--- NOTE | 2024-10-02 12:55 | VEIN_ITS ---
Patient Name: SAVANNAH HOBBS MR#: [id number] : 1965 Exam Date: 10/02/2024 Ordering Doctor: DR JANNETH CRUMP M.D. RADIOLOGY REPORT PROCEDURE: [facility] EST LMTD [facility] - OFFICE VISIT FOLLOW UP [facility] PROGRESS NOTES: The patient reports improvement in leg symptoms. There has been interval reduction in varicosities. The patient has followed our recommendations to walk 20-30 minutes once or twice per day since the procedure. Physical exam demonstrates decrease in varicosities of the leg. Persistent varicosities are identified along the legs bilaterally. Review of the ultrasound performed the same day demonstrates occlusive thrombus extending throughout the treated vein(s), see separate report, consistent with a successful ablation. No thrombus extending into or beyond the saphenofemoral junction. The patient expressed a desire to proceed with treatment of remaining incompetent varicose veins. The patient was informed that treatment was a process and would require several procedures/sessions. [facility]: 1. Successful ablation of the right great saphenous vein(s). 2. Persistent varicose veins and lower extremity symptoms. PLAN: 1. Endovenous laser ablation of left leg commercial attorney veins. Nurse notes, history and physical were reviewed and confirmed, see attached forms. The nurse was present throughout the physical exam and consultation Dictated by: David Pereyra M.D. on 10/02/2024 at 14:13 Approved by: David Pereyra M.D. on 10/02/2024 at 14:56
--- NOTE | 2024-10-02 13:11 | V.VEINS.HP ---
Varicose Veins Patient in this day for follow up ultrasound post EVLT of right GSV David Huntley MD personally performed the services described in this documentation, as scribed by Priscilla Leroy RVT, RDMS in my presence and it is both accurate and complete. Priscilla Huntley RVT, RDMS, am scribing for, and in the presence of, Dr. David Pereyra and in the presence of the patient. thigh: bilateral (symptoms bilaterally noted), knee: bilateral, calf: bilateral, ankle: bilateral and costello: bilateral aching, burning, cramping and tender 3 1 month Worsened in recent months: Yes standing and sitting analgesics, elevating extremities and compression stockings Reports muscle spasms of leg, heaviness, edema and leg edema History of lower extremity trauma: Yes Superficial thrombophlebitis: No Family history of varicose veins: yes Has patient had previous lower extremity venous surgery: No Patient has previously received the following treatment(s) for lower extremity varicose veins: Reports none Does patient have a history of : not applicable Has patient had lower extremity venous scan with relux testing: No Support hose used: Yes Problems walking or doing physical activity: Yes How does it affect you: intermitten pain affects walking/exercise Do you walk much: Yes Do you stand much: Yes Review of Systems ROS Narrative David Huntley MD personally performed the services described in this documentation, as scribed by Priscilla Leroy RVT, RDMS in my presence and it is both accurate and complete. Priscilla Huntley RVT, RDMS, am scribing for, and in the presence of, Dr. David Pereyra and in the presence of the patient. Status of ROS 10 or more systems reviewed and unremarkable except as noted in history and below Cardiovascular Reports: edema Integumentary/Breast Reports: itching, redness, skin tenderness, skin swelling, non-healing lesion and changes in skin color Neurological Reports: weakness in extremities [facility] Medical History (Updated 09/24/24 @ 13:42 by Guillermo Fsoter) Superficial phlebitis of right leg ?I80.01 - Phlebitis and thrombophlebitis of superficial vessels of right lower extremity (ICD-10) Superficial thrombophlebitis of left leg ?I80.02 - Phlebitis and thrombophlebitis of superficial vessels of left lower extremity (ICD-10) Cellulitis ?L03.90 - Cellulitis, unspecified (ICD-10) Hypercholesteremia ?E78.00 - Pure hypercholesterolemia, unspecified (ICD-10) Afib ?I48.91 - Unspecified atrial fibrillation (ICD-10) Varicose veins of both lower extremities with complications ?I83.893 - Varicose veins of bilateral lower extremities with other complications (ICD-10) Hypertension ?I10 - Essential (primary) hypertension (ICD-10) Heart disease ?I51.9 - Heart disease, unspecified (ICD-10) Surgical History (Updated 09/25/24 @ 09:15 by Guillermo Foster) Status post laser ablation of incompetent vein ?Z98.890 - Other specified postprocedural states (ICD-10) Status post laser ablation of incompetent vein ?Z98.890 - Other specified postprocedural states (ICD-10) H/O heart artery stent ?Z95.5 - Presence of coronary angioplasty implant and graft (ICD-10) Family History (Updated 08/15/24 @ 14:27 by Guillermo Foster) Other Family history of hypertension Family history of myocardial infarction Family history of stroke Varicose veins of bilateral lower extremities with pain Social History (Updated 08/15/24 @ 14:28 by Guillermo Foster) Within the past year, how often did you have a drink containing alcohol: 4 or more times a week Smoking status: Never smoker Non-prescribed substance use: denies use Meds Home Medications and Allergies Home Medications ?Medication ?Instructions ?Recorded ?Confirmed ?Type atorvastatin 40 mg tablet 40 mg PO DAILY 08/15/24 08/15/24 History clopidogrel 75 mg tablet (Plavix) 75 mg PO DAILY 08/15/24 08/15/24 History losartan 100 mg tablet (Cozaar) 100 mg PO DAILY 08/15/24 08/15/24 History metoprolol succinate 50 mg 50 mg PO DAILY 08/15/24 08/15/24 History tablet,extended release 24 hr (Toprol XL) metoprolol tartrate 25 mg tablet 25 mg PO BID 08/15/24 08/15/24 History rivaroxaban 20 mg tablet (Xarelto) 20 mg PO DAILY 08/15/24 08/15/24 History Allergies Allergy/AdvReac Type Severity Reaction Status Date / Time No Known Drug Allergies Allergy Verified 08/15/24 14:28 Exam Narrative Exam Narrative: David Huntley MD personally performed the services described in this documentation, as scribed by Priscilla Leroy RVT, RDMS in my presence and it is both accurate and complete. Priscilla Huntley RVT, RDMS, am scribing for, and in the presence of, Dr. David Pereyra and in the presence of the patient. Constitutional Documenting provider has reviewed patient's vital signs: yes Common normals: oriented x3 Nutritional appearance: overweight Cardio Peripheral pulses: posterior tibial pulses present and dorsalis pedis pulses present Extremity Common normals: normal capillary refill General: calf tenderness and edema Right lower extremity: lower leg Right lower leg: inspection and palpation Left lower extremity: lower leg Left lower leg: inspection and palpation Neuro Common normals: oriented x3 Results Imaging Venous US: Radiologist's impression: The ultrasound demonstrates heat induced thrombus visualized 2.3cm from SFJ. The heat induced thrombus extends from groin to mid calf. Assessment and Plan Assessment and Plan (1) Superficial phlebitis of right leg: Plan Patient in today for follow up ultrasound of lower extremity following treatment of EVLT of right leg GSV completed on 09/25/24. David Huntley MD personally performed the services described in this documentation, as scribed by Priscilla Leroy RVT, RDMS in my presence and it is both accurate and complete. Priscilla Huntley RVT, RDMS, am scribing for, and in the presence of, Dr. David Pereyra and in the presence of the patient.
--- NOTE | 2024-10-02 13:13 | W.VEIN ---
Discharge Plan Discharge Disposition: Home, Self-Care Outpatient Diagnostics: VC Endovenous Perf Ablation LT (Routine) Timeframe: 2 Weeks Facility: [facility] - Location: Vein Center Ordered By: David Pereyra Follow Up Appointments: 10/09/24 Plan of Treatment: EVLT of left leg pharmaceutical sales veins Print Language: Faroese Discharge Date/Time: 10/02/24 13:33
== END 2024-10-02 13:33 | disposition home or self-care (01) ==
PROVIDERS: PCP Radiology Diagnostic Radiology; Visit Provider Radiology Diagnostic Radiology
DX: I80.01 Phlebitis and thrombophlebitis of superficial vessels of right lower extremity (principal)
CPT/HCPCS: 93971; G0463

== ENCOUNTER 2024-10-09 12:48 | Outpatient (OUT) | payer BC, SELFPAY ==
--- NOTE | 2024-10-08 13:54 | V.VEINS.HP ---
Vital Signs 10/09/24 12:58 BP 152/76 H BP Location Left Brachial BP Position Sitting BP Cuff Size Large Adult BP Source Automatic Cuff Respiration 18 Pulse 72 Pulse Source Monitor Pulse Oximetry (%) 96 Oxygen Delivery Method Room Air Comment The patient's blood pressure is elevated. Varicose Veins Patient in this day for EVLT left leg perforating veins Rodri Huntley MD personally performed the services described in this documentation, as scribed by Guillermo Foster RN in my presence and it is both accurate and complete. IGuillermo RN, am scribing for, and in the presence of, Dr. Rodri Yadav and in the presence of the patient.. thigh: bilateral (symptoms bilaterally noted), knee: bilateral, calf: bilateral, ankle: bilateral and costello: bilateral aching, burning, cramping and tender 3 1 month Worsened in recent months: Yes standing and sitting analgesics, elevating extremities and compression stockings Reports muscle spasms of leg, heaviness, edema and leg edema History of lower extremity trauma: Yes Superficial thrombophlebitis: No Family history of varicose veins: yes Has patient had previous lower extremity venous surgery: No Patient has previously received the following treatment(s) for lower extremity varicose veins: Reports none Does patient have a history of : not applicable Has patient had lower extremity venous scan with relux testing: No Support hose used: Yes Problems walking or doing physical activity: Yes How does it affect you: intermitten pain affects walking/exercise Do you walk much: Yes Do you stand much: Yes Review of Systems ROS Narrative . Rodri Huntley MD personally performed the services described in this documentation, as scribed by Guillermo Foster RN in my presence and it is both accurate and complete. IGuillermo RN, am scribing for, and in the presence of, Dr. Rodri Yadav and in the presence of the patient. Status of ROS 10 or more systems reviewed and unremarkable except as noted in history and below Cardiovascular Reports: edema Integumentary/Breast Reports: itching, redness, skin tenderness, skin swelling, non-healing lesion and changes in skin color Neurological Reports: weakness in extremities [facility] Medical History (Updated 09/24/24 @ 13:42 by Guillermo Foster) Superficial phlebitis of right leg ?I80.01 - Phlebitis and thrombophlebitis of superficial vessels of right lower extremity (ICD-10) Superficial thrombophlebitis of left leg ?I80.02 - Phlebitis and thrombophlebitis of superficial vessels of left lower extremity (ICD-10) Cellulitis ?L03.90 - Cellulitis, unspecified (ICD-10) Hypercholesteremia ?E78.00 - Pure hypercholesterolemia, unspecified (ICD-10) Afib ?I48.91 - Unspecified atrial fibrillation (ICD-10) Varicose veins of both lower extremities with complications ?I83.893 - Varicose veins of bilateral lower extremities with other complications (ICD-10) Hypertension ?I10 - Essential (primary) hypertension (ICD-10) Heart disease ?I51.9 - Heart disease, unspecified (ICD-10) Surgical History (Updated 10/09/24 @ 13:03 by Guillermo Foster) Status post laser ablation of incompetent vein ?Z98.890 - Other specified postprocedural states (ICD-10) Status post laser ablation of incompetent vein ?Z98.890 - Other specified postprocedural states (ICD-10) Status post laser ablation of incompetent vein ?Z98.890 - Other specified postprocedural states (ICD-10) H/O heart artery stent ?Z95.5 - Presence of coronary angioplasty implant and graft (ICD-10) Family History (Updated 08/15/24 @ 14:27 by Guillermo Foster) Other Family history of hypertension Family history of myocardial infarction Family history of stroke Varicose veins of bilateral lower extremities with pain Social History (Updated 08/15/24 @ 14:28 by Guillermo Foster) Within the past year, how often did you have a drink containing alcohol: 4 or more times a week Smoking status: Never smoker Non-prescribed substance use: denies use Meds Home Medications and Allergies Home Medications ?Medication ?Instructions ?Recorded ?Confirmed ?Type atorvastatin 40 mg tablet 40 mg PO DAILY 08/15/24 08/15/24 History clopidogrel 75 mg tablet (Plavix) 75 mg PO DAILY 08/15/24 08/15/24 History losartan 100 mg tablet (Cozaar) 100 mg PO DAILY 08/15/24 08/15/24 History metoprolol succinate 50 mg 50 mg PO DAILY 08/15/24 08/15/24 History tablet,extended release 24 hr (Toprol XL) metoprolol tartrate 25 mg tablet 25 mg PO BID 08/15/24 08/15/24 History rivaroxaban 20 mg tablet (Xarelto) 20 mg PO DAILY 08/15/24 08/15/24 History Allergies Allergy/AdvReac Type Severity Reaction Status Date / Time No Known Drug Allergies Allergy Verified 08/15/24 14:28 Exam Narrative Exam Narrative: Rodri Huntley MD personally performed the services described in this documentation, as scribed by Guillermo Foster RN in my presence and it is both accurate and complete. Guillermo Huntley RN, am scribing for, and in the presence of, Dr. Rodri Yadav and in the presence of the patient. Constitutional Documenting provider has reviewed patient's vital signs: yes Common normals: oriented x3 Nutritional appearance: overweight Cardio Peripheral pulses: posterior tibial pulses present and dorsalis pedis pulses present Extremity Common normals: normal capillary refill General: calf tenderness and edema Right lower extremity: lower leg Right lower leg: inspection and palpation Left lower extremity: lower leg Left lower leg: inspection and palpation Neuro Common normals: oriented x3 Assessment and Plan Assessment and Plan (1) Varicose veins of both lower extremities with complications: Plan f/u evaluation with physician along with left leg limited u/s Rodri Huntley MD personally performed the services described in this documentation, as scribed by Guillermo Foster RN in my presence and it is both accurate and complete. Guillermo Huntley RN, am scribing for, and in the presence of, Dr. Rodri Yadav and in the presence of the patient. Procedures Procedure Instructions Procedures Plan of care: Risks and benefits of the procedure were discussed at length and informed written consent was obtained.? Time-out completed for verification of correct patient, procedure and site.? Staff present during time-out: Guillermo Foster RN,? Rodri Yadav MD, Priscilla Santanamelissa BROWNPR,RVT. Time Out Time___1326____ Patient prepped and procedure performed in usual sterile fashion. Risk of injury related to use of Diode laser and/or laser devices __CR___ ? Serial number of laser used :? [id number] Control panel self test performed, electrical cords in good condition, floor is dry, basin of water available, fire extinguisher in close proximity_CR__ Polycarbonate goggles available and Laser warning signs outside of doors___CR__ Eye protection provided to patient and staff in room_CR___ Use of laser retardant drapes and dull blackened instruments as directed__CR___ Use of nonflammable prep solutions and use of saline soaked sponges to protect tissues as indicated _CR___ Laser operated by __Dr. Yadav Physician verbal confirmation laser locked in place__CR__ Laser start time (date and time) _10/09/2024@_1329 Laser stop time(date and time) __10/09/2024@1338 Meyer _8.0___ Pulse continuous ___CR_? Pulse intermittent ___ Laser Site #1: Right mid medial lower leg Joules: 174 Seconds:22 Laser Site #2:Right proximal medial lower leg Joules:126 Seconds:16 Laser Site #3: right mid lateral lower leg Joules:88 Seconds:11 Evaluated patient for signs and symptoms of electrical injury __CR___ ? Skin clear at insertion site __CR___ Patient tolerated procedure well.? Left leg Coban dressing applied to access site.? Applied left thigh high leg compression stocking. Will return on 10/22/2024 for left leg limited venous ultrasound and exam. IRodri MD personally performed the services described in this documentation, as scribed by Guillermo Foster RN in my presence and it is both accurate and complete. I, Guillermo Foster RN, am scribing for, and in the presence of, Dr. Rodri Yadav and in the presence of the patient.
--- NOTE | 2024-10-08 14:16 | W.VEIN ---
Discharge Plan Discharge Disposition: Home, Self-Care Outpatient Diagnostics: VC Facility EST LMTD (Routine) Timeframe: 2 Weeks Facility: [facility] - Location: Vein Center Ordered By: Rodri Yadav VC EXT Venous LT Limited (Routine) Timeframe: 2 Weeks Facility: [facility] - Location: Vein Center Ordered By: Rodri Yadav Follow Up Appointments: 10/22/2024 Plan of Treatment: f/u evaluation with physician along with left leg limited u/s Patient Instructions: Endovenous Ablation (DC) Print Language: Italian Discharge Date/Time: 10/09/24 13:14
[2024-10-09] MEDS: LIDOCAINE HCL 20 ML, SODIUM BICARBONATE 2 MEQ INJ (12:51)
--- NOTE | 2024-10-09 12:52 | VEIN_ITS ---
[address] [address] Patient Name: SAVANNAH HOBBS MRN: [id number] date: 1965 Sex: M Assigned Patient Location: Current Patient Location: Accession/Order Number: [id number] Exam Date: 10/09/2024 12:55 Report Date: 10/09/2024 13:49 At the request of: SIDNEY GRAY Procedure: VC Endovenous Perf Ablation LT EXAMINATION: VC Endovenous Perf Ablation LT INDICATIONS: I83.893 - Varicose veins of bilateral lower extremities w... OPERATIVE REPORT: Diagnosis: Superficial venous reflux, incompetent perforating veins Procedure: Endovenous laser ablation of the left rounder hand(s) Procedure: The patient was positioned supine on the table and the leg was prepped and draped to allow for visualization during venous access. A sterile cover was draped over a 16 mhz ultrasound probe. Venous mapping was performed prior to the procedure noting location and size of vessel(s). [employer] vein 1: Left mid medial lower leg. The diameter of the vein ranged from 5 mm's below the muscular fascia to 6 mm's at the entry point. Using a 30 gauge needle the entry site was anesthetized with 1 cc of 1% buffered lidocaine. Access was gained percutaneously, with a 21-gauge needle, into the rounder hand vein under ultrasound guidance. The needle was advanced into the desired position and the pre-measured 400-micron fiber was then inserted into the needle and locked in place. The position of the fiber was imaged with ultrasound guidance. The fiber tip was visualized to be 30 mm from the deep vessel. An anesthetic solution of 5 cc 1% buffered lidocaine was delivered along the course of the vein under ultrasound guidance using a syringe. A final positioning check of the laser fiber tip was performed. The laser was activated by means of a foot-pedal and the fiber and needle were withdrawn together in accordance to the desired joules per treatment area/spot weld. 4 areas/spot welds were performed, and the total number of joules delivered was 124. The total time of energy delivery was 22 seconds. A duplex ultrasound revealed compressibility and flow of the deep system immediately after the procedure. Hemostasis of the access site was achieved. [employer] vein 2: Right proximal medial lower leg. The diameter of the vein ranged from 3 mm's below the muscular fascia to 4 mm's at the entry point. Using a 30 gauge needle the entry site was anesthetized with 1 cc of 1% buffered lidocaine. Access was gained percutaneously, with a 21-gauge needle, into the rounder hand vein under ultrasound guidance. The needle was advanced into the desired position and the pre-measured 400-micron fiber was then inserted into the needle and locked in place. The position of the fiber was imaged with ultrasound guidance. The fiber tip was visualized to be 35 mm from the deep vessel. An anesthetic solution of 6 cc 1% buffered lidocaine was delivered along the course of the vein under ultrasound guidance using a syringe. A final positioning check of the laser fiber tip was performed. The laser was activated by means of a foot-pedal and the fiber and needle were withdrawn together in accordance to the desired joules per treatment area/spot weld. 4 areas/spot welds were performed, and the total number of joules delivered was 126. The total time of energy delivery was 16 seconds. A duplex ultrasound revealed compressibility and flow of the deep system immediately after the procedure. Hemostasis of the access site was achieved. [employer] vein 2: Right mid lateral lower leg. The diameter of the vein ranged from 3 mm's below the muscular fascia to 3 mm's at the entry point. This incompetent perforating vein with subjacent to a venous stasis ulceration. Using a 30 gauge needle the entry site was anesthetized with 1 cc of 1% buffered lidocaine. Access was gained percutaneously, with a 21-gauge needle, into the rounder hand vein under ultrasound guidance. The needle was advanced into the desired position and the pre-measured 400-micron fiber was then inserted into the needle and locked in place. The position of the fiber was imaged with ultrasound guidance. The fiber tip was visualized to be 20 mm from the deep vessel. An anesthetic solution of 4 cc 1% buffered lidocaine was delivered along the course of the vein under ultrasound guidance using a syringe. A final positioning check of the laser fiber tip was performed. The laser was activated by means of a foot-pedal and the fiber and needle were withdrawn together in accordance to the desired joules per treatment area/spot weld. 3 areas/spot welds were performed, and the total number of joules delivered was 88. The total time of energy delivery was 11 seconds. A duplex ultrasound revealed compressibility and flow of the deep system immediately after the procedure. Hemostasis of the access site was achieved and dressed. A 20-30 mm compression stocking over coban was placed on the treated leg. Post-Op instructions were given, and a follow-up appointment was made. CONCLUSION: 1. Technically successful endovenous laser ablation of 3 incompetent left leg rounder hand veins Electronically authenticated by: JANNETH CRUMP Date: 10/09/2024 13:49
--- OUTSIDE RECORDS SUMMARY | 2024-10-09 12:57 | XMS_ITS | CCD ---
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 Noteon 11-13-19 Consultation Note [id number]#1.00TIFF [facility] Ambulatory Visit Summaryon 0 11-03-2023 Ambulatory Visit Summary SAVANNAH HOBBS James :1965 Visit Date:11/03/2023 Ambulatory Visit Instructions Your Diagnosis Right wrist pain Your Care Team Attending Physician - Radha HERNANDEZ, Maury Gibson Primary Care Physician - Blaise [...] wrist pain Duration: 5 Days Pickup at [facility]/pharmacy #[id number] Unchanged atorvastatin (atorvastatin 40 mg Tab) 1 [...] Days DO NOT STOP UNLESS CLEARED BY HEAD CD REACTOR OPERATOR Pharmacy Information [facility]/pharmacy #[id number]: [address] [place], [place] [phone] Allergies No Known Medication Allergies Problems Ongoing - Any problem that you are currently receiving treatment for. 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 Normal [facility] Family Medicine Office/Clini c Noteon 11-03-2023 Family Medicine Office/Clinic Note Chief Complaint right wrist pain HPI Staff 58 yr old male here for right wrist pain for 2 days. Denies injury. History of Present Illness Reviewed and agree with above documented HPI by medical office clerk. Nickie is a 58-year-old male who presents to convenient care with complaint of right wrist pain [...] day(s), # 20 tab(s), Refills(s) 0, Pharmacy: [facility]/pharmacy #[id number], 178, cm, 11/03/23 10:28:00 EST, Height/Length Dosing, 134, kg, 11/03/23 10:28:00 EST, Weight Dosing Portions of this record may have been created with voice recognition artificial intelligence software, specifically [employer], [employer] and or [employer]. Occasional wrong-word or `ceblk-o-koyf? substitutions may have occurred due to the inherent limitations of voice recognition and artificial intelligence software. 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 Normal [facility] Comment on above: Result Comment: Elec [...] any changes in your symptoms. ? Take huam-lqy-pppaahb and prescription medicines only as told by [...] provider. Document Revised: 07/17/2020 Document Reviewed: 07/17/2020 [employer] Patient Education ? 2022 [employer] Normal [facility] ED Note-Physicianon 10-22-19 ED Note-Physician Basic Information Time Seen: Jia [...] cardiac stents. He has not seen his airconditioning engineer in over a year. The patient denies [...] x-ray wa (more content not included)... Normal [facility] Comment on above: Result Comment: Elec tronically Signed By: Jia Gamez PA-C\.br\Date and Time Signed: 10/21/23 16:30 EST\.br\Electronically Co-Signed By: Diego Melendez DO\.br\Date and Time Co-Signed: 10/22/23 07:12 EST Ambulatory Visit Summaryon 0 10-21-2023 Ambulatory Visit Summary SAVANNAH HOBBS :1965 Visit Date:10/21/2023 Ambulatory Visit Instructions Your Diagnosis PAF (paroxysmal atrial fibrillation) Adult BMI 40.0-44.9 kg/sq m, Body mass index [BMI] 40.0-44.9, adult Class 3 severe obesity due to excess calories with body mass index (BMI) of 40.0 to 44.9 in adult Hypertension 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 Normal [facility] BMPon 10-21-2023 Anion gap [Moles/Vol] 15 mmol/L Normal 6-16 [facility] Comment on above: Performed By: #### 2 169649, 9730800, 3498570, 23235124, 06748967, 09678848, 5776237, 6745283, 48783541 ####[facility] [address] [place] [address] BUN/Creat Ratio 20 No Units Normal 10-20 [facility] Comment on above: Performed By: #### 2 863683, 1666052, 4537106, 93617111, 19623917, 72620580, 9527251, 0780085, 46219797 ####[facility] [address] [place] [address] Calcium [Mass/Vol] 9.5 mg/dL Normal 8.9-11.1 [facility] Comment on above: Performed By: #### 2 442323, 6456371, 0633003, 85198228, 16221235, 10093327, 4176724, 7767599, 54233237 ####[facility] [address] [place] [address] Chloride [Moles/Vol] 97 mmol/L Low 101-111 [facility] Comment on above: Performed By: #### 2 635174, 0665545, 1967754, 56936368, 92425729, 05293643, 6163050, 5846356, 62769712 ####[facility] [address] [place] [address] CO2 [Moles/Vol] 30 mmol/L Normal 21-31 [facility] Comment on above: Performed By: #### 2 707890, 4389839, 6638989, 66594690, 93548465, 12905758, 2282588, 5079786, 86947644 ####[facility] [address] [place] [address] Creatinine [Mass/Vol] 1.2 mg/dL Normal 0.5-1.3 [facility] Comment on above: Performed By: #### 2 731012, 2982961, 1397679, 60589099, 95697275, 60828658, 0181796, 9944357, 98936288 ####[facility] [address] [place] [address] Glucose [Mass/Vol] 148 mg/dL Normal 55-199 [facility] Comment on above: Performed By: #### 2 319013, 7398420, 3469567, 58938382, 20842417, 88117435, 0788747, 0500532, 98321217 ####[facility] [address] [place] [address] Potassium [Moles/Vol] 4.6 mmol/L Normal 3.5-5.3 [facility] Comment on above: Performed By: #### 2 014026, 7848576, 3932483, 14692407, 18988282, 97100924, 5018524, 7798873, 50633892 ####[facility] [address] [place] [address] Sodium [Moles/Vol] 137 mmol/L Normal 135-145 [facility] Comment on above: Performed By: #### 2 943113, 3898272, 2574239, 15988491, 76205277, 00455426, 1242581, 7816926, 00727949 ####[address] [place] [address] Urea nitrogen [Mass/Vol] 24 mg/dL High 5-21 [facility] Comment on above: Performed By: #### 2 098238, 3336905, 6283796, 19368539, 14534384, 68337280, 9329558, 0739173, 96722441 ####[facility] [address] [place] [address] BNPon 4 Natriuretic peptide B (Bld) [Mass/Vol] 62 pg/mL Normal 5-80 [facility] Comment on above: Performed By: #### 2 597004, 4377945, 6254019, 32381119, 63028222, 71436080, 6933537, 8594633, 99253149 ####[facility] [address] [place] [address] CBC w/ Auto Diffon 4 Basophil Absolute 0.1 E9/L Normal 0.0-0.2 [facility] Comment on above: Performed By: #### 2 695225, 5637542, 0407170, 77081604, 95865576, 94985727, 4024704, 4181001, 70463889 ####[address] [place] [address] Basophils/100 WBC (Bld) 1.2 % Normal 0.0-2.0 [facility] Comment on above: Performed By: #### 2 606634, 3885036, 7468904, 62129668, 24054630, 11914298, 4027344, 2575445, 58431721 ####[address] [place] [address] Eos Absolute 0.1 E9/L Normal 0.0-0.5 [facility] Comment on above: Performed By: #### 2 045903, 1038290, 4049593, 76574727, 21858339, 05104568, 5434417, 8101803, 12952660 ####[address] [address] Eosinophils/100 WBC (Bld) 1.0 % Normal 0.0-8.0 [facility] Comment on above: Performed By: #### 2 339406, 7311344, 4364215, 68527188, 99271963, 26699015, 4902486, 9169074, 09678669 ####[address] [address] Erythrocyte distribution width (RBC) [Ratio] 13.6 % Normal 10.9-14.2 [facility] Comment on above: Performed By: #### 2 606149, 6917534, 3585345, 45955842, 60927422, 95959132, 8838393, 9800596, 02098701 ####[address] [place] [address] Hematocrit (Bld) [Volume fraction] 42.0 % Normal 37.7-49.0 [facility] Comment on above: Performed By: #### 2 752124, 8785966, 1603458, 18589476, 20387400, 34270237, 8708146, 3176270, 94721341 ####[facility] [address] [place] [address] Hemoglobin (Bld) [Mass/Vol] 14.2 g/dL Normal 13.5-17.5 [facility] Comment on above: Performed By: #### 2 239369, 4707641, 3893906, 86973321, 42330847, 22857781, 9296086, 9835525, 15440648 ####[facility] [address] [place] [address] Lymph Absolute 1.7 E9/L Normal 1.0-4.0 [facility] Comment on above: Performed By: #### 2 857960, 3594254, 9397679, 52900083, 47369507, 16362924, 6170890, 6253845, 77013252 ####[address] [address] Lymphocytes/100 WBC (Bld) 16.6 % Normal 14.0-50.0 [facility] Comment on above: Performed By: #### 2 785457, 6485427, 3355574, 97641012, 99949241, 48741066, 7905214, 7296893, 62778344 ####[address] [place] [address] MCH (RBC) [Entitic mass] 29.2 pg Normal 27.0-34.0 [facility] Comment on above: Performed By: #### 2 811916, 3984564, 1197060, 90563127, 01308365, 59394195, 6612272, 5585041, 87059945 ####[facility] [address] [place] [address] MCHC (RBC) [Mass/Vol] 33.5 g/dL Normal 31.4-36.0 [facility] Comment on above: Performed By: #### 2 636030, 4612096, 8589656, 61363576, 21449626, 81260664, 7484892, 1548968, 12530031 ####[address] [place] [address] MCV (RBC) [Entitic vol] 87.2 fL Normal 80.0-100.0 [facility] Comment on above: Performed By: #### 2 590289, 8222698, 8523232, 45199929, 24818437, 87643851, 7297304, 5016223, 91991395 ####[address] [address] [place] Absolute 0.7 E9/L Normal 0.2-1.[address] [facility] Comment on above: Performed By: #### 2 233235, 2290416, 7399413, 17296959, 02347530, 32494737, 2484807, 7025318, 19446836 ####[address] [address] Monocytes/100 WBC (Bld) 7.1 % Normal 4.0-14.0 [facility] Comment on above: Performed By: #### 2 301057, 1651464, 6109572, 63685590, 06966774, 37245035, 2975151, 6927238, 50628077 ####[address] [address] Neutro Absolute 7.4 E9/L Normal 2.0-7.5 [facility] Comment on above: Performed By: #### 2 087080, 7684013, 2792338, 00802504, 94052321, 44567592, 9931612, 2641119, 19244877 ####[address] [place] [address] Neutro Auto 74.1 % Normal 36.0-75.0 [facility] Comment on above: Performed By: #### 2 126442, 5545394, 0687066, 66513443, 95935021, 20272404, 8489436, 7230748, 95984633 ####[address] [address] Platelet 259.0 E9/L Normal 150.0-500.0 [facility] Comment on above: Performed By: #### 2 647561, 3539104, 6773144, 42981838, 25086080, 91791052, 6088444, 0000173, 42279174 ####[facility] [address] [place] [address] Platelet mean volume (Bld) [Entitic vol] 7.7 fL Normal 6.4-10.8 [facility] Comment on above: Performed By: #### 2 381230, 5143909, 9713391, 10589707, 11043874, 96493702, 6113913, 9133893, 44121030 ####[facility] [address] [place] [address] RBC 4.9 E12/L Normal 4.3-5.9 [facility] Comment on above: Performed By: #### 2 791594, 2045759, 1524966, 35463798, 71781878, 78244852, 9966142, 5171294, 47731412 ####[facility] [address] [place] [address] WBC 10.0 E9/L Normal 4.0-11.0 [facility] Comment on above: Performed By: #### 2 662037, 5139836, 0642740, 48998121, 37006807, 98704504, 5946000, 0284022, 30244064 ####[facility] [address] [place] [address] CHEMISTRYOrdered By: SYSTEM SYSTEM on 10-21-2023 Albumin [...] Sensitivity Troponin I Instructions For Use, Osmany [place], April 2018) Urea nitrogen [Mass/Vol] 24 mg/dL High 5 - 21 mg/dL Remisol Chem Urea nitrogen/Creatinine [Mass ratio] 20 mg/mg Normal 10 - 20 Remisol Chem CHEMISTRYOrdered By: Jose Chan on 10-21-2023 Natriuretic peptide B (Bld) [Mass/Vol] 62 pg/mL Normal 5 - 80 pg/mL [facility] HemeDavidSS COAGULATIONOrdered By: Krissy Jamie on 10-21-2023 aPTT Coag (PPP) [Time] 40.5 s High 25.1 - 36.5 second(s) [facility] Auto Coag Comment on above: Interpretive Data: P jerry 15 days - 4 weeks 1 - [...] the same coagulation reagent and instrumentation as [facility]. Currently there are no coagulation studies available worldwide for children to 14 days, and no normal ranges. Heparin therapeutic range (represented by Anti-Factor Xa activity of 0.2 - 0.4 U/mL) corresponds to PTT of 56.6 - 109.0 sec. Fibrin D-dimer FEU (PPP) [Mass/Vol] ng/mL FEU Low 215 - 500 ng/mL FEU [facility] Auto Coag Comment on above: Interpretive Data: [...] [Relative time] 2.0 {INR} Invalid Interpretation Code [facility] Auto Coag Comment on above: Interpretive Data: I NR results are specifically intended to assess patients stabilized on long-term Anticoagulation therapy suggested INR s Less Intensive Anticoagulation 2.0 3.0 Conventional Range 3.0 4.5 PT Coag (PPP) [Time] 23.2 s High 9.4 - 1 2.5 second(s) [facility] Auto Coag Comment on above: Interpretive Data: [...] the same coagulation reagent and instrumentation as [facility]. Currently there are no coagulation studies available worldwide for children to 14 days, and no normal ranges. Consent for Treatmenton Consent for Treatment [id number]#[id number] Normal [facility] D-Dimeron 10-21-2023 Fibrin D-dimer FEU (PPP) [Mass/Vol] <215 Low 215-500 [facility] Comment on above: Result Comment: This assay [...] infections Liver cirrhosis Performed By: #### 2 167524, 9181849, 8453506, 37736621, 01122018, 97965068, 0486361, 4478485, 27295186 ####[facility] [address] [place] [address] Discharge Instructionson Discharge Instructions [id number] Normal [facility] ED Clinical Summaryon 2023 ED Clinical Summary (Inserted Image. Micki ble to display) [address] [address] ED Clinical Summary Person Information Name: SAVANNAH HOBBS [facility] Age: 58 Years : 1965 Sex: Male Language: Portuguese PCP: Blaise HARDIN DO, FAAFP Marital Status: Phone: [phone] Visit Id: Visit Reason: Tachycardia; SENT FROM [...] 10/21/2023 16:38:50 10/21/2023 16:38:50 10/21/2023 16:38:50 ADDRESS: [address] [place] [phone] PHYS DOC NOTES: MEDICAL INFORMATION: Prescriptions Given: [...] Days. DO NOT STOP UNLESS CLEARED BY HEAD CD REACTOR OPERATOR. Refills: 3. PATIENT EDUCATION INFORMATION: Instructions: Atrial Fibrillation, Qynb-bf-Fycm Follow up: With: Address: When: Nacho López In 3 days 10/24/2023 With: Address: When: Blaise Pryor [facility] [place] [address] [facility] (1) In 3 days DIAGNOSIS: 1:Atrial fibrillation with RVR; 2:PAF (paroxysmal atrial fibrillation) Normal [facility] ED Patient Education Noteon 10-21-2023 ED Patient [...] these instructions at home: Medicines ? Take apjf-yfx-dojvkjc and prescription medicines only as told by [...] be an (more content not included)... Normal [facility] ED Patient Summaryon 024 ED Patient Summary (Inserted Image. Micki ble to display) [address] [address] Patient Discharge Instructions Person Information Name: SAVANNAH HOBBS Age: 58 Years Arrival Date: 10/21/2023 13:54:22 Discharge Diagnosis: 1:Atrial fibrillation with RVR; 2:PAF (paroxysmal atrial fibrillation) Primary Care Physician: Blaise HARDIN DO, FAAFP Provider Information Primary Provider: Diego Melendez DO Advanced Sales Technician Home Theater:None The exam and treatment you received in the Emergency Department were for an urgent problem and are not intended as complete care. It is important that you follow up with a doctor, nurse practitioner, or physician?s graphic design assistant for ongoing care. If your symptoms [...] days 10/24/2023 With: Address: When: Blaise HARDIN [address] [place] [address] [place] [address] [facility] (1) In 3 days In the event that this physician does not participate in your insurance network, please consult with your insurance company to find a nearby participating provider. Patient Education Materials: Atrial Fibrillation, Ouwf-ki-Lyvs A MESSAGE TO ALL PATIENTS REGARDING OPIOIDS PRESCRIPTION OPIOIDS: WHAT YOU NEED TO KNOW Prescription opioids can be used to help relieve dgebxzqs-xc-nlznge pain and are often prescribed following a [...] care prof (more content not included)... Normal [facility] Family Medicine Office/Clini c Noteon 10-21-2023 Family Medicine Office/Clinic Note Chief Complaint C/o problems with weight & lack of energy. Also bottom of feet hurt. History of Present Illness Max wt 300lb. BG not wear CPAP Drop weight is all I want, Adipex worked well even with the A.fib. Not seen cardilogy in over a year or two. KAT noticable last ffew months, walked 3 miles [...] his sentences. Case discussed with admitting at [facility] and with ER staff and they are [...] mg p.o. twice daily 5. 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 Normal [facility] Comment on above: Result Comment: Elec tronically [...] Normal 80.0 - 100.0 fL Remisol Heme [place] Absolute 0.7 E9/L Normal 0.2 - 1.0 [...] 10-21-2023 Albumin [Mass/Vol] 4.7 g/dL Normal 3.3-5.0 [facility] Comment on above: Performed By: #### 2 798764, 4116846, 5946628, 60573461, 03220658, 03054336, 5065784, 1783038, 34554836 ####[facility] [address] [place] [address] Albumin/Globulin [Mass ratio] 1.6 {ratio} Normal 1.1-2.2 [facility] Comment on above: Performed By: #### 2 817144, 0967922, 8668925, 70662248, 05660545, 60774779, 8159080, 9090756, 37004954 ####[facility] [address] [place] [address] Alk Phos 63 Int._Unit/L Normal 21-98 [facility] Comment on above: Performed By: #### 2 436258, 6392928, 0366906, 21988497, 52900037, 07380850, 7793459, 6582958, 29977841 ####[facility] [address] [place] [address] ALT 17 Int._Unit/L Normal 6-46 [facility] Comment on above: Performed By: #### 2 045372, 2263678, 0429818, 62117607, 39276205, 35088023, 1578130, 3381814, 05127027 ####[facility] [address] [place] [address] AST 20 Int._Unit/L Normal 5-43 [facility] Comment on above: Performed By: #### 2 892686, 1466822, 5401662, 94560285, 65035812, 31862697, 9843914, 6287883, 19674675 ####[facility] [address] [place] [address] Bili Direct 0.1 mg/dL Normal 0.0-0.4 [facility] Comment on above: Performed By: #### 2 096469, 0948980, 0480655, 64077504, 42086482, 16424024, 3692575, 0195029, 85014565 ####[facility] [address] [place] [address] Bili Indirect 0.7 mg/dL Normal 0.1-0.[address] [facility] Comment on above: Performed By: #### 2 666380, 8073332, 2715237, 77465350, 49439177, 79912851, 2697216, 3425576, 92697680 ####[facility] [address] [place] [address] Bili Total 0.8 mg/dL Normal 0.0-1.1 [facility] Comment on above: Performed By: #### 2 654340, 9420505, 2627633, 19241252, 16687971, 48437556, 6259400, 7023015, 16151659 ####[facility] [address] [place] [address] Globulin (S) [Mass/Vol] 3.0 g/dL Normal 1.4-4.0 [facility] Comment on above: Performed By: #### 2 788281, 4475248, 0987621, 51808742, 90082017, 79229061, 1767114, 7380556, 23257339 ####[facility] [address] [place] [address] Protein [Mass/Vol] 7.7 g/dL Normal 6.0-7.8 [facility] Comment on above: Performed By: #### 2 502947, 7500790, 2358862, 54414929, 63281480, 85436147, 8899929, 8777431, 40468368 ####[facility] [address] [place] [address] Magnesiumon 10-21-2023 Magnesium [Mass/Vol] 1.8 mg/dL Normal 1.3-2.4 [facility] Comment on above: Performed By: #### 2 225206, 5878212, 3352104, 98503666, 09580732, 58767122, 5120196, 2552829, 89702022 ####[facility] [address] [place] [address] Monitor Recordon 10-21-2023 Monitor Record [id number] Normal [facility] Monitor Record [id number] Normal [facility] PT & PTTon 10-21-2023 aPTT Coag (PPP) [Time] 40.5 second(s) High 25.1-36.5 [facility] Comment on above: Result Comment: Para meter [...] the same coagulation reagent and instrumentation as [facility]. Currently there are no coagulation studies available worldwide for children to 14 days, and no normal ranges. Heparin therapeutic range (represented by Anti-Factor Xa activity of 0.2 - 0.4 U/mL) corresponds to PTT of 56.6 - 109.0 sec. Performed By: #### 2 280996, 4797248, 6292640, 75278428, 97872391, 36788655, 3175865, 7336542, 44104308 ####[facility] [address] [place] [address] INR Coag (PPP) [Relative time] 2.0 {INR} Invalid Interpretation Code [facility] Comment on above: Result Comment: INR results are specifically intended to assess patients stabilized on long-term Anticoagulation therapy suggested INR?s ?Less Intensive Anticoagulation? 2.0 ? 3.0 Conventional Range 3.0 ? 4.5 Performed By: #### 2 203075, 4616369, 8698583, 37511897, 21780566, 86472156, 0158710, 5179316, 36899932 ####[facility] [address] [place] [address] PT Coag (PPP) [Time] 23.2 second(s) High 9.4-12.5 [facility] Comment on above: Result Comment: 15 d [...] the same coagulation reagent and instrumentation as [facility]. Currently there are no coagulation studies available worldwide for children to 14 days, and no normal ranges. Performed By: #### 2 570526, 8422482, 1005514, 97734155, 61064073, 65425128, 3805013, 6841472, 88599545 ####[facility] [address] [place] [address] Patient Educationon 10-21-19 Patient Education Cardiovascular Atrial [...] these instructions at home: Medicines ? Take btcv-mwy-ywyhszb and prescription medicines only as told by [...] be an (more content not included)... Normal [facility] Troponin 0 Hr.on 10-21-2023 Troponin 13.40 pg/mL Low 15.90-38.40 [facility] Comment on above: Result Comment: The 95% CI (Confidence Interval) PPV (Positive Predictive Value) for myocardial infarction in females is 38 pg/mL, in males 51 pg/mL. The results should be used in conjunction with clinical conditions of myocardial infarction. (Access High Sensitivity Troponin I Instructions For Use, Osmany Dennis, April 2018) Performed By: #### 2 [id number], [id number], [id number], [id number], [id number], [id number], [id number], [id number], [id number] ####[facility] [address] [place] [address] XR Chest Single Viewon 10-21 XR Chest [...] mGy = na DAP = na Normal [facility] eGFRon 10-21-2023 eGFR 69 mL/min/1.73 m2 Normal >=59 [facility] Comment on above: Order Comment: Order added by Discern Expert. Performed By: #### 2 [id number], [id number], [id number], [id number], [id number], [id number], [id number], [id number], [id number] ####[facility] [address] [place] [address] Lab Reportson 10-19-2023 Lab Reports [id number] Normal [facility] Formson 09-26-2023 Forms [id number] Normal [facility] Forms [id number]#[id number] Normal [facility] ACT-LOW RANGEon 03-22-2022 ACT-LOW RANGE 256 SECONDS High 89 - 169 [facility] Comment on above: Result Comment: Note new reference range as of 12/15/2018. Target ACT range will vary based on the patient population, clinical status, and surgical intervention occurring. Performed By: #### A CTLR #### [address] [id number] BASIC METABOLIC PANELon 03-12 Anion gap [Moles/Vol] 12 mmol/L Normal 10 - 20 [facility] Comment on above: Performed By: #### B MP #### [address] [id number] Calcium [Mass/Vol] 9.3 mg/dL Normal 8.6 - 10.3 [facility] Comment on above: Performed By: #### B MP #### [address] [id number] Chloride [Moles/Vol] 102 mmol/L Normal 98 - 107 [facility] Comment on above: Performed By: #### B MP #### [address] [id number] Creatinine [Mass/Vol] 1.15 mg/dL Normal 0.50 - 1.30 [facility] Comment on above: Performed By: #### B MP #### [address] [id number] GFR/1.73 sq M.predicted among non-blacks MDRD (S/P/Bld) [Vol rate/Area] 73 mL/min/{1.73_m2} Normal >90 [facility] Comment on above: Result Comment: CALC ULATIONS OF ESTIMATED GFR ARE PERFORMED USING THE 2020 CKD-EPI STUDY REFIT EQUATION WITHOUT THE RACE VARIABLE FOR THE IDMS-TRACEABLE CREATININE METHODS. https://jasn.asnjournals.org/content//ASN.879729 6896 Performed By: #### B MP #### [address] [id number] Glucose [Mass/Vol] 109 mg/dL High 74 - 99 [facility] Comment on above: Performed By: #### B MP #### [address] [id number] HCO3 (Bld) [Moles/Vol] 28 mmol/L Normal 21 - 32 [facility] Comment on above: Performed By: #### B MP #### [address] [id number] Potassium [Moles/Vol] 4.3 mmol/L Normal 3.5 - 5.3 [facility] Comment on above: Performed By: #### B MP #### [address] [id number] Sodium [Moles/Vol] 138 mmol/L Normal 136 - 145 [facility] Comment on above: Performed By: #### B MP #### [address] [id number] Urea nitrogen [Mass/Vol] 22 mg/dL Normal 6 - 23 [facility] Comment on above: Performed By: #### B MP #### [address] [id number] CBCon 03-22-2022 Erythrocyte distribution width (RBC) [Ratio] 12.7 % Normal 11.5 - 14.5 [facility] Comment on above: Performed By: #### C BC #### [address] [id number] Hematocrit (Bld) [Volume fraction] 40.2 % Low 41.0 - 52.0 [facility] Comment on above: Performed By: #### C BC #### [address] [id number] Hemoglobin (Bld) [Mass/Vol] 13.5 g/dL Normal 13.5 - 17.5 [facility] Comment on above: Performed By: #### C BC #### [address] [id number] MCHC (RBC) [Mass/Vol] 33.6 g/dL Normal 32.0 - 36.0 [facility] Comment on above: Performed By: #### C BC #### [address] [id number] MCV (RBC) [Entitic vol] 89 fL Normal 80 - 100 [facility] Comment on above: Performed By: #### C BC #### [address] [id number] Platelets (Bld) [#/Vol] 227 10*3/uL Normal 150 - 450 [facility] Comment on above: Performed By: #### C BC #### [address] [id number] RBC 4.52 x10E12/L Normal 4.50 - 5.90 [facility] Comment on above: Performed By: #### C BC #### [address] [id number] WBC (Bld) [#/Vol] 8.0 10*3/uL Normal 4.4 - 11.3 [facility] Comment on above: Performed By: #### C BC #### [address] [id number] COAGULATION SCREENon 022 aPTT Coag (Bld) [Time] 29 s Normal 26 - 39 [facility] Comment on above: Result Comment: THE APTT IS NO LONGER USED FOR MONITORING UNFRACTIONATED HEPARIN THERAPY. FOR MONITORING HEPARIN THERAPY, USE THE HEPARIN ASSAY. Performed By: #### C OAGS #### [address] [id number] PT Coag (PPP) [Time] 11.5 s Normal 9.8 - 13.4 [facility] Comment on above: Performed By: #### C OAGS #### [address] [id number] PT, INR 1.0 Normal 0.9 - 1.1 [facility] Comment on above: Performed By: #### C OAGS #### [address] [id number] Electrocardiogram 12 Leadon 03-22-2022 Electrocardiogram 12 Lead Ventricular Rate 77 Atrial Rate 153 QRS Duration 94 Q-T Interval 392 QTC Calculation(Bazett) 443 R [place] 62 T [place] 25 QRS Count 12 Q Onset 220 T Offset 416 QTC Fredericia 425 Diagnosis Class Abnormal Diagnosis Atrial fibrillation with a competing junctional pacemaker Abnormal ECG When compared with ECG of 22-MAR-2022 08:27, No significant change was found Confirmed by Heri Dee ([id number]) on 03/25/2022 8:13:26 PM Normal [facility] Electrocardiogram 12 Lead Ventricular Rate 69 Atrial Rate 98 QRS Duration 92 Q-T Interval 378 QTC Calculation(Bazett) 405 R [place] 50 T [place] 48 QRS Count 12 Q Onset 221 T Offset 410 QTC Fredericia 396 Diagnosis Class Abnormal Diagnosis Atrial fibrillation Abnormal ECG No previous ECGs available Confirmed by Heri Dee ([id number]) on 03/28/2022 10:46:39 AM Normal [facility] Order Reconciliationon 03-22 Order Reconciliation Page 1 [...] be shared with your follow-up providers (doctor, proof machine operator, physical therapist, etc.). Guidelines for a Healthy [...] (PHR). 1.Consolidated-Clin (more content not included)... Normal [facility] Order Reconciliation Page 1 Admission Reconciliation Document Reconciliation Type: Admission requested on behalf of Nacho López (Physician) done by Nacho López) Admission - Reconciliation: 22-Mar-2022 10:45 by: Nacho López) Home MedicationsEnteredLast Dose TakenReconciled with current Order Reconciliation Comment/ Additional Information aspirin 81 mg oral tablet orally once a [id number] 7:00 AM Aspirin TabletDOSE = 325 mg Oral Dailyaspirin 81 mg oral tablet continued as the inpatient order Aspirin atorvastatin 40 mg oral tablet 1 tab(s) orally once a [id number]-Mar-2022 7:00 AM Atorvastatin Tablet (LIPITOR)DOSE = 40 mg Oral Daily atorvastatin 40 mg oral tablet continued as the inpatient order Atorvastatin clopidogrel 75 mg oral tablet 1 tab(s) orally once a [id number]-Mar-2022 7:00 AM Clopidogrel Tablet (PLAVIX)DOSE = 75 mg Oral Daily clopidogrel 75 mg oral tablet continued as the inpatient order Clopidogrel losartan 100 mg oral tablet 0.5 tab(s) orally once a [id number]-Mar-2022 7:00 AM Losartan Tablet (COZAAR)DOSE = 50 mg Oral Dailylosartan 100 mg oral tablet continued as the inpatient order Losartan Metoprolol Tartrate 25 mg oral tablet 1 tab(s) orally 2 times a [id number]-Mar-2022 7:00 AM Metoprolol Tartrate Tablet (LOPRESSOR)DOSE = 25 mg Oral 2 Times a DayMetoprolol Tartrate 25 mg oral tablet continued as the inpatient order Metoprolol Tartrate multi vitamin with minerals 1 tab(s) orally once a [id number] 7:00 AM Reviewed and Held tamsulosin 0.4 mg oral capsule 1 cap(s) orally once a [id number]-Mar-2022 7:00 AM Tamsulosin Capsule (FLOMAX)DOSE = 0.4 mg Oral Daily tamsulosin 0.4 mg oral capsule continued as the inpatient order Tamsulosin Xarelto 20 mg oral tablet 1 tab(s) orally once a day (in the evening) 7:00 AM Reviewed and Held Additional Current Orders Sodium Chloride 0.9% Infusion IV Bag Volume = 1,000 mL Run at: 100 mL/hr IntraVenous Normal [facility] Patient Profile - Preop v3on 03-22-2022 Patient Profile - Preop v3 Patient Profile - Preop: Initial Info: Patient DemographicsName: SAVANNAH HOBBS Date: 1965 Address: [address] [place] [address] Primary Phone [phone] How to be AddressedRick Spoken Language PreferredEnglish Source of Informationpatient Stated Reason for AdmissionI have a blockage that the doctor is going to try to open up. Primary Contact Name and NumberJulie Luz Maria [phone] Limitations on Visitors/Phone Callsnone Medications Brought to Hospitalno General Health: Weight in kg111.8 kilogram(s) Weight in djb021.4 pound(s) Weight Methodactual (measured) Scale Typestanding Height [...] Withspouse Living Arrangementshouse Resource/Environmental Concernsnone Anticipated Transition [employer] [facility] Anticipated at Transitionnone Tobacco Use: Tobacco Useno Pre-op Checklist: Arrival [id number] Arrival Time07:39 Procedure TypePCI NPOyes Last Food [id number] 20:00 Last Clear Fluid [id number]-[id number]-6324 20:00 ID Band On Patientpatient ID (name), falls risk Consent Signedpending H&P Completeyes Anesthesia Assessment Completedpending EKG Performedyes Chest X-Ray Performednot ordered Preop Antibioticsnot ordered Beta-deidra Last Dose Date/Iayy29-Ntp-3571 07:00 Type and Screen Resultedn/a Chlorhexadine Bath [...] No Known Allergies: Active Electronic Signatures: Esthela Zamora) (Signed 22-Mar-2022 08:12) Authored: Initial Info, General Health, Health Mgmt, Relationship/Environ, Tobacco Use, Pre-op Checklist, Additional Information Last Updated: 22-Mar-2022 08:12 by Esthela Zamora) [facility] CHEMISTRYOrdered By: SYSTEM SYSTEM on 02-22-2022 [...] rate/Area] mL/min/1.73 m2 Normal >=59mL/min/ 1.73 m2 [facility] Chem S GFR/1.73 sq M.predicted among non-blacks MDRD (S/P/Bld) [Vol rate/Area] mL/min/1.73 m2 Normal >=59mL/min/ 1.73 m2 [facility] Chem S Glucose [Mass/Vol] 132 mg/dL Normal [...] 4.8 E12/L Normal 4.3 - 5.9 E12/L [facility] HemeAutoSS WBC corrected for nucl RBC Auto (Bld) [#/Vol] 7.4 E9/L Normal 4.0 - 11.0 E9/L [facility] HemeAutoSS CNOVon 05-09-2018 CNOV Office Visit (CARDFT) ARIANA HOBBS ([id number]) 1965 MDate Time Provider Department05/09/18 11:00 AM JAMARCUS VELÁZQUEZ During your visit today, we recorded the following information about you: Pulse Blood pressure Weight Height 92/minute 164/90 123.4 kg 1.778 Lorenzo Velázquez MD 05/09/2018 11:26 AM [facility] [place] Department of Cardiovascular MedicineOUTPATIENT VISIT DATE05/09/18OUTPATIENT VISIT TYPEESTABLISHEDPRIMARY CARE PHYSICIAN:Blaise Hardin, DO[address] [facility] [address]Mfdyj: [phone]: [phone] COMPLAINT:HypertensionHIS TORY OF PRESENT ILLNESS:Savannah Hobbs is [...] lightheadedness or syncope.PAST MEDICAL HISTORYDiagnosis Date- A-fib ([facility]) TERESA/Cardio 09/27/13- CHF (congestive heart failure) ([facility])- Hypertension- Sleep apnea with use of continuous [...] or concerns.Jamarcus Velázquez M.D.D[facility] Leement of Cardiovascular MedicineMercy Health Clermont Hospitalrt and Vascular InstituteGregory Ville [address] [address], [place] [address]Ublszb: [phone] Referring Provider: BLAISE HARDIN [[id number]]Allergies As of Date: 05/09/2018(No Known Allergies)Date Reviewed: [...] (around 05/09/2019).Follow-up and Disposition History RecordedEncounter Number: [id number] Status:Closed by JAMARCUS VELÁZQUEZ MD on 05/09/[address] [facility] PROGRESSon 05-09-2018 Protein mass conc HNO ID: [id number] thor: Jamarcus Munoz: (none)Author Type: PhysicianType: Progress NotesFiled: 05/09/2018 11:26 AMNote Text:[facility] and [facility] InstituteLoc[facility] [place] Department of Cardiovascular MedicineOUTPATIENT VISIT DATE05/09/18OUTPATIENT VISIT TYPEESTABLISHEDPRIMARY CARE PHYSICIAN:Blaise Hardin, DO[address] [facility] [address]Fqqpx: [phone]: [phone] COMPLAINT:HypertensionHIS TORY OF PRESENT ILLNESS:Savannah Hobbs is [...] lightheadedness or syncope.PAST MEDICAL HISTORYDiagnosis Date- A-fib ([facility]) TERESA/Cardio 09/27/13- CHF (congestive heart failure) ([facility])- Hypertension- Sleep apnea with use of continuous [...] 10 ) Wt 123.4 kg (272 lb) [id number]% BMI 39.03 kg/m?General: Well appearing, in no [...] with further questions or concerns.Jamarcus Velázquez M.D.Doe Vannpartment of Cardiovascular MedicineMercy Health Clermont Hospitalrt and Vascular InstituteMercy Health [facility], [place] [address]Kxhbfe: [phone] [facility] Vital Signs Date Time Vital Sign Value Performing Clinician Aubree suazo 09-20-2024 14:20-0500 Blood Pressure Location Derrick Dougherty [facility] 09-20-2024 14:20-0500 Diastolic blood pressure 90 mm[Hg] Derrick Dougherty [facility] 09-20-2024 14:20-0500 Heart rate 78 /min Derrick Dougherty [facility] 09-20-2024 14:20-0500 Respiratory rate 18 /min Derrick Dougherty [facility] 09-20-2024 14:20-0500 SaO2% (BldA) [Mass fraction] 96 % Derrick Dougherty [facility] 09-20-2024 14:20-0500 Systolic blood pressure 138 mm[Hg] Derrick Dougherty [facility] 08-30-2024 14:56-0500 Body height 177.8 cm Chantal [...] 08-29-2024 11:45-0500 Diastolic blood pressure 141 mm[Hg] [facility] 08-29-2024 11:45-0500 Heart rate 87 /min [facility] 08-29-2024 11:45-0500 Mean blood pressure 158 mm[Hg] [facility] 08-29-2024 11:45-0500 Respiratory rate 18 /min [facility] 08-29-2024 11:45-0500 SaO2% (BldA) [Mass fraction] 95 % [facility] 08-29-2024 11:45-0500 Systolic blood pressure 192 mm[Hg] [facility] 08-29-2024 11:30-0500 Diastolic blood pressure 136 mm[Hg] [facility] 08-29-2024 11:30-0500 Heart rate 79 /min [facility] 08-29-2024 11:30-0500 Mean blood pressure 156 mm[Hg] [facility] 08-29-2024 11:30-0500 Respiratory rate 18 /min [facility] 08-29-2024 11:30-0500 SaO2% (BldA) [Mass fraction] 95 % [facility] 08-29-2024 11:30-0500 Systolic blood pressure 197 mm[Hg] [facility] 08-29-2024 10:49-0500 Body temperature 97.52 [degF] [facility] 08-29-2024 10:49-0500 Diastolic blood pressure 116 mm[Hg] [facility] 08-29-2024 10:49-0500 Heart rate 90 /min [facility] 08-29-2024 10:49-0500 Respiratory rate 20 /min [facility] 08-29-2024 10:49-0500 SaO2% (BldA) [Mass fraction] 95 % [facility] 08-29-2024 10:49-0500 Systolic blood pressure 167 mm[Hg] [facility] 08-29-2024 10:26-0500 Body temperature 98.6 [degF] [facility] 08-29-2024 10:26-0500 Heart rate 104 /min [facility] 08-23-2024 15:55-0500 Body height 177.8 cm Chantal Peacock DPM FACFAS Work Phone: [facility] [...] 08-20-2024 10:21-0500 Blood Pressure Location Katalina Mcclain [facility] 08-20-2024 10:21-0500 Body temperature 97.34 [degF] Katalina Mcclain [facility] 08-20-2024 10:21-0500 Diastolic blood pressure 86 mm[Hg] Katalina Mcclain [facility] 08-20-2024 10:21-0500 Heart rate 73 /min Katalina Mcclain [facility] 08-20-2024 10:21-0500 SaO2% (BldA) [Mass fraction] 98 % Katalina Mcclain [facility] 08-20-2024 10:21-0500 Systolic blood pressure 134 mm[Hg] Katalina Mcclain [facility] 08-16-2024 16:29-0500 Body height 177.8 [...] 07-12-2024 14:51-0400 Diastolic blood pressure 78 mm[Hg] Chnatal Dolce DPM FACFAS Work Phone: [facility] 05-26-2024 11:08-0400 Blood Pressure Location Priti Bener [facility] 05-26-2024 11:08-0400 Body temperature 98.6 [degF] Priti Bener [facility] 05-26-2024 11:08-0400 Diastolic blood pressure 88 mm[Hg] Priti Bordner [facility] 05-26-2024 11:08-0400 Heart rate 88 /min Priti Jacksondner [facility] 05-26-2024 11:08-0400 SaO2% (BldA) [Mass fraction] 99 % Priti Bener [facility] 05-26-2024 11:08-0400 Systolic blood pressure 130 mm[Hg] Priti Romero [facility] 03-19-2024 15:26-0400 Diastolic blood pressure 88 mm[Hg] Derrick Dougherty [facility] 03-19-2024 15:26-0400 Heart rate 94 /min Derrick Dougherty [facility] 03-19-2024 15:26-0400 Respiratory rate 16 /min Derrick Dougherty [facility] 03-19-2024 15:26-0400 SaO2% (BldA) [Mass fraction] 95 % Derrick Dougherty [facility] 03-19-2024 15:26-0400 Systolic blood pressure 142 mm[Hg] Derrick Dougherty [facility] 11-17-2023 07:57-0500 Blood Pressure Location Nacho Tristanreyes [facility] 11-17-2023 07:57-0500 Diastolic blood pressure 86 mm[Hg] Nacho López [facility] 11-17-2023 07:57-0500 Heart rate 128 /min Nacho López [facility] 11-17-2023 07:57-0500 SaO2% (BldA) [Mass fraction] 93 % Nacho Rittershaji [facility] 11-17-2023 07:57-0500 Systolic blood pressure 134 mm[Hg] Nacho López [facility] 11-03-2023 10:26-0500 [facility] 11-03-2023 10:26-0500 Body temperature 98.06 [degF] [facility] 11-03-2023 10:26-0500 Diastolic blood pressure 88 mm[Hg] [facility] 11-03-2023 10:26-0500 Heart rate 108 /min [facility] 11-03-2023 10:26-0500 SaO2% (BldA) [Mass fraction] 96 % [facility] 11-03-2023 10:26-0500 Systolic blood pressure 138 mm[Hg] [facility] 10-21-2023 16:26-0500 Diastolic blood pressure 78 mm[Hg] Diego Pereze [facility] 10-21-2023 16:26-0500 Heart rate 96 /min Diego Nora [facility] 10-21-2023 16:26-0500 Mean blood pressure 87 mm[Hg] Diego Nora [facility] 10-21-2023 16:26-0500 Respiratory rate 20 /min Diego Nora [facility] 10-21-2023 16:26-0500 SaO2% (BldA) [Mass fraction] 96 % Diego Nora [facility] 10-21-2023 16:26-0500 Systolic blood pressure 105 mm[Hg] Diego Nora [facility] 10-21-2023 15:37-0500 Diastolic blood pressure 61 mm[Hg] Diego Nora [facility] 10-21-2023 15:37-0500 Heart rate 91 /min Diego Nora [facility] 10-21-2023 15:37-0500 Mean blood pressure 77 mm[Hg] Diego Nora [facility] 10-21-2023 15:37-0500 Respiratory rate 20 /min Diego Pereze [facility] 10-21-2023 15:37-0500 SaO2% (BldA) [Mass fraction] 95 % Diego Pereze [facility] 10-21-2023 15:37-0500 Systolic blood pressure 109 mm[Hg] Diego Pereze [facility] 10-21-2023 14:47-0500 Diastolic blood pressure 100 mm[Hg] Diego Pereze [facility] 10-21-2023 14:47-0500 Heart rate 111 /min Diego Pereze [facility] 10-21-2023 14:47-0500 Mean blood pressure 116 mm[Hg] Diego Pereze [facility] 10-21-2023 14:47-0500 Respiratory rate 22 /min Diego Pereze [facility] 10-21-2023 14:47-0500 SaO2% (BldA) [Mass fraction] 95 % Diego Pereze [facility] 10-21-2023 14:47-0500 Systolic blood pressure 148 mm[Hg] Diego Melendez [facility] 10-21-2023 14:20-0500 Heart rate 120 /min Blaise HARDIN [facility] 10-21-2023 14:00-0500 Body temperature 98.06 [degF] Diego Pereze [facility] 10-21-2023 14:00-0500 Heart rate 137 /min Diego Pereze [facility] 10-21-2023 14:00-0500 Respiratory rate 18 /min Diego Pereze [facility] 10-21-2023 13:10-0500 Blood Pressure Location Blaise KAPLE [facility] 10-21-2023 13:10-0500 Body temperature 98.24 [degF] Blaise KAPLE [facility] 10-21-2023 13:10-0500 Diastolic blood pressure 86 mm[Hg] Blaise KAPLE [facility] 10-21-2023 13:10-0500 Heart rate 60 /min Blaise KAPLE [facility] 10-21-2023 13:10-0500 SaO2% (BldA) [Mass fraction] 97 % Blaise KAPLE [facility] 10-21-2023 13:10-0500 Systolic blood pressure 136 mm[Hg] Blaise KAPLE [facility] 06-29-2022 14:11-0400 Blood Pressure Location Nacho Christofferson [facility] 06-29-2022 14:11-0400 Diastolic blood pressure 80 mm[Hg] Nacho Christofferson [facility] 06-29-2022 14:11-0400 Heart rate 85 /min Nacho Christofferson [facility] 06-29-2022 14:11-0400 Respiratory rate 18 /min Nacho Christofferson [facility] 06-29-2022 14:11-0400 SaO2% (BldA) [Mass fraction] 100 % Nacho Christofferson [facility] 06-29-2022 14:11-0400 Systolic blood pressure 128 mm[Hg] Nacho Christofferson [facility] 03-29-2022 11:40-0400 Blood Pressure Location Nacho Christofferson [facility] 03-29-2022 11:40-0400 Diastolic blood pressure 81 mm[Hg] Nacho Christofferson [facility] 03-29-2022 11:40-0400 Heart rate 77 /min Nacho Christofferson [facility] 03-29-2022 11:40-0400 Respiratory rate 18 /min Nacho Christofferson [facility] 03-29-2022 11:40-0400 SaO2% (BldA) [Mass fraction] 100 % Nacho Christofferson [facility] 03-29-2022 11:40-0400 Systolic blood pressure 125 mm[Hg] Nacho Christofferson [facility] 02-22-2022 06:43-0400 Blood Pressure Location Nacho Christofferson [facility] 02-22-2022 06:43-0400 Body temperature 97.7 [degF] Nacho Christofferson [facility] 02-22-2022 06:43-0400 Diastolic blood pressure 90 mm[Hg] Nacho Christofferson [facility] 02-22-2022 06:43-0400 Heart rate 77 /min Nacho Christofferson [facility] 02-22-2022 06:43-0400 Respiratory rate 18 /min Nacho Christofferson [facility] 02-22-2022 06:43-0400 SaO2% (BldA) [Mass fraction] 98 % Nacho Christofferson [facility] 02-22-2022 06:43-0400 Systolic blood pressure 141 mm[Hg] Nacho Christofferson [facility] 01-11-2022 12:26-0400 Blood Pressure Location Blaise KAPLE [facility] 01-11-2022 12:26-0400 Body temperature 97.88 [degF] Blaise KAPLE [facility] 01-11-2022 12:26-0400 Diastolic blood pressure 72 mm[Hg] Blaise KAPLE [facility] 01-11-2022 12:26-0400 Heart rate 82 /min Blaise KAPLE [facility] 01-11-2022 12:26-0400 Respiratory rate 16 /min Blaise PICKETTLE [facility] 01-11-2022 12:26-0400 SaO2% (BldA) [Mass fraction] 98 % Blaise PICKETTLE [facility] 01-11-2022 12:26-0400 Systolic blood pressure 124 mm[Hg] Blaise PICKETTLE [facility] Encounters Encounter Date Encounter Type Care Provider Facility Start: 09-20-2024 End: 09-20-2024 ambulatory NGOZI Dougherty Facility:[facility] Start: 09-20-2024 End: 09-20-2024 Patient encounter procedure Derrick Dougherty [facility] Start: 09-03-2024 ambulatory Clarita Gaitan AMES Facility:[facility] Start: 08-30-2024 End: 08-30-2024 [...] POD Start: 08-29-2024 Emergency department patient visit Sorayaadilene Torresezra Facility:[facility] Start: 08-29-2024 End: 08-29-2024 Emergency department patient visit [facility] Start: 08-23-2024 End: 08-23-2024 Office outpatient visit 15 minutes Chantal R Dolce DPM FACFAS Work Phone: [facility] Comment on above: Venous insufficiency (Primary Dx); Non-pressure chronic ulcer of other part of left lower leg with fat layer exposed ([facility]/HCC) Start: 08-23-2024 End: 08-23-2024 ambulatory CHANTAL R DOLCE Not Available Start: 08-23-2024 End: 08-23-2024 Bamboo flowsheet Chantal R Dolce DPM FACFAS Work Phone: [facility] Start: 08-23-2024 End: 08-23-2024 Bamboo flowsheet Chantal R Dolce DPM FACFAS Work Phone: [facility] Start: 08-20-2024 End: 08-20-2024 ambulatory Yari Lala Facility:[facility] Start: 08-20-2024 End: 08-20-2024 Patient encounter procedure Yari Lala [facility] Start: 08-20-2024 End: 08-20-2024 ambulatory Katalina Mcclain Facility: [facility] Start: 08-20-2024 End: 08-20-2024 Patient encounter procedure Katalina Mcclain [facility] Start: 08-16-2024 End: 08-16-2024 Office [...] 06-29-2024 End: 06-29-2024 ambulatory Chantal R Dolce Facility:[facility] Start: 06-29-2024 End: 06-29-2024 Lab Drop off Chantal R Dolce [facility] Start: 06-29-2024 End: 07-02-2024 Clinisync Result Encounter [...] 05-26-2024 End: 05-26-2024 Lab Drop off Priti Charli Contreraser [facility] Start: 05-26-2024 End: 05-26-2024 ambulatory Priti C Jacksondner Facility:[facility] Start: 05-26-2024 End: 05-26-2024 Patient encounter procedure Priti C Bener [facility] Start: 04-03-2024 End: 04-03-2024 ambulatory CHANTAL R DOLCE Not Available Start: 03-19-2024 End: 03-19-2024 ambulatory PA-C Derrick Dougherty Facility:[facility] Start: 03-19-2024 End: 03-19-2024 Patient encounter procedure Derrick Dougherty [facility] Start: 01-19-2024 End: 01-19-2024 ambulatory CHANTAL R DOLCE Not Available Start: 01-03-2024 End: 01-03-2024 ambulatory CHANTAL R DOLCE Not Available Start: 11-17-2023 End: 11-17-2023 ambulatory XXXX NONE Facility:[facility] Start: 11-17-2023 End: 11-17-2023 Patient encounter procedure Nacho López [facility] Start: 11-10-2023 End: 11-10-2023 ambulatory CHANTAL PEACOCK Not Available Start: 11-03-2023 End: 11-03-2023 ambulatory Maury Garcia Facility:[facility] Start: 11-03-2023 End: 11-03-2023 Patient encounter procedure Maury Garcia [facility] Start: 10-21-2023 End: 10-21-2023 Emergency department patient visit Diego Melendez [facility] Start: 10-21-2023 End: 10-21-2023 ambulatory Blaise HARDIN Facility:[facility] Start: 10-21-2023 End: 10-21-2023 Patient encounter procedure Blaise HARDIN [facility] Start: 06-29-2022 End: 06-29-2022 Patient encounter procedure Nacho López [facility] Start: 03-29-2022 End: 03-29-2022 Patient encounter procedure Nacho López [facility] Start: 02-22-2022 End: 02-22-2022 Patient encounter procedure Nacho López [facility] Start: 01-11-2022 End: 01-11-2022 Patient encounter procedure Blaise HARDIN [facility] Start: 05-09-2018 End: 05-25-2018 Patient encounter JAMARCUS VELÁZQUEZ [facility] Procedures Date Procedure Procedure Detail Performing Clinician Start: 06-29-2024 [facility] Charli fontenot DPM FACFAS Work Phone: Start: 10-21-2023 [...] EST Procedure Visit [facility] [address] [place] [address] Chantal Peacock, DPM FACFAS [address] [place] [address] [facility] Start: 08-30-2024 End: 08-30-2024 Patient encounter procedure 08/30/2024 2:40 PM EST Procedure Visit [facility] [address] [place] [address] Ayanna Peacockm R, DPM FACFAS [address] [place] [address] [facility] Start: 08-28-2024 End: 08-28-2024 Patient encounter procedure 08/28/2024 2:20 PM EST Procedure Visit [facility] [address] [place] [address] Justino Peacockeem R, DPM FACFAS [address] [place] [address] [facility] Start: 08-23-2024 End: 08-23-2024 Patient encounter procedure [facility] Comment on above: Arrived Start: 08-16-2024 End: 08-16-2024 Patient encounter procedure [facility] Comment on above: Arrived Start: 08-02-2024 End: 08-02-2024 Patient encounter procedure 08/02/2024 3:50 PM EST Office Visit [facility] [address] [phone] Dolce, Chantal R, DPM FACFAS [address] [place] [address] Arrived [facility] Comment on above: Arrived Start: 07-26-2024 End: 07-26-2024 Patient encounter procedure 07/26/2024 1:50 PM EST Office Visit [facility] [address] [place] [address] Dolsarah, Chantal R, DPM FACFAS [address] [place] [address] [facility] Start: 07-12-2024 End: 07-12-2024 Patient encounter procedure [facility] Comment on above: Arrived Start: 07-05-2024 End: 07-05-2024 Patient encounter procedure [facility] Comment on above: Arrived Start: 06-28-2024 End: 06-28-2024 Patient encounter procedure 06/28/2024 2:00 PM EDT Office Visit [facility] [address] [phone] Dolce, Chantal R, DPM FAC[facility]AS [address] [facility][Note 3] [place] [address] Arrived [facility] Comment on above: Arrived Start: 05-13-2024 Influenza vaccination Influenza Vacc ine (#1) [facility] Start: 1965 Screening for malign ant neoplasm of colon [facility] Bacteria identified in Wound by Culture Wound culture Microbiology Routine Cellulitis of left lower leg 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) Ordered: 06/28/2024 [facility] Work Phone: Comment on above: Ordered: 06/28/2024 Immunizations Immunization Date Immunization Notes Care Provider Fa cili 08-02-2024 influenza virus vaccine, unspecified formulation Chantal Ericasarah DPM FACFAS Work Phone: [facility] 05-26-2024 tetanus and diphther ia toxoids, adsorbed, preservative free, for adult use (5 Lf of tetanus toxoid and 2 Lf of diphtheria toxoid); Translations: [Lisa (Td)] Priti Romero [facility] 08-24-2023 influenza virus vaccine, unspecified formulation Blaise HARDIN [facility] 08-26-2022 influenza virus vaccine, unspecified formulation Blaise HARDIN [facility] 08-15-2021 influenza virus vaccine, unspecified formulation Blaise HARDIN [facility] 08-15-2021 SARS-CoV-2 (COVID-19 ) mRNA-1273 vaccine Blaise HARDIN [facility] 12-26-2020 COVID-19, mRNA, LNP- S, PF, 30 mcg/0.3 mL dose; Translations: [[employer] COVID-19 Vaccine] Blaise HARDIN [facility] Comment on above: Reason for Medicatio n: Prophylaxis 12-05-2020 COVID-19, mRNA, LNP- S, PF, 30 mcg/0.3 mL dose; Translations: [[employer] COVID-19 Vaccine] Blaise HARDIN [facility] Comment on above: Reason for Medicatio n: Prophylaxis 06-08-2020 influenza virus vaccine, unspecified formulation Blaise PICKETTLE [facility] 10-16-2019 influenza virus vaccine, unspecified formulation Blaise YammerLE [facility] 10-15-2019 influenza virus vaccine, live, attenuated, for intranasal use Blaise YammerLE [facility] 11-28-2017 hepatitis B vaccine, adult dosage Blaise PICKETTLE [facility] 06-29-2017 hepatitis B vaccine, adult dosage Blaise YammerLE [facility] 06-29-2017 influenza virus vaccine, unspecified formulation Blaise PICKETTLE [facility] 05-25-2017 hepatitis B vaccine, adult dosage Blaise PICKETTLE [facility] 09-28-2013 pneumococcal polysaccharide vaccine, 23 valent Blaise YammerANAY [facility] 09-28-2013 influenza, seasonal, injectable Blaise HARDIN [facility] NEGATED: Highlighted row has not occurred!09-21-2019 influenza virus vaccine, live, attenuated, for intranasal use Blaise HARDIN [facility] Payers Date Payer Category Payer Worker's Compensation [id number] [facility] BCBS [id number] 2021 Unknown BCBS BCBS xxxxxx [id number] 2021-Present [phone] [address] [place] [id number] [id number] 2021 Unknown [id number] 1965 Unknown [id number] 2.16.840.1.769533.3.579. 2.727 1965 Unknown [id number] 2.16.840.1.074032.3.579. 2.1258 1965 Unknown [id number] 2.16.840.1.847876.3.579. 2.1258 1963 Unknown [id number] 2.16.840.1.146325.3.579. 2.1258 1963 Unknown [id number] 2.16.840.1.062873.3.579. 2.1258 1963 Unknown [id number] 2.16.840.1.801138.3.579. 2.1258 1963 Unknown [id number] 2.16.840.1.676878.3.579. 2.1258 1963 Unknown [id number] 2.16.840.1.347000.3.579. 2.1258 1963 Unknown [id number] 2.16.840.1.574775.3.579. 2.1258 1963 Unknown [id number] 2.16.840.1.475365.3.579. 2.1258 1963 Unknown [id number] 2.16.840.1.114150.3.579. 2.1258 1963 Unknown [id number] 2.16.840.1.121278.3.579. 2.1258 1963 Unknown [id number] 2.16.840.1.599821.3.579. 2.1258 1963 Unknown [id number] 2.16.840.1.183520.3.579. 2.1258 1963 Unknown [id number] 2.16.840.1.796062.3.579. 2 1965 Unknown [id number] 2.16.840.1.638981.3.579. 2. 1965 Unknown [id number] 2.16.840.1.220198.3.579. 2. 1965 Unknown [id number] 2.16.840.1.184827.3.579. 2 1965 Unknown [id number] 2.16.840.1.125960.3.579. 2. 1965 Unknown [id number] 2.16.840.1.638208.3.579. 2. 1965 Unknown [id number] 2.16.840.1.029627.3.579. 2. 1965 Unknown [id number] 2.16.840.1.022767.3.579. 2. 1965 Unknown [id number] 2.16.840.1.973448.3.579. 2. 1965 Unknown [id number] 2.16.840.1.574792.3.579. 2.727 1963 Unknown [id number] 2.16.840.1.144636.3.579. 2.727 1963 Unknown [id number] 2.16.840.1.229509.3.579. 2.727 1965 Unknown [id number] 2.16.840.1.142720.3.579. 2.727 Social History Date Type Detail Facility Start: 03-30-2021 End: 09-20-2024 Tobacco smoking status Ex-smoker (finding) [facility] Start: 04-03-2024 End: 08-23-2024 Sex Assigned At Male [facility] Tobacco smoking status Never [facility] Start: 11-10-2023 Tobacco smoking stat [facility] Never smoked tobacco [facility] Start: 11-10-2023 Tobacco use and exposure Smokeless tobacco non-user [facility] Start: 04-03-2024 End: 08-30-2024 Alcoholic beverage intake Current drinker of alcohol (finding) [facility] Start: 04-03-2024 End: 08-23-2024 History of Social function [facility] Start: 1965 Sex assigned at Not [...] Assessment Result Facility 09-20-2024 Functional Status N/A [facility] 08-29-2024 Functional Status N/A [facility] 08-20-2024 Functional Status N/A [facility] 05-26-2024 Functional Status N/A [facility] 03-19-2024 Functional Status N/A [facility] 11-17-2023 Functional Status No [facility] 11-03-2023 Functional Status N/A [facility] 10-21-2023 Functional Status N/A [facility] 06-29-2022 Functional Status N/A [facility] 03-29-2022 Functional Status N/A [facility] 02-22-2022 Functional Status No [facility] Clinical Notes 01-19-2020 to 08-30-2024 Chantal Peacock [...] History: Past Medical History: Diagnosis Date Hypertension ([facility]) Medications: Current Outpatient Medications: atorvastatin (Lipitor) 40 [...] MORNING ..DO NOT STOP UNLESS CLEARED BY HEAD CD REACTOR OPERATOR, Disp: , Rfl: Review of systems: Constitutional: [...] subungual debris. They were painful to palpation 80939 on the right 61378 on the left. VASC: DP /PT were nonpalpable bilateral. Capillary refill time < 3 seconds Digits 1-5 bilateral NEURO: [place] Matthew 5.07 monofilament was intact B/L. Vibratory [...] Note ED Patient Education Note Dermatology Sutures, [place], or Adhesive Wound Closure Wound closure refers [...] skin reaction that can lead to infection. [place] To close a wound with neli, the [...] these instructions at home: Medicines ??? Take egst-ldb-yxscirf and prescription medicines only as told by [...] and water are not available, use hand experimental mechanic electrical. ??? Do not try to remove your [...] coming from y (more content not included)... [facility] 08-29-2024 Hospital Discharge instructions Patient Education 08/29/2024 12:21:53 Sutures, Neli, or Adhesive Wound Closure Sutures, [place], or Adhesive Wound Closure Wound closure refers [...] skin reaction that can lead to infection. [place] To close a wound with neli, the [...] Follow these instructions at home: Medicines Take camg-ajj-aqhcaws and prescription medicines only as told by [...] and water are not available, use hand experimental mechanic electrical. Do not try to remove your wound [...] provider. Document Revised: 01/04/2022 Document Reviewed: 01/04/2022 [employer] Patient Education 2023 [employer]. 08/29/2024 12:21:53 Laceration Care, Adult Laceration Care, [...] and water are not available, use hand experimental mechanic electrical. Do not usedisinfectants or antiseptics, such as [...] Follow these instructions at home: Medicines Take tisq-cgm-uldpyuv and prescription medicines only as told by [...] provider. Document Revised: 11/05/2021 Document Reviewed: 11/05/2021 [employer] Patient Education 2023 [employer]. Follow Up Care 08/29/2024 10:22:44 With:Occupational Health: [facility] [phone] Address:Unknown When:09/01/2024 11:33:45 Comments:Call Dr for diagnosis based follow up With:Blaise HARDIN Address: [address], [facility] [place] [address] Business (1) When:09/01/2024 11:33:39 Comments:Neli to removed in 10 days. You may shower with this. Do not submerge your head underwater. [facility] 08-29-2024 Evaluation + Plan note Extrac hector from: Title:ED Note Author:Hansel MELVIN, Anders Good te:08/29/24 Closed head injury without l oss [...] Location:FT.Cardiology Clinic Appointment Type:Cardiology Follow Up (FT) [facility] 12-12-2024 History of Present illness Narrative* Chantal Peacock DPM FACFAS - 08/23/2024 3:40 PM EST Patient: Savannah Hobbs : 1965 PCP: Blaise Hardin MD SUBJECTIVE This is a 59 y.o. male that presents today with a new Unna boot for a wound on the lateral left leg. Allergies: No Known Allergies Past Medical History: Past Medical History: Diagnosis Date Hypertension ([facility]) Medications: Current Outpatient Medications: atorvastatin (Lipitor) 40 [...] MORNING ..DO NOT STOP UNLESS CLEARED BY HEAD CD REACTOR OPERATOR, Disp: , Rfl: ROS: General: denies fever, [...] Cuevas documented in this encounterWashington University Medical CenterHjsxezjxuu68-83-9208 Hospital Discharge instructions Patient Education 08/20/2024 11:31:06 [...] follow-up visits. This is important. Medicines Take nnht-xdi-trtmxlx and prescription medicines only as told by [...] provider. Document Revised: 07/06/2022 Document Reviewed: 07/06/2022 [employer] Patient Education 2023 [employer]. 08/20/2024 11:31:02 Joint Pain Joint Pain Joint [...] by mouth or applied to theskin. Take buqf-iqp-bswkzad and prescription medicines only as told by [...] the cause of your joint pain. Take yzwi-azj-uywudce and prescription medicines only as told by your health care provider. This information is not intended to replace advice given to you by your health care provider. Make sure you discuss any questions you have with your health care provider. Document Revised: 12/09/2020 Document Reviewed: 12/10/2020 [employer] Patient Education 2023 [employer]. 08/20/2024 11:30:57 Nosebleed, Adult Nosebleed, Adult A [...] was caused by dry mucous membranes, use ouwm-zst-mofqteq saline nasal spray or gel and a [...] provider. Document Revised: 06/26/2020 Document Reviewed: 06/26/2020 [employer] Patient Education 2021 [employer]. 08/20/2024 11:30:47 Bleeding Precautions When on Anticoagulant [...] health care provider. Taking other medicines Take acuf-zdt-hnwikdn and prescription medicines only as told by [...] should take while on anticoagulant therapy. Take rckb-eta-fsijihb and prescription medicines only as told by your health care provider. This information is not intended to replace advice given to you by your health care provider. Make sure you discuss any questions you have with your health care provider. Document Revised: 10/26/2021 Document Reviewed: 10/26/2021 [employer] Patient Education 2023 [employer]. 08/20/2024 11:30:46 Atrial Fibrillation, Eeow-sx-Zjyg Atrial Fibrillation Atrial fibrillation (AFib) is a [...] Follow these instructions at home: Medicines Take uweq-okk-prgpcva and prescription medicines only as told by [...] provider. Document Revised: 05/18/2023 Document Reviewed: 05/18/2023 [employer] Patient Education 2023 [employer]. Follow Up Care 08/20/2024 09:19:27 With:DIANE LAWS FAAFP, MYA Ruiz, PED Address: [address], [place] [address]- When: Unknown [facility] 12-09-2024 NotePatient Education Cardiovascular Hypertension, [...] one 12 oz bottle (more content not included)...[facility]12-05-2024 History of Present illness Narrative* Chantal Peacock [...] MORNING ..DO NOT STOP UNLESS CLEARED BY HEAD CD REACTOR OPERATOR, Disp: , Rfl: ROS: General: denies fever, [...] oral antibiotic up. And take as directed Chantal Peacock DPM FACVALERIO documented in this encounterWashington University Medical CenterLlhqjrashw24-80-9746 History of Present illness Narrative* Chantal Peacock DPM FACFAS - 08/02/2024 3:50 PM EST Patient: Savannah [...] History: Past Medical History: Diagnosis Date Hypertension ([facility]) Medications: Current Outpatient Medications: amoxicillin-clavulanate (Augmentin) 875-125 [...] MORNING ..DO NOT STOP UNLESS CLEARED BY HEAD CD REACTOR OPERATOR, Disp: , Rfl: ROS: General: denies fever, [...] left lower leg with fat layer exposed ([facility]) PLAN Pt has an appointment with Dr. [...] Cuevas documented in this encounterWashington University Medical CenterXfqccpgadi75-32-0847 History of Present illness Narrative* TANK Cuevas [...] MORNING ..DO NOT STOP UNLESS CLEARED BY HEAD CD REACTOR OPERATOR, Disp: , Rfl: ROS: General: denies fever, [...] as directed TANK Cuevas documented in [place] encounter[place] [id number] History of Present illness Narrative* Chantal Vargas Ericasarah, DPTariq FACFAS - 07/12/2024 2:30 PM EDT Patient: Savannah [...] History: Past Medical History: Diagnosis Date Hypertension ([facility]) Medications: Current Outpatient Medications: atorvastatin (Lipitor) 40 [...] MORNING ..DO NOT STOP UNLESS CLEARED BY HEAD CD REACTOR OPERATOR, Disp: , Rfl: ROS: General: denies fever, [...] left lower leg with fat layer exposed ([facility]) PLAN Discussed in great detail with the [...] Cuevas documented in this encounterWashington University Medical CenterBymwuxonro19-71-0873 History of Present illness Narrative* TANK Cuevas - 07/05/2024 1:50 PM EDT Patient: Savannah Hobbs : 1965 PCP: Blaise Hardin MD SUBJECTIVE This is a 59 y.o. male that presents today for follow up of wounds bilateral legs with Unna boots. Patient did lemon picker a different antibiotic based off his culture he has been on it now for 5 days. He denies nausea vomiting fever chills. He has been trying to elevate as much as possible but he continues to work. Allergies: No Known Allergies Past Medical History: Past Medical History: Diagnosis Date Hypertension ([facility]) Medications: Current Outpatient Medications: atorvastatin (Lipitor) 40 [...] MORNING ..DO NOT STOP UNLESS CLEARED BY HEAD CD REACTOR OPERATOR, Disp: , Rfl: ROS: General: denies fever, [...] Cuevas documented in this encounterWashington University Medical CenterLsjrarxfqy41-95-8096 NoteMicrobiology PROCEDURE: Wound Culture [R1] SOURCE: Cellulitis BODY SITE: Leg COLLECTED DATE/TIME: 06/29/2024 14:30 EDT RECEIVED DATE/TIME: 06/29/2024 16:50 EDT START DATE/TIME: 06/29/2024 16:50 EDT FREE TEXT SOURCE: left lower leg Chantal Peacock DPM, DPM, Chantal Vargas FINAL REPORTS Final Report [] Verified Date/Time: [...] Locations R1: This test was performed at: [facility], [address] [place] [address], [id number] , , NwlsrhWilson HealthComment on above:Performed By: #### [id number] #### [facility] [address] [place] [address] [id number] History of Present illness Narrative* Chantal Peacock [...] History: Past Medical History: Diagnosis Date Hypertension ([facility]) Medications: Current Outpatient Medications: atorvastatin (Lipitor) 40 [...] MORNING ..DO NOT STOP UNLESS CLEARED BY HEAD CD REACTOR OPERATOR, Disp: , Rfl: Social History: Social History [...] insufficiency noted nonpitting edema b/l legs Neuro: [place]-Matthew 5.07 monofilament intact Vibratory sensation intact Musculoskeletal: [...] Cuevas documented in this encounterWashington University Medical CenterUumgovdzhl47-45-3132 History of Present illness Narrative* TANK Cuevas [...] MORNING ..DO NOT STOP UNLESS CLEARED BY HEAD CD REACTOR OPERATOR, Disp: , Rfl: Review of systems: Constitutional: [...] subungual debris. They were painful to palpation 82832 on the right 87806 on the left. VASC: DP /PT were nonpalpable bilateral. Capillary refill time < 3 seconds Digits 1-5 bilateral NEURO: [place] Matthew 5.07 monofilament was intact B/L. Vibratory [...] 1through 10. TANK Cuevas documented in this encounterWashington University Medical CenterQtebqgjrzo80-84-7202 NoteMicrobiology PROCEDURE: Wound Culture [R1] SOURCE: Abscess BODY SITE: Leg L COLLECTED DATE/TIME: 05/26/2024 11:40 EDT RECEIVED DATE/TIME: 05/28/2024 11:58 EDT START DATE/TIME: 05/28/2024 11:58 EDT FREE TEXT SOURCE: Nick AVENDAÑOCharli, Angela MASCORRO-Charli, Angela FINAL REPORTS Final Report [...] JESSICA=mcg/m;(mg/L), S*=Predicted susceptible interp, R*=Predicted resistant interp Acilwog Antibiotic JESSICA Dilutn JESSICA Interp JESSICA [...] Locations R1: This test was performed at: [facility], [address] [place] [address], [id number]- [facility], NkoiloWilson HealthComment on above:Performed By: #### [id number] #### [facility] [address] [place] [address] [id number] NoteMicrobiology PROCEDURE: Wound Culture [R1] SOURCE: Abscess BODY SITE: Leg L COLLECTED DATE/TIME: 05/26/2024 11:40 EDT RECEIVED DATE/TIME: 05/28/2024 11:58 EDT START DATE/TIME: 05/28/2024 11:58 EDT FREE TEXT SOURCE: Nick MASCORRO-Charli, Angela Romero PARKING [employer] ATTENDANT-Charli, Angela FINAL REPORTS Final Report [] Verified [...] JESSICA=mcg/m;(mg/L), S*=Predicted susceptible interp, R*=Predicted resistant interp Acilwog Antibiotic JESSICA Dilutn JESSICA Interp JESSICA [...] Locations R1: This test was performed at: [facility], [address] [place] [address], [address] , , AkfcbtWilson HealthComment on above:Performed By: #### [id number] #### [facility] [address] [place] [address] [phone] Hospital Discharge instructions Patient Education 05/26/2024 15:57:14 Obesity, Adult, Bikd-zw-Wifd Obesity, Adult Obesity is having too much [...] food choices, such as grocery stores and [employer]. What are the signs or symptoms? The [...] eat. ?How much exercise you get. Take absd-jpk-gffkwly and prescription medicines only as told by [...] provider. Document Revised: 04/06/2022 Document Reviewed: 04/06/2022 [employer] Patient Education 2023 [employer]. 05/26/2024 15:57:11 BMI for Adults BMI for [...] Centers for Disease Control and Prevention: cdc.gov [place] [employer]: heart.org National Heart, Lung, and Blood [place]: nhlbi.nih.gov This information is not intended to replace advice given to you by your health care provider. Make sure you discuss any questions you have with your health care provider. Document Revised: 05/19/2023 Document Reviewed: 05/12/2023 [employer] Patient Education 2023 [employer] 05/26/2024 11:24:05 Cellulitis, Adult, Ksai-jw-Tyrh Cellulitis, Adult Cellulitis is a skin infection. [...] Follow these instructions at home: Medicines Take jfit-hnz-pqagrcg and prescription medicines only as told by [...] provider. Document Revised: 04/26/2023 Document Reviewed: 04/26/2023 [employer] Patient Education 2023 [employer]. 05/26/2024 11:23:45 Venous Ulcer, Zeng-is-Mjcx Venous Ulcer A venous ulcer is a [...] instructions at home: Medicines Take or apply fmxq-bla-vtlmpur and prescription medicines only as told by [...] cannot use soap and water, use hand experimental mechanic electrical. ?Change your bandage. ?Leave stitches or skin [...] provider. Document Revised: 04/18/2023 Document Reviewed: 04/18/2023 [employer] Patient Education 2023 [employer] Roadie. 05/26/2024 11:23:39 Stasis Dermatitis Stasis Dermatitis Stasis [...] who is an expert in skin diseases (research hydraulic engineer). How is this treated? This condition may [...] instructions at home: Medicines Take or use xeuv-byr-cmbrvyi and prescription medicines only as told by [...] provider. Document Revised: 09/13/2023 Document Reviewed: 09/13/2023 [employer] Patient Education 2023 [employer] Roadie. Follow Up Care 05/26/2024 09:37:36 With:DIANE LAWS FAAFP, MYA Ruiz, PED Address: [address] [place] [address] [place] [address] When: Unknown [facility] 09-14-2024 NotePatient Education Dermatology Venous [...] at home: Medicines ? Take or apply udua-aah-ssoeczw and prescription medicines only as told by [...] cannot use soap and water, use hand experimental mechanic electrical. ? Change your bandage. ? Leave stitches [...] provider. Document Revised: 04/18/2023 Document Reviewed: 04/18/2023 [employer] Patient Education ? 2023 [employer] Stasis Dermatitis Stasis dermatitis is a long-term (chronic) skin condition that happens when you have poor circulation. This is when your veins can no longer pump blood back to the heart like they should. This (more content not included)...[facility]02-22-2024 Hospital Discharge instructions Patient Education 11/03/2023 12:33:35 [...] to any changes in your symptoms. Take gerz-uwy-fxgqdit and prescription medicines only as told by [...] provider. Document Revised: 07/17/2020 Document Reviewed: 07/17/2020 [employer] Patient Education 2022 Mobile Roadie. [facility] 02-09-2024 Hospital Discharge instructions Patient Education 10/21/2023 16:38:50 Atrial Fibrillation, Qswp-vi-Swzu Atrial Fibrillation Atrial fibrillation is a type [...] Follow these instructions at home: Medicines Take qxyv-uru-hpmizob and prescription medicines only as told by [...] provider. Document Revised: 02/20/2020 Document Reviewed: 02/20/2020 [employer] Patient Education 2022 Mobile Roadie. Follow Up Care 10/21/2023 13:55:22 With:Nacho López Address:Unknown When:10/24/2023 16:25:49 With:Blaise HARDIN Address: [address], [place] [address]- Business (1) When:Within 3 Day(s) [facility]02-09-2024 Hospital Discharge instructions Patient Education 10/21/2023 13:56:15 Atrial Fibrillation, Azxx-gq-Ocwv Atrial Fibrillation Atrial fibrillation is a type [...] Follow these instructions at home: Medicines Take pdjb-jdn-aaxrnmb and prescription medicines only as told by [...] provider. Document Revised: 02/20/2020 Document Reviewed: 02/20/2020 [employer] Patient Education 2022 Mobile Roadie. Follow Up Care 09/14/2023 11:40:39 With:DIANE LAWS FAAFP, Blaise Smart, MYA, PED Address: [place] [address]- When:Within 1 Week(s) Comments:Going to [facility] ED with Madisyn [facility] 07-18-2022 Hospital Discharge instructions Patient [...] challenges. Follow these instructions at home: Take ilsv-lhy-fabmglv and prescription medicines only as told by [...] 06/07/2009 Document Revised: 12/19/2019 Document Reviewed: 06/28/2019 [employer] Patient Education 2020 Mobile Roadie. Follow Up Care 02/22/2022 09:32:22 With:Cardiac Rehab Address: When: Unknown Comments:Referral to [facility] Cardiac Rehab With:Rene MASON, Nacho Ba Address: [address] [place] [address] [place] [address]- When:3 months [facility]07-11-2022 NotePre-procedure Verification and Time Out: Pre-Procedure Verification and Time Out: Procedure Locationprocedure area HUDDLE - Pre-procedure Verificationcompleted TIME OUT - Final Verificationcompleted immediately prior to procedure start DEBRIEFcompleted General Information: Anesthesia Critical Care: Non-Anesthesia Date/Time of Procedure: 22-Mar-2022 12:52 Post-Procedure Diagnosis: CAD, PCI ENVELOPE CUTTER LAD Procedure Name: PCI ENVELOPE CUTTER LAD Findings: grossly normal anatomy Procedure performed by: dc Binder Lockstitch(s): none Estimated Blood Loss (mL): none Specimen: no Indication(s): CAD, abnormal stress test Informed Consent: written consent obtained Procedure Details: Procedure Details: R femoral 6F heparin XB3.5 Successful PCI mid LAD 100% ENVELOPE CUTTER reduced to 0% residual with two ROCKY. No complications. DAPT, statin, xarelto Tolerance: good Complications: none Electronic Signatures: Nacho López) (Signed 22-Mar-2022 12:55) Authored: Pre-procedure Verification and Time Out, General Information, Procedure Details, Note Completion Last Updated: 22-Mar-2022 12:55 by Nacho López)[facility]07-11-2022 NoteHistory of Present Illness: HPI: SAVANNAH HOBBS is a 56 year old Male with CAD and recent PCI at [facility]. Here for attempted PCI of LAD ENVELOPE CUTTER for level 3 hospital. High risk stress [...] 29 \ Assessment and Plan: Assessment: Attempt ENVELOPE CUTTER LAD PCI high risk due to ENVELOPE CUTTER, level 3 hospital Electronic Signatures: Nacho López) (Signed 22-Mar-2022 10:50) Authored: History of Present Illness, Comorbidities, Family History, Social History, Allergies, Medications Prior to Admission, Review of Systems, Objective, Assessment and Plan, Note Completion Last Updated: 22-Mar-2022 10:50 by Nacho López)[facility]06-13-2022 Evaluation + Plan noteExtracted from: Title:Procedure Note Heart & Vascular Author:Ila jc MD, Nacho Ba Date:02/22/22 Ordered: Basic Metabolic Panel CBC w/ Indices eGFR Future Appointments Appointment Date:03/24/2022 01:45:00 PM Scheduled Provider:Nacho López MD Location:[facility].Cardiology Clinic Appointment Type:Cardiology Follow Up (FT) Future Scheduled Tests Laboratory* HgbA1c 07/01/21 * HgbA1c 06/30/21 * HgbA1c 09/30/21 * HgbA1c 06/26/21 * Lipid Panel 07/06/21 [facility]06-13-2022 Hospital Discharge instructions Patient Education 02/22/2022 08:23:31 CV - Cardiovascular PCI Discharge Instructions (CUSTOM) [place], [place] Cardiovascular PCI DISCHARGE INSTRUCTIONS Diet: Resume [...] for any reason without talking to your airconditioning engineer Site Care: Do not remove dressing for [...] you are interested in smoking cessation, contact [facility] at [phone], ext. [phone]. In the event you are unable to reach your physician, please call Pradeep at [phone] and the burning machine operator will assist you. Seek Medicare Care [...] Up Care 01/28/2022 13:57:14 With:Nacho López Address: [address] [place], [place] [address] [address] [facility] (1) When:03/24/2022 13:45:00 [facility]05-02-2022 Hospital Discharge instructions Patient Education 01/11/2022 13:09:26 Hypertension, Adult, Ldow-rz-Wjpo Hypertension, Adult Hypertension is another name for [...] your doctor. This is important. Medicines Take qdas-rrc-lqzpcmw and prescription medicines only as told by [...] 02/14/2009 Document Revised: 05/09/2019 Document Reviewed: 05/09/2019 [employer] Patient Education 2020 Mobile Roadie. Follow Up Care 07/06/2021 08:42:21 With:DIANE LAWS FAAFP, Blaise Smart, MYA, PED Address: [address] [place], [place] [address] [address]- When:Within 6 Month(s) [facility] 10-20-2021 Evaluation + Plan note Future Scheduled Tests Laboratory* HgbA1c 07/01/21 * HgbA1c 06/30/21 * HgbA1c 09/30/21 * HgbA1c 06/26/21 * Lipid Panel 07/06/21 [facility]05-09-2020 Evaluation + Plan note Future Appointments Appointment Date:01/18/2022 08:00:00 AM Scheduled Provider: Location:.CARDIO Appointment Type:CV Echo (FT) Appointment Date:01/18/2022 09:00:00 AM Scheduled Provider: Location:.[facility] Appointment Type:NM Myocard Spect Multi Rest/Stress-Res Appointment Date:01/18/2022 10:00:00 AM Scheduled Provider: [facility] Type:NM Myocard Spect Multi Rest/Stress - R Appointment Date:01/18/2022 10:30:00 AM Scheduled Provider: Location:.[facility] Appointment Type:NM Myocard Spect Multi Rest/Stress-Str Appointment Date:01/18/2022 11:30:00 AM Scheduled Provider: [facility] App[facility] Type:NM Myocar Spect Multi Rest/Stress - St Appointment Date:01/25/2022 11:00:00 AM Scheduled Provider:Nacho López MD Location:.Cardiology Clinic Appointment Type:Cardiology Follow Up (FT) Future Scheduled Tests Laboratory* HgbA1c 07/01/21 * HgbA1c 06/30/21 * HgbA1c 09/30/21 * HgbA1c 06/26/21 * Lipid Panel 07/06/21 Radiology* NM Myocardial Spect Rest/Stress 1 Day 01/18/22 * Echo Transthoracic Complete 01/18/22 [facility] Evaluation + Plan note Future Appointments Appointment Date:06/29/2022 02:15:00 PM Scheduled Provider:Nacho López MD Location:.Cardiology Clinic Appointment Type:Cardiology Follow Up (FT) Future Scheduled Tests Laboratory* HgbA1c 07/01/21 * HgbA1c 06/30/21 * HgbA1c 09/30/21 * HgbA1c 06/26/21 * Lipid [facility] Appointments Appointment Date:11/17/2023 08:15:00 AM Scheduled Provider:Nacho López MD Location:.Cardiology Clinic Appointment Type:Cardiology Follow Up (FT) [facility] Evaluation + Plan note Future Appointments Appointment Date:09/20/2024 02:30:00 PM Scheduled Provider:Derrick Dougherty PA-C [facility] Future Appointments Appointment Date:09/20/2024 02:30:00 PM Scheduled Provider:Derrick Dougherty PA-C Location:.Cardiology Clinic Appointment Type:Cardiology Follow Up (FT) Diagnostic Tests Pending * Wound Culture 06/29/24 [facility] Evaluation + Plan note Future Appointments Appointment Date:09/20/2024 02:30:00 PM Scheduled Provider:Derrick Dougherty PA-C Location:[facility].Cardiology Clinic Appointment Type:Cardiology Follow Up (FT) Diagnostic Tests Pending * Wound Culture 05/26/24 [facility] evaluation + Plan note Future Appointments Appointment Date:03/21/2025 02:30:00 PM Scheduled Provider:Derrick Dougherty PA-C Location:[facility]Cardiology Clinic Appointment Type:Cardiology Follow Up (FT) [facility] Evaluation note* Diagnosis Tinea unguium- Primary Dermatophytosis of [...] of right [facility] Diagnosis Cellulitis of right leg- [...] left lower leg [facility]* [...] of right leg [facility]* Diagnosis Venous insufficiency- Primary Unspecified venous (peripheral) insufficiency 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) [facility]* Diagnosis Tinea unguium- Primary Dermatophytosis of nail Pain in left toe(s) Pain in right toe(s) [facility] N[facility]ative No data available for this section [facility] Discharge instructions No data available for this section [facility] No data available for this section [facility] Summary Purpose Family History No Family History [...] and content) DATE CREATED AUTHOR 06/20/2018 [facility] DATE CREATED AUTHOR AUTHOR'S ORGANIZ ATION 03/22/2022 [facility] DATE CREATED AUTHOR AUTHOR'S ORGANIZ ATION 05/08/2022 [facility] DATE CREATED AUTHOR AUTHOR'S ORGANIZ ATION 06/04/2024 [facility] DATE CREATED AUTHOR AUTHOR'S ORGANIZ ATION 07/02/2024 [facility] DATE CREATED AUTHOR AUTHOR'S ORGANIZ ATION 09/03/2024 [facility] DATE CREATED AUTHOR AUTHOR'S ORGANIZ ATION 09/25/2024 [facility] DATE CREATED AUTHOR AUTHOR'S ORGANIZ ATION 09/30/2024 [facility] Care Team (unrecognized sect ion and content) 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 Relationship Specialty Start Date End Date Blaise Hardin MD [address] [place] [address] PCP - General Family Medicine 11/10/23 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 Relationship Specialty Start Date End Date Blaise Hardin MD [address] [place] [address] PCP - General Family Medicine 11/10/23 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 Relationship Specialty Start Date End Date Blaise Hardin MD [address] [place] [address] PCP - General Family Medicine 11/10/23 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 Relationship Specialty Start Date End Date Blaise Hardin MD [address] [place] [address] PCP - General Family Medicine 11/10/23 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 Relationship Specialty Start Date End Date Blaise Hardin MD [address] [place] [address] PCP - General Family Medicine 11/10/23 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 Relationship Specialty Start Date End Date Blaise Hardin MD [address] [place] [address] PCP - General Family Medicine 11/10/23 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 Relationship Specialty Start Date End Date Blaise Hardin MD [address] [place] [address] PCP - General [facility] 11/10/23 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 Relationship Specialty Start Date End Date Blaise Hardin MD [address] [place] [address] PCP - [facility] 11/10/23 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 Relationship Specialty Start Date End Date Blaise Hardin MD [address] [facility] [place] [address] PCP - [facility] 11/10/23 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 [facility] [employer] [facility]. provides no warranty or guarantee of the accuracy or completeness of information in this document.
[2024-10-09 12:58] VITALS: BP 152/76; PULSE 72; O2SAT 96
== END 2024-10-09 13:14 | disposition home or self-care (01) ==
LOC: VC 12:48
PROVIDERS: PCP Radiology Diagnostic Radiology; Visit Provider Radiology Diagnostic Radiology
DX: I83.893 Varicose veins of bilateral lower extremities with other complications (principal)
CPT/HCPCS: 36478

== ENCOUNTER 2024-10-22 12:55 | Outpatient (OUT) | payer BC, SELFPAY ==
--- NOTE | 2024-10-22 12:56 | VEIN_ITS ---
Patient Name: SAVANNAH HOBBS MR#: [id number] : 1965 Exam Date: 10/22/2024 Ordering Doctor: DR RODRI YADAV M.D. RADIOLOGY REPORT PROCEDURE: VC EXT VENOUS LT LIMITED COMPARISON: VC EXT VENOUS LT LIMITED, 09/18/2024. INDICATIONS: I80.02 - Phlebitis and thrombophlebitis of superficial veins left leg TECHNIQUE: Lower extremity mills scale and Duplex Doppler evaluation of the deep venous system from the inguinal ligament through the calf veins. FINDINGS: REGION: Left lower extremity. THROMBI: Negative for DVT. 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 Partial compression of proximal medial lower leg perf. COMPRESSIBILITY: Non-compressible segments corresponding to thrombus FLOW: Areas of no flow corresponding to thrombus CONCLUSION: Post ablation occlusive thrombus in 2 treated left leg perforating veins and nonocclusive thrombus in a single treated left leg perforating vein Dictated by: Rodri Yadav MD on 10/22/2024 at 13:15 Approved by: Rodri Yadav MD on 10/22/2024 at 13:17
--- NOTE | 2024-10-22 12:56 | VEIN_ITS ---
Patient Name: SAVANNAH HOBBS MR#: [id number] : 1965 Exam Date: 10/22/2024 Ordering Doctor: DR RODRI YADAV M.D. RADIOLOGY REPORT PROCEDURE: FACILITY EST LMTD VEIN CENTER - OFFICE VISIT FOLLOW UP COMPARISON: [facility] EST LMTD, 10/02/2024. [facility] EST LMTD, 09/18/2024. PROGRESS NOTES: The patient reports no significant problems following intravenous laser ablation 3 left leg perforating veins. The patient has worn his compression stocking most of the time. Physical exam demonstrates significant left leg edema below the knee. No active ulceration. No new erythema or warmth to suggest cellulitis or thrombophlebitis Review of the ultrasound performed the same day demonstrates occlusive thrombus extending throughout 2 of the treated left leg perforating veins with nonocclusive thrombus in the 3rd perforating vein. No deep vein thrombus. The patient expressed a desire to proceed with treatment of incompetent left leg great saphenous vein. VEIN/[facility] EST LMTD IMPRESSION: 1. Successful ablation of treated left leg incompetent perforating veins 2. Persistent incompetent left great saphenous vein. PLAN: Intravenous laser ablation left great saphenous vein Nurse notes, history and physical were reviewed and confirmed, see attached forms. The nurse was present throughout the physical exam and consultation Dictated by: Rodri Yadav MD on 10/22/2024 at 13:29 Approved by: Rodri Yadav MD on 10/22/2024 at 13:31
[2024-10-22 13:18] VITALS: BMI 40.2
--- NOTE | 2024-10-22 13:18 | V.VEINS.HP ---
Vital Signs 10/22/24 13:18 Height 5 ft 10 in Weight 127 kg BMI 40.2 Varicose Veins Patient in today for follow up ultrasound of left lower extremity following EVLT of left leg perforators completed on 10/09/24. Rodri Huntley MD personally performed the services described in this documentation, as scribed by Tosha Evans RDMS in my presence and it is both accurate and complete. Tosha Huntley RDMS, am scribing for, and in the presence of, Dr. Rodri Yadav and in the presence of the patient. thigh: bilateral (symptoms bilaterally noted), knee: bilateral, calf: bilateral, ankle: bilateral and costello: bilateral aching, burning, cramping and tender 3 1 month Worsened in recent months: Yes standing and sitting analgesics, elevating extremities and compression stockings Reports muscle spasms of leg, heaviness, edema and leg edema History of lower extremity trauma: Yes Superficial thrombophlebitis: No Family history of varicose veins: yes Has patient had previous lower extremity venous surgery: No Patient has previously received the following treatment(s) for lower extremity varicose veins: Reports none Does patient have a history of : not applicable Has patient had lower extremity venous scan with relux testing: No Support hose used: Yes Problems walking or doing physical activity: Yes How does it affect you: intermitten pain affects walking/exercise Do you walk much: Yes Do you stand much: Yes Review of Systems ROS Narrative Rodri Huntley MD personally performed the services described in this documentation, as scribed by Tosha Evans RDMS in my presence and it is both accurate and complete. Tosha Huntley RDMS, am scribing for, and in the presence of, Dr. Rodri Yadav and in the presence of the patient. Status of ROS 10 or more systems reviewed and unremarkable except as noted in history and below Cardiovascular Reports: edema Integumentary/Breast Reports: itching, redness, skin tenderness, skin swelling, non-healing lesion and changes in skin color Neurological Reports: weakness in extremities [facility] Medical History (Updated 09/24/24 @ 13:42 by Guillermo Foster) Superficial phlebitis of right leg ?I80.01 - Phlebitis and thrombophlebitis of superficial vessels of right lower extremity (ICD-10) Superficial thrombophlebitis of left leg ?I80.02 - Phlebitis and thrombophlebitis of superficial vessels of left lower extremity (ICD-10) Cellulitis ?L03.90 - Cellulitis, unspecified (ICD-10) Hypercholesteremia ?E78.00 - Pure hypercholesterolemia, unspecified (ICD-10) Afib ?I48.91 - Unspecified atrial fibrillation (ICD-10) Varicose veins of both lower extremities with complications ?I83.893 - Varicose veins of bilateral lower extremities with other complications (ICD-10) Hypertension ?I10 - Essential (primary) hypertension (ICD-10) Heart disease ?I51.9 - Heart disease, unspecified (ICD-10) Surgical History (Updated 10/09/24 @ 13:03 by Guillermo Foster) Status post laser ablation of incompetent vein ?Z98.890 - Other specified postprocedural states (ICD-10) Status post laser ablation of incompetent vein ?Z98.890 - Other specified postprocedural states (ICD-10) Status post laser ablation of incompetent vein ?Z98.890 - Other specified postprocedural states (ICD-10) H/O heart artery stent ?Z95.5 - Presence of coronary angioplasty implant and graft (ICD-10) Family History (Updated 08/15/24 @ 14:27 by Guillermo Foster) Other Family history of hypertension Family history of myocardial infarction Family history of stroke Varicose veins of bilateral lower extremities with pain Social History (Updated 08/15/24 @ 14:28 by Guillermo Foster) Within the past year, how often did you have a drink containing alcohol: 4 or more times a week Smoking status: Never smoker Non-prescribed substance use: denies use Meds Home Medications and Allergies Home Medications ?Medication ?Instructions ?Recorded ?Confirmed ?Type atorvastatin 40 mg tablet 40 mg PO DAILY 08/15/24 08/15/24 History clopidogrel 75 mg tablet (Plavix) 75 mg PO DAILY 08/15/24 08/15/24 History losartan 100 mg tablet (Cozaar) 100 mg PO DAILY 08/15/24 08/15/24 History metoprolol succinate 50 mg 50 mg PO DAILY 08/15/24 08/15/24 History tablet,extended release 24 hr (Toprol XL) metoprolol tartrate 25 mg tablet 25 mg PO BID 08/15/24 08/15/24 History rivaroxaban 20 mg tablet (Xarelto) 20 mg PO DAILY 08/15/24 08/15/24 History Allergies Allergy/AdvReac Type Severity Reaction Status Date / Time No Known Drug Allergies Allergy Verified 08/15/24 14:28 Exam Narrative Exam Narrative: Rodri Huntley MD personally performed the services described in this documentation, as scribed by Tosha Evans RDMS in my presence and it is both accurate and complete. Tosha Huntley RDMS, am scribing for, and in the presence of, Dr. Rodri Yadav and in the presence of the patient. Constitutional Documenting provider has reviewed patient's vital signs: yes Common normals: oriented x3 Nutritional appearance: overweight Cardio Peripheral pulses: posterior tibial pulses present and dorsalis pedis pulses present Extremity Common normals: normal capillary refill General: calf tenderness and edema Right lower extremity: lower leg Right lower leg: inspection and palpation Left lower extremity: lower leg Left lower leg: inspection and palpation Neuro Common normals: oriented x3 Results Imaging Venous US: Radiologist's impression: Heat induced thrombus in three perforating veins in left leg. Partial thrombus in proximal medial lower leg perf. Rodri Huntley MD personally performed the services described in this documentation, as scribed by Tosha Evans RDMS in my presence and it is both accurate and complete. Tosha Huntley RDMS, am scribing for, and in the presence of, Dr. Rodri Yadav and in the presence of the patient. Assessment and Plan Assessment and Plan (1) Superficial thrombophlebitis of left leg: Plan Plan is for patient to return for EVLT of left leg GSV. Rodri Huntley MD personally performed the services described in this documentation, as scribed by Tosha Evans RDMS in my presence and it is both accurate and complete. Tosha Huntley RDMS, am scribing for, and in the presence of, Dr. Rodri Yadav and in the presence of the patient.
--- NOTE | 2024-10-22 13:21 | P.DS_ITS ---
Discharge Plan Discharge Disposition: Home, Self-Care Outpatient Diagnostics: VC Endovenous Ablation 1VeinLT (Routine) Timeframe: 2 Weeks Facility: [facility] - Location: Vein Center Ordered By: Rodri Yadav Plan of Treatment: EVLT of left leg GSV Print Language: [place] Discharge Date/Time: 10/22/24 13:22
== END 2024-10-22 13:22 | disposition home or self-care (01) ==
PROVIDERS: PCP Radiology Diagnostic Radiology; Visit Provider Radiology Diagnostic Radiology
DX: I80.02 Phlebitis and thrombophlebitis of superficial vessels of left lower extremity (principal)
CPT/HCPCS: 93971; G0463